=== PATIENT | female | born 1980 | race Two or more races ===

== ENCOUNTER → 2020-11-11 08:17 | Outpatient (BNVA) | payer MEDICAID, SELFPAY | PROVIDERS: PCP Nurse Practitioner Family; Visit Provider Surgery ==

== ENCOUNTER 2020-11-16 11:51 | Outpatient (REF) | payer MEDICAID, SELFPAY ==
--- NOTE | ~2020-11-16 | XR_ITS ---
EXAMINATION: XR CHEST CLINICAL INFORMATION: Morbid obesity COMPARISON: None TECHNIQUE: 2 views of the chest were obtained. FINDINGS: No significant abnormality is noted involving the heart, lungs, mediastinum, bony thorax or soft tissues. XR/XR chest 2V IMPRESSION: No acute disease.
--- NOTE | 2020-11-16 12:01 | ECG_ITS ---
Test Reason : E66.01 Blood Pressure : / mmHG Vent. Rate : 074 BPM Atrial Rate : 074 BPM P-R Int : 116 ms QRS Dur : 084 ms QT Int : 380 ms P-R-T Axes : 006 004 020 degrees QTc Int : 421 ms Normal sinus rhythm Low voltage QRS Borderline ECG No previous ECGs available Referred By: Gaurav Cheung Electronically Signed By:Robert Mejias
[2020-11-16 13:15] LABS: MANUAL DIFF FLAG NO
[2020-11-16 13:22] LABS: Basophils Percent Auto 0.4 % (0-2); Eosinophils Absolute Auto 0.1 X10*3/uL (0.0-0.4); Eosinophils Percent Auto 0.7 % (0-4); Hematocrit 34.7 % (37-47); Hemoglobin 10.3 g/dl (12.0-16.0); Imm Gran Abs Auto 0.04 X10*3/uL (0.00-0.03); Imm Gran Pct Auto 0.4 % (0.0-0.4); Lymphocytes Absolute Auto 2.9 X10*3/uL (1.2-4.9); Lymphocytes Percent Auto 27.4 % (20-40); Mean Corpuscular HGB Conc 29.7 g/dl (31.0-35.0); Mean Corpuscular Hemoglobin 20.9 pg (27.0-33.0); Mean Corpuscular Volume 70.5 fL (80-98); Mean Platelet Volume 9.4 fL (9.4-12.3); Monocytes Absolute Auto 0.4 X10*3/uL (0.1-1.2); Monocytes Percent Auto 3.6 % (2-11); Neutrophils Absolute Auto 7.2 X10*3/uL (2.0-8.3); Neutrophils Percent Auto 67.5 % (45-73); Platelet Count 337 X10*3/uL (160-400); Red Blood Count 4.92 X10*6/uL (4.20-5.50); Red Cell Distribution Width 17.3 % (11.0-16.0); White Blood Count 10.7 X10*3/uL (4.8-10.8)
[2020-11-16 13:50] LABS: Estimated Average Glucose 111 mg/dL; Hemoglobin A1c % 5.5 %
[2020-11-16 13:55] LABS: Alanine Aminotransferase 49 U/L (0-31); Alkaline Phosphatase 82 U/L (39-117); Anion Gap 14 (12-20); Aspartate Amino Transferase 46 U/L (5-31); Bilirubin Total 0.7 mg/dL (0.0-1.0); Blood Urea Nitrogen 8 mg/dL (9-16); C Reactive Protein 5.72 mg/dL (< or = 0.50); Calcium 8.9 mg/dL (8.4-10.2); Carbon Dioxide 23 mmol/L (22-29); Chloride 105 mmol/L (96-108); Cholesterol 131 mg/dL; Estimated Glomerular Filt Rate > 60; Glucose Random 96 mg/dL (60-115); HDL Cholesterol 31 mg/dL; Iron 23 mcg/dL (30-160); LDL Cholesterol Calculated 84 mg/dl; Percent Iron Saturation 6 % (15-50); Potassium 4.2 mmol/L (3.3-5.1); Sodium 138 mmol/L (135-145); Total Iron Binding Capacity 386 mcg/dL (228-428); Total Protein 7.2 g/dL (6.5-8.0); Triglycerides 83 mg/dL; Unsaturated Iron Binding 363 ug/dL
[2020-11-16 14:22] LABS: Ferritin 37 ng/mL (10-122); Vitamin D 25-OH Total 16.5 ng/mL (>30)
[2020-11-16 14:26] LABS: Folate 6.8 ng/mL (> or = 4.0); Vitamin B12 218 pg/mL (200-900)
[2020-11-17 09:37] LABS: Insulin Level Total 43.6 uIU/mL
[2020-11-18 09:21] LABS: Calcium (PTHI) 8.8 mg/dL (8.6-10.2); PTHI 27 pg/mL (14-64)
[2020-11-19 01:33] LABS: Zinc 58 mcg/dL (60-130)
[2020-11-20 01:51] LABS: Vitamin A 34 mcg/dL (38-98)
[2020-11-20 11:52] LABS: Vitamin B1 10 nmol/L (8-30)
== END 2020-11-16 11:52 | disposition home or self-care (01) ==
LOC: HO.LAB 11:51
PROVIDERS: PCP Nurse Practitioner Family; Visit Provider Surgery
DX: E66.01 Morbid (severe) obesity due to excess calories (principal); R73.03 Prediabetes
CPT/HCPCS: 36415; 71046; 80053; 80061; 82306; 82607; 82728; 82746; 83036; 83525; 83540; 83970; 84425; 84443; 84590; 84630; 85025; 86140; 93005

== ENCOUNTER → 2020-11-29 07:51 | Outpatient (BNVA) | payer MEDICAID, SELFPAY | PROVIDERS: PCP Nurse Practitioner Family; Visit Provider Surgery ==

== ENCOUNTER → 2020-12-03 08:11 | Outpatient (BNVA) | payer MEDICAID, SELFPAY | PROVIDERS: PCP Nurse Practitioner Family; Visit Provider Dietitian, Registered | DX: E66.01 Morbid (severe) obesity due to excess calories (principal); Z68.42 Body mass index [BMI] 45.0-49.9, adult | CPT/HCPCS: 97802 ==

== ENCOUNTER 2020-12-30 09:44 | Outpatient (REF) | payer MEDICAID, SELFPAY ==
--- NOTE | ~2020-12-30 | US_ITS ---
EXAMINATION: US COMPLETE ABDOMEN WITH LIVER ELASTOGRAPHY CLINICAL INFORMATION: Severe obesity due to excess calories. COMPARISON: None. TECHNIQUE: Real-time imaging of the abdominal viscera. Noninvasive ultrasound liver fibrosis assessment is performed using Milo ElastPQ point quantification shear wave elastography (pSWE) with a C5-2 MHz transducer. Multiple elastography samples are obtained. FINDINGS: PANCREAS: Normal. The visualized pancreatic head and body are normal in appearance. The remainder of the pancreas is obscured from visualization by the overlying bowel gas. ABDOMINAL AORTA: The proximal, middle, and distal aortic segments are normal in caliber. INFERIOR VENA CAVA: Visualized portions are normal. LIVER: Normal. The liver demonstrates normal size, contour and echogenicity. No focal lesion or intrahepatic biliary duct dilatation. The right lobe measures 12.7 cm in length. The left lobe measures 9.5 cm in length. Portal flow is hepatopedal. Shear wave liver elastography median stiffness is 1.52 m/s (reference: Normal median stiffness is 1.3 m/s or less). IQR/median stiffness to assess sampling precision is 0.14 (reference: good quality data set is IQR/median stiffness of 0.15 or less). GALLBLADDER: There is a mobile echogenic stone measuring 2.3 x 2.2 cm. COMMON BILE DUCT: Normal in caliber measuring 0.39 cm in diameter. RIGHT KIDNEY: Normal. No hydronephrosis. No renal calculi or focal parenchymal lesions. The kidney measures 11.9 cm in maximum dimension. LEFT KIDNEY: Normal. No hydronephrosis. No renal calculi or focal parenchymal lesions. The kidney measures 12.7 cm in maximum dimension. SPLEEN: Normal. The spleen measures 11.4 cm in maximum dimension. FREE FLUID: None. US/US abdomen comp w elastography IMPRESSION: 1. Cholelithiasis without wall thickening or pericholecystic fluid collection. Mild hepatic steatosis without focal lesion. 2. Liver elastography: Median liver stiffness of 1.52 m/s, suggestive of cACLD ruled out. REFERENCE: Society of Radiologists in Ultrasound Liver Stiffness Thresholds (2019): LIVER STIFFNESS THRESHOLDS: *Liver Stiffness equal or less than 1.3 m/s: High probability of being normal. *Liver Stiffness less than 1.7 m/s: In the absence of other known clinical signs, rules out compensated advanced chronic liver disease. *Liver Stiffness 1.7-2.1 m/s: Suggestive of compensated advanced chronic liver disease but need further test for confirmation. *Liver Stiffness over 2.1 m/s: Rules in compensated advanced chronic liver disease. *Liver Stiffness over 2.4 m/s: Suggestive of clinically significant portal hypertension. QUALITY OF DATA SET: *IQR/Median value equal or less than 0.15 implies a quality data set. *IQR/Median value over 0.15 implies a poor quality data set. SIGNIFICANT CHANGE FROM PRIOR EXAM: Significant change if liver stiffness measurement is 10% or greater from prior exam. OTHER CONSIDERATIONS: The stage of liver fibrosis may be overestimated in the setting of acute hepatitis, liver inflammation, elevated liver function tests, hepatic vascular congestion, obstructive cholestasis, non-fasting state, and infiltrative diseases such as amyloidosis and lymphoma. In some patients with NAFLD, the liver stiffness thresholds for compensated advanced chronic liver disease may be lower. In causes other than viral hepatitis and NAFLD, liver stiffness thresholds are not well established.
== END 2020-12-30 09:45 | disposition home or self-care (01) ==
LOC: HO.US 09:44
PROVIDERS: Visit Provider Surgery
DX: Z01.818 Encounter for other preprocedural examination (principal); E66.01 Morbid (severe) obesity due to excess calories; K21.9 Gastro-esophageal reflux disease without esophagitis; R73.03 Prediabetes
CPT/HCPCS: 76705; 76981

== ENCOUNTER 2021-01-07 10:26 | Outpatient (REF) | payer MEDICAID, SELFPAY ==
--- NOTE | ~2021-01-07 | FL_ITS ---
EXAMINATION: XR GI SERIES CLINICAL INFORMATION: [id number] obesity due to excess calories. COMPARISON: None TECHNIQUE: Routine upper GI air-contrast study was performed. FINDINGS: Following oral administration of thick barium and effervescent granules, there is normal propagation of bolus from the oral cavity through the pharynx, esophagus into stomach without any evidence of obstruction, narrowing or stricture. Following placing patient supine and prone lying, the course, caliber and peristalsis of the stomach, duodenal bulb and the sweep is normal. There is mild gastroesophageal refluxing into the upper esophagus. The mucosal pattern of the stomach and the duodenum is normal. FLUOROSCOPY TIME: 1.9 minutes DOSE AREA PRODUCT: 54.202 uGy-m2 (microgray-meter squared) FL/FL upper GI series IMPRESSION: Moderate gastroesophageal reflux without hiatal hernia.
== END 2021-01-07 10:27 | disposition home or self-care (01) ==
LOC: HO.XRAY 10:26
PROVIDERS: PCP Nurse Practitioner Family; Visit Provider Surgery
DX: Z01.818 Encounter for other preprocedural examination (principal); E66.01 Morbid (severe) obesity due to excess calories; R73.03 Prediabetes; K21.9 Gastro-esophageal reflux disease without esophagitis
CPT/HCPCS: 74240

== ENCOUNTER → 2021-02-18 07:28 | Outpatient (BNVA) | payer MEDICAID, SELFPAY | PROVIDERS: PCP Nurse Practitioner Family; Visit Provider Surgery ==

== ENCOUNTER 2021-02-24 09:35 | Outpatient (REF) | payer MEDICAID, SELFPAY ==
[2021-02-25 13:27] LABS: H Pylori Breath Test NOT DETECTED (NOT DETECTED)
== END 2021-02-24 09:36 | disposition home or self-care (01) ==
LOC: HO.LNP 09:35
PROVIDERS: Surgery; PCP Nurse Practitioner Family; Visit Provider Physician Assistant
DX: E66.01 Morbid (severe) obesity due to excess calories (principal); R73.03 Prediabetes; Z11.0 Encounter for screening for intestinal infectious diseases
CPT/HCPCS: 83013; 99211

== ENCOUNTER → 2024-02-21 14:35 | Outpatient (RCR) | payer MEDICAID, SELFPAY ==
[2020-12-17 11:28] VITALS: BP 128/85; PULSE 74; RESP 14; TEMP 36.3; O2SAT 95; BMI 48.8
--- NOTE | 2020-12-17 12:27 | P.CNHO_ITS ---
Subjective - Subjective Chief complaint: consult for: Anemia. Patient: new to practice Consult date: 12/17/20 Requesting Physician: Dr. Anayeli Ellis. Primary Care Provider: Anayeli Ellis NP Medical Summary: DIAGNOSIS: Multifactorial Anemia. HPI - Consult Narrative Reason for consult: consult for: Multifactorial anemia. Narrative: Chapis Troy is a pleasant 40 year old lady, recently diagnosed with anemia. CBC from 11/16: WBC 10.7, HGB 10.3, HCT 34.7, PLT 337. Iron studies: /. B12 218. Folate 6.8. She tells me she had hypocalcemia and low vitamin-D level. She was started on replacement therapy for all of the above a couple of weeks ago. She has actually started feeling better since then. ROS: She feels tired all the time. Over the past year or so. No fever nor chills. Her appetite is not that good. She has joined the weight management program here. She has been losing weight. No headache no dizziness. She denies chest pain or trouble breathing. No abdominal pain nausea vomiting heartburn indigestion. Bowels are working without any gross blood in it. Denies any dysuria or hematuria. Her periods are regular. Denies any joint pains nor muscle aches. She is rather depressed. Her mom this year. Denies skin rashes nor pruritus. Family history: Mom had dementia. Dad had valvular heart disease and had undergone a valve replacement. 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 She is . Has 3 children. She denies smoking. She drinks very rarely. Review of Systems - Constitutional Reports system reviewed and no additional complaints, except as documented, Reports fatigue, Reports malaise, Reports poor appetite, Reports weakness, Reports weight loss, Denies night sweats - Eyes Reports system reviewed and no additional complaints, except as documented - ENT Reports system reviewed and no additional complaints, except as documented, Denies bleeding gums - Cardiovascular Reports system reviewed and no additional complaints, except as documented, Denies chest pain, Denies leg swelling - Respiratory Reports no additional respiratory complaints, Denies chest congestion - Gastrointestinal Reports system reviewed and no additional complaints, except as documented, Denies bloating, Denies diarrhea - Genitourinary Reports no additional female genitourinary complaints, Denies abnormal vaginal bleeding - Musculoskeletal Reports system reviewed and no additional complaints, except as documented, Denies body aches - Integumentary/Breasts Skin/Breast: Reports no additional skin complaints - Neurologic Reports system reviewed and no additional complaints, except as documented, Denies abnormal movements, Denies abnormal speech - Psychiatric Reports system reviewed and no additional complaints, except as documented, Reports depression - Endocrine Reports no additional endocrine complaints - Hematologic/Lymphatic Reports system reviewed and no additional complaints, except as documented - Allergic/Immunologic Reports system reviewed and no additional complaints, except as documented Oncology Screenings - ECOG Performance Status ECOG Performance Status: 0 [facility] Medical History: Medical History (Last Reviewed 12/17/20 @ 11:31 by Aliza Jaffe) Morbid obesity Prediabetes Vitamin D deficiency Functional capacity: independent ambulation Patient : No Family History: Family History (Last Updated 12/17/20 @ 11:33 by Aliza Jaffe) Mother Frontal lobe dementia Father Heart valve replaced Brother No problems noted. Sister No problems noted. Son No problems noted. Son No problems noted. Daughter No problems noted. Surgical History: Surgical History (Last Reviewed 12/17/20 @ 11:31 by Aliza Jaffe) No significant past surgical history Social History: Social History (Last Reviewed 12/17/20 @ 11:33 by Aliza Jaffe) Alcohol History: Alcohol intake: current Alcohol History Details: Alcohol intake frequency: holiday/special occasion Alcohol type: wine Tobacco History: Patient Tobacco Use Status: Never used Tobacco Substance Use History: Use of substances other than those prescribed or required for medical reasons : No Nutrition Assessment: Patient : No Home Medications and Allergies Home Medications Medication Instructions Recorded Confirmed Type calcium citrate 200 mg (950 mg) 200 mg PO TID 11/11/20 12/17/20 History tablet cholecalciferol (vitamin D3) 250 250 mcg PO QWEEK 11/11/20 12/17/20 History mcg (10,000 unit) capsule Allergies Allergy/AdvReac Type Severity Reaction Status Date / Time No Known Allergies Allergy Verified 11/11/20 09:09 Physical Exam Vital signs: Vital Signs Temp 97.3 F 12/17/20 11:28 Pulse 74 12/17/20 11:28 Resp 14 12/17/20 11:28 BP 128/85 12/17/20 11:28 Pulse Ox 95 12/17/20 11:28 Intake & Output 12/16/20 12/17/20 12/17/20 18:59 06:59 18:59 Other: Weight 129.1 kg [place] Weight in Grams [id number] Weight 129.1 kg - Constitutional Present: mild distress - Routine HEENT Exam Head: Present: normal inspection, normocephalic Eye: Present: normal appearance ENT: Present: mucous membranes moist - Routine Respiratory Exam Present: CTAB - Routine Cardiovascular Exam Cardiovascular: Present: RRR, S1, S2 - Routine Abdominal Exam Present: normal bowel sounds, nontender - Routine Rectal Exam Patient deferred: digital exam Assessment and Plan (1) Anemia Status: Acute This is a pleasant 40-year-old lady with history of anemia. Her anemia appears Multifactorial: 1. Iron deficiency anemia: Her iron studies were suggestive of that. Her ferritin is not low, however she has been partially treated. With multiple mineral deficiencies she could have underlying celiac disease. 2. B12 and folate deficiency: She has been noted to have a low B12. She is on replacement for that. 3. ACD: is a possibility. PLAN: I will proceed with further evaluation. Will check celiac disease profile. Will recheck CBC and iron studies, to see if she has responded to the oral iron. Iron studies: /. If not, will arrange for IV iron. She will continue on her supplements. Will check labs in 1 month. She will return in 3 months for a follow-up visit. Thank you, CC: Dr. Anayeli Ellis.
--- NOTE | 2020-12-17 15:48 | MHC.HEMONCMA ---
Patient came in for a consult for anemia, states that she is doing well. Clinical summary was reviewed and updated. Patient had blood work and will return in 5 months for a follow up.
== END | disposition home or self-care (01) ==
LOC: HO.ONC 12-17 11:13
PROVIDERS: PCP Nurse Practitioner Family; Referring Provider Surgery; Visit Provider Internal Medicine
DX: D50.9 Iron deficiency anemia, unspecified (principal); D51.9 Vitamin B12 deficiency anemia, unspecified; Z79.899 Other long term (current) drug therapy
CPT/HCPCS: 99204

== ENCOUNTER → 2024-08-19 08:55 | Outpatient (BNVA) | payer OTHER, SELFPAY | PROVIDERS: PCP Nurse Practitioner Family; Visit Provider Surgery ==

== ENCOUNTER 2024-08-22 08:07 | Outpatient (AMB) | payer OTHER, SELFPAY ==
--- OUTSIDE RECORDS SUMMARY | 2024-08-22 08:13 | XMS_ITS | Data Portability ---
Author Organization [facility] Address [address] [place] [address] Care Team Providers Care Boxcar Weigher Name Role Phone FLORENTINO HEAD Referring Provider Unavailable FLORENTINO HEAD Primary Care Provider [phone] Assessment Encounter Date Assessment Date Assessment LastModified by Organization Details LastModified Time 11/30/2020 11/30/2020 IMPRESSION: Unchanging mild subjective memory impairment with family history of frontotemporal dementia per patient and mother, diagnosis age 50, passing away age 64. We discussed that I understand her focus on this issue now. She has had responsibility for her mother these past 14 years. Now that her mother has passed, she is thinking about herself and her children as well. We discussed that frontotemporal dementia is known to be familial only in a small subset of cases. Genetic testing is generally not by insurance, mostly because the condition has no specific treatments. For the same reason, PET scan that might show frontal hypoperfusion is also usually not paid for by insurance in this situation. Additionally, she is just 40 years old and her forgetfulness is not definitively different than normal from my perspective. PET scan might not be sufficiently sensitive for her even if her family did have familial predisposition for frontotemporal dementia. From a practical standpoint, laboratories should be done for correctable issues. B12 and vitamin D deficiency have ordered been identified by primary care the patient reports. She is on supplements already. Thyroid testing is pending. Sleep apnea risk factors exist with her being overweight and snoring. Sleep apnea may cause cognitive slowing and is a treatable disorder. She agrees to sleep medicine referral. She would also like baseline testing and we will move toward Cognivue. PLAN Chapis Troy November 30, 2020 Cognivue testing of cognition Cognivue is a new FDA approved computerized test, 10 minutes in length, consisting of a set of cognitive probes across cognitive domains that was developed by neurologist/neurosci entist team based on cognitive and neurophysiological data over recent decades. Sleep medicine consultation for snoring context overweight and mental slowing. Concern for sleep apnea. Please establish a habit of 20 minutes of moderate exercise daily such as a brisk walk. This simple habit carries data associated with slowing of any development of cognitive impairment. It also carries data more generally for benefit for brain health and heart health. Please continue vitamin B-12 and vitamin D supplementation started by primary care. Deficiencies in both of these to 90 minutes can cause cognitive slowing. Please continue your move toward checking her thyroid function. Low thyroid function also has association with cognitive slowing. Follow-up after Cognivue testing for reevaluation Andi Hector M.D. PhD [facility] mrossen Not available 11/30/2020 11:08:44 Plan of Treatment Reminders Order Date Submit Date Provider Last Modified By Organization Details Last Modified Time Details Appointments None recorded. Lab None recorded. Referral sleep medicine referral 2020 021 JOSETTE Not available 17:16:45 Procedures None recorded. Surgeries None recorded. Imaging None recorded. Medication Orders None recorded. Patient TargetsNo targets recorded. Patient InstructionsNo instructions recorded. Reason for Referral Sleep Medicine Referral for Mild neurocognitive disorder Referring Physician: Andi Hector, Neurology, Encounter Date: 11/30/2020 Procedures Surgical History Date Name Laterality Status Provider Name and Address Organization Details Recorded Time 12/16/2020 Cognivue completed Andi Hector MD [address] [place] [address], [phone], [facility] 12/16/2020 17:27:18 Imaging Results None recorded. Procedure Notes None recorded. Medical Equipment None Reported. Allergies No known drug allergies Medications Name Sig Start Date Stop Date Status Note LastModified by Organization Details LastModified Time calcium active Not Available Not Avail able Not Available iron active Not Available Not Availa ble Not Available Vitamin D active Not Available Not Sarah ilable Not Available Vitals Date Recorded Body height Body mass index (BMI) Body weight Respiratory rate Provider Name and Address Organization Details Last Updated DateTime 11/30/2020 162.56 cm 49.3 kg/m2 977869.0 1 g 12 /min Yenni Sanchez [facility] 11/30/2020 10:17:52 Social History Question Answer Notes LastModified by Organizat ion Details LastModified Time Tobacco Smoking Status Never Smoker Yenni carranza [facility] 11/30/2020 10:21:01 What Is Your Level Of Alcohol Consumption? None [facility] Information not available 11/30/2020 What Is Your Level Of Caffeine Consumption? Occasional 1 Per Day Information not available 11/30/2020 What Is The Highest Grade Or Level Of School You Have Completed Or The Highest Degree You Have Received? [id number] [facility] Information not available 11/30/2020 What Is Your Relationship Status? Information not available 11/30/2020 Sex: Unknown Functional Status None recorded. Mental Status None recorded. Family History Relationship Description Onset Age of this Age Resolved Age Notes LastModified by Organization Details LastModified Time Mother Dementia [email or web address] Not avail able 11/30/2020 10:19:31 Unspecified Relation Seizure [email or web address] Not available 11/16 10:19:54 Medical History No medical history recorded. Gynecological HistoryNo gynecological history recorded. Obstetrics History GPAL:G 0 P 0 0 0 0 Past Encounters Encounter ID Performer Location Encounter Start Date Encounter Closed Date Diagnosis/Indication Diagnosis SNOMED-CT Code Diagnosis ICD10 Code Diagnosis Note [id number] Andi Hector MD [facility] [address] [place] [address] [place] [address] 11/30/2020 10:12:29 11/30/2020 11:19:49 Mild neurocognitive disorder 345256465 G31.84 [id number] Andi Hector MD [facility] [address] [place] [address] [place] [address] 12/16/2020 15:05:36 12/22/2020 13:51:33 Mild neurocognitive disorder 948395748 G31.84 Health Concerns Section Related Observation LastModified by Organization Detai ls LastModified Time None Recorded Concern Status LastModified by Organization Details LastModified Time None Recorded Advance Directives Directive None Recorded Payers Encounter Date Sequence Insurance Name Policy Number Policy Forman Covered Member ID Forman Member ID Guarantor Name 11/30/2020 1 [place] Chapis Troy [id number] Chapis Troy 12/16/2020 1 [place] Chapis Troy [id number] Chapis Troy Notes Date Note Type Note Provider Name and Address Organization Details Recorded Time 11/30/2020 text/html She presents for initial neurology consultation for assessment and management of concern for dementia. She is accompanied by her youngest daughter. She starts by describing her mother? s dementia. Her mother was diagnosed 14 years ago with frontotemporal dementia ~2006, at 50 years of age (born 1955). The family took care of her for many years until ~2016 this became too difficult and her mother entered a halfway. Her mother also had seizures. The patient is unsure whether these were connected to the dementia. Her mother passed in September 2020. The patient is grieving but is ? d oing okay.? However, she is concerned that she might have the beginnings of dementia. She feels that although everyone forgets little things here and there she forgets more than usual. This has been true for her for many years, as far back in her adulthood as she can remember. She doesn? t remember parts of her childhood so she cannot say if this was true that. The fact that she has forgetfulness about her childhood is part of her concern about her memory. She doesn? t remember specifics of her 3 birthing experiences that she thinks she should remember. Her occasionally brings up something that happened ~2 years ago and she cannot remember. Her lets it go and does not seem concerned about her memory. It is never the reverse, with her remembering something 2 years ago and her not remembering. At work, she might forget something that is due. She eventually gets it done. 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 Her supervisors are happy with her work. They have never mentioned anything about her memory lapses. She lives with her 3 children as well as her and they are all healthy. She and her split the cooking 50-50 and her memory problems do not impair her ability to do her share. She is in charge of bills and her memory problems do not trouble her with this task. She might forget one or 2 pills per year but after getting one reminder in the mail she pays the bill. She has no problem navigating while driving. She has trouble getting to sleep but does not have subsequent trouble staying asleep. She occasionally does not wake rested if she does not get to sleep and time. She normally wakes up at 8 AM. She tries to start going to sleep at 11 and if she gets to sleep by 2 she is generally well rested the next day but sometimes she doesn? t get to sleep until later and then is not rested of the next day. Both she and her snore. She has gotten used to his snoring and she does not recognize this as part of her problem going to sleep. Andi Hector MD [address] [place] [address], [phone], [facility] 12/02/2020 16:03:37 12/16/2020 text/html Follow-up for Cognivue testing context concern for dementia. She is accompanied by her youngest daughter. Presenting symptomatology is reviewed from initial neurology consultation November 30, 2020: She starts by describing her mother? s dementia. Her mother was diagnosed 14 years ago with frontotemporal dementia ~2006, at 50 years of age (born 1955). The family took care of her for many years until ~2017 this became too difficult and her mother entered a halfway. Her mother also had seizures. The patient is unsure whether these were connected to the dementia. Her mother passed in September 2020. The patient is grieving but is ? d oing okay.? However, she is concerned that she might have the beginnings of dementia. She feels that although everyone forgets little things here and there she forgets more than usual. This has been true for her for many years, as far back in her adulthood as she can remember. She doesn? t remember parts of her childhood so she cannot say if this was true that. The fact that she has forgetfulness about her childhood is part of her concern about her memory. She doesn? t remember specifics of her 3 birthing experiences that she thinks she should remember. Her occasionally brings up something that happened ~2 years ago and she cannot remember. Her lets it go and does not seem concerned about her memory. It is never the reverse, with her remembering something 2 years ago and her not remembering. At work, she might forget something that is due. She eventually gets it done. She has worked at [employer], a part of the [employer] resources department since 2019. Her supervisors are happy with her work. They have never mentioned anything about her memory lapses. She lives with her 3 children as well as her and they are all healthy. She and her split the cooking 50-50 and her memory problems do not impair her ability to do her share. She is in charge of bills and her memory problems do not trouble her with this task. She might forget one or 2 pills per year but after getting one reminder in the mail she pays the bill. She has no problem navigating while driving. She has trouble getting to sleep but does not have subsequent trouble staying asleep. She occasionally does not wake rested if she does not get to sleep and time. She normally wakes up at 8 AM. She tries to start going to sleep at 11 and if she gets to sleep by 2 she is generally well rested the next day but sometimes she doesn? t get to sleep until later and then is not rested of the next day. Both she and her snore. She has gotten used to his snoring and she does not recognize this as part of her problem going to sleep. Andi Hector MD [address] [place] [address] [place], [phone], [facility] 12/16/2020 17:28:20 OBGyn Episode No OBEpisode recorded.
--- OUTSIDE RECORDS SUMMARY | 2024-08-22 08:13 | XMS_ITS | Data Portability ---
Author Organization [facility], , [facility] Address [address] [place] [address] Care Team Providers Care Development Planner Name Role Phone KARENA RAMIREZ Primary Care Provider [phone] Assessment Encounter Date Assessment Date Assessment LastModified by Organization Details LastModified Time 05/08/2024 05/08/2024 After a discussion of treatment options, which included consideration of best practices and patient preferences, the following treatment plan and objectives were adopted: pkeough Not available 05/08/2024 09:53:49 Plan of Treatment Reminders Order Date Submit Date Provider Last Modified By Organization Details Last Modified Time Details Appointments Follow Up, 15 2024 09:15A M Juana Mcdonough MD Not available Not available Not available Lab vitamin D, 25-hydro xy, total, serum 2023 025 [facility], [address] [place] [address], [id number], 07/01/2024 14:45:01 CBC 2023 025 [facility], [address] [place] [address], [id number], 07/01/2024 11:12:19 ferritin , serum or plasma 2023 025 [facility], [address] [place] [address], [address], 07/01/2024 14:45:00 Referral physical therapis t referral - R knee pain x week +, anterio pain, reduced extensio n, weight bearing 2023 024 [facility] (Imaging), [address] [place], [address], 05/08/2024 15:13:08 Procedures None recorded . Surgeries None recorded . Imaging MAMMO, screenin g, tomosynt hesis, bilatera l - 2nd Look Consult/ Diag Mammo/US Breast/G uided Asp/[place] st Bx/Clip Placemen t, as clinical ly indicate d. 2024 025 [facility] (Imaging), [address] [place], [address], 08/05/2024 11:05:14 XR, knee - R knee pain x week+ , difficul ty bearing weight 2023 024 [facility] (Imaging), [address] [place], [address], 05/08/2024 10:24:44 MAMMO, screenin g, tomosynt hesis, bilatera l - 2nd Look Consult/ Diag Mammo/US Breast/G uided Asp/[place] st Bx/Clip Placemen t, as clinical ly indicate d. 2023 024 [facility] (Imaging), [address] [place], [address], 07/30/2024 13:41:48 Medication Orders ergocalc iferol (vitamin D2) 1,250 mcg (50,000 unit) capsule 2024 025 [facility]armacy #[id number], [address] [place], [address], 07/08/2024 09:55:30 Mounjaro 10 mg/0.5 mL subcutan eous pen injector 2024 025 [facility]/Pharmacy #1095, [address] [place], [address], 07/08/2024 09:59:05 etodolac 400 mg tablet 2023 025 [facility]/Pharmacy #1095, [address] [place], [address], 07/08/2024 09:56:26 Wegovy 2.4 mg/0.75 mL subcutan eous pen injector 2023 024 [facility]/Pharmacy #1095, [address] [place], [address], 03/21/2024 14:55:43 ergocalc iferol (vitamin D2) 1,250 mcg (50,000 unit) capsule 2023 024 [facility]/Pharmacy #1095, [address] [place], [address], 12/28/2023 14:42:26 Wegovy 1 mg/0.5 mL subcutan eous pen injector 2023 024 [facility]armacy #1095, [address] [place] [address], [address], 03/19/2024 10:20:03 Wegovy 1.7 mg/0.75 mL subcutan eous pen injector 2023 024 [email or web address] [address] [place], [address], 03/19/2024 10:19:58 Patient TargetsNo targets recorded. Patient InstructionsNo instructions recorded. Reason for Referral Physical Therapist Referral for Pain of right knee joint R knee pain x week +, anterio pain, reduced extension, weight bearing Referring Physician: Talisha Sparrow, Family Medicine, Encounter Date: 05/08/2024 Results Created Date Observation Date Name Description Value Unit Range Abnormal Flag Note LastModifiedBy Organization Detail LastModifiedTime 07/01/1907/01/2024 RBC MORPH OLOGY polychrom FEW Not Available [address], [address], 07/01/2024 11:11:37 07/01/1907/01/2024 RBC MORPH OLOGY hypochrom FEW Not Available [address], [address], 07/01/2024 11:11:37 07/01/1907/01/2024 RBC MORPH OLOGY aniso SLIGHT Not Available [address], [address], 07/01/2024 11:11:37 07/01/19 25 07/01/2024 RBC MORPH OLOGY micro MODERA TE Not Available [address], [address], 07/01/2024 11:11:37 07/01/19 25 07/01/2024 RBC MORPH OLOGY ovalocyte MODERA TE Not Available [address], [address], 07/01/2024 11:11:37 07/01/19 25 07/01/2024 CBC WBC 11.52 K/? ? ?L 3.98-1 0.04 high Not Available [address], [address], 07/01/2024 11:12:19 07/01/1907/01/2024 CBC RBC 5.17 M/? ? ?L 3.93-5 .22 Not Available [address], [address], 07/01/2024 11:12:19 07/01/1907/01/2024 CBC HGB 10.1 g/dL 11.2-1 5.7 low Not Available [address], [address], 07/01/2024 11:12:19 07/01/1907/01/2024 CBC HCT 34.5 % 34.1-4 4.9 Not Available [address], [address], 07/01/2024 11:12:19 07/01/1907/01/2024 CBC MCV 66.7 fL 79.4-9 4.8 low Not Available [address], [address], 07/01/2024 11:12:19 07/01/1907/01/2024 CBC MCH 19.5 pg 25.6-3 2.2 low Not Available [address], [address], 07/01/2024 11:12:19 07/01/1907/01/2024 CBC MCHC 29.3 g/dL 32.2-3 5.5 low Not Available [address], [address], 07/01/2024 11:12:19 07/01/1907/01/2024 CBC plt 360 K/? ? ?L 182-36 9 Not Available [address], [address], 07/01/2024 11:12:19 07/01/1907/01/2024 CBC MPV 9.6 fL 9.4-12 .3 Not Available [address], [address], 07/01/2024 11:12:19 07/01/1907/01/2024 CBC neut% 71.5 % 34.0-7 1.1 high Not Available [address], [address], 07/01/2024 11:12:19 07/01/1907/01/2024 CBC neut# 8.23 1.56-6 .13 high Not Available [address], [address], 07/01/2024 11:12:19 07/01/1907/01/2024 CBC lymph % 22.0 % 19.3-5 1.7 Not Available [address], [address], 07/01/2024 11:12:19 07/01/1907/01/2024 CBC lymph # 2.54 K/? ? ?L 1.18-3 .74 Not Available [address], [address], 07/01/2024 11:12:19 07/01/1907/01/2024 CBC mono% 4.6 % 4.7-12 .5 low Not Available [address], [address], 07/01/2024 11:12:19 07/01/1907/01/2024 CBC mono# 0.53 0.24-0 .56 Not Available [address], [address], 07/01/2024 11:12:19 07/01/1907/01/2024 CBC eo% 1.3 % 0.7-5. 8 Not Available [address], [address], 07/01/2024 11:12:19 07/01/1907/01/2024 CBC eo# 0.15 0.04-0 .36 Not Available [address], [address], 07/01/2024 11:12:19 07/01/1907/01/2024 CBC baso% 0.3 % 0.1-1. 2 Not Available [address], [address], 07/01/2024 11:12:19 07/01/1907/01/2024 CBC baso# 0.03 0.00-0 .08 Not Available [address], [address], 07/01/2024 11:12:19 07/01/19 25 07/01/2024 CBC RDW-CV 19.9 % 11.7-1 4.4 high SREV= Slide revie [facility]. Not Available [address], [address], 07/01/2024 11:12:19 07/01/1907/01/2024 CBC Ig% 0.300 % 0.000- 1.500 Ig % >0.5 Indic ates possi ble Left Shift Not Available [address], [address], 07/01/2024 11:12:19 07/01/1907/01/2024 CBC Ig# 0.040 0.000- 0.093 Not Available [address], [address], 07/01/2024 11:12:19 07/01/1907/01/2024 CBC NRBC% 0.0 % 0.0-0. 2 Not Available [address], [address], 07/01/2024 11:12:19 07/01/1907/01/2024 CBC NRBC# 0.000 0.000- 0.012 Not Available [address], [address], 07/01/2024 11:12:19 07/01/1907/01/2024 HGB A1C hemoglobin A1C 5.4 % 4.8-6. 0 Goal: <7% in Patie nts with Diabe julia An A1c betwe en 5.7-6 .4% is ident ified as pre-d iabet es and sugge sts risk for progr essio n to diabe julia Two a1c value s of 6.5% or highe r is consi stent with a diagn osis of diabe julia but may need furth er confi rmati on Not Available [address], [address], 07/01/2024 12:55:07 07/01/1907/01/2024 HGB A1C estimated average glucose 108.3 mg/dL Not Available [address], [address], 07/01/2024 12:55:07 07/01/1907/01/2024 TOMI TIN ferritin 5 NG/mL 6-115 low Not Available [address], [address], 07/01/2024 14:45:00 07/01/1907/01/2024 VITAM IN D 25-HY DROXY TOTAL vitamin D 25-hydroxy EIA 11.1 NG/mL 20.0-9 9.9 low Thera py is based on measu remen t of total 25-OH D, with level s less than 20 ng/mL indic ative of Vitam in D defic iency . Level s betwe en 20ng/ mL and 30 ng/mL sugge st insuf ficie ncy. Optim al Level s are great er than 30 ng/mL . Not Available [address], [address], 07/01/2024 14:45:01 07/01/1907/03/2024 LIPID PANEL cholesterol 110 mg/dL <200 mg/dl Rhys able 200-2 39 mg/dl Borde rline High >240 mg/dl High Not Available [address], [address], 07/03/2024 13:40:58 07/01/1907/03/2024 LIPID PANEL triglyceride s 65 mg/dL <150 mg/dL Vero l 150-1 99 mg/dL Borde rline High 200-4 99 mg/dL High >500 mg/dL Very High Not Available [address], [address], 07/03/2024 13:40:58 07/01/1907/03/2024 LIPID PANEL direct HDL 35 mg/dL <40 mg/dl - Major Risk for CHD >60 mg/dl - Negat madeleine Risk for CHD Not Available [address], [address], 07/03/2024 13:40:58 07/01/19 25 07/03/2024 LDL - CALCU LATED LDL - calculated 62 RISK CATEG ORY LDL GOAL _ CHD or CHD Risk Equiv alent s <100 mg/dl (10-y ear risk >20%) 2+ Risk Facto rs <130 mg/dl (10-y ear risk <= 20%) 0-1 Risk Facto r? <160 mg/dl ? Almos t all peopl e with 0-1 risk facto r have a 10 year risk <10%, thus 10 year risk asses ment in peopl e with 0-1 risk facto r is not stacia forte. Not Available [address], [address], 07/03/2024 13:40:59 07/01/1907/03/2024 COMP. METAB OLIC PANEL glucose 92 mg/dL 70-100 Not Available [address], [address], 07/03/2024 13:49:40 07/01/19 25 07/03/2024 COMP. METAB OLIC PANEL BUN 10 mg/dL 7-18 Not Available [address], [address], 07/03/2024 13:49:40 07/01/1907/03/2024 COMP. METAB OLIC PANEL creatinine 0.7 mg/dL 0.8-1. 3 low Not Available [address], [address], 07/03/2024 13:49:40 07/01/19 25 07/03/2024 COMP. METAB OLIC PANEL B/C 14.3 ratio Not Available [address], [address], 07/03/2024 13:49:40 07/01/19 25 07/03/2024 COMP. METAB OLIC PANEL GFR >=60ML /MIN mL/mi n normal >=60m L/min - Vero l or midly reduc ed <60mL /min- Decre ased kidne y funct ion <15mL /min - Kidne y failu re [facility] calcu lates estim ated Glome rular Filtr ation Rate (eGFR ) using the Chron ic Kidne y Disea se Epide miolo gy Colla borat ion (CKD- EPI) Equat ion (Christine r et. al 2020) as recom man d by the Natio nal Kidne y Found ation . eGFR is based on age, serum creat inine , and sex. CKD-E PI does not calcu late eGFR by race, does not apply to child roland (age <18 years ), and shoul d not be used in pregn ashley. Not Available [address], [address], 07/03/2024 13:49:40 07/01/1907/03/2024 COMP. METAB OLIC PANEL sodium 142 mmol/ L 136-14 5 Not Available [address], [address], 07/03/2024 13:49:40 07/01/19 25 07/03/2024 COMP. METAB OLIC PANEL potassium 4.2 mmol/ L 3.5-5. 1 Not Available [address], [address], 07/03/2024 13:49:40 07/01/19 25 07/03/2024 COMP. METAB OLIC PANEL chloride 105 mmol/ L 96-107 Not Available [address], [address], 07/03/2024 13:49:40 07/01/19 25 07/03/2024 COMP. METAB OLIC PANEL anion gap 12.4 5.0-15 .0 Not Available [address], [address], 07/03/2024 13:49:40 07/01/19 25 07/03/2024 COMP. METAB OLIC PANEL CO2 25 mmol/ L 21-32 Not Available [address], [address], 07/03/2024 13:49:40 07/01/19 25 07/03/2024 COMP. METAB OLIC PANEL calcium 8.2 mg/dL 8.5-10 .3 low ANA=V erifi ed by Adebayo mclaughlin Not Available [address], [address], 07/03/2024 13:49:40 07/01/19 25 07/03/2024 COMP. METAB OLIC PANEL total protein 7.4 g/dL 6.4-8. 2 Not Available [address], [address], 07/03/2024 13:49:40 07/01/19 25 07/03/2024 COMP. METAB OLIC PANEL albumin 3.8 g/dL 3.4-5. 0 Not Available [address], [address], 07/03/2024 13:49:40 07/01/19 25 07/03/2024 COMP. METAB OLIC PANEL globulin 3.6 g/dL Not Available [address], [address], 07/03/2024 13:49:40 07/01/19 25 07/03/2024 COMP. METAB OLIC PANEL A/G 1.1 ratio 0.8-2. 0 Not Available [address], [address], 07/03/2024 13:49:40 07/01/19 25 07/03/2024 COMP. METAB OLIC PANEL total bilirubin 0.70 mg/dL 0.00-1 .00 Not Available [address], [address], 07/03/2024 13:49:40 07/01/19 25 07/03/2024 COMP. METAB OLIC PANEL AST 10 U/L 0-37 Not Available [address], [address], 07/03/2024 13:49:40 07/01/19 25 07/03/2024 COMP. METAB OLIC PANEL ALT 18 U/L 6-63 Not Available [address], [address], 07/03/2024 13:49:40 07/01/19 25 07/03/2024 COMP. METAB OLIC PANEL alk. phos. 76 U/L 50-136 Not Available [address], [address], 07/03/2024 13:49:40 05/08/20 24 05/08/2024 XR, knee CLINIC AL HISTOR Y: Right knee pain. TECHNI QUE: AP, obliqu e and latera l views of the right knee obtain ed. COMPAR NETTA: None. FINDIN GS: There is no fractu re, sublux ation or disloc ation. The joint spaces are mainta ined. Joint effusi on cannot be ruled out. IMPRES WHITNEY: No acute bone abnorm ality. Cannot rule out joint effusi on. Yue hu Physic victorino: Zaid Brandt [email or web address] (Imaging) [address], [place], [address], 07/08/2024 09:51:14 Result Notes None recorded. Problems Name Problem SNOMED Code Status Onset Date Resolution Date Notes Provider Name and Address Organization Details Recorded Time Obesity 298165803 Completed 202004/11/2022 Removal Reason: BMI = 47.6, 02/04/21 (morbid obesity) LEONARD Griggs, [facility] 2 10:53:55 Morbid obesity 561961706 Active 2021 BMI = 47.6, 02/04/21 Vivien Butterfield LPN null, [facility] 2 10:54:07 Iron deficienc y anemia 61816310 Active 2023 Juana Mcdonough MD [address] [place] [address], [phone], [facility] 4 10:04:04 Problem Notes None recorded. Procedures Surgical History Date Name Laterality Status Provider Name and Address Organization Details Recorded Time 5 Obesity counseling completed Juana Mcdonough MD [address] [place] [address], [phone], [facility] 07/08/2024 10:00:11 4 Smoking Cessation Counselling cancelled SHAMIKA VALENZUELA, PT, DPT [address] [place] [address], [phone], [facility] 05/27/2024 11:26:53 4 Physical Activity Counselling cancelled SHAMIKA VALENZUELA PT, DPT [address] [place] [address], [phone], [facility] 05/27/2024 11:26:53 4 [address]: PT Eval Low Complexity cancelled SHAMIKA VALENZUELA PT, DPT [address] [place] [address], [phone], [facility] 05/27/2024 11:26:53 4 Treatment and Advice cancelled SHAMIKA VALENZUELA PT, DPT [address] [place] [address], [phone], [facility] 05/27/2024 11:26:53 4 G2211 completed Juana Mcdonough MD [address] [place] [address], [phone], [facility] 09/14/2023 10:39:47 4 Obesity counseling completed Juana Mcdonough MD [address] [place] [address], [phone], [facility] 08/23/2023 10:26:18 1 prevention-talha cerna alcohol misuse screening completed Carmen Pete [facility] 10/21/2020 08:30:58 9 Refraction completed Thuy Parker OD [address] [place] [address], [phone], [facility] 12/26/2018 09:27:37 7 Refraction completed Corona Melendez [facility] 05/03/2017 09:16:12 Imaging Results Imaging Date Name Status LastModified by Organiz ation Details LastModified Time 05/08/2024 XR, knee completed [email or web address] ([facility]) [address], [place], [address], 07/08/2024 09:51:14 Procedure Notes None recorded. Medical Equipment None Reported. Allergies No known drug allergies Medications Name Sig Start Date Stop Date Status Note LastModified by Organization Details LastModified Time vitamin d3 5000 iu softgels 50 TAKE 1 CAPSULE BY MOUTH EVERY DAY 08/22 completed Not Available Not Available Not Available cyclobenza lexi 10 mg tablet TAKE 1 TABLET BY MOUTH AT BEDTIME NEEDED active Not Available Not Available No t Available amoxicilli n 500 mg capsule Take 1 capsule every 12 hours by oral route for 7 days. 10/21 completed not taken 10/21/20 t Not Available Not Available Not Available metformin 500 mg tablet TAKE 1 TABLET BY MOUTH EVERY DAY 03/19 completed NOT TAKING 03/19/24 MV Not Available Not Available Not Available acetaminop hen 325 mg tablet 10/21 completed not taken 10/21/20t t Not Available Not Available Not Available cetirizine 10 mg tablet TAKE 1 TABLET BY MOUTH EVERY DAY 08/22 completed Not Available Not Available Not Available azithromyc in 250 mg tablet TAKE 1 TABLET BY MOUTH EVERY DAY 02/04 completed Not Available Not Available Not Available ibuprofen 800 mg tablet Take 1 tablet by mouth up to three times daily as needed for pain 08/22 completed Not Available Not Available Not Available prednisone 20 mg tablet TAKE 3 TABLETS (60 MG TOTAL) BY MOUTH DAILY WITH BREAKFAS T FOR 5 DAYS. 02/04 completed Not Available Not Available Not Available penicillin V potassium 500 mg tablet active Not Available Not Available Not Available acetaminop hen 300 mg-codeine 30 mg tablet 10/21 completed not taken 10/21/20t t Not Available Not Available Not Available calcium 600 mg (as calcium carbonate 1,500 mg) tablet TAKE 1 TABLET BY MOUTH THREE TIMES A DAY 08/22 completed Not Available Not Available Not Available ferrous sulfate 325 mg (65 mg iron) tablet TAKE 1 TABLET BY MOUTH EVERY DAY active Not Available Not Available No t Available Cipro 500 mg tablet Take 1 tablet twice a day by oral route as directed for 7 days. 02/11 completed Not Available Not Available Not Available etodolac 400 mg tablet Take 1 tablet twice a day by oral route as directed . 07/08 completed Not Available Not Available Not Available Iophen C-NR 10 mg-100 mg/5 mL oral liquid active Not Available Not Available Not Available ergocalcif ronnie (vitamin D2) 1,250 mcg (50,000 unit) capsule Take 1 capsule every week by oral route. active Not Available Not Available No t Available ibuprofen 600 mg tablet 10/21 completed not taken 10/21/20t t Not Available Not Available Not Available intrauteri ne device (IUD) Take by intraute rine route. active Not Available Not Available No t Available fluticason e propionate 50 mcg/actuat ion nasal spray,susp ension Franklin 1 spray every day by intranas al route. 08/22 completed Not Available Not Available Not Available cholecalci ferol (vitamin D3) 125 mcg (5,000 unit) capsule TAKE 1 CAPSULE BY MOUTH DAILY 08/22 completed Not Available Not Available Not Available loratadine 10 mg tablet Take 1 tablet every day by oral route for 30 days. 10/21 completed not taken 10/21/20t t Not Available Not Available Not Available naproxen 500 mg tablet TK 1 T PO BID A S DIRECTED active Not Available Not Available No t Available Saline Nasal 0.65 % spray aerosol TK BY NASAL ROUTE QID PRN active Not Available Not Available No t Available Sprintec (28) 0.25 mg-35 mcg tablet TAKE 1 TABLET BY MOUTH ONCE A DAY 10/21 completed not taken 10/21/20t t Not Available Not Available Not Available nitrofuran toin monohydrat e/macrocry stals 100 mg capsule 10/21 completed not taken 10/21/20t t Not Available Not Available Not Available ProAir HFA 90 mcg/actuat ion aerosol inhaler INHALE 2 PUFFS INTO THE LUNGS EVERY 6 HOURS NEEDED FOR WHEEZE 08/22 completed Not Available Not Available Not Available ferrous gluconate 324 mg (38 mg iron) tablet TAKE 1 TABLET BY MOUTH EVERY DAY 10/21 completed not taken 10/21/20t t Not Available Not Available Not Available cholecalci ferol (vitamin D3) 1,250 mcg (50,000 unit) capsule TAKE 1 CAPSULE BY MOUTH ONCE A WEEK FOR 12 WEEKS 08/22 completed Not Available Not Available Not Available PrenaPlus 27 mg iron-1 mg tablet active Not Available Not Available Not Available Vol-Plus 27 mg-1 mg tablet TAKE 1 TABLET BY MOUTH EVERY DAY DIRECTED active Not Available Not Available No t Available Vitron-C 65 mg iron-125 mg tablet,del ayed release TAKE 1 TAB BY MOUTH DAILY SWALLOW WHOLE DO NOT CHEW/ANNIE AK/DISSO LVE/OPEN 08/22 completed Not Available Not Available Not Available mecobalami n (vitamin B12) 1,000 mcg disintegra ting tablet,sub lingual PLACE 1 TABLET UNDER TONGUE AND ALLOW TO DISSOLVE FOR AT LEAST30 SECS BEFORE SWALLOWI NG 08/22 completed Not Available Not Available Not Available Vol-Plus 27 mg iron-1 mg tablet 10/21 completed not taken 10/21/20t t Not Available Not Available Not Available Wegovy 2.4 mg/0.75 mL subcutaneo us pen injector Inject 0.75 mL every week by subcutan eous route. 03/21 completed Not Available Not Available Not Available Wegovy 1.7 mg/0.75 mL subcutaneo us pen injector INJECT 1.7 MG SUBCUTAN EOUSLY ONE TIME PER WEEK 03/19 completed Not Available Not Available Not Available Wegovy 1 mg/0.5 mL subcutaneo us pen injector Inject 1 mg every week by subcutan eous route. 03/19 completed Not Available Not Available Not Available Wegovy 0.25 mg/0.5 mL subcutaneo us pen injector INJECT 0.25 MG EVERY WEEK BY SUBCUTAN EOUS ROUTE FOR 28 DAYS. 12/27 completed Not Available Not Available Not Available Wegovy 0.5 mg/0.5 mL subcutaneo us pen injector INJECT 0.5 MG EVERY WEEK BY SUBCUTAN EOUS ROUTE FOR 28 DAYS. 03/19 completed Not Available Not Available Not Available Mounjaro 7.5 mg/0.5 mL subcutaneo us pen injector Inject 7.5 mg every week by subcutan eous route. active Not Available Not Available No t Available Mounjaro 5 mg/0.5 mL subcutaneo us pen injector AFTER COMPLETI NG FOUR DOSES OF 2.5MG, THEN INJECT 5MG ONCE WEEKLY active Not Available Not Available No t Available Mounjaro 10 mg/0.5 mL subcutaneo us pen injector Inject 0.5 mL every week by subcutan eous route. 2024 active Not Available Not Available Not Avai [email or web address] Mounjaro 2.5 mg/0.5 mL subcutaneo us pen injector INJECT 2.5 MG SUBCUTAN EOUSLY WEEKLY FOR 28 DAYS active Not Available Not Available No t Available Ozempic 0.25 mg or 0.5 mg (2 mg/3 mL) subcutaneo us pen injector INJECT 0.25MG SUBCUTAN EOUSLY WEEKLY FOR 4 WEEKS THEN INCREASE TO 0.5MG WEEKLY 12/27 completed Not Available Not Available Not Available Vitals Date Recorded Body height Body mass index (BMI) Body weight Heart rate Oxygen saturation Oxygen saturation in Arterial blood by Pulse oximetry Systolic blood pressure Diastolic blood pressure Provider Name and Address Organization Details Last Updated DateTime 4 162.56 cm 44.6 kg/m2 990463. 7 g 76 /min 97 % 97 % 118 mm[Hg] 68 mm[Hg] Fiona Quinonez [facility] 4 14:30:23 Date Recorded Body height Body mass index (BMI) Body weight Heart rate Oxygen saturation Oxygen saturation in Arterial blood by Pulse oximetry Systolic blood pressure Diastolic blood pressure Provider Name and Address Organization Details Last Updated DateTime 4 162.56 cm 44.8 kg/m2 345051. 61 g 94 /min 97 % 97 % 122 mm[Hg] 80 mm[Hg] MARK Bravo [facility] 4 09:47:27 Date Recorded Body height Body mass index (BMI) Body weight Oxygen saturation Oxygen saturation in Arterial blood by Pulse oximetry Heart rate Systolic blood pressure Diastolic blood pressure Provider Name and Address Organization Details Last Updated DateTime 4 162.56 cm 44.2 kg/m2 060859. 04 g 98 % 98 % 77 /min 127 mm[Hg] 64 mm[Hg] Keshia Vargassaul [facility] 4 16:12:13 Date Recorded Body height Oxygen saturation Oxygen saturation in Arterial blood by Pulse oximetry Heart rate Body mass index (BMI) Body weight Systolic blood pressure Diastolic blood pressure Provider Name and Address Organization Details Last Updated DateTime 4 162.56 cm 96 % 96 % 76 /min 44.1 kg/m2 387903. 24 g 117 mm[Hg] 72 mm[Hg] Polly Sweeneykele [facility] 4 09:31:47 Date Recorded Body height Body mass index (BMI) Body weight Heart rate Oxygen saturation Oxygen saturation in Arterial blood by Pulse oximetry Systolic blood pressure Diastolic blood pressure Provider Name and Address Organization Details Last Updated DateTime 5 162.56 cm 45 kg/m2 294399. 2 g 73 /min 96 % 96 % 122 mm[Hg] 76 mm[Hg] Vivien Hurt [facility] 5 09:45:36 Social History Question Answer Notes LastModified by Organizat ion Details LastModified Time Tobacco Smoking Status Never Smoker 05/02/24 07/08/24 Viiven Xiongra [facility] 07/08/2024 09:42:45 What Is Your Level Of Alcohol Consumption? Occasional 2/year. No Hx Abuse Information not available 07/15/2013 Do You Wear A Helmet When Biking? No Information not available 10/21/2020 What Is Your Level Of Caffeine Consumption? Moderate Information not available 10/21/2020 What Type Of Diet Are You Following? REGULAR Information not available 10/21/2020 Education 2 Year College At [employer]. Early Education Information not available 07/15/2013 How Many Days In The Past Year Have You Had A Heavy Drinking Consumption (4+ Female, 5+ Male)? 0 [email or web address] Information not available 07/15/2013 Are There Any Guns Present In Your Home? No Information not available 10/21/2020 Live Alone Or With Others? With Others /kids Information not available 10/21/2020 Marital Status [facility] Informatio n not available 07/15/2013 Mosquito Repellent Used Routinely Yes Information not available 10/21/2020 What Was The Date Of Your Most Recent Tobacco Screening? 07/08/2024 05/02/24 SM07/08/24MV [email or web address] Information not available 07/08/2024 How Many Children Do You Have? 3 2 Sons, 1 Girl Information not available 07/15/2013 Seat Belts Used Routinely No Information not available 10/21/2020 Are You Sexually Active? Yes [facility] Information not available 07/15/2013 Smoke Alarm In Home Yes Information not available 10/21/2020 What Types Of Sporting Activities Do You Participate In? No Information not available 10/21/2020 General Stress Level Low Information not available 10/21/2020 Do You Use Sunscreen Routinely? Yes Information not available 10/21/2020 Sex: Unknown Functional Status None recorded. Mental Status None recorded. Family History Nothing Reported Notes:MOM: Passed age 63 in 2020. Frontal lobe dementia, seizures. Was sick for 13-14 years. DAD: Alive and well SIS: 1: a&w BRO: 1: a&w JENNIFFER: 0 SON: 2: a&w Medical History No medical history recorded. Gynecological History Statement/Question Response History of Abnormal Pap N Obstetrics History GPAL:G 0 P 0 0 0 0 Immunizations Vaccine Type Date Status Note Provider Nam e and Address Organization Details Recorded Time [facility] 2 [facility] 11:05[facility]19 COVID-19, mRNA, LNP-S, PF, 100 mcg/0.5mL dose or 50 mcg/0.25mL dose 1 [facility] 10/21/2020 14:32:44 COVID-19, mRNA, LNP-S, PF, 100 mcg/0.5mL dose or 50 mcg/0.25mL dose 1 completed Carmen Ty, [place]OCK null, [facility] 10/21/2020 14:32:55 Td (adult), 2 Lf tetanus toxoid, preservative free, adsorbed 4 completed MARK Bravo, [facility] 08/23/2023 10:30:07 Past Encounters Encounter ID Performer Location Encounter Start Date Encounter Closed Date Diagnosis/Indication Diagnosis SNOMED-CT Code Diagnosis ICD10 Code Diagnosis Note [id number] BROCK Darby, [facility], OFFICE [address] [place] [address] 07/15/2013 10:53:12 07/15/2013 11:24:58 Cough [id number] with tachycardi a and some lung findings will treat below. d/w Midler [id number] Myrtle JON, [facility], OFFICE [address] [place] [address] 02/04/2014 14:42:24 02/04/2014 15:27:54 Lower abdominal pain 76430353 UA + nits, blood ? pyelo Will check labs below tx with cipro Keep close f/u in 48 hrs [id number] Myrtle JON, [facility], OFFICE [address] [place] [address] 02/06/2014 11:32:09 02/06/2014 11:47:39 Lower abdominal pain 40058951 resolving Urine Cx + and senstive to Cipro Backache 440150320 C/W naproxen bid with meals Given flexeril 10 mg qhs Advised heat, stretching F/U prn Urinary tr act infectious disease [id number] Opal Robles NP , [facility], [address] [place] [address] 11/07/2014 12:14:41 11/07/2014 12:53:54 Cough 62180583 bronchitis related to allergies is most likely meds as directed f/u with PCP prn sx persist or increase Irregular periods 79772779 History of [id number] Unclear EDC - 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 Options counseling . Call with any bleeding, other concerns. [id number] Thuy Parker, OD Eye [facility], [facility] [address] [place] [address] 05/03/2017 08:57:13 05/03/2017 09:50:02 Myopic astigmatism 386887451 H52.144 [id number] Thuy Parker, OD [facility], [facility] [address] [place] [address] 12/26/2018 08:39:50 12/26/2018 10:05:53 Myopic astigmatism 921732356 H52.651 [id number] VALERIE Galindo , [facility], [address]ICE [address] [place] [address] 10/21/2020 14:26:03 10/25/2020 13:08:33 Adult health examination 364810103 Z00.00 Will update fasting labs Due for a pap, will arrange in-office Counseling 747148960 Z71 .9 Depression screening 171 266823 Z13.31 depression screening tool administer ed, entered into emr, scored and discussed, time greater than 7.5 minutes Screening for alcohol abuse 595529649 Z13.39 AUDIT 1 out of 12. No concerns. Morbid obesity 697688256 E66.01 BMI 49.8. Discussed healthy diet today. Avoid soda, try drinking water or seltzer hong. Avoid putting cream/suga r in daily coffee. Eat a diet full of whole grains, fruits, vegetables , lean meats/prot eins. Limit carbs with each meal. Encouraged increase physical activity. Try to go for walks outside a few times per week. Try parking the car farther away from the entrance at work, stores, etc. Try taking the stairs more often. She is interested in weight loss program and/or surgery - referral placed to [facility]. Normal grief reaction 27 8202158 F43.20 Mother recently passed, patient grieving. Provided emotional support today. Will have [facility] outreach patient for support. Family his tory of dementia 651080840 Z81.8 Mother had frontal lobe dementia . No one else in the family with dementia. Patient interested in a work-up with neurology, will refer. Insomnia 421586557 G47.0 0 Ongoing insomnia. 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 Avoid screen time before bed Try a daily melatonin over the counter Follow-up in the next several weeks in-house with this EMPLOYMENT AGENCY MANAGER. [id number] VALERIE Galindo , [facility], OFFICE [address] [place] [address] 11/04/2020 10:07:09 11/04/2020 11:03:44 Insomnia 636369933 G47.00 Ongoing insomnia. 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 Avoid screen time before bed Try a daily melatonin over the counter Encouraged increasing physical activity throughout the day Allergic rhinitis 954863 04 J30.9 Nasal congestion , itchy/wate ry eyes. Start flonase and daily antihistam ine as below. Prediabetes 230388748 R7 3.03 A1c 6.0. As above, referral in place for weight loss center. Discussed that weight loss could significan tly lower her risks of developing into diabetes. Screening for malignant neoplasm of cervix 862841319 Z12.4 Pap obtained today. No history of abnormal paps per patient. Obesity 590834214 E66.9 BMI 33.3. Has a referral already in place for [facility] weight loss clinic. Encouraged to call to set up an appt Discussed healthy diet, encouraged regular physical activity. Normal grief reaction 27 0813967 F43.20 Mother recently passed, patient grieving. Provided emotional support today. Will have [facility] outreach patient for support. Hypocalcemia 5978895 E83 .51 Spoke with the patient, notified of critical lab results - calcium 7.9. She denies any current medication s like laxatives or diuretics. No diarrhea/C rohn's disease. Only takes OTC pain medication s as needed for headaches. She does report always feeling cold, trouble losing weight, insomnia. Reviewed with Dr Hill () and Danii Thao ([place]). Will repeat ionized calcium, vitamin D, magnesium, TSH, PTH. F/u with results. [id number] VALERIE Galindo, [facility], OFFICE [address] [place] [address] 11/11/2020 16:33:49 11/11/2020 17:02:05 Toothache 54457952 K08.89 Patient has several missing teeth and a cracked upper left molar but does not appear infected. Continue with as-needed ibuprofen for pain. Appt in place next week with dentistry. Hypocalcemia 3813403 E83 .51 Critically low calcium on routine BMP 11/01/20 Low ionized calcium 4.7 (11/03/20), PTH high at 79.1 (11/03/20), vitamin D low at 7.9 (11/03/20), normal mag, normal TSH Per Dr Aguilar, will arrange for an appt with endo - appt in place now for November 23. In the meantime, start vitamin d and calcium - vitamin d3 50,000 units weekly and calcium 600 mg TID. Patient was instructed to not take together. This EMPLOYMENT AGENCY MANAGER reviewed with Dr Aguilar - her tingling in her hands and her multiple cracked/mi ssing teeth could likely be from halfway low calcium. Her last calcium level was done in 2013 (7 years ago) and was normal. Morbid obesity 533982417 E66.01 BMI 51.2 today. She is now following with weight loss clinic at [facility] They have discussed nutrition/ meal plans with her. The goal might be eventually surgery, although she has to prove first she is able to lose on her own. Advised her to inform them of the above low calcium levels (they had plans to separately do labs through their clinic). As above, also has upcoming appts with endo/Dr Aguilar. [id number] Diogo Hale MD , [facility], [address]ICE [address] [place] [address] 01/28/2021 14:03:45 01/29/2021 15:01:31 Dyspnea on exertion 38245547 R06.09 marked in parking lot subjective ly and objectivel y evidentL clear good sats,HRup at90 P/cxr if neg will send to ER for CTA [id number] Diogo Hale MD , [facility], OFFICE [address] [place] [address] 02/04/2021 08:34:05 02/04/2021 09:01:43 Dyspnea on exertion 04009563 R06.09 02/04/2021 although she looks much better than when seen in Resp unit (panting) she reports berger in parking lot distances, reports as not improved [facility] leukocytos is, feverand LLL infiltrate and high but just over the limit DDimer, was diagnosed with Pn and not PE ([place] from [place]concern for chf, pe, symptomati c anemia , ARLETH remains has upcoming home sleep study ( ordered by neurology for a familial dementia workup) but for my purposes I would like to see results based on her longstandi ng latency ariousals early rise- no ostructive symptomsec ho in light of 225 pro BNPfollow Hgb 10 with 68 MCV 01/28/2021 marked in parking lot subjective ly and objectivel y evidentL clear good sats,HRup at90 P/cxr if neg will send to ER for CTA [id number] Talisha Sparrow NP , [facility], [address] [place] [address] 04/17/2022 16:01:34 04/24/2022 08:16:01 Acute laryngitis 9620768 J04.0 discussed likely viral etiologyad vised voice rest, ibuprofen, warm/cool drinksf/u prn [id number] Juana Mcdonough MD , [facility], [address] [place] [address] 08/23/2023 09:16:09 08/23/2023 11:02:32 Adult health examination 841038075 Z00.00 Depression screening 171 452703 Z13.31 depression screening tool administer edNegative screen Screening for alcohol abuse 850387496 Z13.39 Alcohol use screening tool administer edNegative screen Active or passive immunization 183678788 Z23 Morbid obesity 558931707 E66.01 Previously followed with [facility] weight management nutritionB CA 45Drinks 3 cups of juice everyday, and soda 3x per week - has found it difficult to cut this outI recommend increasing physical activity - go for a walk during lunch breaksOffe red nutrition Vitamin D deficiency 347 99264 E55.9 Recheck Iron defic iency anemia 11976312 D50.9 Recheck levels [id number] Juana Mcdonough MD , [facility], [address] [place] [address] 09/14/2023 10:21:52 09/14/2023 10:52:46 Iron deficiency anemia 88419298 D50.9 Hg 9.8 with low ferritinCo ntinue iron supplement (started last month and tolerating fine) and recheck in 3moVit C helps with iron absorption Vitamin D deficiency 347 73140 E55.9 High dose vit DRecheck in 3mo Morbid obesity 323157270 E66.01 Uncontroll ed with BMI of 45She would like to try a GLP1 agonist and low-dose metforminW e discussed risk of hypoglycem ia with metformin and came to a mutual decision to try a low dose.----- ------Drin ks 3 cups of juice everyday, and soda 3x per week - has found it difficult to cut this outI recommend increasing physical activity - go for a walk during lunch breaksOffe fabiola burkett Did weight-los s diet through [facility] weight management for 3-4 months starting in October 2020 in anticipati on for surgery. She got busy at work so stopped the diet and didn't f/u with [facility]. Also tried Weight Watchers at the end of 2018 for about 3 months. In the past, has tried to go for walks with her kids but has not been able to do this. Obesity 186225705 E66.9 You have been prescribed a new medication called Wegovy. It is a once weekly injection which has been shown to assist in weight loss in most patients. - Start by turning the pen to 0.25mg weekly for four weeks. This is often just a starting dose to get used to the medication , and most patients will need to increase the dose to lower blood sugars to goal. The pen is single use. - Try to take the medication on the same day each week, but you can change the day of the dose as long as it has been at least two days since your last dose. - If you miss a dose, take the missed dose as soon as possible within 5 days of the due date. If it has been more than five days, skip the missed dose and take your next dose on schedule in two days. - If not at goal in four weeks, your provider will increase the dose to 0.5mg weekly. This will be a separate pen dose. Injection: - Store the pens you are not using in the refrigerat or. On the day of your injection, take one pen out to allow the medication to come to room temperatur e. - You can inject the medication in either the abdominal fat, upper arm or the outer thigh. Wipe the area you choose with an alcohol wipe before injection. Rotate the injection site each week. - Remove the cap from the pen. Remove the paper tab from the needle, push and turn the needle on the pen until it is tight. Then pull off the needle cap. - Check that the dose setting is correct. - Angle the pen to 90 degrees from the injection site and insert the needle. - Press the button at the top of the pen, wait for the dose counter to go to 0, and hold for another 6 seconds. - Remove the needle from the pen and place this into a certified sharps container. Place the cap back on the pen for storage until your next dose. You can receive sharps containers from your insurance company or most [facility] have them available for free. Side effects/Co ntraindica tions: - Common initial side effects are abdominal upset with nausea, diarrhea, or constipati on. These often improve with each injection as your body adjusts to the medication . Eat small meals, stick to bland foods, and avoid greasy or sweet foods while the symptoms last. If the symptoms are severe or not improving, contact your provider. - Please tell your provider if you or a family member have a history of medullary thyroid cancer, MEN2, or if you have a history of diabetic retinopath y, gastropare sis or pancreatit is. - Wegovy is not for use in children under 18, or in . [id number] Juana Mcdonough MD , [facility], [address]ICE [address] [place] [address] 12/28/2023 14:19:30 12/31/2023 11:59:06 Screening mammography 65390589 Z12.31 Iron defic iency anemia 58501748 D50.9 Hg slightly improved from 9.8 to 10.3ferrit in still lowContinu e iron supplement (started last month and tolerating fine) and recheck in 3moVit C helps with iron absorption Vitamin D deficiency 347 49506 E55.9 s/p High dose vit D x 8 dosesReche ck in 3mo Morbid obesity 854254338 E66.01 Uncontroll ed with BMI of 45s/p 7 weeks of Wegovy 0.25mgIncr ease to 0.5mg weeklyAfte r 4 weeks, increase to 1mg weekly---- -------Steph nks 3 cups of juice everyday, and soda 3x per week - has found it difficult to cut this outI recommend increasing physical activity - go for a walk during lunch breaksOffe [employer] Did weight-los s diet through [facility] weight management for 3-4 months starting in October 2020 in anticipati on for surgery. She got busy at work so stopped the diet and didn't f/u with [facility]. Also tried Weight Watchers at the end of 2018 for about 3 months. In the past, has tried to go for walks with her kids but has not been able to do this. [id number] Juana Mcdonough MD , [facility], OFFICE [address] [place], [place] [address] 03/19/2024 09:36:23 03/19/2024 10:33:26 Influenza vaccination declined 649433416 Z28.21 Pain of ri ght knee joint 5429540273 15868 M25.561 2mo of R knee pain with going up/down stairs which I suspect is patellofem oral syndromeI recommend 2 weeks of anti-infla mmatory med (2 Aleve twice daily with food) and if no improvemen t, pt to call and would refer to PT Morbid obesity 511582573 E66.01 Has not lost weight on Wegovy 1.7mg. Wants to switch to Mounjaro. I asked her to try the highest dose of Wegovy first, then if no improvemen t, can try to switch (discussed that I am not sure of the efficacy since the two are the same type of med).I don't recommend taking metformin with Wegovy given risk of hypoglycem ia. Iron defic iency anemia 23867784 D50.9 Recheck in 2mo------- -----Hg slightly improved from 9.8 to 10.3ferrit in still lowContinu e iron supplement (started last month and tolerating fine) and recheck in 3moVit C helps with iron absorption [id number] Mario Srinivasan MD , [facility], [address] [place] [address] 05/02/2024 16:03:43 05/02/2024 16:48:01 Sprain of lateral collateral ligament of knee 90575695 S83.421A 44-year-ol d female complainin g of pain in the right knee. Similar pain occurred over a month ago and got better. It occurred after an extended drive over 4 hours. It took a long time to resolve, she was using NSAIDs without much benefit. Now comes in after a [address] Sunday, returning Sunday, with pain developing on Sunday. Negative instabilit y. Negative trauma, tends to lead a sedentary lifestyle. Physical exam: Stocky female in no distress. Bilateral knees are symmetric. Left knee and leg exam is normal. Right knee is negative pain with leg rolling, flexion extension at the knee, negative pain resisted flexion and extension as well. With stress maneuvers, pain is reproduced in the lateral aspect of the knee with lateral collateral ligament stress maneuver only. Negative joint effusion or pain over the patella. Impression and plan: Right knee lateral collateral ligament sprain. Most likely due to poor positionin g during extended driving episodes. Suggest monitor her position when driving, perhaps rearrange seat position, lateral pillow against consult. Meanwhile may use an over-the-c ounter knee brace with stays, this is reviewed and described but I suspect this will gradually get better on its own. [id number] Talisha Sparrow NP , [facility], [address] [place] [address] 05/08/2024 09:23:31 05/08/2024 09:53:02 Pain of right knee joint 3607220535 49579 M25.561 pain x week +likely sprain, tendinitis will get xrayreferr al to PTd/c ibuprofen, allevesent etodolac 400 mg bidwork note to group work program director x 2 weeks [id number] Juana Mcdonough MD , [facility], [address] [place] [address] 07/08/2024 09:35:28 07/08/2024 10:02:42 Screening mammography 58330082 Z12.31 Morbid obesity 292955478 E66.01 Uncontroll edComplica tamir by acute knee sprain over the holidaysTh is Fri will be fourth injection of Mounjaro 5mgI recommend walking everyday and eating healthy Iron defic iency anemia 66315828 D50.9 Uncontroll ed with ferritin of 5, and Hg 10.2 (stable)Sh e forgets to take the iron everydayWi ll bring it to work to try to remember to take it daily (currently thinks she takes it 1-2 x per week)----- -------Hg slightly improved from 9.8 to 10.3ferrit in still lowContinu e iron supplement (started last month and tolerating fine) and recheck in 3moVit C helps with iron absorption Vitamin D deficiency 347 57969 E55.9 s/p High dose vit D x 8 doses last summerRefi ll and will probably need to take weekly Pain of ri ght knee joint 3142940713 96640 M25.561 Acute knee strain last fall, now recovered Health Concerns Section Related Observation LastModified by Organization Detai ls LastModified Time None Recorded Concern Status LastModified by Organization Details LastModified Time None Recorded Advance Directives Directive None Recorded Payers Encounter Date Sequence Insurance Name Policy Number Policy Forman Covered Member ID Forman Member ID Guarantor Name 12/28/2023 1 [facility] [employer] PLAN - NAVIGATOR (PPO) [id number] Chapis [place] [id number] Chapis [place] 03/19/2024 1 [facility] PLAN - NAVIGATOR (PPO) [id number] Chapis [place] [id number] Chapis [place] 05/02/2024 1 [facility] PLAN - NAVIGATOR (PPO) [id number] Chapis [place] [id number] 01 Chapis Aguilaron 05/08/2024 1 [facility] PLAN - NAVIGATOR (PPO) [id number] Chapis [place] [id number] 01 Chapis [place] 07/08/2024 1 [facility] - DIRECT [facility] TYPE I (HMO) [id number] Chapis [place] [id number] Chapis [place] Notes Date Note Type Note Provider Name and Address Organization Details Recorded Time 03/19/2024 text/html Anterior R knee pain since end of with going up/down stairs, getting upNo pain if not movingNo history of R knee pain or trauma Juana Mcdonough MD [address] [place] [address], [phone], [facility] 03/19/2024 10:20:24 05/02/2024 text/html Anterior R knee pain since end of with going up/down stairs, getting upNo pain if not movingNo history of R knee pain or trauma Mario Srinivasan MD [address] [place] [address], [phone], [facility] 05/02/2024 16:36:56 05/08/2024 text/html here for R knee pain x week +seen last week- dx sprainsxs have gotten worse over the weektaking alleve and motrin not helpingpain anterior, walking most painful, waking from sleep.no known injury- sxs developed after long drive Talisha Sparrow NP [address] [place] [address], [phone], [facility] 05/08/2024 09:58:31 OBGyn Episode No OBEpisode recorded.
--- NOTE | 2024-08-22 11:15 | MHC.OFFVISWM ---
VS Expanded 08/22/24 11:21 Height 5 ft 4 in Weight 256 lb BMI 43.9 Body Fat % 43.2 Body Fat Mass 145.2 Fat Free Mass 145.2 Visceral Fat Rating 13 Body Water % 40.6 Body Water Mass 103.8 Basal Metabolic Rate/Score 2,036 Intake Visit Reasons: [employer] SWL BMI 43.9 Allergies No Known Allergies Allergy (Verified 08/22/24 11:15) Medication List - Last Reconciled 08/22/24 by Gaurav Cheung MD cholecalciferol (vitamin D3) 250 mcg PO QWEEK ferrous sulfate 325 mg PO DAILY tirzepatide (Mounjaro) mg subcut HPI HPI [employer] SWL BMI 43.9: Details: Start time: 11.00am, End time: 11.45am ?I spent 40 minutes speaking with the patient on the phone plus an additional 5 minutes reviewing and updating records for a total of 45 minutes HPI Comments Details: Previous weight loss efforts: our WMP in 2020, Wegovy for 6 months without weight loss and Mounjaro for last 7 months and has lost approximately 40lbs so far. She remains however morbidly obese Wakes up: 7am, Sleeps: 11pm Breakfast: skips Lunch: 1pm ([place], [employer]) Dinner: 7pm (pasta, chicken, rice and beans) Snacks: 11am (cookies or chips) Fluids: coffee 16oz/day of [employer] flavored syrup and cream, 4-5pm (ice cream), 8-9pm (ice cream), soda (regular Pepsi: 10oz), Juice (Simply lemonade), ETOH: none Exercise: none PFSH Medical History (Updated 12/17/20 @ 12:53 by Barbra Garland MD) Vitamin D deficiency Prediabetes Morbid obesity Surgical History (Updated 12/17/20 @ 12:53 by Barbra Garland MD) No significant past surgical history Family History (Updated 12/17/20 @ 11:33 by Aliza Jaffe) Mother Frontal lobe dementia Father Heart valve replaced Brother No problems noted. Sister No problems noted. Son No problems noted. Son No problems noted. Daughter No problems noted. Social History Alcohol intake: current Alcohol intake frequency: holidays/special occasions only Alcohol type: wine Patient Tobacco Use Status: Never used Tobacco Telehealth Telehealth Telehealth Platform: Telephone Location of provider rendering services: practice address Location of patient: address on file Patient Identification confirmed using: Name, : Yes Telehealth method: voice only Patient verbally consented to treatment: Yes Patient verbally consented to billing insurance company: Yes Patient informed of any privacy concerns related to visit: Yes Minutes spent on Phone/Video with Pt.: 45 Assessment & Plan Assessment & Plan (1) Morbid obesity: Code(s): E66.01 - Morbid (severe) obesity due to excess calories Category: Medical Plan: 1.? Plan for lap sleeve gastrectomy. If diaphragmatic or ventral hernias are present at time of surgery, these will be repaired laparoscopically as well. I emphasized the importance of close follow-up, adherence to instructions and good communication. The surgery does not replace the need to change your lifestlyle which is the cause of the obesity problem. The surgery provides the motivation to try again to change your lifestyle, it reduces the appetite and make the transition to a better lifestyle easier and doubles the amount of weight you would lose compared to doing the lifestyle change without the surgery. You will need to be on a liquid diet with protein shakes for 2 weeks before surgery to maximize weight loss and boost your nutritional status to recover better from surgery and also for the first two weeks after surgery to let the stomach heal before we introduce other foods. After the first 2 weeks we will introduce protein bars and soft foods like scrambled eggs, cottage cheese and yogurt and after the 6th week will introduce meat, fish and cooked vegetables in small amounts. Over time you should be able to eat everything in small amounts. Side effects like nausea, vomiting, heartburn or abdominal pain are not common in the practice unless you are not following in the practice. This operation requires lifetime commitment to following in our practice and communication with me. You will much less weight and experience side effects if you don?t communicate or not following in the practice. Complications are rare and in our practice is about 1/10 of the national average. However, you can develop bleeding that may require transfusion (hasn?t happened for year in the practice), you may from complications (we did not have any deaths in the practice) and infections. Infections are usually a result of breakdown in communication or not understanding or following directions correctly. They are difficult to treat, they can happen during the first 6 weeks, they may require to be in the hospital for weeks or even months, not being able to eat by mouth and you may have drains and surgeries to try and correct the issue. Other risks and complications include possible conversion to an open procedure, leaks, small bowel obstruction, blood clots, cardiac, or pulmonary complications, as alf complications such as ulcers, insufficient weight loss and vitamin deficiencies. 2. You will receive a link of our software braulio to generate an individualized nutritional and exercise plan specific for you. Please send me a screenshot of the plans you will generate Meal to include lean meat (beef, fish, pork, turkey, chicken), or yi yogurt, or egg whites, or beans with a salad with olive oil and fruits (berries, pears, apples, kiwi). Avoid salt, breads, potatoes, rice, pasta, desserts. ?3. If you choose shakes, each shake would be drunk slowly, like coffee in a period of 2 hours. ?4. If you choose bars, cut each bar in 4 pieces and eat each piece in 30min ?to make each bar last 2 hours. ?5. I emphasized the importance of measuring accurately the food portion and measure it when serving the food in plate ?6. The meal portions include a specific number of forks of meat and salad. You always eat the meat portion but you can replace up to half of salad/vegetables portion with rice, potatoes or pasta, or a fruit ?if you like. The less you do it the better weight loss will be. ?7. One full-size fork is what it can be scooped on the fork without falling aside and not what can be bit with the fork. Use regular forks like those you find in a typical restaurant. ?8.? Please buy the body composition scale we discussed and send me weight measurements as soon as possible and then once a week. Always include your diet and exercise plan. 9. The best choice would be to purchase a stationary bike, elliptical or treadmill at home that can track calories. Let me know if you do so I can give you an exercise plan. ?10.?It is important of avoiding and for at least 18 months postoperatively and has been discussed at the infosession. ?11. Goal is to lose at least 1.5-2lbs per week ?12. Goal to lose 10% of your weight before surgery, which is about 26lbs. Ultimate weight goal: 230lbs before surgery 13. Please follow the diet plan exactly without any change. If you don't like something about the plan or you feel hungry you need to communicate with me so I can help you revise the plan. You should not change the plan yourself. 14. To be scheduled for EGD to assess the stomach's anatomy. The possibility of biopsies was discussed. Patient needs to avoid use of NSAIDs and aspirin for 1 week prior to EGD. You must be on liquids only the day before your endoscopy. Risks of perforation and bleeding was discussed with the patient. This will be an outpatient procedure with IV sedation. 15. Continue the Mounjaro and let me know when you have injection left. Orders: Orders Complete Blood Count Auto Diff Today E66.01 - Morbid (severe) obesity due to excess calories, R73.03 - Prediabetes IRON PROFILE Today E66.01 - Morbid (severe) obesity due to excess calories, R73.03 - Prediabetes Comprehensive Met. Panel Today E66.01 - Morbid (severe) obesity due to excess calories, R73.03 - Prediabetes Zinc Today E66.01 - Morbid (severe) obesity due to excess calories, R73.03 - Prediabetes C Reactive Protein Today E66.01 - Morbid (severe) obesity due to excess calories, R73.03 - Prediabetes Vitamin A Today E66.01 - Morbid (severe) obesity due to excess calories, R73.03 - Prediabetes TSH reflex Free T4 Today E66.01 - Morbid (severe) obesity due to excess calories, R73.03 - Prediabetes Ferritin Today E66.01 - Morbid (severe) obesity due to excess calories, R73.03 - Prediabetes XR chest 2V Today E66.01 - Morbid (severe) obesity due to excess calories, R73.03 - Prediabetes Insulin Today E66.01 - Morbid (severe) obesity due to excess calories, R73.03 - Prediabetes Hemoglobin A1c Today E66.01 - Morbid (severe) obesity due to excess calories, R73.03 - Prediabetes Lipid Panel Today E66.01 - Morbid (severe) obesity due to excess calories, R73.03 - Prediabetes Vitamin B12 and Folate Today E66.01 - Morbid (severe) obesity due to excess calories, R73.03 - Prediabetes Vitamin B1 Today E66.01 - Morbid (severe) obesity due to excess calories, R73.03 - Prediabetes Vitamin D 25-OH Total Today E66.01 - Morbid (severe) obesity due to excess calories, R73.03 - Prediabetes ECG 12 lead EKG Today E66.01 - Morbid (severe) obesity due to excess calories, R73.03 - Prediabetes Referrals Nutrition/Dietitian Referral E66.01 - Morbid (severe) obesity due to excess calories, R73.03 - Prediabetes Behavioral Health Referral E66.01 - Morbid (severe) obesity due to excess calories, R73.03 - Prediabetes
[2024-08-22 11:21] VITALS: BMI 43.9
== END 2024-08-22 11:45 | disposition home or self-care (01) ==
LOC: HO.HBS 08:07
PROVIDERS: PCP Nurse Practitioner Family; Visit Provider Surgery
DX: E66.813 Obesity, class 3 (principal); Z68.41 Body mass index [BMI] 40.0-44.9, adult
CPT/HCPCS: 98010

== ENCOUNTER 2024-08-29 09:37 | Outpatient (REF) | payer OTHER, SELFPAY ==
--- NOTE | ~2024-08-29 | XR_ITS ---
EXAMINATION: XR CHEST CLINICAL INFORMATION: E66.01 - Morbid (severe) obesity due to excess calories COMPARISON: 11/16/2020. TECHNIQUE: 2 views of the chest were obtained. FINDINGS: The cardiac, hilar, and mediastinal contours are normal. The lungs are clear bilaterally. There is no pneumothorax or pleural effusion. There is no focal osseous or soft tissue abnormality. XR/XR chest 2V IMPRESSION: Normal chest. Electronically signed by: Anam [place] MD 08/29/2024 12:48 PM EDT
[2024-08-29 09:51] LABS: MANUAL DIFF FLAG NO
--- NOTE | 2024-08-29 09:52 | ECG_ITS ---
Test Reason : E66.01 Blood Pressure : */* mmHG Vent. Rate : 66 BPM Atrial Rate : 66 BPM P-R Int : 120 ms QRS Dur : 86 ms QT Int : 396 ms P-R-T Axes : 5 18 12 degrees QTcB Int : 415 ms Normal sinus rhythm Low voltage QRS Borderline ECG When compared with ECG of 16-Nov-2020 12:08, No significant change was found Referred By: Gaurav Cheung Electronically Signed By: AIDA HANNAH
[2024-08-29 10:30] LABS: Basophils Percent Auto 0.3 % (0-2); Eosinophils Absolute Auto 0.1 X10*3/uL (0.0-0.4); Hematocrit 35.7 % (37.0-47.0); Hemoglobin 10.4 g/dl (12.0-16.0); Imm Gran Pct Auto 1.1 % (0.0-0.4); Lymphocytes Absolute Auto 2.6 X10*3/uL (1.2-4.9); Lymphocytes Percent Auto 27.6 % (20-40); Mean Corpuscular HGB Conc 29.1 g/dl (31.0-35.0); Mean Corpuscular Hemoglobin 19.6 pg (27.0-33.0); Mean Corpuscular Volume 67.4 fL (80.0-98.0); Mean Platelet Volume 9.5 fL (9.4-12.3); Monocytes Absolute Auto 0.4 X10*3/uL (0.1-1.2); Monocytes Percent Auto 3.9 % (2-11); Neutrophils Absolute Auto 6.3 x10*3/uL (2.0-8.3); Neutrophils Percent Auto 66.1 % (45-73); Platelet Count 366 X10*3/uL (160-400); Red Cell Distribution Width 19.9 % (11.0-16.0); White Blood Count 9.5 X10*3/uL (4.8-10.8)
--- OUTSIDE RECORDS SUMMARY | 2024-08-29 10:36 | XMS_ITS | Data Portability ---
Author Organization [facility] [place], [place] Address [address] [place] [address] Care Team Providers Care Computerized Mill Recorder Name Role Phone FLORENTINO HEAD Referring Provider Unavailable FLORENTINO HEAD Primary Care Provider [phone] Assessment Encounter Date Assessment Date Assessment LastModified [...] testing for reevaluation Andi Hector M.D. PhD [facility] mrossen Not available 11/30/2020 11:08:44 Plan [...] Time 12/16/2020 Cognivue completed Andi Hector MD [address] [place] [address], [phone], [facility] 12/16/2020 17:27:18 Imaging Results None recorded. [...] Updated DateTime 11/30/2020 162.56 cm 49.3 kg/m2 705954.0 1 g 12 /min Yenni Sanchez [facility] 11/30/2020 10:17:52 Social History Question Answer Notes LastModified by Organizat ion Details LastModified Time Tobacco Smoking Status Never Smoker Yenni carranza [facility] 11/30/2020 10:21:01 What Is Your Level Of Alcohol Consumption? [facility] Information not available 11/30/2020 What Is Your Level Of Caffeine Consumption? Occasional 1 Per Day Information not available 11/30/2020 What Is The Highest Grade Or Level Of School You Have Completed Or The Highest Degree You Have Received? [id number] [facility] Information not available 11/30/2020 What Is [...] Code Diagnosis Note [id number] Andi Hector MD [facility] [address] [place] [address] [place] [address] 11/30/2020 10:12:29 11/30/2020 11:19:49 Mild neurocognitive disorder [id number] G31.84 [id number] Andi Hector MD [facility] [address] [place] [address] [place] [address] 12/16/2020 15:05:36 12/22/2020 13:51:33 Mild neurocognitive disorder [id number] G31.84 Health Concerns Section Related Observation LastModified by Organization Detai ls LastModified Time None Recorded Concern Status LastModified by Organization Details LastModified Time None Recorded Advance Directives Directive None Recorded Payers Encounter Date Sequence Insurance Name Policy Number Policy Forman Covered Member ID Forman Member ID Guarantor Name 11/30/2020 1 [place] Chapis Troy [id number] Chapis Troy 12/16/2020 1 [place] Chapis Troy [id number] Chapis Troy Notes Date Note Type Note [...] too difficult and her mother entered a jail. Her mother also had seizures. The patient [...] gets it done. 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 Andi Hector MD [address] [place] [address], [phone], [facility] 12/02/2020 16:03:37 12/16/2020 text/html Follow-up for [...] too difficult and her mother entered a jail. Her mother also had seizures. The patient [...] gets it done. 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 Her supervisors are [...] problem going to sleep. Andi Hector MD [address] [place] [address] [place], [phone], [facility] 12/16/2020 17:28:20 OBGyn Episode No OBEpisode recorded.
--- OUTSIDE RECORDS SUMMARY | 2024-08-29 10:36 | XMS_ITS | Data Portability ---
Author Organization [facility], , [facility] Address [address] [place] [address] Care Team Providers Care Residential Mental Health Worker Name Role Phone KARENA RAMIREZ Primary Care Provider Assessment Encounter Date Assessment Date Assessment LastModified [...] D, 25-hydro xy, total, serum 2023 025 [facility], [address] [place] [address], [address], 07/01/2024 14:45:01 CBC 2023 025 [facility], [address] [place] [address], [address], 07/01/2024 11:12:19 ferritin , serum or plasma 2023 025 [facility], [address] [place] [address], [address], 07/01/2024 14:45:00 Referral physical therapis t referral - R knee pain x week +, anterio pain, reduced extensio n, weight bearing 2023 024 [facility] (Imaging), [address] [place], [address], 05/08/2024 15:13:08 Procedures None recorded . Surgeries None recorded . Imaging MAMMO, screenin g, tomosynt hesis, bilatera l - 2nd Look Consult/ Diag Mammo/US Breast/G uided Asp/Jana st Bx/Clip Placemen t, as clinical ly indicate d. 2024 025 [facility] (Imaging), [address] [place], [address], 08/05/2024 11:05:14 XR, knee - R knee pain x week+ , difficul ty bearing weight 2023 024 [facility] (Imaging), [address] [place], [address], 05/08/2024 10:24:44 MAMMO, screenin g, tomosynt hesis, bilatera l - 2nd Look Consult/ Diag Mammo/US Breast/G uided Asp/[place] st Bx/Clip Placemen t, as clinical ly indicate d. 2023 024 [facility] (Imaging), [address] [place], [address], 07/30/2024 13:41:48 Medication Orders ergocalc iferol (vitamin D2) 1,250 mcg (50,000 unit) capsule 2024 025 [facility]acy #[id number], [address] [place], [address], 07/08/2024 09:55:30 Mounjaro 10 mg/0.5 mL subcutan eous pen injector 2024 025 [facility][id number], [address] [place], [address], 07/08/2024 09:59:05 etodolac 400 mg tablet 2023 025 [facility] #[id number], [address] [place], [address], 07/08/2024 09:56:26 Wegovy 2.4 mg/0.75 mL subcutan eous pen injector 2023 024 [facility] #1095, [address] [place], [address], 03/21/2024 14:55:43 ergocalc iferol (vitamin D2) 1,250 mcg (50,000 unit) capsule 2023 024 [facility] #1095, [address] [place], [address], 12/28/2023 14:42:26 Wegovy 1 mg/0.5 mL subcutan eous pen injector 2023 024 [facility]1095, [address] [place] [address], [address], 03/19/2024 10:20:03 Wegovy 1.7 mg/0.75 mL subcutan eous pen injector 2023 024 [facility] [address] [place], [address], 03/19/2024 10:19:58 Patient TargetsNo targets recorded. Patient [...] RBC MORPH OLOGY polychrom FEW Not Available [address], [address], 07/01/2024 11:11:37 07/01/1907/01/2024 RBC MORPH OLOGY hypochrom FEW Not Available [address], [address], 07/01/2024 11:11:37 07/01/1907/01/2024 RBC MORPH OLOGY aniso SLIGHT Not Available [address], [address], 07/01/2024 11:11:37 07/01/19 25 07/01/2024 RBC MORPH OLOGY micro MODERA TE Not Available [address], [address], 07/01/2024 11:11:37 07/01/19 25 07/01/2024 RBC MORPH OLOGY ovalocyte MODERA TE Not Available [address], [address], 07/01/2024 11:11:37 07/01/19 25 07/01/2024 CBC WBC 11.52 K/? ? ?L 3.98-1 0.04 high Not Available [address], [address], 07/01/2024 11:12:19 07/01/1907/01/2024 CBC RBC 5.17 M/? ? ?L 3.93-5 .22 Not Available [address], [address], 07/01/2024 11:12:19 07/01/1907/01/2024 CBC HGB 10.1 g/dL 11.2-1 5.7 low Not Available [address], [address], 07/01/2024 11:12:19 07/01/1907/01/2024 CBC HCT 34.5 % 34.1-4 4.9 Not Available [address], [address], 07/01/2024 11:12:19 07/01/1907/01/2024 CBC MCV 66.7 fL 79.4-9 4.8 low Not Available [address], [address], 07/01/2024 11:12:19 07/01/1907/01/2024 CBC MCH 19.5 pg 25.6-3 2.2 low Not Available [address], [address], 07/01/2024 11:12:19 07/01/1907/01/2024 CBC MCHC 29.3 g/dL 32.2-3 5.5 low Not Available [address], [address], 07/01/2024 11:12:19 07/01/1907/01/2024 CBC plt 360 K/? ? ?L 182-36 9 Not Available [address], [address], 07/01/2024 11:12:19 07/01/1907/01/2024 CBC MPV 9.6 fL 9.4-12 .3 Not Available [address], [address], 07/01/2024 11:12:19 07/01/1907/01/2024 CBC neut% 71.5 % 34.0-7 1.1 high Not Available [address], [address], 07/01/2024 11:12:19 07/01/1907/01/2024 CBC neut# 8.23 1.56-6 .13 high Not Available [address], [address], 07/01/2024 11:12:19 07/01/1907/01/2024 CBC lymph % 22.0 % 19.3-5 1.7 Not Available [address], [address], 07/01/2024 11:12:19 07/01/1907/01/2024 CBC lymph # 2.54 K/? ? ?L 1.18-3 .74 Not Available [address], [address], 07/01/2024 11:12:19 07/01/1907/01/2024 CBC mono% 4.6 % 4.7-12 .5 low Not Available [address], [address], 07/01/2024 11:12:19 07/01/1907/01/2024 CBC mono# 0.53 0.24-0 .56 Not Available [address], [address], 07/01/2024 11:12:19 07/01/1907/01/2024 CBC eo% 1.3 % 0.7-5. 8 Not Available [address], [address], 07/01/2024 11:12:19 07/01/1907/01/2024 CBC eo# 0.15 0.04-0 .36 Not Available [address], [address], 07/01/2024 11:12:19 07/01/1907/01/2024 CBC baso% 0.3 % 0.1-1. 2 Not Available [address], [address], 07/01/2024 11:12:19 07/01/1907/01/2024 CBC baso# 0.03 0.00-0 .08 Not Available [address], [address], 07/01/2024 11:12:19 07/01/19 25 07/01/2024 CBC RDW-CV 19.9 % 11.7-1 4.4 high SREV= Slide revie wed by [facility]. Not Available [address], [address], 07/01/2024 11:12:19 07/01/1907/01/2024 CBC Ig% 0.300 % 0.000- 1.500 Ig % >0.5 Indic ates possi ble Left Shift Not Available [address], [address], 07/01/2024 11:12:19 07/01/1907/01/2024 CBC Ig# 0.040 0.000- 0.093 Not Available [address], [address], 07/01/2024 11:12:19 07/01/1907/01/2024 CBC NRBC% 0.0 % 0.0-0. 2 Not Available [address], [address], 07/01/2024 11:12:19 07/01/1907/01/2024 CBC NRBC# 0.000 0.000- 0.012 Not Available [address], [address], 07/01/2024 11:12:19 07/01/1907/01/2024 HGB A1C hemoglobin A1C [...] furth er confi rmati on Not Available [address], [address], 07/01/2024 12:55:07 07/01/1907/01/2024 HGB A1C estimated average glucose 108.3 mg/dL Not Available [address], [address], 07/01/2024 12:55:07 07/01/1907/01/2024 TOMI TIN ferritin 5 NG/mL 6-115 low Not Available [address], [address], 07/01/2024 14:45:00 07/01/1907/01/2024 VITAM IN D 25-HY [...] er than 30 ng/mL . Not Available [address], [address], 07/01/2024 14:45:01 07/01/1907/03/2024 LIPID PANEL cholesterol 110 mg/dL <200 mg/dl Rhys able 200-2 39 mg/dl Borde rline High >240 mg/dl High Not Available [address], [address], 07/03/2024 13:40:58 07/01/1907/03/2024 LIPID PANEL triglyceride s 65 mg/dL <150 mg/dL Vero l 150-1 99 mg/dL Borde rline High 200-4 99 mg/dL High >500 mg/dL Very High Not Available [address], [address], 07/03/2024 13:40:58 07/01/1907/03/2024 LIPID PANEL direct HDL 35 mg/dL <40 mg/dl - Major Risk for CHD >60 mg/dl - Negat madeleine Risk for CHD Not Available [address], [address], 07/03/2024 13:40:58 07/01/19 25 07/03/2024 LDL - [...] r is not stacia forte. Not Available [address], [address], 07/03/2024 13:40:59 07/01/1907/03/2024 COMP. METAB OLIC PANEL glucose 92 mg/dL 70-100 Not Available [address], [address], 07/03/2024 13:49:40 07/01/19 25 07/03/2024 COMP. METAB OLIC PANEL BUN 10 mg/dL 7-18 Not Available [address], [address], 07/03/2024 13:49:40 07/01/1907/03/2024 COMP. METAB OLIC PANEL creatinine 0.7 mg/dL 0.8-1. 3 low Not Available [address], [address], 07/03/2024 13:49:40 07/01/19 25 07/03/2024 COMP. METAB OLIC PANEL B/C 14.3 ratio Not Available [address], [address], 07/03/2024 13:49:40 07/01/19 25 07/03/2024 COMP. METAB [...] be used in pregn ashley. Not Available [address], [address], 07/03/2024 13:49:40 07/01/1907/03/2024 COMP. METAB OLIC PANEL sodium 142 mmol/ L 136-14 5 Not Available [address], [address], 07/03/2024 13:49:40 07/01/19 25 07/03/2024 COMP. METAB OLIC PANEL potassium 4.2 mmol/ L 3.5-5. 1 Not Available [address], [address], 07/03/2024 13:49:40 07/01/19 25 07/03/2024 COMP. METAB OLIC PANEL chloride 105 mmol/ L 96-107 Not Available [address], [address], 07/03/2024 13:49:40 07/01/19 25 07/03/2024 COMP. METAB OLIC PANEL anion gap 12.4 5.0-15 .0 Not Available [address], [address], 07/03/2024 13:49:40 07/01/19 25 07/03/2024 COMP. METAB OLIC PANEL CO2 25 mmol/ L 21-32 Not Available [address], [address], 07/03/2024 13:49:40 07/01/19 25 07/03/2024 COMP. METAB OLIC PANEL calcium 8.2 mg/dL 8.5-10 .3 low ANA=V erifi ed by Adebayo mclaughlin Not Available [address], [address], 07/03/2024 13:49:40 07/01/19 25 07/03/2024 COMP. METAB OLIC PANEL total protein 7.4 g/dL 6.4-8. 2 Not Available [address], [address], 07/03/2024 13:49:40 07/01/19 25 07/03/2024 COMP. METAB OLIC PANEL albumin 3.8 g/dL 3.4-5. 0 Not Available [address], [address], 07/03/2024 13:49:40 07/01/19 25 07/03/2024 COMP. METAB OLIC PANEL globulin 3.6 g/dL Not Available [address], [address], 07/03/2024 13:49:40 07/01/19 25 07/03/2024 COMP. METAB OLIC PANEL A/G 1.1 ratio 0.8-2. 0 Not Available [address], [address], 07/03/2024 13:49:40 07/01/19 25 07/03/2024 COMP. METAB OLIC PANEL total bilirubin 0.70 mg/dL 0.00-1 .00 Not Available [address], [address], 07/03/2024 13:49:40 07/01/19 25 07/03/2024 COMP. METAB OLIC PANEL AST 10 U/L 0-37 Not Available [address], [address], 07/03/2024 13:49:40 07/01/19 25 07/03/2024 COMP. METAB OLIC PANEL ALT 18 U/L 6-63 Not Available [address], [address], 07/03/2024 13:49:40 07/01/19 25 07/03/2024 COMP. METAB OLIC PANEL alk. phos. 76 U/L 50-136 Not Available [address], [address], 07/03/2024 13:49:40 05/08/20 24 05/08/2024 XR, knee [...] Yue hu Physic victorino: Zaid Brandt [email or web address] [facility] (Imaging) [address], [place], [address], 07/08/2024 09:51:14 Result Notes None recorded. Problems Name Problem SNOMED Code Status Onset Date Resolution Date Notes Provider Name and Address Organization Details Recorded Time Obesity 834562527 Completed 202004/11/2022 Removal Reason: BMI = 47.6, 02/04/21 (morbid obesity) LEONARD Griggs, [facility] 2 10:53:55 Morbid obesity 928756184 Active 2021 BMI = 47.6, 02/04/21 Vivien Butterfield LPN null, [facility] 2 10:54:07 Iron deficienc y anemia 98923112 Active 2023 Juana Mcdonough MD [address] [place] [address], [address], [facility] 4 10:04:04 Problem Notes None recorded. Procedures Surgical History Date Name Laterality Status Provider Name and Address Organization Details Recorded Time 5 Obesity counseling completed Juana Mcdonough MD [address] [place] [address], [phone], [facility] 07/08/2024 10:00:11 4 Smoking Cessation Counselling cancelled SHAMIKA VALENZUELA, PT, DPT [address] [place] [address], [phone], [facility] 05/27/2024 11:26:53 4 Physical Activity Counselling cancelled SHAMIKA VALENZUELA PT, DPT [address] [place] [address], [phone], [facility] 05/27/2024 11:26:53 4 [address]: PT Eval Low Complexity cancelled SHAMIKA VALENZUELA PT, DPT [address] [place] [address], [address], [facility] 05/27/2024 11:26:53 4 Treatment and Advice cancelled SHAMIKA VALENZUELA PT, DPT [address] [place] [address], [phone], [facility] 05/27/2024 11:26:53 4 G2211 completed Juana Mcdonough MD [address] [place] [address], [address], [facility] 09/14/2023 10:39:47 4 Obesity counseling completed Juana Mcdonough MD [address] [place] [address], [address], [facility] 08/23/2023 10:26:18 1 prevention-talha cerna alcohol misuse screening completed Carmen Pete [facility] 10/21/2020 08:30:58 9 Refraction completed Thuy Parker OD [address] [place] [address], [address], [facility] 12/26/2018 09:27:37 7 Refraction completed Corona Melendez [facility] 05/03/2017 09:16:12 Imaging Results Imaging Date Name Status LastModified by Organiz ation Details LastModified Time 05/08/2024 XR, knee completed [email or web address] [facility] (Imaging) [address], [place], [address], 07/08/2024 09:51:14 Procedure Notes None recorded. Medical [...] propionate 50 mcg/actuat ion nasal spray,susp ension [place] 1 spray every day by intranas al [...] Updated DateTime 4 162.56 cm 44.6 kg/m2 704310. 7 g 76 /min 97 % 97 % 118 mm[Hg] 68 mm[Hg] Fiona Quinonez [facility] 4 14:30:23 Date Recorded Body height Body mass index (BMI) Body weight Heart rate Oxygen saturation Oxygen saturation in Arterial blood by Pulse oximetry Systolic blood pressure Diastolic blood pressure Provider Name and Address Organization Details Last Updated DateTime 4 162.56 cm 44.8 kg/m2 620664. 61 g 94 /min 97 % 97 % 122 mm[Hg] 80 mm[Hg] MARK Bravo [facility] 4 09:47:27 Date Recorded Body height Body mass index (BMI) Body weight Oxygen saturation Oxygen saturation in Arterial blood by Pulse oximetry Heart rate Systolic blood pressure Diastolic blood pressure Provider Name and Address Organization Details Last Updated DateTime 4 162.56 cm 44.2 kg/m2 637595. 04 g 98 % 98 % 77 /min 127 mm[Hg] 64 mm[Hg] Keshia Vargassaul [facility] 4 16:12:13 Date Recorded Body height Oxygen saturation Oxygen saturation in Arterial blood by Pulse oximetry Heart rate Body mass index (BMI) Body weight Systolic blood pressure Diastolic blood pressure Provider Name and Address Organization Details Last Updated DateTime 4 162.56 cm 96 % 96 % 76 /min 44.1 kg/m2 035730. 24 g 117 mm[Hg] 72 mm[Hg] Polly Sweeneykele [facility] 4 09:31:47 Date Recorded Body height Body mass index (BMI) Body weight Heart rate Oxygen saturation Oxygen saturation in Arterial blood by Pulse oximetry Systolic blood pressure Diastolic blood pressure Provider Name and Address Organization Details Last Updated DateTime 5 162.56 cm 45 kg/m2 544961. 2 g 73 /min 96 % 96 % 122 mm[Hg] 76 mm[Hg] Vivien Hurt [facility] 5 09:45:36 Social History Question Answer Notes LastModified by Organizat ion Details LastModified Time Tobacco Smoking Status Never Smoker 05/02/24 07/08/24 Vivien Xiongra [facility] 07/08/2024 09:42:45 What Is Your Level Of Alcohol Consumption? Occasional 2/year. No Hx Abuse Information not available 07/15/2013 Do You Wear A Helmet When Biking? No Information not available 10/21/2020 What Is Your Level Of Caffeine Consumption? Moderate Information not available 10/21/2020 What Type Of Diet Are You Following? REGULAR Information not available 10/21/2020 Education 2 Year College At [employer]. Early Education Information not available 07/15/2013 How Many Days In The Past Year Have You Had A Heavy Drinking Consumption (4+ Female, 5+ Male)? 0 [email or web address] Information not available 07/15/2013 Are There Any Guns Present In Your Home? No Information not available 10/21/2020 Live Alone Or With Others? With Others /kids Information not available 10/21/2020 Marital Status [facility] Informatio n not available 07/15/2013 Mosquito Repellent Used Routinely Yes Information not available 10/21/2020 What Was The Date Of Your Most Recent Tobacco Screening? 07/08/2024 05/02/24 SM07/08/24MV [email or web address] Information not available 07/08/2024 How Many Children Do You Have? 3 2 Sons, 1 Girl Information not available 07/15/2013 Seat Belts Used Routinely No Information not available 10/21/2020 Are You Sexually Active? Yes [facility] Information not available 07/15/2013 Smoke Alarm In [...] Details Recorded Time Tdap 2 [facility] 11:05:19 COVID-19, mRNA, LNP-S, PF, 100 mcg/0.5mL dose or 50 mcg/0.25mL dose 1 completed [facility] 10/21/2020 14:32:44 COVID-19, mRNA, LNP-S, PF, 100 mcg/0.5mL dose or 50 mcg/0.25mL dose 1 completed Carmen Ty, BROCK null, [facility] 10/21/2020 14:32:55 Td (adult), 2 Lf tetanus toxoid, preservative free, adsorbed 4 completed MARK Bravo, [facility] 08/23/2023 10:30:07 Past Encounters Encounter ID Performer Location Encounter Start Date Encounter Closed Date Diagnosis/Indication Diagnosis SNOMED-CT Code Diagnosis ICD10 Code Diagnosis Note [id number] BROCK Darby, [facility], OFFICE [address] [place] [address] 07/15/2013 10:53:12 07/15/2013 11:24:58 Cough [id number] with tachycardi a and some lung findings will treat below. d/w Midler [id number] Myrtle JON, [facility], OFFICE [address] [place] [address] 02/04/2014 14:42:24 02/04/2014 15:27:54 Lower abdominal pain 01458136 UA + nits, blood ? pyelo Will check labs below tx with cipro Keep close f/u in 48 hrs [id number] Myrtle JON, [facility], OFFICE [address] [place] [address] 02/06/2014 11:32:09 02/06/2014 11:47:39 Lower abdominal pain 97453134 resolving Urine Cx + and senstive to Cipro Backache 476034449 C/W naproxen bid with meals Given flexeril 10 mg qhs Advised heat, stretching F/U prn Urinary tr act infectious disease [id number] Opal Robles NP , [facility], [address] [place] [address] 11/07/2014 12:14:41 11/07/2014 12:53:54 Cough 41184524 bronchitis related to allergies is most likely meds as directed f/u with PCP prn sx persist or increase Irregular periods 71304600 History of 577969311 Unclear EDC - pt has apt with custody officer next week. Options counseling . Call with any bleeding, other concerns. 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 [id number] Thuy Parker, OD [facility], [facility] [address] [place] [address] 12/26/2018 08:39:50 12/26/2018 10:05:53 Myopic astigmatism 235451914 H52.424 [id number] VALERIE Galindo , [facility], OFFICE [address] [place] [address] 10/21/2020 14:26:03 10/25/2020 13:08:33 Adult health examination 657158802 Z00.00 Will update fasting labs Due for a pap, will arrange in-office Counseling 728623987 Z71 .9 Depression screening 171 911792 Z13.31 depression screening tool administer ed, entered into emr, scored and discussed, time greater than 7.5 minutes Screening for alcohol abuse 278724151 Z13.39 AUDIT 1 out of 12. No concerns. Morbid obesity 656324409 E66.01 BMI 49.8. Discussed healthy diet today. [...] program and/or surgery - referral placed to [facility]. Normal grief reaction 27 0361853 F43.20 Mother recently passed, patient grieving. Provided emotional support today. Will have [facility] outreach patient for support. Family his tory of dementia 481374638 Z81.8 Mother had frontal lobe dementia . No one else in the family with dementia. Patient interested in a work-up with neurology, will refer. Insomnia 255245173 G47.0 0 Ongoing insomnia. 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 Avoid screen time before bed Try a daily melatonin over the counter Follow-up in the next several weeks in-house with this [employer]. [id number] VALERIE Galindo , [facility], OFFICE [address] [place] [address] 11/04/2020 10:07:09 11/04/2020 11:03:44 Insomnia 974701121 G47.00 Ongoing insomnia. 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 Avoid screen time before bed Try a daily melatonin over the counter Encouraged increasing physical activity throughout the day Allergic rhinitis 505317 04 J30.9 Nasal congestion , itchy/wate ry eyes. Start flonase and daily antihistam ine as below. Prediabetes 016721660 R7 3.03 A1c 6.0. As above, referral in place for weight loss center. Discussed that weight loss could significan tly lower her risks of developing into diabetes. Screening for malignant neoplasm of cervix 551987401 Z12.4 Pap obtained today. No history of abnormal paps per patient. Obesity 151833205 E66.9 BMI 33.3. Has a referral already in place for [facility] weight loss clinic. Encouraged to call to set up an appt Discussed healthy diet, encouraged regular physical activity. Normal grief reaction 27 2493954 F43.20 Mother recently passed, patient grieving. Provided emotional support today. Will have [facility] outreach patient for support. Hypocalcemia 2283236 E83 .51 Spoke with the patient, notified [...] D, magnesium, TSH, PTH. F/u with results. [id number] VALERIE Galindo, [facility], OFFICE [address] [place] [address] 11/11/2020 16:33:49 11/11/2020 17:02:05 Toothache 27483401 K08.89 Patient has several missing teeth and a cracked upper left molar but does not appear infected. Continue with as-needed ibuprofen for pain. Appt in place next week with dentistry. Hypocalcemia 3169232 E83 .51 Critically low calcium on routine [...] was instructed to not take together. This [employer] reviewed with Dr Aguilar - her tingling in her hands and her multiple cracked/mi ssing teeth could likely be from long-term low calcium. Her last calcium level was done in 2013 (7 years ago) and was normal. Morbid obesity 597679911 E66.01 BMI 51.2 today. She is now following with weight loss clinic at [facility] They have discussed nutrition/ meal plans with her. The goal might be eventually surgery, although she has to prove first she is able to lose on her own. Advised her to inform them of the above low calcium levels (they had plans to separately do labs through their clinic). As above, also has upcoming appts with endo/Dr Aguilar. [id number] Diogo Hale MD , [facility], OFFICE [address] [place] [address] 01/28/2021 14:03:45 01/29/2021 15:01:31 Dyspnea on exertion 78970455 R06.09 marked in parking lot subjective ly and objectivel y evidentL clear good sats,HRup at90 P/cxr if neg will send to ER for CTA [id number] Diogo Hale MD , [facility], OFFICE [address] [place] [address] 02/04/2021 08:34:05 02/04/2021 09:01:43 Dyspnea on exertion 81061374 R06.09 02/04/2021 although she looks much better than when seen in Resp unit (panting) she reports berger in parking lot distances, reports as not improved [facility]os is, feverand LLL [...] neg will send to ER for CTA [id number] Talisha Sparrow NP , [facility], OFFICE [address] [place] [address] 04/17/2022 16:01:34 04/24/2022 08:16:01 Acute laryngitis 3350369 J04.0 discussed likely viral etiologyad vised voice rest, ibuprofen, warm/cool drinksf/u prn [id number] Juana Mcdonough MD , [facility], OFFICE [address] [place] [address] 08/23/2023 09:16:09 08/23/2023 11:02:32 Adult health examination 181837932 Z00.00 Depression screening 171 308714 Z13.31 depression screening tool administer edNegative screen Screening for alcohol abuse 785480877 Z13.39 Alcohol use screening tool administer edNegative screen Active or passive immunization 620128017 Z23 Morbid obesity 791947595 E66.01 Previously [facility] [place] nutritionB [place] [address]Drinks 3 cups of juice everyday, and soda 3x per week - has found it difficult to cut this outI recommend increasing physical activity - go for a walk during lunch breaksOffe red nutrition Vitamin D deficiency [id number] 72874 E55.9 Recheck Iron defic iency anemia [id number] D50.9 Recheck levels [id number] Juana Mcdonough MD , [facility], OFFICE [address] [place] [address] 09/14/2023 10:21:52 09/14/2023 10:52:46 Iron deficiency anemia 96659366 D50.9 Hg 9.8 with low ferritinCo ntinue iron supplement (started last month and tolerating fine) and recheck in 3moVit C helps with iron absorption Vitamin D deficiency 347 19366 E55.9 High dose vit DRecheck in 3mo Morbid obesity 565208287 E66.01 Uncontroll ed with BMI of 45She [...] fabiola burkett Did weight-los s diet through [facility] weight management for 3-4 months starting in October 2020 in anticipati on for surgery. She got busy at work so stopped the diet and didn't f/u with [facility]. Also tried Weight Watchers at the end of 2018 for about 3 months. In the past, has tried to go for walks with her kids but has not been able to do this. Obesity 230515190 E66.9 You have been prescribed a new [...] containers from your insurance company or most [facility] have them available for free. Side effects/Co [...] in children under 18, or in . [id number] Juana Mcdonough MD , [facility], OFFICE [address] [place] [address] 12/28/2023 14:19:30 12/31/2023 11:59:06 Screening mammography [id number] Z12.31 Iron defic iency anemia 03498220 D50.9 Hg slightly improved from 9.8 to 10.3ferrit in still lowContinu e iron supplement (started last month and tolerating fine) and recheck in 3moVit C helps with iron absorption Vitamin D deficiency 347 97243 E55.9 s/p High dose vit D x 8 dosesReche ck in 3mo Morbid obesity [id number] E66.01 Uncontroll ed with BMI of 45s/p 7 weeks of Wegovy 0.25mgIncr ease to 0.5mg weeklyAfte r 4 weeks, increase to 1mg weekly---- -------Steph nks 3 cups of juice everyday, and soda 3x per week - has found it difficult to cut this outI recommend increasing physical activity - go for a walk during lunch breaksOffe C2cube Did weight-los s diet through [facility] weight management for 3-4 months starting in October 2020 in anticipati on for surgery. She got busy at work so stopped the diet and didn't f/u with [facility]. Also tried Weight Watchers at the end of 2018 for about 3 months. In the past, has tried to go for walks with her kids but has not been able to do this. [id number] Juana Mcdonough MD , [facility], OFFICE [address] [place], [place] [address] 03/19/2024 09:36:23 03/19/2024 10:33:26 Influenza vaccination declined [id number] Z28.21 Pain of ri ght knee joint [id number] 57463 M25.561 2mo of R knee pain with going up/down stairs which I suspect is patellofem oral syndromeI recommend 2 weeks of anti-infla mmatory med (2 Aleve twice daily with food) and if no improvemen t, pt to call and would refer to PT Morbid obesity 484190508 E66.01 Has not lost weight on Wegovy [...] of hypoglycem ia. Iron defic iency anemia 92825526 D50.9 Recheck in 2mo------- -----Hg slightly improved from 9.8 to 10.3ferrit in still lowContinu e iron supplement (started last month and tolerating fine) and recheck in 3moVit C helps with iron absorption [id number] Mario Srinivasan MD , [facility], [address]ICE [address] [place] [address] 05/02/2024 16:03:43 05/02/2024 16:48:01 Sprain of lateral collateral ligament of knee [id number] S83.421A 44-year-ol d female complainin g of [...] will gradually get better on its own. 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 x 2 weeks [id number] Juana Mcdonough MD , [facility], [address]ICE [address] [place] [address] 07/08/2024 09:35:28 07/08/2024 10:02:42 Screening mammography [id number] Z12.31 Morbid obesity 406989737 E66.01 Uncontroll edComplica tamir by acute knee sprain over the holidaysTh is Fri will be fourth injection of Mounjaro 5mgI recommend walking everyday and eating healthy Iron defic iency anemia 00226531 D50.9 Uncontroll ed with ferritin of 5, [...] with iron absorption Vitamin D deficiency 347 64682 E55.9 s/p High dose vit D x 8 doses last summerRefi ll and will probably need to take weekly Pain of ri ght knee joint [id number] 77627 M25.561 Acute knee strain last fall, now recovered Health Concerns Section Related Observation LastModified by Organization Detai ls LastModified Time None Recorded Concern Status LastModified by Organization Details LastModified Time None Recorded Advance Directives Directive None Recorded Payers Encounter Date Sequence Insurance Name Policy Number Policy Forman Covered Member ID Forman Member ID Guarantor Name 12/28/2023 1 [facility] [employer] PLAN - NAVIGATOR (PPO) [id number] Chapis [place] [id number] Chapis [place] 03/19/2024 1 [facility] PLAN - NAVIGATOR (PPO) [id number] Chapis [place] [id number] Chapis [place] 05/02/2024 1 [facility] PLAN - NAVIGATOR (PPO) [id number] Chapis [place] [id number] Chapis Aguilaron 05/08/2024 1 [facility] PLAN - NAVIGATOR (PPO) [id number] Chapis [place] [id number] 01 Chapis [place] 07/08/2024 1 [facility] (HMO) [id number] Chapis [place] [id number] 01 Chapis [place] Notes Date Note Type Note Provider Name and Address Organization Details Recorded Time 03/19/2024 text/html Anterior R knee pain since end of with going up/down stairs, getting upNo pain if not movingNo history of R knee pain or trauma Juana Mcdonough MD [address] [place] [address], [phone], [facility] 03/19/2024 10:20:24 05/02/2024 text/html Anterior R knee pain since end of with going up/down stairs, getting upNo pain if not movingNo history of R knee pain or trauma Mario Srinivasan MD [address] [place] [address], [phone], [facility] 05/02/2024 16:36:56 05/08/2024 text/html here for R knee pain x week +seen last week- dx sprainsxs have gotten worse over the weektaking alleve and motrin not helpingpain anterior, walking most painful, waking from sleep.no known injury- sxs developed after long drive Talisha Sparrow NP [address] [place] [address], [phone], [facility] 05/08/2024 09:58:31 OBGyn Episode No OBEpisode recorded.
[2024-08-29 10:47] LABS: Estimated Average Glucose 100 mg/dL; Hemoglobin A1c % 5.1 % (<6.0)
[2024-08-29 11:02] LABS: Anion Gap 11 (12-20)
[2024-08-29 11:11] LABS: Alanine Aminotransferase 21 U/L (0-31); Albumin Level 4.1 g/dL (3.5-5.0); Alkaline Phosphatase 79 U/L (39-117); Aspartate Amino Transferase 18 U/L (5-31); Bilirubin Total 0.5 mg/dL (0.0-1.0); Blood Urea Nitrogen 10 mg/dL (9-16); C Reactive Protein 2.31 mg/dL (< or = 0.50); Calcium 8.6 mg/dL (8.4-10.2); Carbon Dioxide 24 mmol/L (22-29); Chloride 108 mmol/L (96-108); Cholesterol 111 mg/dL (<200); Estimated Glomerular Filt Rate > 60; Glucose Random 90 mg/dL (60-115); HDL Cholesterol 34 mg/dL (>40); Iron 13 mcg/dL (30-160); LDL Cholesterol Calculated 65 mg/dL (<100); Percent Iron Saturation 4 % (15-50); Sodium 139 mmol/L (135-145); Total Iron Binding Capacity 340 mcg/dL (228-428); Triglycerides 61 mg/dL (<150); Unsaturated Iron Binding 327 ug/dL
[2024-08-29 11:18] LABS: Ferritin 12 ng/mL (10-250); TSH reflex Free T4 0.54 uIU/mL (0.32-4.0); Vitamin D 25-OH Total 16.4 ng/mL (>30)
[2024-08-29 11:36] LABS: Folate 5.6 ng/mL (> or = 4.0); Vitamin B12 404 pg/mL (200-900)
[2024-08-29 11:45] LABS: Insulin 20 uU/mL (2-29)
[2024-09-02 04:02] LABS: Zinc 56 mcg/dL (60-130)
[2024-09-02 19:18] LABS: Vitamin A 58 mcg/dL (38-98)
[2024-09-08 01:12] LABS: Vitamin B1 7 nmol/L (8-30)
== END 2024-08-29 09:38 | disposition home or self-care (01) ==
LOC: HO.XRAY 09:37
PROVIDERS: PCP Nurse Practitioner Family; Visit Provider Surgery
DX: E66.01 Morbid (severe) obesity due to excess calories (principal); R73.03 Prediabetes
CPT/HCPCS: 36415; 71046; 80053; 80061; 82306; 82607; 82728; 82746; 83036; 83525; 83540; 84425; 84443; 84590; 84630; 85025; 86140; 93005

== ENCOUNTER → 2024-08-29 09:52 | Outpatient (BNV) | payer OTHER, SELFPAY | PROVIDERS: PCP Nurse Practitioner Family; Visit Provider Internal Medicine | DX: R94.31 Abnormal electrocardiogram [ECG] [EKG] (principal); E66.01 Morbid (severe) obesity due to excess calories | CPT/HCPCS: 93010 ==

== ENCOUNTER → 2024-08-29 10:01 | Outpatient (BNV) | payer OTHER, SELFPAY | PROVIDERS: PCP Nurse Practitioner Family; Visit Provider Radiology Diagnostic Radiology | DX: E66.01 Morbid (severe) obesity due to excess calories (principal) | CPT/HCPCS: 71046 ==

== ENCOUNTER 2024-09-09 10:17 | Outpatient (AMB) | payer OTHER, SELFPAY ==
--- NOTE | 2024-09-09 10:10 | A.OFFWM_ITS ---
Intake Intake Visit Reasons: VIDEO BH Intake Allergies No Known Allergies Allergy (Verified 08/22/24 11:15) [facility] Medical History (Updated 12/17/20 @ 12:53 by Barbra Garland MD) Vitamin D deficiency Prediabetes Morbid obesity Surgical History (Updated 12/17/20 @ 12:53 by Barbra Garland MD) No significant past surgical history Family History (Updated 12/17/20 @ 11:33 by Aliza Jaffe) Mother Frontal lobe dementia Father Heart valve replaced Brother No problems noted. Sister No problems noted. Son No problems noted. Son No problems noted. Daughter No problems noted. Social History Alcohol intake: current Alcohol intake frequency: holidays/special occasions only Alcohol type: wine Patient Tobacco Use Status: Never used Tobacco Behavioral Health Assessment Weight Management Therapy Therapy Notes Details The patient is a 44-year-old female presenting for a behavioral health assessment as part of a surgical weight loss program. She previously enrolled in the program in 2020 but did not proceed due to work-related circumstances. The patient re-engaged with the program on 08/22/2024, weighing 256 lbs. The patient is interested in bariatric surgery to improve her overall quality of life, physical health, and to support her goal of living a long and healthy life. Presenting Concerns Referral Source [facility]-Provider, Dr. Mireles PT had initial visit on 08/22/2024. Reason for referral Completion of behavioral health assessment as part of process for weight-loss surgery. Precipitating Event Obesity. Living Situation Current Living Situation Rent At risk of losing current housing? No Satisfied with current living situation? Yes Comments PT lives with her and 3 children. Food/Weight/Diet Expectations of change The initial goal is to lose 10% of her weight before surgery, which is about 26 lbs. Ultimate weight goal: 230lbs before surgery Initial weight: 256 lbs (at office), Initial weight with home scale: 259 Lbs Weight as of: 256 Lbs with home scale. PT is implementing the following: Current meal plan: Combination of shakes, bars, and 1 meal (9F/9F) Exercise plan: Walking History/Relationship with food Example of meals before starting the program: Breakfast: Lunch: Dinner: Snacks: Drinks/Liquids: History/Relationship with weight In the last 10 years, the patient's Lowest weight was and highest Social History Family history and relationship PT is since 2007, and they have 3 children. PT has 2 siblings, she is the oldest. Her mother 4 years ago, her dad is alive. PT reports she has good family dynamics, they're very close. 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 Currently WNL. Social support Family. Mainly , children. Community support Some co-workers, 1 had bariatric surgery about 3 weeks ago. Religious/Spirituality Jain. Currently doesn't practice or is active in sabianism. Cultural/Ethnic information The family is from [facility]. She was born in [place]. Moved to [place] in 2004. Legal Involvement and History Current or historical involvement with the legal system? None reported. Education Highest grade completed Some college. Preferred learning style Learn by doing Currently enrolled in educational program? Yes Interested in further educational program? No Educational Interests/Skills PT is enrolled in college, working towards her bachelor's in liberal arts. 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 ) Wants help to find employment? No Meaningful activities Shopping, get her nails/hair done, watch Tv, relax at home. Financial Situation Describe current financial situation Comfortable Financial assistance? None Service Service? No Mental Health and Addiction Treatment Current/Past substance abuse? No Comments Alcohol: socially. about 4 times at year, no more than 2 drinks. Cigarettes/Tobacco: None Cannabis/Edibles: None Current/Past addictive behavior concerns? No Psychiatric history The patient reports that she has never received counseling, denies any history of crises or inpatient mental health care, and has not been prescribed psychiatric medication. There are no current or past concerns regarding suicidal ideation, self-harm, or harm to others. Medical and Physical Health Summary Additional Medical History not covered in history None reported. Sexual History concerns None reported. Physical exam in the last year? Yes Pain Screening Current pain? No Pain in the last few months? No Medications Is the patient compliant with medications? Yes Does the patient have Vasquez Guardian in place? Not applicable Does the patient use complimentary health approaches? No Trauma/Abuse History History of trauma? No Self-Harm Factors Suicidal thoughts/plans/rehearsal behaviors None Suicide attempts None Self-harm behaviors None Family history of suicidal/self harm None Life threatening eating disorder None Victimized by others/places self in danger None Command hallucinations for self harm None Elopement without ability to self preserve None Other self-harm None Questionnaires PHQ-9 Over the last 2 weeks, how often have you been bothered by any of the following problems? 1. Little interest or pleasure in doing things: several days 2. Feeling down, depressed, or hopeless: not at all 3. Trouble falling or staying asleep, or sleeping too much: nearly every day 4. Feeling tired or having little energy: several days 5. Poor appetite or overeating: not at all 6. Feeling bad about yourself - or that you are a failure or have let yourself or your family down: not at all 7. Trouble concentrating on things, such as reading the newspaper or watching television: not at all 8. Moving or speaking so slowly that other people could have noticed. Or the opposite - being so fidgety or restless that you have been moving around a lot more than usual: not at all 9. Thoughts that you would be better off or of hurting yourself in some way: not at all Total score: 5 Depression Screening Interpretation: Positive (From new Pt pack. New one will be administered at next visit. ) Depression Screening Done: Yes Source: Developed by Drs. Diogo Mckeon, Chula Quiroga, Petros Carrillo and colleagues, with an educational michael from [employer]. Binge Eating Scale Group 1 A. I don't feel self-conscious about my wt. or body size when I'm with others. B. I feel concerned about how I look to others, but it normally does not make me fell disappointed with myself C. I do get self-conscious about my appearance and wt. which makes me feel disappointed in myself. D. I feel very self-conscious about my wt. and frequently I feel intense shame and disgust for myself. I try to avoid social contacts because of my self- consciousness. Response Group 1: B Group 2 A. I don't have any difficulty eating slowly in the proper manner. B. Although I seem to gobble down foods, I don't end up feeling stuffed because of eating to much. C. At times, I tend to eat quickly and then, I feel uncomfortably full afterwards. D. I have the habit of bolting down my food, without really chewing it. When this happens I usually feel uncomfortably stuffed because I've eaten to much. Response Group 2: A Group 3 A. I feel capable to control my eating urges when I want to. B. I feel like I have failed to control my eating more than the average person. C. I feel utterly helpless when it comes to feeling in control of my eating urges. D. Because I feel so helpless about controlling my eating I have become very desperate about trying to get control. Response Group 3: A Group 4 A. I don't have the habit of eating when I'm bored. B. I sometimes eat when I'm bored, but often I'm able to get busy and get my mind off food. C. I have a regular habit of eating when I'm bored, but occasionally, I can use some other activity to get my mind off eating. D. I have a strong habit of eating when I'm bored. Nothing seems to help me breath the habit. Response Group 4: B Group 5 A. I'm usually physically hungry when I eat something. B. Occasionally, I eat something on impulse even though I really am not hungry. C. I have the regular habit of eating foods, that I might not really enjoy, to s atisfy a hungry feeling even though physically, I don't need the food. D. Although I'm not physically hungry, I get a hungry feeling in my mouth that only seems to be satisfied when I eat a food, like sandwich, that fills my mouth. Sometimes, when I eat the food to satisfy my mouth hunger, I then spit the food out so I won't gain weight. Response Group 5: B Group 6 A. I don't feel any guilt or self-hate after I overeat. B. After I overeat, occasionally I feel guilt or self-hate. C. Almost all the time I experience strong guilt or self-hate after I overeat. Response Group 6: B Group 7 A. I don't lose total control of my eating when dieting even after periods when I overeat. B. Sometimes when I eat a forbidden food on a diet, I feel like I blew it and eat even more. C. Frequently, I have the habit of saying to myself, I've blown it now, why not go all the way, when I overeat on a diet. When that happens I eat more. D. I have a regular habit of starting a strict diets for myself but I break the diets by going on an eating binge. My life seems to be either a feast or famine. Response Group 7: A Group 8 A. I rarely eat so much food that I feel uncomfortably stuffed afterwards. B. Usually about once a month, I each such a quantity of food, I end up feeling very stuffed. C. I have regular periods during the month when I eat large amounts of food, either at mealtime or at snacks. D. I eat so much food that I regularly feel quite uncomfortable after eating and sometimes a bit nauseous. Response Group 8: C Group 9 A. My level of calorie intake does not go up very high or go down very low on a regular basis. B. Sometimes after I overeat, I will try to reduce my caloric intake to almost nothing to compensate for the excess calories I've eaten. C. I have a regular habit of overeating during the night. It seems that my routine is not to be hungry in the morning but overeat in the evening. D. In my adult years, I have had week-long periods where I practically starve myself. This follows periods when I overeat. It seems I live a life of either feast or famine. Response Group 9: C Group 10 A. I usually am able to stop eating when I want to. I know when enough is enough. B. Every so often, I experience a compulsion to eat which I can't seem to control. C. Frequently, I experience strong urges to eat which I seem unable to control, but at other times I can control my eating urges. D. I feel incapable of controlling urges to eat. I have a fear of not being able to stop eating voluntarily. Response Group 10: B Group 11 A. I don't have any problem stopping eating when I feel full. B. I usually can stop eating when I feel full but occasionally overeat leaving me feeling uncomfortably stuffed. C. I have a problem stopping eating once I start and usually I feel uncomfortably stuffed after I eat a meal. D. Because I have a problem not being able to stop eating when I want, I sometimes have to induce vomiting to relieve my stuffed feeling. Response Group 11: B Group 12 A. I seem to eat just as much when I'm with others, Family social gatherings as when I'm by myself. B. Sometimes, when I'm with other persons, I don't eat as much as I want to eat because I'm self-conscious about my eating. C. Frequently, I eat only a small amount of food when others are present, because I'm very embarrassed about my eating. D. I feel so ashamed about overeating that I pick times to overeat when I know no one will see me. I feel like a closet eater. Response Group 12: B Group 14 A. I don't think much about trying to control unwanted eating urges. B. At least some of the time, I feel my thoughts are pre-occupied with trying to control my eating urges. C. I feel that frequently I spend much time thinking about how much I ate or about trying not to eat anymore. D. It seems to me that most of my waking hours are pre-occupied by thoughts about eating or not eating. I feel like I'm constantly struggling not to eat. Response Group 14: B Group 15 A. I don't think about food a great deal. B. I have strong craving for food but they last only for brief periods of time. C. I have days when I can't seem to think about anything else but food. D. Most of my days seem to be pre-occupied with thoughts about food. I feel like I live to eat. Response Group 15: C Binge Eating Score: 14 Score less than 17 Minimal Risk Score between 18-26 Moderate Risk Score between 27-46 High Risk Assessment & Plan Assessment & Plan (1) Adjustment disorder, unspecified: Code(s): F43.20 - Adjustment disorder, unspecified Qualifiers: Adjustment disorder type: unspecified type Qualified Code(s): F43.20 - Adjustment disorder, unspecified (2) Morbid obesity: Code(s): E66.01 - Morbid (severe) obesity due to excess calories Plan The patient will return in 2 weeks to complete the assessment. The BES will be reviewed, as the patient missed 2 questions, and the PHQ-9 will be repeated to ensure accuracy regarding the current state. Next appointment: 09/22/2024 at 11:00 AM (Video). Telehealth Telehealth Telehealth Platform: [employer] Location of provider rendering services: other Location of patient: other ([place]. [place]) Patient Identification confirmed using: Name, : Yes Telehealth method: video Patient verbally consented to treatment: Yes Patient verbally consented to billing insurance company: Yes Patient informed of any privacy concerns related to visit: Yes Minutes spent on Phone/Video with Pt.: 50 Coding Level of Care Code New Pt Tele Psy Diag Eval (40701) Patient Type New Diagnoses Adjustment disorder, unspecified type F43.20 Adjustment disorder type: unspecified type Morbid obesity E66.01 Time Spent (min) 50
--- OUTSIDE RECORDS SUMMARY | 2024-09-09 12:21 | XMS_ITS | Data Portability ---
Author Organization [facility] [employer] Address [address] [place] [address] Care Team Providers Care Marriage And Family Teacher Name Role Phone FLORENTINO HEAD Referring Provider Unavailable FLORENTINO HEAD Primary Care Provider Assessment Encounter Date Assessment [...] testing for reevaluation Andi Hector M.D. PhD [facility] mrossen Not available 11/30/2020 11:08:44 Plan [...] Time 12/16/2020 Cognivue completed Andi Hector MD [address] [place] [address], [phone], [facility] 12/16/2020 17:27:18 Imaging Results None recorded. [...] Updated DateTime 11/30/2020 162.56 cm 49.3 kg/m2 788607.0 1 g 12 /min Yenni Sanchez [facility] 11/30/2020 10:17:52 Social History Question Answer Notes LastModified by Organizat ion Details LastModified Time Tobacco Smoking Status Never Smoker Yenni carranza [facility] 11/30/2020 10:21:01 What Is Your Level Of Alcohol Consumption? None [email or web address] Information not available 11/30/2020 What Is Your Level Of Caffeine Consumption? Occasional 1 Per Day Information not available 11/30/2020 What Is The Highest Grade Or Level Of School You Have Completed Or The Highest Degree You Have Received? [id number] [email or web address] Information not available 11/30/2020 What Is [...] Code Diagnosis Note 879 Andi Hector MD [facility] [address] [place] [address] [place] [phone] 11/30/2020 10:12:29 11/30/2020 11:19:49 Mild neurocognitive disorder [id number] G31.84 1112 Andi Hector MD [facility] [address] [place] [address] [place] [phone] 12/16/2020 15:05:36 12/22/2020 13:51:33 Mild neurocognitive disorder [id number] G31.84 Health Concerns Section Related Observation LastModified by Organization Detai ls LastModified Time None Recorded Concern Status LastModified by Organization Details LastModified Time None Recorded Advance Directives Directive None Recorded Payers Encounter Date Sequence Insurance Name Policy Number Policy Forman Covered Member ID Forman Member ID Guarantor Name 11/30/2020 1 [place] Chapis Troy [id number] Chapis Troy 12/16/2020 1 [place] Chapis Troy [id number] Chapis Troy Notes Date Note Type Note [...] too difficult and her mother entered a mcfp. Her mother also had seizures. The patient [...] gets it done. 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 Andi Hector MD [address] [place] [address], [phone], [facility] 12/02/2020 16:03:37 12/16/2020 text/html Follow-up for [...] too difficult and her mother entered a mcfp. Her mother also had seizures. The patient [...] gets it done. 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 Her supervisors are [...] problem going to sleep. Andi Hector MD [address] [place] [address] [place], [phone], [facility] 12/16/2020 17:28:20 OBGyn Episode No OBEpisode recorded.
--- OUTSIDE RECORDS SUMMARY | 2024-09-09 12:21 | XMS_ITS | Data Portability ---
Author Organization [facility], , [facility] Address [address] [place] [address] Assessment Encounter Date Assessment Date Assessment LastModified [...] Modified Time Details Appointments None recorded. Lab vitamin D, 25-hydrox y, total, serum 2023 025 [facility], [address] [place] [address], [address], 5 14:45:01 CBC 2023 025 [facility], [address] [place] [address], [address], 5 11:12:19 ferritin, serum or plasma 2023 025 [facility], [address] [place] [address], [address], 5 14:45:00 Referral physical therapist referral - R knee pain x week +, anterio pain, reduced extension , weight bearing [facility] [address], [place], [address], 4 15:13:08 Procedures None recorded. Surgeries None recorded. Imaging MAMMO, screening , tomosynth esis, bilateral - 2nd Look Consult/D iag Mammo/US Breast/Gu ided Asp/Breas t Bx/Clip Placement , as clinicall y indicated . 2024 025 [facility] (Imaging), [address], [place], [address], 5 11:05:14 XR, knee - R knee pain x week+ , difficult y bearing weight 2023 024 [facility] (Imaging), [address] [place], [address], 4 10:24:44 MAMMO, screening , tomosynth esis, bilateral - 2nd Look Consult/D iag Mammo/US Breast/Gu ided Asp/Breas t Bx/Clip Placement , as clinicall y indicated . 2023 024 [facility] (Imaging), [address], [place], [address], 5 13:41:48 Medication Orders ergocalci ferol (vitamin D2) 1,250 mcg (50,000 unit) capsule 2024 025 [facility]acy #[id number], [address] [place], [address], 5 09:55:30 Mounjaro 10 mg/0.5 mL subcutane ous pen injector 2024 025 [facility] #[id number], [address] [place], [address], 5 09:59:05 etodolac 400 mg tablet 2023 025 [facility] #1095, [address] [place], [address], 5 09:56:26 Wegovy 2.4 mg/0.75 mL subcutane ous pen injector 2023 024 [facility] #[id number], [address] [place] [address], [address], 4 14:55:43 ergocalci ferol (vitamin D2) 1,250 mcg (50,000 unit) capsule 2023 024 [facility] #1095, [address] [place] [address], [address], 4 14:42:26 Wegovy 1 mg/0.5 mL subcutane ous pen injector 2023 024 [facility] #1095, [address] [place] [address], [address], 4 10:20:03 Wegovy 1.7 mg/0.75 mL subcutane ous pen injector [email or web address]/Pharmacy #1095, [address] [place] [address], [address], 4 10:19:58 Patient TargetsNo targets recorded. Patient InstructionsNo instructions recorded. Reason for Referral Physical Therapist Referral for Pain of right knee joint R knee pain x week +, anterio pain, reduced extension, weight bearing Referring Physician: Talisha Sparrow, Family Medicine, Encounter Date: 05/08/2024 Results Created Date Observation Date Name Description Value Unit Range Abnormal Flag Note LastModifiedBy Organization Detail LastModifiedTime 07/01/19 25 07/01/2024 RBC MORPH OLOGY polychrom FEW Not Available [address], [address], 07/01/2024 11:11:37 07/01/19 25 07/01/2024 RBC MORPH OLOGY hypochrom FEW Not Available [address], [address], 07/01/2024 11:11:37 07/01/19 25 07/01/2024 RBC MORPH OLOGY aniso SLIGHT Not Available [address], [address], 07/01/2024 11:11:37 07/01/1907/01/2024 RBC MORPH OLOGY micro MODERA TE Not Available [address], [address], 07/01/2024 11:11:37 07/01/19 25 07/01/2024 RBC MORPH OLOGY ovalocyte MODERA TE Not Available [address], [address], 07/01/2024 11:11:37 07/01/19 25 07/01/2024 CBC WBC 11.52 K/? ? ?L 3.98-1 0.04 high Not Available [address], [address], 07/01/2024 11:12:19 07/01/19 25 07/01/2024 CBC RBC 5.17 M/? ? ?L 3.93-5 .22 Not Available [address], [address], 07/01/2024 11:12:19 07/01/1907/01/2024 CBC HGB 10.1 g/dL 11.2-1 5.7 low Not Available [address], [address], 07/01/2024 11:12:19 07/01/1907/01/2024 CBC HCT 34.5 % 34.1-4 4.9 Not Available [address], [address], 07/01/2024 11:12:19 07/01/1907/01/2024 CBC MCV 66.7 fL 79.4-9 4.8 low Not Available [address], [address], 07/01/2024 11:12:19 07/01/19 25 07/01/2024 CBC MCH 19.5 pg 25.6-3 2.2 low Not Available [address], [address], 07/01/2024 11:12:19 07/01/1907/01/2024 CBC MCHC 29.3 g/dL 32.2-3 5.5 low Not Available [address], [address], 07/01/2024 11:12:19 07/01/1907/01/2024 CBC plt 360 K/? ? ?L 182-36 9 Not Available [address], [address], 07/01/2024 11:12:19 07/01/1907/01/2024 CBC MPV 9.6 fL 9.4-12 .3 Not Available [address], [address], 07/01/2024 11:12:19 07/01/1907/01/2024 CBC neut% 71.5 % 34.0-7 1.1 high Not Available [address], [address], 07/01/2024 11:12:19 07/01/1907/01/2024 CBC neut# 8.23 1.56-6 .13 high Not Available [address], [address], 07/01/2024 11:12:19 07/01/1907/01/2024 CBC lymph % 22.0 % 19.3-5 1.7 Not Available [address], [address], 07/01/2024 11:12:19 07/01/1907/01/2024 CBC lymph # 2.54 K/? ? ?L 1.18-3 .74 Not Available [address], [address], 07/01/2024 11:12:19 07/01/1907/01/2024 CBC mono% 4.6 % 4.7-12 .5 low Not Available [address], [address], 07/01/2024 11:12:19 07/01/1907/01/2024 CBC mono# 0.53 0.24-0 .56 Not Available [address], [address], 07/01/2024 11:12:19 07/01/1907/01/2024 CBC eo% 1.3 % 0.7-5. 8 Not Available [address], [address], 07/01/2024 11:12:19 07/01/1907/01/2024 CBC eo# 0.15 0.04-0 .36 Not Available [address], [address], 07/01/2024 11:12:19 07/01/1907/01/2024 CBC baso% 0.3 % 0.1-1. 2 Not Available [address], [address], 07/01/2024 11:12:19 07/01/1907/01/2024 CBC baso# 0.03 0.00-0 .08 Not Available [address], [address], 07/01/2024 11:12:19 07/01/1907/01/2024 CBC RDW-CV 19.9 % 11.7-1 4.4 high SREV= Slide revie wed [facility] . Not Available [address], [address], 07/01/2024 11:12:19 07/01/1907/01/2024 CBC Ig% 0.300 % 0.000- 1.500 Ig % >0.5 Indic ates possi ble Left Shift Not Available [address], [address], 07/01/2024 11:12:19 07/01/1907/01/2024 CBC Ig# 0.040 0.000- 0.093 Not Available [address], [address], 07/01/2024 11:12:19 07/01/1907/01/2024 CBC NRBC% 0.0 % 0.0-0. 2 Not Available [address], [address], 07/01/2024 11:12:19 07/01/1907/01/2024 CBC NRBC# 0.000 0.000- 0.012 Not Available [address], [address], 07/01/2024 11:12:19 07/01/1907/01/2024 HGB A1C hemoglobin A1C [...] furth er confi rmati on Not Available [address], [address], 07/01/2024 12:55:07 07/01/1907/01/2024 HGB A1C estimated average glucose 108.3 mg/dL Not Available [address], [address], 07/01/2024 12:55:07 07/01/1907/01/2024 TOMI TIN ferritin 5 NG/mL 6-115 low Not Available [address], [address], 07/01/2024 14:45:00 07/01/1907/01/2024 VITAM IN D 25-HY [...] er than 30 ng/mL . Not Available [address], [address], 07/01/2024 14:45:01 07/01/1907/03/2024 LIPID PANEL cholesterol 110 mg/dL <200 mg/dl Rhys able 200-2 39 mg/dl Borde rline High >240 mg/dl High Not Available [address], [address], 07/03/2024 13:40:58 07/01/1907/03/2024 LIPID PANEL triglyceride s 65 mg/dL <150 mg/dL Vero l 150-1 99 mg/dL Borde rline High 200-4 99 mg/dL High >500 mg/dL Very High Not Available [address], [address], 07/03/2024 13:40:58 07/01/1907/03/2024 LIPID PANEL direct HDL 35 mg/dL <40 mg/dl - Major Risk for CHD >60 mg/dl - Negat madeleine Risk for CHD Not Available [address], [address], 07/03/2024 13:40:58 07/01/1907/03/2024 LDL - CALCU LATED LDL - calculated [...] with 0-1 risk facto r is not necwilver forte. Not Available [address], [address], 07/03/2024 13:40:59 07/01/1907/03/2024 COMP. METAB OLIC PANEL glucose 92 mg/dL 70-100 Not Available [address], [address], 07/03/2024 13:49:40 07/01/19 25 07/03/2024 COMP. METAB OLIC PANEL BUN 10 mg/dL 7-18 Not Available [address], [address], 07/03/2024 13:49:40 07/01/19 25 07/03/2024 COMP. METAB OLIC PANEL creatinine 0.7 mg/dL 0.8-1. 3 low Not Available [address], [address], 07/03/2024 13:49:40 07/01/19 25 07/03/2024 COMP. METAB OLIC PANEL B/C 14.3 ratio Not Available [address], [address], 07/03/2024 13:49:40 07/01/19 25 07/03/2024 COMP. METAB [...] be used in pregn ashley. Not Available [address], [address], 07/03/2024 13:49:40 07/01/1907/03/2024 COMP. METAB OLIC PANEL sodium 142 mmol/ L 136-14 5 Not Available [address], [address], 07/03/2024 13:49:40 07/01/19 25 07/03/2024 COMP. METAB OLIC PANEL potassium 4.2 mmol/ L 3.5-5. 1 Not Available [address], [address], 07/03/2024 13:49:40 07/01/19 25 07/03/2024 COMP. METAB OLIC PANEL chloride 105 mmol/ L 96-107 Not Available [address], [address], 07/03/2024 13:49:40 07/01/19 25 07/03/2024 COMP. METAB OLIC PANEL anion gap 12.4 5.0-15 .0 Not Available [address], [address], 07/03/2024 13:49:40 07/01/19 25 07/03/2024 COMP. METAB OLIC PANEL CO2 25 mmol/ L 21-32 Not Available [address], [address], 07/03/2024 13:49:40 07/01/19 25 07/03/2024 COMP. METAB OLIC PANEL calcium 8.2 mg/dL 8.5-10 .3 low ANA=V erifi ed by Adebayo mclaughlin Not Available [address], [address], 07/03/2024 13:49:40 07/01/19 25 07/03/2024 COMP. METAB OLIC PANEL total protein 7.4 g/dL 6.4-8. 2 Not Available [address], [address], 07/03/2024 13:49:40 07/01/19 25 07/03/2024 COMP. METAB OLIC PANEL albumin 3.8 g/dL 3.4-5. 0 Not Available [address], [address], 07/03/2024 13:49:40 07/01/19 25 07/03/2024 COMP. METAB OLIC PANEL globulin 3.6 g/dL Not Available [address], [address], 07/03/2024 13:49:40 07/01/19 25 07/03/2024 COMP. METAB OLIC PANEL A/G 1.1 ratio 0.8-2. 0 Not Available [address], [address], 07/03/2024 13:49:40 07/01/19 25 07/03/2024 COMP. METAB OLIC PANEL total bilirubin 0.70 mg/dL 0.00-1 .00 Not Available [address], [address], 07/03/2024 13:49:40 07/01/19 25 07/03/2024 COMP. METAB OLIC PANEL AST 10 U/L 0-37 Not Available [address], [address], 07/03/2024 13:49:40 07/01/19 25 07/03/2024 COMP. METAB OLIC PANEL ALT 18 U/L 6-63 Not Available [address], [address], 07/03/2024 13:49:40 07/01/19 25 07/03/2024 COMP. METAB OLIC PANEL alk. phos. 76 U/L 50-136 Not Available [address], [address], 07/03/2024 13:49:40 05/08/20 24 05/08/2024 XR, knee [...] joint effusi on. Yue hu Physic victorino: aZid Brandt [email or web address] (Imaging) [address] , [place], [address], 07/08/2024 09:51:14 08/30/1908/29/2024 XR, chest No observ ation record ed. [facility] [address] [place], [address], 08/29/2024 15:22:28 Result Notes None recorded. Problems Name Problem SNOMED Code Status Onset Date Resolution Date Notes Provider Name and Address Organization Details Recorded Time Obesity 888923780 Completed 202004/11/2022 Removal Reason: BMI = 47.6, 02/04/21 (morbid obesity) Vivien Butterfield LPN null, [facility] 2 10:53:55 Morbid obesity 469912639 Active 2021 BMI = 47.6, 02/04/21 Vivien Butterfield LPN null, [facility] 2 10:54:07 Iron deficienc y anemia 11765285 Active 2023 Juana Mcdonough MD [address] [place] [address], [phone], [facility] 4 10:04:04 Problem Notes None recorded. Procedures Surgical History Date Name Laterality Status Provider Name and Address Organization Details Recorded Time 5 Obesity counseling completed Juana Mcdonough MD [address] [place] [address], [phone], [facility] 07/08/2024 10:00:11 4 Smoking Cessation Counselling cancelled SHAMIKA VALENZUELA PT, DPT [address] [place] [address], [phone], [facility] 05/27/2024 11:26:53 4 Physical Activity Counselling cancelled SHAMIKA VALENZUELA PT, DPT [address] [place] [address], [phone], [facility] 05/27/2024 11:26:53 4 [address]: PT Eval Low Complexity cancelled SHAMIKA VALENZUELA PT, DPT [address] [place] [address], [address], [facility] 05/27/2024 11:26:53 4 Treatment and Advice cancelled SHAMIKA VALENZUELA PT, DPT [address] [place] [address], [address], [facility] 05/27/2024 11:26:53 4 G2211 completed Juana Mcdonough MD [address] [place] [address], [address], [facility] 09/14/2023 10:39:47 4 Obesity counseling completed Juana Mcdonough MD [address] [place] [address], [address], [facility] 08/23/2023 10:26:18 1 prevention-talha cerna alcohol misuse screening completed Carmen Pete [facility] 10/21/2020 08:30:58 9 Refraction completed Thuy Parker OD [address] [place] [address], [address], [facility] 12/26/2018 09:27:37 7 Refraction completed Corona Melendez [facility] 05/03/2017 09:16:12 Imaging Results Imaging Date Name Status LastModified by Organiz ation Details LastModified Time 05/08/2024 XR, knee completed [email or web address] (Imaging) [address], [place], [address], 07/08/2024 09:51:14 08/29/2024 XR, chest completed [address], [address], 08/29/2024 15:22:28 Procedure Notes None recorded. Medical Equipment None [...] for 7 days. 10/21 completed not taken 10/21/20t t [...] propionate 50 mcg/actuat ion nasal spray,susp ension [place] 1 spray every day by intranas al [...] Available No t Available Sprintec (28) 0.25 mg-0.035 mg tablet TAKE 1 TABLET BY MOUTH ONCE A DAY 10/21 completed not taken 10/21/20t t Not Available Not Available Not Available nitrofuran toin monohydrat e/macrocry stals 100 mg capsule 10/21 completed not taken 10/21/20 t Not Available Not Available Not Available ProAir HFA 90 mcg/actuat ion aerosol inhaler INHALE 2 PUFFS INTO THE LUNGS EVERY 6 HOURS NEEDED FOR WHEEZE 08/22 completed Not Available Not Available Not Available ferrous gluconate 324 mg (38 mg iron) tablet TAKE 1 TABLET BY MOUTH EVERY DAY 10/21 completed not taken 10/21/20 t Not [...] iron-1 mg tablet 10/21 completed not taken 10/21/20 t Not [...] active Not Available Not Available Not Avai lable Mounjaro 2.5 mg/0.5 mL subcutaneo us pen [...] Updated DateTime 4 162.56 cm 44.6 kg/m2 916849. 7 g 76 /min 97 % 97 % 118 mm[Hg] 68 mm[Hg] Fiona Quinonez MA [facility] 4 14:30:23 Date Recorded Body height Body mass index (BMI) Body weight Heart rate Oxygen saturation Oxygen saturation in Arterial blood by Pulse oximetry Systolic blood pressure Diastolic blood pressure Provider Name and Address Organization Details Last Updated DateTime 4 162.56 cm 44.8 kg/m2 895374. 61 g 94 /min 97 % 97 % 122 mm[Hg] 80 mm[Hg] Vivien Hurt [facility] 4 09:47:27 Date Recorded Body height Body mass index (BMI) Body weight Oxygen saturation Oxygen saturation in Arterial blood by Pulse oximetry Heart rate Systolic blood pressure Diastolic blood pressure Provider Name and Address Organization Details Last Updated DateTime 4 162.56 cm 44.2 kg/m2 016698. 04 g 98 % 98 % 77 /min 127 mm[Hg] 64 mm[Hg] Keshia Lares [facility] 4 16:12:13 Date Recorded Body height Oxygen saturation Oxygen saturation in Arterial blood by Pulse oximetry Heart rate Body mass index (BMI) Body weight Systolic blood pressure Diastolic blood pressure Provider Name and Address Organization Details Last Updated DateTime 4 162.56 cm 96 % 96 % 76 /min 44.1 kg/m2 625953. 24 g 117 mm[Hg] 72 mm[Hg] Polly Mckoy [facility] 4 09:31:47 Date Recorded Body height Body mass index (BMI) Body weight Heart rate Oxygen saturation Oxygen saturation in Arterial blood by Pulse oximetry Systolic blood pressure Diastolic blood pressure Provider Name and Address Organization Details Last Updated DateTime 5 162.56 cm 45 kg/m2 092565. 2 g 73 /min 96 % 96 % 122 mm[Hg] 76 mm[Hg] Vivien Hurt [facility] 5 09:45:36 Social History Question Answer Notes LastModified by Organizat ion Details LastModified Time Tobacco Smoking Status Never Smoker 05/02/24 07/08/24 Vivien Hurt [facility] 07/08/2024 09:42:45 What Is Your Level Of Alcohol Consumption? Occasional 2/year. No Hx Abuse [email or web address] Information not available 07/15/2013 Do You Wear A Helmet When Biking? No Information not available 10/21/2020 What Is Your Level Of Caffeine Consumption? Moderate Information not available 10/21/2020 What Type Of Diet Are You Following? REGULAR Information not available 10/21/2020 Education 2 Year [employer] [facility] [employer]. Early Education universal health Information not available 07/15/2013 How Many Days In The Past Year Have You Had A Heavy Drinking Consumption (4+ Female, 5+ Male)? 0 [email or web address] Information not available 07/15/2013 Are There Any Guns Present In Your Home? No Information not available 10/21/2020 Live Alone Or With Others? With Others /kids Information not available 10/21/2020 Marital Status universal health Informatio n not available 07/15/2013 Mosquito Repellent Used Routinely Yes Information not available 10/21/2020 What Was The Date Of Your Most Recent Tobacco Screening? 07/08/2024 05/02/24 SM07/08/24MV [email or web address] Information not available 07/08/2024 How Many Children Do You Have? 3 2 Sons, 1 Girl universal health Information not available 07/15/2013 Seat Belts Used Routinely No Information not available 10/21/2020 Are You Sexually Active? Yes universal health Information not available 07/15/2013 Smoke Alarm [...] Immunizations Vaccine Type Date Status Note Provider Deangelo moore and Address Organization Details Recorded Time Tdap 2 completed BROCK Ceron [facility] 07/15/2013 11:05:19 COVID-19, mRNA, LNP-S, PF, 100 mcg/0.5mL dose or 50 mcg/0.25mL dose 1 [facility] 14:32:44 COVID-19, mRNA, LNP-S, PF, 100 mcg/0.5mL dose or 50 mcg/0.25mL dose 1 completed BROCK Arellano, [facility] 10/21/2020 14:32:55 Td (adult), 2 Lf tetanus toxoid, preservative free, adsorbed 4 [facility] 10:30:07 Past Encounters Encounter ID Performer Location Encounter Start Date Encounter Closed Date Diagnosis/Indication Diagnosis SNOMED-CT Code Diagnosis ICD10 Code Diagnosis Note [id number] BROCK Darby, [facility], [address]ICE [address] [place] [address] 07/15/2013 10:53:12 07/15/2013 11:24:58 Cough [id number] with tachycardi a and some lung findings will treat below. d/w Midler [id number] Myrtle JON, [facility], OFFICE [address] [place] [address] 02/04/2014 14:42:24 02/04/2014 15:27:54 Lower abdominal pain 93590121 UA + nits, blood ? pyelo Will check labs below tx with cipro Keep close f/u in 48 hrs [id number] Myrtle JON, [facility], OFFICE [address] [place] [address] 02/06/2014 11:32:09 02/06/2014 11:47:39 Lower abdominal pain 22207953 resolving Urine Cx + and senstive to Cipro Backache 824672999 C/W naproxen bid with meals Given flexeril 10 mg qhs Advised heat, stretching F/U prn Urinary tr act infectious disease [id number] ARABELLA Forde, [facility], [address]ICE [address] [place] [address] 11/07/2014 12:14:41 11/07/2014 12:53:54 Cough 52114748 bronchitis related to allergies is most likely meds as directed f/u with PCP prn sx persist or increase Irregular periods 52960277 History of [id number] Unclear EDC - pt has apt with gynaecological oncologist next week. Options counseling . Call with any bleeding, other concerns. [id number] Thuy Parker, OD [facility], 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 [address] [place] [address] 12/26/2018 08:39:50 12/26/2018 10:05:53 Myopic astigmatism 939902260 H52.792 [id number] VALERIE Galindo , [facility], OFFICE [address] [facility] [place] [address] 10/21/2020 14:26:03 10/25/2020 13:08:33 Adult health examination 225282998 Z00.00 Will update fasting labs Due for a pap, will arrange in-office Counseling 335206625 Z71 .9 Depression screening 171 857795 Z13.31 depression screening tool administer ed, entered into emr, scored and discussed, time greater than 7.5 minutes Screening for alcohol abuse 015226886 Z13.39 AUDIT 1 out of 12. No concerns. Morbid obesity 754409610 E66.01 BMI 49.8. Discussed healthy diet today. [...] program and/or surgery - referral placed to [facility]. Normal grief reaction 27 1469087 F43.20 Mother recently passed, patient grieving. Provided emotional support today. Will have [facility] outreach patient for support. Family his tory of dementia 760493030 Z81.8 Mother had frontal lobe dementia . No one else in the family with dementia. Patient interested in a work-up with neurology, will refer. Insomnia 978471840 G47.0 0 Ongoing insomnia. 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 Avoid screen time before bed Try a daily melatonin over the counter Follow-up in the next several weeks in-house with this [employer]AMP[employer] CLEANING ATTENDANT. [id number] VALERIE Galindo , [facility], [address]ICE [address] [place] [address] 11/04/2020 10:07:09 11/04/2020 11:03:44 Insomnia 089869740 G47.00 Ongoing insomnia. 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 Avoid screen time before bed Try a daily melatonin over the counter Encouraged increasing physical activity throughout the day Allergic rhinitis 306854 04 J30.9 Nasal congestion , itchy/wate ry eyes. Start flonase and daily antihistam ine as below. Prediabetes 056288676 R7 3.03 A1c 6.0. As above, referral in place for weight loss center. Discussed that weight loss could significan tly lower her risks of developing into diabetes. Screening for malignant neoplasm of cervix 854594178 Z12.4 Pap obtained today. No history of abnormal paps per patient. Obesity 231902743 E66.9 BMI 33.3. Has a referral already in place for [facility] weight loss clinic. Encouraged to call to set up an appt Discussed healthy diet, encouraged regular physical activity. Normal grief reaction 27 7598544 F43.20 Mother recently passed, patient grieving. Provided emotional support today. Will have [facility] outreach patient for support. Hypocalcemia 3312130 E83 .51 Spoke with the patient, notified of critical lab results - calcium 7.9. She denies any current medication s like laxatives or diuretics. No diarrhea/C rohn's disease. Only takes OTC pain medication s as needed for headaches. She does report always feeling cold, trouble losing weight, insomnia. Reviewed with Dr Hill () and Danii Thao (SU[facility]). Will repeat ionized calcium, vitamin D, magnesium, TSH, PTH. F/u with results. [id number] VALERIE Galindo , [facility], OFFICE [address] [place] [address] 11/11/2020 16:33:49 11/11/2020 17:02:05 Toothache 03404383 K08.89 Patient has several missing teeth and a cracked upper left molar but does not appear infected. Continue with as-needed ibuprofen for pain. Appt in place next week with dentistry. Hypocalcemia 4898704 E83 .51 Critically low calcium on routine [...] was instructed to not take together. This [employer] CLE[employer] ATTENDANT reviewed with Dr Aguilar - her tingling in her hands and her multiple cracked/mi ssing teeth could likely be from retirement low calcium. Her last calcium level was done in 2013 (7 years ago) and was normal. Morbid obesity 459245274 E66.01 BMI 51.2 today. She is now following with weight loss clinic at [facility] They have discussed nutrition/ meal plans with her. The goal might be eventually surgery, although she has to prove first she is able to lose on her own. Advised her to inform them of the above low calcium levels (they had plans to separately do labs through their clinic). As above, also has upcoming appts with endo/Dr Aguilar. [id number] Diogo Hale MD , [facility], [place] [address] [place] [address] 01/28/2021 14:03:45 01/29/2021 15:01:31 Dyspnea on exertion [id number] R06.09 marked in parking lot subjective ly and objectivel y evidentL clear good sats,HRup at90 P/cxr if neg will send to ER for CTA [id number] Diogo Hale MD , [facility], [address]ICE [address] [place] [address] 02/04/2021 08:34:05 02/04/2021 09:01:43 Dyspnea on exertion [id number] R06.09 02/04/2021 although she looks much better than when seen in Resp unit (panting) she reports berger in parking lot distances, reports as not improved [facility] is, feverand LLL infiltrate and high but just over the limit DDimer, was diagnosed with Pn and not PE ([place] from [place])concern for chf, pe, symptomati c anemia , ALRETH remains has upcoming home sleep study ( [...] neg will send to ER for CTA [id number] Talisha Sparrow NP , [facility], [place]ICE [address] [place] [address] 04/17/2022 16:01:34 04/24/2022 08:16:01 Acute laryngitis 0397402 J04.0 discussed likely viral etiologyad vised voice rest, ibuprofen, warm/cool drinksf/u prn [id number] MD DONTRELL Ho, [facility], [place] [address] [place] [address] 08/23/2023 09:16:09 08/23/2023 11:02:32 Adult health examination [id number] Z00.00 Depression screening 171 271670 Z13.31 depression screening tool administer edNegative screen Screening for alcohol abuse 728523419 Z13.39 Alcohol use screening tool administer edNegative screen Active or passive immunization 400338294 Z23 Morbid obesity 067326570 E66.01 Previously followed with [facility] weight management nutritionB SD 45Drinks 3 cups of juice everyday, and soda 3x per week - has found it difficult to cut this outI recommend increasing physical activity - go for a walk during lunch breaksOffe red nutrition Vitamin D deficiency 347 66110 E55.9 Recheck Iron defic iency anemia 03310104 D50.9 Recheck levels [id number] Juana Mcdonough MD , [facility], OFFICE [address] [place], [place] [address] 09/14/2023 10:21:52 09/14/2023 10:52:46 Iron deficiency anemia 00777918 D50.9 Hg 9.8 with low ferritinCo ntinue iron supplement (started last month and tolerating fine) and recheck in 3moVit C helps with iron absorption Vitamin D deficiency 347 94925 E55.9 High dose vit DRecheck in 3mo Morbid obesity 118017867 E66.01 Uncontroll ed with BMI of 45She would like to try a GLP1 agonist and low-dose metforminW e discussed risk of hypoglycem ia with metformin and came to a mutual decision to try a low dose.----- ------[place] 3 cups of juice everyday, and soda 3x per week - has found it difficult to cut this outI recommend increasing physical activity - go for a walk during lunch breaksOffe [employer] Did weight-los s diet through [facility] [place] management for 3-4 months starting in October 2020 in anticipati on for surgery. She got busy at work so stopped the diet and didn't f/u with [facility]. Also tried Weight Watchers at the end of 2018 for about 3 months. In the past, has tried to go for walks with her kids but has not been able to do this. Obesity 085987382 E66.9 You have been prescribed a new [...] containers from your insurance company or most [facility] have them available for free. Side effects/Co [...] in children under 18, or in . [id number] Juana Mcdonough MD , [facility], [place] [place] [address] 12/28/2023 14:19:30 12/31/2023 11:59:06 Screening mammography 76873495 Z12.31 Iron defic iency anemia 27609134 D50.9 Hg slightly improved from 9.8 to 10.3ferrit in still lowContinu e iron supplement (started last month and tolerating fine) and recheck in 3moVit C helps with iron absorption Vitamin D deficiency 347 79747 E55.9 s/p High dose vit D x 8 dosesReche ck in 3mo Morbid obesity 863929367 E66.01 Uncontroll ed with BMI of 45s/p 7 weeks of Wegovy 0.25mgIncr ease to 0.5mg weeklyAfte r 4 weeks, increase to 1mg weekly---- -------Dri nks 3 cups of juice everyday, and soda 3x per week - has found it difficult to cut this outI recommend increasing physical activity - go for a walk during lunch breaksOffe [employer] Did weight-los s diet through [facility] weight management for 3-4 months starting in October 2020 in anticipati on for surgery. She got busy at work so stopped the diet and didn't f/u with [facility]. Also tried Weight Watchers at the end of 2018 for about 3 months. In the past, has tried to go for walks with her kids but has not been able to do this. [id number] Juana Mcdonough MD , [facility], OFFICE [address] [place], [place] [address] 03/19/2024 09:36:23 03/19/2024 10:33:26 Influenza vaccination declined 303207474 Z28.21 Pain of ri ght knee joint 2319164276 76338 M25.561 2mo of R knee pain with going up/down stairs which I suspect is patellofem oral syndromeI recommend 2 weeks of anti-infla mmatory med (2 Aleve twice daily with food) and if no improvemen t, pt to call and would refer to PT Morbid obesity 280373820 E66.01 Has not lost weight on Wegovy [...] of hypoglycem ia. Iron defic iency anemia 53971003 D50.9 Recheck in 2mo------- -----Hg slightly improved from 9.8 to 10.3ferrit in still lowContinu e iron supplement (started last month and tolerating fine) and recheck in 3moVit C helps with iron absorption [id number] Mario Srinivasan MD , [facility], [address]ICE [address] [place] [address] 05/02/2024 16:03:43 05/02/2024 16:48:01 Sprain of lateral collateral ligament of knee 36265146 S83.421A 44-year-ol d female complainin g of [...] will gradually get better on its own. [id number] Talisha Sparrow NP , 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, OFFICE [address] [place], [place] [address] 07/08/2024 09:35:28 07/08/2024 10:02:42 Screening mammography 79071077 Z12.31 Morbid obesity 577061521 E66.01 Uncontroll edComplica tamir by acute knee sprain over the holidaysTh is Fri will be fourth injection of Mounjaro 5mgI recommend walking everyday and eating healthy Iron defic iency anemia 28011960 D50.9 Uncontroll ed with ferritin of 5, [...] with iron absorption Vitamin D deficiency 347 82285 E55.9 s/p High dose vit D x 8 doses last summerRefi ll and will probably need to take weekly Pain of ri ght knee joint [id number] 01340 M25.561 Acute knee strain last fall, now recovered Health Concerns Section Related Observation LastModified by Organization Detai ls LastModified Time None Recorded Concern Status LastModified by Organization Details LastModified Time None Recorded Advance Directives Directive None Recorded Payers Encounter Date Sequence Insurance Name Policy Number Policy Forman Covered Member ID Forman Member ID Guarantor Name 12/28/[address] 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 PL[employer] - NAVIGATOR (PPO) [id number] Chapis [place] [id number] Chapis [place] 05/02/2024 1 [employer] - NAVIGATOR (PPO) [id number] Chapis Aguilaron [id number] 01 Chapis Aguilaron 05/08/[address] [facility] PL[employer] - NAVIGATOR (PPO) [id number] Chapis Veraderon [id number] 01 Chapis Veraderon 07/08/2024 1 [employer] - DIRECT CONNECTORCARE TYPE I (HMO) [id number] Chapis [place] [id number] 01 Chapis [place] Notes Date Note Type Note Provider Name and Address Organization Details Recorded Time 03/19/2024 text/html Anterior R knee pain since end of with going up/down stairs, getting upNo pain if not movingNo history of R knee pain or trauma Juana Mcdonough MD [address] [place] [address], [phone], [facility] 03/19/2024 10:20:24 05/02/2024 text/html Anterior R knee pain since end of with going up/down stairs, getting upNo pain if not movingNo history of R knee pain or trauma Mario Srinivasan MD [address] [place] [address], [phone], [facility] 05/02/2024 16:36:56 05/08/2024 text/html here for R knee pain x week +seen last week- dx sprainsxs have gotten worse over the weektaking alleve and motrin not helpingpain anterior, walking most painful, waking from sleep.no known injury- sxs developed after long drive Talisha Sparrow NP [address] [place] [address], [phone], [facility] 05/08/2024 09:58:31 OBGyn Episode No OBEpisode recorded.
== END 2024-09-09 11:15 | disposition home or self-care (01) ==
LOC: HO.HBST 10:17
PROVIDERS: PCP Nurse Practitioner Family; Visit Provider Counselor Mental Health
DX: F43.20 Adjustment disorder, unspecified (principal); E66.01 Morbid (severe) obesity due to excess calories
CPT/HCPCS: 90791

== ENCOUNTER → 2024-09-09 10:17 | Outpatient (BNVA) | payer OTHER, SELFPAY | PROVIDERS: PCP Nurse Practitioner Family; Visit Provider Counselor Mental Health ==

== ENCOUNTER 2024-09-22 11:11 | Outpatient (AMB) | payer OTHER, SELFPAY ==
--- NOTE | 2024-09-22 11:05 | MHC.WMTHER ---
Intake Intake Visit Reasons: VIDEO BH F/U Allergies No Known Allergies Allergy (Verified 08/22/24 11:15) [facility] Medical History (Updated 12/17/20 @ 12:53 by Barbra Garland MD) Vitamin D deficiency Prediabetes Morbid obesity Surgical History (Updated 12/17/20 @ 12:53 by Barbra Garland MD) No significant past surgical history Family History (Updated 12/17/20 @ 11:33 by Aliza Jaffe) Mother Frontal lobe dementia Father Heart valve replaced Brother No problems noted. Sister No problems noted. Son No problems noted. Son No problems noted. Daughter No problems noted. Social History Alcohol intake: current Alcohol intake frequency: holidays/special occasions only Alcohol type: wine Patient Tobacco Use Status: Never used Tobacco Behavioral Health Assessment Weight Management Therapy Therapy Notes Details The patient is a 44-year-old female presenting for a behavioral health assessment as part of a surgical weight loss program. She initially enrolled in the program in 2020 but was unable to proceed at the time due to work-related circumstances. She re-engaged with the program on 08/22/2024, with a recorded weight of 256 lbs. The patient expresses interest in bariatric surgery to enhance her overall quality of life, improve physical health, and support her long-term goal of living a healthy and fulfilling life. She denies any history of mental health treatment, psychiatric hospitalization, or behavioral health crises. She also denies any current or past concerns related to suicidal ideation, suicide attempts, self-harm, or harm to others. No history of substance use was reported. There is no evidence of stress-related or emotional eating, and her Binge Eating Scale (BES) results indicate a low risk for disordered eating behaviors. Scores on the PHQ-9 reveal no current symptoms or concerns suggestive of depression. Mental status examination is within normal limits, indicating no impairment in the patient?s current functioning. At this time, the patient is cleared from a behavioral health standpoint to proceed with the surgical weight loss program. Presenting Concerns Referral Source P-Provider, Dr. Aline MANCERA had initial visit on 08/22/2024. Reason for referral Completion of behavioral health assessment as part of process for weight-loss surgery. Precipitating Event Obesity. Living Situation Current Living Situation Rent At risk of losing current housing? No Satisfied with current living situation? Yes Comments PT lives with her and 3 children. Food/Weight/Diet Expectations of change The initial goal is to lose 10% of her weight before surgery, which is about 26 lbs. Ultimate weight goal: 230lbs before surgery Initial weight: 256 lbs (at office), Initial weight with home scale: 259 Lbs. weight as of 09/21/2024: 257.7Lbs PT is implementing the following: Current meal plan: Combination of shakes, bars, and 1 meal (9F/9F) Exercise plan: Walking. History/Relationship with food The patient denies a history of stress or emotional eating but reports occasionally eating food after having a good week. About four times a month, they tend to order takeout after a long week. As a individual, the patient notes a tendency to include at least two servings of carbs in one meal and consume fewer vegetables and greens than recommended. 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 During high school, her weight was around 180 lbs. She gained significant weight during her last two pregnancies. Over the past 10 years, her weight has fluctuated between a low of 250 lbs and a high of 305 lbs. History/Relationship with dieting The patient has previously attempted various weight management strategies, including Weight Watchers, self-guided diets, and a 14-day cleanse and detox program. In 2020, she participated in a Weight Management Program (WMP) and was prescribed Wegovy for 6 months without significant weight loss. For the past 7 months, she has been using Mounjaro, resulting in a weight loss of approximately 40 lbs. Despite these efforts, the patient remains classified as morbidly obese. Binge Eating Do you frequently eat large amounts of food in short periods of time, not feeling physically hungry? No Do you feel out of control when you eat a large amount of food in a short period of time? No Do you eat large amounts of food rapidly and typically alone? No Night Eating Do you wake up at least once during the night to eat? No If you wake up in the night, do you find that it is necessary to eat something in order to fall back asleep? No Do you have little or no appetite in the morning and feel very hungry in the evening, often overeating between dinner and when you go to bed? Yes Social History Family history and relationship PT is since 2007, and they have 3 children. PT has 2 siblings, she is the oldest. Her mother 4 years ago, her dad is alive. PT reports she has good family dynamics, they're very close. Parental/Familial bundle packer obligations PT has 3 children, 2 boys, they are 18 and 14, and her daughter is 10 y/o Developmental history and status None reported. Currently WNL. Social support Family. Mainly , children. Community support Some co-workers, 1 had bariatric surgery about 3 weeks ago. Latter-Day/Spirituality Yarsanism. Currently doesn't practice or is active in holiness. Cultural/Ethnic information The family is from [facility]. She was born in [place]. Moved to [place] in 2004. Legal Involvement and History Current or historical involvement with the legal system? None reported. Education Highest grade completed Some college. Preferred learning style Learn by doing Currently enrolled in educational program? Yes Interested in further educational program? No Educational Interests/Skills PT is enrolled in college, working towards her bachelor's in liberal arts. 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 ) Wants help to find employment? No Meaningful activities Shopping, get her nails/hair done, watch Tv, relax at home. Financial Situation Describe current financial situation Comfortable Financial assistance? None Service Service? No Mental Health and Addiction Treatment Current/Past substance abuse? No Comments Alcohol: socially. about 4 times at year, no more than 2 drinks. Cigarettes/Tobacco: None Cannabis/Edibles: None Current/Past addictive behavior concerns? No Psychiatric history The patient reports that she has never received counseling, denies any history of crises or inpatient mental health care, and has not been prescribed psychiatric medication. There are no current or past concerns regarding suicidal ideation, self-harm, or harm to others. Medical and Physical Health Summary Additional Medical History not covered in history None reported. Sexual History concerns None reported. Physical exam in the last year? Yes Pain Screening Current pain? No Pain in the last few months? No Medications Is the patient compliant with medications? Yes Does the patient have Vasquez Guardian in place? Not applicable Does the patient use complimentary health approaches? No Trauma/Abuse History History of trauma? No Self-Harm Factors Suicidal thoughts/plans/rehearsal behaviors None Suicide attempts None Self-harm behaviors None Family history of suicidal/self harm None Life threatening eating disorder None Victimized by others/places self in danger None Command hallucinations for self harm None Elopement without ability to self preserve None Other self-harm None Questionnaires PHQ-9 Over the last 2 weeks, how often have you been bothered by any of the following problems? 1. Little interest or pleasure in doing things: not at all 2. Feeling down, depressed, or hopeless: not at all 3. Trouble falling or staying asleep, or sleeping too much: more than half the days (falling) 4. Feeling tired or having little energy: not at all 5. Poor appetite or overeating: not at all 6. Feeling bad about yourself - or that you are a failure or have let yourself or your family down: not at all 7. Trouble concentrating on things, such as reading the newspaper or watching television: not at all 8. Moving or speaking so slowly that other people could have noticed. Or the opposite - being so fidgety or restless that you have been moving around a lot more than usual: not at all 9. Thoughts that you would be better off or of hurting yourself in some way: not at all Total score: 2 Depression Screening Interpretation: Negative Depression Screening Done: Yes 86330 - PHQ-9 Billing: Yes Source: Developed by Drs. Diogo Mckeon, Chula Quiroga, Petros Carrillo and colleagues, with an educational michael from [employer]. Binge Eating Scale Group 1 A. I don't feel self-conscious about my wt. or body size when I'm with others. B. I feel concerned about how I look to others, but it normally does not make me fell disappointed with myself C. I do get self-conscious about my appearance and wt. which makes me feel disappointed in myself. D. I feel very self-conscious about my wt. and frequently I feel intense shame and disgust for myself. I try to avoid social contacts because of my self-consciousness. Response Group 1: B Group 2 A. I don't have any difficulty eating slowly in the proper manner. B. Although I seem to gobble down foods, I don't end up feeling stuffed because of eating to much. C. At times, I tend to eat quickly and then, I feel uncomfortably full afterwards. D. I have the habit of bolting down my food, without really chewing it. When this happens I usually feel uncomfortably stuffed because I've eaten to much. Response Group 2: A Group 3 A. I feel capable to control my eating urges when I want to. B. I feel like I have failed to control my eating more than the average person. C. I feel utterly helpless when it comes to feeling in control of my eating urges. D. Because I feel so helpless about controlling my eating I have become very desperate about trying to get control. Response Group 3: A Group 4 A. I don't have the habit of eating when I'm bored. B. I sometimes eat when I'm bored, but often I'm able to get busy and get my mind off food. C. I have a regular habit of eating when I'm bored, but occasionally, I can use some other activity to get my mind off eating. D. I have a strong habit of eating when I'm bored. Nothing seems to help me breath the habit. Response Group 4: B Group 5 A. I'm usually physically hungry when I eat something. B. Occasionally, I eat something on impulse even though I really am not hungry. C. I have the regular habit of eating foods, that I might not really enjoy, to satisfy a hungry feeling even though physically, I don't need the food. D. Although I'm not physically hungry, I get a hungry feeling in my mouth that only seems to be satisfied when I eat a food, like sandwich, that fills my mouth. Sometimes, when I eat the food to satisfy my mouth hunger, I then spit the food out so I won't gain weight. Response Group 5: B Group 6 A. I don't feel any guilt or self-hate after I overeat. B. After I overeat, occasionally I feel guilt or self-hate. C. Almost all the time I experience strong guilt or self-hate after I overeat. Response Group 6: B Group 7 A. I don't lose total control of my eating when dieting even after periods when I overeat. B. Sometimes when I eat a forbidden food on a diet, I feel like I blew it and eat even more. C. Frequently, I have the habit of saying to myself, I've blown it now, why not go all the way, when I overeat on a diet. When that happens I eat more. D. I have a regular habit of starting a strict diets for myself but I break the diets by going on an eating binge. My life seems to be either a feast or famine. Response Group 7: A Group 8 A. I rarely eat so much food that I feel uncomfortably stuffed afterwards. B. Usually about once a month, I each such a quantity of food, I end up feeling very stuffed. C. I have regular periods during the month when I eat large amounts of food, either at mealtime or at snacks. D. I eat so much food that I regularly feel quite uncomfortable after eating and sometimes a bit nauseous. Response Group 8: C Group 9 A. My level of calorie intake does not go up very high or go down very low on a regular basis. B. Sometimes after I overeat, I will try to reduce my caloric intake to almost nothing to compensate for the excess calories I've eaten. C. I have a regular habit of overeating during the night. It seems that my routine is not to be hungry in the morning but overeat in the evening. D. In my adult years, I have had week-long periods where I practically starve myself. This follows periods when I overeat. It seems I live a life of either feast or famine. Response Group 9: C Group 10 A. I usually am able to stop eating when I want to. I know when enough is enough. B. Every so often, I experience a compulsion to eat which I can't seem to control. C. Frequently, I experience strong urges to eat which I seem unable to control, but at other times I can control my eating urges. D. I feel incapable of controlling urges to eat. I have a fear of not being able to stop eating voluntarily. Response Group 10: B Group 11 A. I don't have any problem stopping eating when I feel full. B. I usually can stop eating when I feel full but occasionally overeat leaving me feeling uncomfortably stuffed. C. I have a problem stopping eating once I start and usually I feel uncomfortably stuffed after I eat a meal. D. Because I have a problem not being able to stop eating when I want, I sometimes have to induce vomiting to relieve my stuffed feeling. Response Group 11: B Group 12 A. I seem to eat just as much when I'm with others, Family social gatherings as when I'm by myself. B. Sometimes, when I'm with other persons, I don't eat as much as I want to eat because I'm self-conscious about my eating. C. Frequently, I eat only a small amount of food when others are present, because I'm very embarrassed about my eating. D. I feel so ashamed about overeating that I pick times to overeat when I know no one will see me. I feel like a closet eater. Response Group 12: B Group 13 A. I eat three meals a day with only an occasional between meal snack. B. I eat 3 meals a day, but I also normally snack between meals. C. When I am snacking heavily, I get in the habit of skipping regular meals. D. There are regular periods when I seem to be continually eating, with no planned meals. Response Group 13: B (2 meals, skip breakfast) Group 14 A. I don't think much about trying to control unwanted eating urges. B. At least some of the time, I feel my thoughts are pre-occupied with trying to control my eating urges. C. I feel that frequently I spend much time thinking about how much I ate or about trying not to eat anymore. D. It seems to me that most of my waking hours are pre-occupied by thoughts about eating or not eating. I feel like I'm constantly struggling not to eat. Response Group 14: A Group 15 A. I don't think about food a great deal. B. I have strong craving for food but they last only for brief periods of time. C. I have days when I can't seem to think about anything else but food. D. Most of my days seem to be pre-occupied with thoughts about food. I feel like I live to eat. Response Group 15: B Group 16 A. I usually know whether or not I'm physically hungry. I take the right portion of food to satisfy me. B. Occasionally, I feel uncertain about knowing whether or not I'm physically hungry. A these times it's hard to know how much food I should take to satisfy me. C. Even though I might know how many calories I should eat, I don't have any idea what is a normal amount of food for me. Response Group 16: C Binge Eating Score: 15 Score less than 17 Minimal Risk Score between 18-26 Moderate Risk Score between 27-46 High Risk Assessment & Plan Assessment & Plan (1) Adjustment disorder, unspecified: Code(s): F43.20 - Adjustment disorder, unspecified Qualifiers: Adjustment disorder type: unspecified type Qualified Code(s): F43.20 - Adjustment disorder, unspecified (2) Morbid obesity: Code(s): E66.01 - Morbid (severe) obesity due to excess calories Plan The patient is behaviorally cleared to be submitted for insurance approval. A follow-up appointment will be scheduled post-operatively for ongoing behavioral health screening and support as part of her comprehensive care plan. Next braulio: 2-4 weeks PO. Telehealth Telehealth [facility] Location of provider rendering services: other Location of patient: other (Work. [employer] Patient Identification confirmed using: Name, : Yes Telehealth method: video Patient verbally consented to treatment: Yes Patient verbally consented to billing insurance company: Yes Patient informed of any privacy concerns related to visit: Yes Minutes spent on Phone/Video with Pt.: 55 Coding Level of Care Code Established Pt Tele Psytx >53 mins ([id number]) Patient Type Established Diagnoses Adjustment disorder, unspecified type F43.20 Adjustment disorder type: unspecified type Morbid obesity E66.01 Additional Codes PHQ-9 - 67983 - PHQ-9 Billing: Yes ([id number]) Time Spent (min) 55
--- OUTSIDE RECORDS SUMMARY | 2024-09-22 13:25 | XMS_ITS | Data Portability ---
Author Organization [facility], , [facility] Address [address] [place] [address] Assessment Encounter Date Assessment Date Assessment LastModified [...] D, 25-hydrox y, total, serum [address] [facility], [address] [place] [address], [address], 5 14:45:[address] [facility], [address] [place] [address], [address], 5 11:12:19 ferritin, serum or plasma [address] [facility], [address] [place] [address], [address], 5 14:45:00 Referral physical therapist referral - R knee pain x week +, anterio pain, reduced extension , weight bearing [facility] [address], [place], [address], 4 15:13:08 Procedures None recorded. Surgeries None recorded. Imaging MAMMO, screening , tomosynth esis, bilateral - 2nd Look Consult/D iag Mammo/US Breast/Gu ided Asp/Breas t Bx/Clip Placement , as clinicall y indicated . 2024 025 [facility] (Imaging), [address], [place], [address], 5 11:05:14 XR, knee - R knee pain x week+ , difficult y bearing weight [address] [facility] (Imaging), [address] [place], [address], 4 10:24:44 MAMMO, screening , tomosynth esis, bilateral - 2nd Look Consult/D iag Mammo/US Breast/Gu ided Asp/Breas t Bx/Clip Placement , as clinicall y indicated . 2023 024 [facility] (Imaging), [address], [place], [address], 5 13:41:48 Medication Orders ergocalci ferol (vitamin D2) 1,250 mcg (50,000 unit) capsule 2024 025 [facility]acy #[id number], [address] [place], [address], 5 09:55:30 Mounjaro 10 mg/0.5 mL subcutane ous pen injector 2024 025 [facility] #1095, [address] [place], [address], 5 09:59:05 etodolac 400 mg tablet 2023 025 [facility] #1095, [address] [place], [address], 5 09:56:26 Wegovy 2.4 mg/0.75 mL subcutane ous pen injector 2023 024 [facility] #1095, [address] [place] [address], [address], 4 14:55:43 ergocalci ferol (vitamin D2) 1,250 mcg (50,000 unit) capsule 2023 024 [facility] #1095, [address] [place] [address], [address], 4 14:42:26 Wegovy 1 mg/0.5 mL subcutane ous pen injector 2023 024 [facility] #1095, [address] [place] [address], [address], 4 10:20:03 Wegovy 1.7 mg/0.75 mL subcutane ous pen injector [email or web address]/Pharmacy #1095, [address] [place] [address], [address], 4 10:19:58 Patient TargetsNo targets recorded. Patient [...] RBC MORPH OLOGY polychrom FEW Not Available [address], [address], 07/01/2024 11:11:37 07/01/19 25 07/01/2024 RBC MORPH OLOGY hypochrom FEW Not Available [address], [address], 07/01/2024 11:11:37 07/01/19 25 07/01/2024 RBC MORPH OLOGY aniso SLIGHT Not Available [address], [address], 07/01/2024 11:11:37 07/01/1907/01/2024 RBC MORPH OLOGY micro MODERA TE Not Available [address], [address], 07/01/2024 11:11:37 07/01/19 25 07/01/2024 RBC MORPH OLOGY ovalocyte MODERA TE Not Available [address], [address], 07/01/2024 11:11:37 07/01/19 25 07/01/2024 CBC WBC 11.52 K/? ? ?L 3.98-1 0.04 high Not Available [address], [address], 07/01/2024 11:12:19 07/01/19 25 07/01/2024 CBC RBC 5.17 M/? ? ?L 3.93-5 .22 Not Available [address], [address], 07/01/2024 11:12:19 07/01/1907/01/2024 CBC HGB 10.1 g/dL 11.2-1 5.7 low Not Available [address], [address], 07/01/2024 11:12:19 07/01/1907/01/2024 CBC HCT 34.5 % 34.1-4 4.9 Not Available [address], [address], 07/01/2024 11:12:19 07/01/1907/01/2024 CBC MCV 66.7 fL 79.4-9 4.8 low Not Available [address], [address], 07/01/2024 11:12:19 07/01/19 25 07/01/2024 CBC MCH 19.5 pg 25.6-3 2.2 low Not Available [address], [address], 07/01/2024 11:12:19 07/01/1907/01/2024 CBC MCHC 29.3 g/dL 32.2-3 5.5 low Not Available [address], [address], 07/01/2024 11:12:19 07/01/1907/01/2024 CBC plt 360 K/? ? ?L 182-36 9 Not Available [address], [address], 07/01/2024 11:12:19 07/01/1907/01/2024 CBC MPV 9.6 fL 9.4-12 .3 Not Available [address], [address], 07/01/2024 11:12:19 07/01/1907/01/2024 CBC neut% 71.5 % 34.0-7 1.1 high Not Available [address], [address], 07/01/2024 11:12:19 07/01/1907/01/2024 CBC neut# 8.23 1.56-6 .13 high Not Available [address], [address], 07/01/2024 11:12:19 07/01/1907/01/2024 CBC lymph % 22.0 % 19.3-5 1.7 Not Available [address], [address], 07/01/2024 11:12:19 07/01/1907/01/2024 CBC lymph # 2.54 K/? ? ?L 1.18-3 .74 Not Available [address], [address], 07/01/2024 11:12:19 07/01/1907/01/2024 CBC mono% 4.6 % 4.7-12 .5 low Not Available [address], [address], 07/01/2024 11:12:19 07/01/1907/01/2024 CBC mono# 0.53 0.24-0 .56 Not Available [address], [address], 07/01/2024 11:12:19 07/01/1907/01/2024 CBC eo% 1.3 % 0.7-5. 8 Not Available [address], [address], 07/01/2024 11:12:19 07/01/1907/01/2024 CBC eo# 0.15 0.04-0 .36 Not Available [address], [address], 07/01/2024 11:12:19 07/01/1907/01/2024 CBC baso% 0.3 % 0.1-1. 2 Not Available [address], [address], 07/01/2024 11:12:19 07/01/1907/01/2024 CBC baso# 0.03 0.00-0 .08 Not Available [address], [address], 07/01/2024 11:12:19 07/01/1907/01/2024 CBC RDW-CV 19.9 % 11.7-1 4.4 high SREV= Slide [facility] . Not Available [address], [address], 07/01/2024 11:12:19 07/01/1907/01/2024 CBC Ig% 0.300 % 0.000- 1.500 Ig % >0.5 Indic ates possi ble Left Shift Not Available [address], [address], 07/01/2024 11:12:19 07/01/1907/01/2024 CBC Ig# 0.040 0.000- 0.093 Not Available [address], [address], 07/01/2024 11:12:19 07/01/1907/01/2024 CBC NRBC% 0.0 % 0.0-0. 2 Not Available [address], [address], 07/01/2024 11:12:19 07/01/1907/01/2024 CBC NRBC# 0.000 0.000- 0.012 Not Available [address], [address], 07/01/2024 11:12:19 07/01/1907/01/2024 HGB A1C hemoglobin A1C [...] furth er confi rmati on Not Available [address], [address], 07/01/2024 12:55:07 07/01/1907/01/2024 HGB A1C estimated average glucose 108.3 mg/dL Not Available [address], [address], 07/01/2024 12:55:07 07/01/1907/01/2024 TOMI TIN ferritin 5 NG/mL 6-115 low Not Available [address], [address], 07/01/2024 14:45:00 07/01/1907/01/2024 VITAM IN D 25-HY [...] er than 30 ng/mL . Not Available [address], [address], 07/01/2024 14:45:01 07/01/1907/03/2024 LIPID PANEL cholesterol 110 mg/dL <200 mg/dl Rhys able 200-2 39 mg/dl Borde rline High >240 mg/dl High Not Available [address], [address], 07/03/2024 13:40:58 07/01/1907/03/2024 LIPID PANEL triglyceride s 65 mg/dL <150 mg/dL Vero l 150-1 99 mg/dL Borde rline High 200-4 99 mg/dL High >500 mg/dL Very High Not Available [address], [address], 07/03/2024 13:40:58 07/01/1907/03/2024 LIPID PANEL direct HDL 35 mg/dL <40 mg/dl - Major Risk for CHD >60 mg/dl - Negat madeleine Risk for CHD Not Available [address], [address], 07/03/2024 13:40:58 07/01/1907/03/2024 LDL - CALCU LATED [...] r is not necwilver forte. Not Available [address], [address], 07/03/2024 13:40:59 07/01/1907/03/2024 COMP. METAB OLIC PANEL glucose 92 mg/dL 70-100 Not Available [address], [address], 07/03/2024 13:49:40 07/01/19 25 07/03/2024 COMP. METAB OLIC PANEL BUN 10 mg/dL 7-18 Not Available [address], [address], 07/03/2024 13:49:40 07/01/19 25 07/03/2024 COMP. METAB OLIC PANEL creatinine 0.7 mg/dL 0.8-1. 3 low Not Available [address], [address], 07/03/2024 13:49:40 07/01/19 25 07/03/2024 COMP. METAB OLIC PANEL B/C 14.3 ratio Not Available [address], [address], 07/03/2024 13:49:40 07/01/19 25 07/03/2024 COMP. METAB [...] be used in pregn ashley. Not Available [address], [address], 07/03/2024 13:49:40 07/01/1907/03/2024 COMP. METAB OLIC PANEL sodium 142 mmol/ L 136-14 5 Not Available [address], [address], 07/03/2024 13:49:40 07/01/19 25 07/03/2024 COMP. METAB OLIC PANEL potassium 4.2 mmol/ L 3.5-5. 1 Not Available [address], [address], 07/03/2024 13:49:40 07/01/19 25 07/03/2024 COMP. METAB OLIC PANEL chloride 105 mmol/ L 96-107 Not Available [address], [address], 07/03/2024 13:49:40 07/01/19 25 07/03/2024 COMP. METAB OLIC PANEL anion gap 12.4 5.0-15 .0 Not Available [address], [address], 07/03/2024 13:49:40 07/01/19 25 07/03/2024 COMP. METAB OLIC PANEL CO2 25 mmol/ L 21-32 Not Available [address], [address], 07/03/2024 13:49:40 07/01/19 25 07/03/2024 COMP. METAB OLIC PANEL calcium 8.2 mg/dL 8.5-10 .3 low ANA=V erifi ed by Adebayo mclaughlin Not Available [address], [address], 07/03/2024 13:49:40 07/01/19 25 07/03/2024 COMP. METAB OLIC PANEL total protein 7.4 g/dL 6.4-8. 2 Not Available [address], [address], 07/03/2024 13:49:40 07/01/19 25 07/03/2024 COMP. METAB OLIC PANEL albumin 3.8 g/dL 3.4-5. 0 Not Available [address], [address], 07/03/2024 13:49:40 07/01/19 25 07/03/2024 COMP. METAB OLIC PANEL globulin 3.6 g/dL Not Available [address], [address], 07/03/2024 13:49:40 07/01/19 25 07/03/2024 COMP. METAB OLIC PANEL A/G 1.1 ratio 0.8-2. 0 Not Available [address], [address], 07/03/2024 13:49:40 07/01/19 25 07/03/2024 COMP. METAB OLIC PANEL total bilirubin 0.70 mg/dL 0.00-1 .00 Not Available [address], [address], 07/03/2024 13:49:40 07/01/19 25 07/03/2024 COMP. METAB OLIC PANEL AST 10 U/L 0-37 Not Available [address], [address], 07/03/2024 13:49:40 07/01/19 25 07/03/2024 COMP. METAB OLIC PANEL ALT 18 U/L 6-63 Not Available [address], [address], 07/03/2024 13:49:40 07/01/19 25 07/03/2024 COMP. METAB OLIC PANEL alk. phos. 76 U/L 50-136 Not Available [address], [address], 07/03/2024 13:49:40 05/08/20 24 05/08/2024 XR, knee [...] Yue hu Physic victorino: Zaid Brandt [email or web address] [facility] (Imaging) [address] , [place], [address], 07/08/2024 09:51:14 08/30/1908/29/2024 XR, chest No observ ation record ed. [facility] [address] [place], [address], 08/29/2024 15:22:28 Result Notes None recorded. Problems Name Problem SNOMED Code Status Onset Date Resolution Date Notes Provider Name and Address Organization Details Recorded Time Obesity 549820962 Completed 202004/11/2022 Removal Reason: BMI = 47.6, 02/04/21 (morbid obesity) Vivien Butterfield LPN null, [facility] 2 10:53:55 Morbid obesity 972359050 Active 2021 BMI = 47.6, 02/04/21 Vivien Butterfield LPN null, [facility] 2 10:54:07 Iron deficienc y anemia 71549550 Active 2023 Juana Mcdonough MD [address] [place] [address], [address], [facility] 4 10:04:04 Problem Notes None recorded. Procedures Surgical History Date Name Laterality Status Provider Name and Address Organization Details Recorded Time 5 Obesity counseling completed Juana Mcdonough MD [address] [place] [address], [phone], [facility] 07/08/2024 10:00:11 4 Smoking Cessation Counselling cancelled SHAMIKA VALENZUELA PT, DPT [address] [place] [address], [phone], [facility] 05/27/2024 11:26:53 4 Physical Activity Counselling cancelled SHAMIKA VALENZUELA PT, DPT [address] [place] [address], [phone], [facility] 05/27/2024 11:26:53 4 20943: PT Eval Low Complexity cancelled SHAMIKA VALENZUELA PT, DPT [address] [place] [address], [phone], [facility] 05/27/2024 11:26:53 4 Treatment and Advice cancelled SHAMIKA VALENZUELA PT, DPT [address] [place] [address], [phone], [facility] 05/27/2024 11:26:53 4 G2211 completed Juana Mcdonough MD [address] [place] [address], [address], [facility] 09/14/2023 10:39:47 4 Obesity counseling completed Juana Mcdonough MD [address] [place] [address], [phone], [facility] 08/23/2023 10:26:18 1 prevention-talha cerna alcohol misuse screening completed Carmen Pete [facility] 10/21/2020 08:30:58 9 Refraction completed Thuy Parker OD [address] [place] [address], [address], [facility] 12/26/2018 09:27:37 7 Refraction completed Corona Melendez [facility] 05/03/2017 09:16:12 Imaging Results Imaging Date Name Status LastModified by Organiz ation Details LastModified Time 05/08/2024 XR, knee completed [email or web address] [facility] (Imaging) [address], [place], [address], 07/08/2024 09:51:14 08/29/2024 XR, chest completed [address], [address], 08/29/2024 15:22:28 Procedure Notes None recorded. Medical [...] propionate 50 mcg/actuat ion nasal spray,susp ension Fay 1 spray every day by intranas al [...] Updated DateTime 4 162.56 cm 44.6 kg/m2 308818. 7 g 76 /min 97 % 97 % 118 mm[Hg] 68 mm[Hg] Fiona Quinonez MA [facility] 4 14:30:23 Date Recorded Body height Body mass index (BMI) Body weight Heart rate Oxygen saturation Oxygen saturation in Arterial blood by Pulse oximetry Systolic blood pressure Diastolic blood pressure Provider Name and Address Organization Details Last Updated DateTime 4 162.56 cm 44.8 kg/m2 230434. 61 g 94 /min 97 % 97 % 122 mm[Hg] 80 mm[Hg] Vivien Hurt Grace [facility] 4 09:47:27 Date Recorded Body height Body mass index (BMI) Body weight Oxygen saturation Oxygen saturation in Arterial blood by Pulse oximetry Heart rate Systolic blood pressure Diastolic blood pressure Provider Name and Address Organization Details Last Updated DateTime 4 162.56 cm 44.2 kg/m2 381512. 04 g 98 % 98 % 77 /min 127 mm[Hg] 64 mm[Hg] Keshia Lares [facility] 4 16:12:13 Date Recorded Body height Oxygen saturation Oxygen saturation in Arterial blood by Pulse oximetry Heart rate Body mass index (BMI) Body weight Systolic blood pressure Diastolic blood pressure Provider Name and Address Organization Details Last Updated DateTime 4 162.56 cm 96 % 96 % 76 /min 44.1 kg/m2 663306. 24 g 117 mm[Hg] 72 mm[Hg] Polly Mckoy [facility] 4 09:31:47 Date Recorded Body height Body mass index (BMI) Body weight Heart rate Oxygen saturation Oxygen saturation in Arterial blood by Pulse oximetry Systolic blood pressure Diastolic blood pressure Provider Name and Address Organization Details Last Updated DateTime 5 162.56 cm 45 kg/m2 065008. 2 g 73 /min 96 % 96 % 122 mm[Hg] 76 mm[Hg] Vivien Hurt Grace [facility] 5 09:45:36 Social History Question Answer Notes LastModified by Organizat ion Details LastModified Time Tobacco Smoking Status Never Smoker 05/02/24 07/08/24 Vivien Hurt Grace [facility] 07/08/2024 09:42:45 What Is Your Level Of Alcohol Consumption? Occasional 2/year. No Hx Abuse [email or web address] Information not available 07/15/2013 Do You Wear A Helmet When Biking? No Information not available 10/21/2020 What Is Your Level Of Caffeine Consumption? Moderate Information not available 10/21/2020 What Type Of Diet Are You Following? REGULAR Information not available 10/21/2020 Education 2 Year College At [employer]. Early Education [employer] [facility] Information not available 07/15/2013 How Many Days In The Past Year Have You Had A Heavy Drinking Consumption (4+ Female, 5+ Male)? 0 [email or web address] Information not available 07/15/2013 Are There Any Guns Present In Your Home? No Information not available 10/21/2020 Live Alone Or With Others? With Others /kids Information not available 10/21/2020 Marital Status [facility] Informatio n not available 07/15/2013 Mosquito Repellent Used Routinely Yes Information not available 10/21/2020 What Was The Date Of Your Most Recent Tobacco Screening? 07/08/2024 05/02/24 SM07/08/24MV [email or web address] Information not available 07/08/2024 How Many Children Do You Have? 3 2 Sons, 1 Girl [facility] Information not available 07/15/2013 Seat Belts Used Routinely No Information not available 10/21/2020 Are You Sexually Active? Yes [facility] Information not available 07/15/2013 Smoke [...] Time Tdap 2 completed BROCK Ceron MA [facility] 07/15/2013 11:05:19 COVID-19, mRNA, LNP-S, PF, 100 mcg/0.5mL dose or 50 mcg/0.25mL dose 1 [facility]2020 14:32:44 COVID-19, mRNA, LNP-S, PF, 100 mcg/0.5mL dose or 50 mcg/0.25mL dose 1 completed [place] Arellano, [facility] 10/21/2020 14:32:55 Td (adult), 2 Lf tetanus toxoid, preservative free, adsorbed 4 completed [facility]2023 10:30:07 Past Encounters Encounter ID Performer Location Encounter Start Date Encounter Closed Date Diagnosis/Indication Diagnosis SNOMED-CT Code Diagnosis ICD10 Code Diagnosis Note [id number] BROCK Darby, [facility], OFFICE [address] [place] [address] 07/15/2013 10:53:12 07/15/2013 11:24:58 Cough 99657019 with tachycardi a and some lung findings will treat below. d/w Midler [id number] Myrtle JON, [facility], OFFICE [address] [place] [address] 02/04/2014 14:42:24 02/04/2014 15:27:54 Lower abdominal pain 77308712 UA + nits, blood ? pyelo Will check labs below tx with cipro Keep close f/u in 48 hrs [id number] Myrtle JON, [facility], OFFICE [address] [place] [address] 02/06/2014 11:32:09 02/06/2014 11:47:39 Lower abdominal pain 99246792 resolving Urine Cx + and senstive to Cipro Backache 329621638 C/W naproxen bid with meals Given flexeril 10 mg qhs Advised heat, stretching F/U prn Urinary tr act infectious disease 79115490 [id number] ARABELLA Forde, [facility], [address]ICE [address] [place] [address] 11/07/2014 12:14:41 11/07/2014 12:53:54 Cough 44386766 bronchitis related to allergies is most likely meds as directed f/u with PCP prn sx persist or increase Irregular periods 70700026 History of 091235913 Unclear EDC - 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 Options counseling . Call with any bleeding, other concerns. 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 [id number] Thuy Parker, OD Eye Care, [facility] [address] [place] [address] 12/26/2018 08:39:50 12/26/2018 10:05:53 Myopic astigmatism 845617079 H52.341 [id number] VALERIE Galindo , [facility], OFFICE [address] [facility] [place] [address] 10/21/2020 14:26:03 10/25/2020 13:08:33 Adult health examination 399474331 Z00.00 Will update fasting labs Due for a pap, will arrange in-office Counseling 799469352 Z71 .9 Depression screening 171 938334 Z13.31 depression screening tool administer ed, entered into emr, scored and discussed, time greater than 7.5 minutes Screening for alcohol abuse 987004654 Z13.39 AUDIT 1 out of 12. No concerns. Morbid obesity 977153157 E66.01 BMI 49.8. Discussed healthy diet today. [...] program and/or surgery - referral placed to [facility]. Normal grief reaction 27 7990793 F43.20 Mother recently passed, patient grieving. Provided emotional support today. Will have [facility] outreach patient for support. Family his tory of dementia 808693978 Z81.8 Mother had frontal lobe dementia . No one else in the family with dementia. Patient interested in a work-up with neurology, will refer. Insomnia 642812583 G47.0 0 Ongoing insomnia. 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 Avoid screen time before bed Try a daily melatonin over the counter Follow-up in the next several weeks in-house with this JEWELRY DRILLING MACHINE OPERATOR. [id number] VALERIE Galindo , [facility], OFFICE [address] [place] [address] 11/04/2020 10:07:09 11/04/2020 11:03:44 Insomnia 638227025 G47.00 Ongoing insomnia. 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 Avoid screen time before bed Try a daily melatonin over the counter Encouraged increasing physical activity throughout the day Allergic rhinitis 696734 04 J30.9 Nasal congestion , itchy/wate ry eyes. Start flonase and daily antihistam ine as below. Prediabetes 779595365 R7 3.03 A1c 6.0. As above, referral in place for weight loss center. Discussed that weight loss could significan tly lower her risks of developing into diabetes. Screening for malignant neoplasm of cervix 737269750 Z12.4 Pap obtained today. No history of abnormal paps per patient. Obesity 854259333 E66.9 BMI 33.3. Has a referral already in place for [facility] weight loss clinic. Encouraged to call to set up an appt Discussed healthy diet, encouraged regular physical activity. Normal grief reaction 27 5267536 F43.20 Mother recently passed, patient grieving. Provided emotional support today. Will have [facility] outreach patient for support. Hypocalcemia 3804418 E83 .51 Spoke with the patient, notified [...] D, magnesium, TSH, PTH. F/u with results. [id number] VALERIE Galindo , [facility], OFFICE [address] [place] [address] 11/11/2020 16:33:49 11/11/2020 17:02:05 Toothache 69101203 K08.89 Patient has several missing teeth and a cracked upper left molar but does not appear infected. Continue with as-needed ibuprofen for pain. Appt in place next week with dentistry. Hypocalcemia 2599261 E83 .51 Critically low calcium on routine [...] was instructed to not take together. This JEWELRY DRILLING MACHINE OPERATOR reviewed with Dr Aguilar - her tingling in her hands and her multiple cracked/mi ssing teeth could likely be from half-way low calcium. Her last calcium level was done in 2013 (7 years ago) and was normal. Morbid obesity 209620719 E66.01 BMI 51.2 today. She is now following with weight loss clinic at [facility] They have discussed nutrition/ meal plans with her. The goal might be eventually surgery, although she has to prove first she is able to lose on her own. Advised her to inform them of the above low calcium levels (they had plans to separately do labs through their clinic). As above, also has upcoming appts with endo/Dr Aguilar. [id number] Diogo Hale MD , [facility], OFFICE [address] [place] [address] 01/28/2021 14:03:45 01/29/2021 15:01:31 Dyspnea on exertion 53520881 R06.09 [address] in [address] lot subjective ly and objectivel y evidentL clear good sats,HRup at90 P/cxr if neg will send to ER for CTA [id number] Diogo Hale MD , [facility], OFFICE [address] [place] [address] 02/04/2021 08:34:05 02/04/2021 09:01:43 Dyspnea on exertion 31303379 R06.09 02/04/2021 although she looks much better [...] neg will send to ER for CTA [id number] Talisha Sparrow NP , [facility], [address]ICE [address] [place] [address] 04/17/2022 16:01:34 04/24/2022 08:16:01 Acute laryngitis 9742731 J04.0 discussed likely viral etiologyad vised voice rest, ibuprofen, warm/cool drinksf/u prn [id number] MD DONTRELL Ho, [facility], OFFICE [address] [place] [address] 08/23/2023 09:16:09 08/23/2023 11:02:32 Adult health examination 728881619 Z00.00 Depression screening 171 912514 Z13.31 depression screening tool administer edNegative screen Screening for alcohol abuse 880494548 Z13.39 Alcohol use screening tool administer edNegative screen Active or passive immunization 379072297 Z23 Morbid obesity 521583030 E66.01 Previously [facility] with [facility] nutritionB [place] 45Drinks 3 cups of juice everyday, and soda 3x per week - has found it difficult to cut this outI recommend increasing physical activity - go for a walk during lunch breaksOffe red nutrition Vitamin D deficiency 347 70819 E55.9 Recheck Iron defic iency anemia 62460547 D50.9 Recheck levels [id number] Juana Mcdonough MD , [facility], OFFICE [address] [place], [place] [address] 09/14/2023 10:21:52 09/14/2023 10:52:46 Iron deficiency anemia 71975671 D50.9 Hg 9.8 with low ferritinCo ntinue iron supplement (started last month and tolerating fine) and recheck in 3moVit C helps with iron absorption Vitamin D deficiency 347 02984 E55.9 High dose vit DRecheck in 3mo Morbid obesity 928852946 E66.01 Uncontroll ed with BMI of 45She [...] go for a walk during lunch breaksOffe walkby Did weight-los s diet through [facility] for 3-4 months starting in October 2020 in anticipati on for surgery. She got busy at work so stopped the diet and didn't f/u with [facility]. Also tried Weight Watchers at the end of 2018 for about 3 months. In the past, has tried to go for walks with her kids but has not been able to do this. Obesity 696010818 E66.9 You have been prescribed a new [...] containers from your insurance company or most [facility] have them available for free. Side [...] in children under 18, or in . [id number] Juana Mcdonough MD , [facility], [address]ICE [address] [place] [address] 12/28/2023 14:19:30 12/31/2023 11:59:06 Screening mammography [id number] Z12.31 Iron defic iency anemia 54961797 D50.9 Hg slightly improved from 9.8 to 10.3ferrit in still lowContinu e iron supplement (started last month and tolerating fine) and recheck in 3moVit C helps with iron absorption Vitamin D deficiency 347 20719 E55.9 s/p High dose vit D x 8 dosesReche ck in 3mo Morbid obesity 061716641 E66.01 Uncontroll ed with BMI of 45s/p 7 weeks of Wegovy 0.25mgIncr ease to 0.5mg weeklyAfte r 4 weeks, increase to 1mg weekly---- -------Dri nks 3 cups of juice everyday, and soda 3x per week - has found it difficult to cut this outI recommend increasing physical activity - go for a walk during lunch breaksOffe walkby Did weight-los s diet through [facility] weight [facility] for 3-4 months starting in October 2020 in anticipati on for surgery. She got busy at work so stopped the diet and didn't f/u with [facility]. Also tried Weight Watchers at the end of 2018 for about 3 months. In the past, has tried to go for walks with her kids but has not been able to do this. [id number] Juana Mcdonough MD , [facility], OFFICE [address] [place], [place] [address] 03/19/2024 09:36:23 03/19/2024 10:33:26 Influenza vaccination declined 624122797 Z28.21 Pain of ri ght knee joint 1912020457 22311 M25.561 2mo of R knee pain with going up/down stairs which I suspect is patellofem oral syndromeI recommend 2 weeks of anti-infla mmatory med (2 Aleve twice daily with food) and if no improvemen t, pt to call and would refer to PT Morbid obesity 968507003 E66.01 Has not lost weight on Wegovy [...] of hypoglycem ia. Iron defic iency anemia 08746064 D50.9 Recheck in 2mo------- -----Hg slightly improved from 9.8 to 10.3ferrit in still lowContinu e iron supplement (started last month and tolerating fine) and recheck in 3moVit C helps with iron absorption [id number] Mario Srinivasan MD , [facility], [address]ICE [address] [place] [address] 05/02/2024 16:03:43 05/02/2024 16:48:01 Sprain of lateral collateral ligament of knee 43032415 S83.421A 44-year-ol d female complainin g of [...] will gradually get better on its own. 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 [id number] Juana Mcdonough MD , [facility], OFFICE [address] [place], [place] [address] 07/08/2024 09:35:28 07/08/2024 10:02:42 Screening mammography 11323964 Z12.31 Morbid obesity 533261340 E66.01 Uncontroll edComplica tamir by acute knee sprain over the holidaysTh is Fri will be fourth injection of Mounjaro 5mgI recommend walking everyday and eating healthy Iron defic iency anemia 62611714 D50.9 Uncontroll ed with ferritin of 5, [...] with iron absorption Vitamin D deficiency 347 32412 E55.9 s/p High dose vit D x 8 doses last summerRefi ll and will probably need to take weekly Pain of ri ght knee joint 0206181720 47836 M25.561 Acute knee strain last fall, now recovered Health Concerns Section Related Observation LastModified by Organization Detai ls LastModified Time None Recorded Concern Status LastModified by Organization Details LastModified Time None Recorded Advance Directives Directive None Recorded Payers Encounter Date Sequence Insurance Name Policy Number Policy Forman Covered Member ID Forman Member ID Guarantor Name 12/28/2023 1 [facility] - NAVIGATOR (PPO) [id number] Chapis [place] [id number] Chapis [place] 03/19/2024 1 [facility] PL[facility] - NAVIGATOR (PPO) [id number] Chapis [place] [id number] Chapis [place] 05/02/2024 1 [employer] PL[employer] - NAVIGATOR (PPO) [id number] Chapis Aguilaron [id number] 01 Chapis Aguilaron 05/08/2024 1 [facility] PL[facility] - NAVIGATOR (PPO) [id number] Chapis Veraderon [id number] 01 Chapis Veraderon 07/08/2024 1 [facility] [employer] [facility] - DIRECT CONNECTORCARE TYPE I (HMO) [id number] Chapis Veraderon [id number] 01 Chapis [place] Notes Date Note Type Note Provider Name and Address Organization Details Recorded Time 03/19/2024 text/html Anterior R knee pain since end of with going up/down stairs, getting upNo pain if not movingNo history of R knee pain or trauma Juana Mcdonough MD [address] [place] [address], [phone], [facility] 03/19/2024 10:20:24 05/02/2024 text/html Anterior R knee pain since end of with going up/down stairs, getting upNo pain if not movingNo history of R knee pain or trauma Mario Srinivasan MD [address] [place] [address], [phone], [facility] 05/02/2024 16:36:56 05/08/2024 text/html here for R knee pain x week +seen last week- dx sprainsxs have gotten worse over the weektaking alleve and motrin not helpingpain anterior, walking most painful, waking from sleep.no known injury- sxs developed after long drive Talisha Sparrow NP [address] [place] [address], [phone], [facility] 05/08/2024 09:58:31 OBGyn Episode No OBEpisode recorded.
--- OUTSIDE RECORDS SUMMARY | 2024-09-22 13:25 | XMS_ITS | Data Portability ---
Author Organization [facility], Contacts+ Address [address] [facility] [place] [address] Care Team Providers Care Transition Program Manager Name Role Phone FLORENTINO HEAD Referring Provider [...] testing for reevaluation Andi Hector M.D. PhD [facility] mrossen Not available 11/30/2020 11:08:44 Plan [...] Time 12/16/2020 Cognivue completed Andi Hector MD [address] [place] [address], [phone], [facility] 12/16/2020 17:27:18 Imaging Results None recorded. [...] Updated DateTime 11/30/2020 162.56 cm 49.3 kg/m2 111685.0 1 g 12 /min Yenni Sanchez [facility] 11/30/2020 10:17:52 Social History Question Answer Notes LastModified by Organizat ion Details LastModified Time Tobacco Smoking Status Never Smoker Yenni carranza [facility] 11/30/2020 10:21:01 What Is Your Level Of Alcohol Consumption? [email or web address] Information not available 11/30/2020 What Is Your Level Of Caffeine Consumption? Occasional 1 Per Day Information not available 11/30/2020 What Is The Highest Grade Or Level Of School You Have Completed Or The Highest Degree You Have Received? [id number] [email or web address] Information not available 11/30/2020 What Is [...] Code Diagnosis Note [id number] Andi Hector MD [facility] [address] [place] [address] [place] [address] 11/30/2020 10:12:29 11/30/2020 11:19:49 Mild neurocognitive disorder [id number] G31.84 [id number] Andi Hector MD [facility] [address] [place] [address] [place] [address] 12/16/2020 15:05:36 12/22/2020 13:51:33 Mild neurocognitive disorder 096387901 G31.84 Health Concerns Section Related Observation LastModified by Organization Detai ls LastModified Time None Recorded Concern Status LastModified by Organization Details LastModified Time None Recorded Advance Directives Directive None Recorded Payers Encounter Date Sequence Insurance Name Policy Number Policy Forman Covered Member ID Forman Member ID Guarantor Name 11/30/2020 1 [place] Chapis [place] [id number] Chapis [place] 12/16/2020 1 [place] Chapis [place] [id number] Chapis [place] Notes Date Note Type Note [...] too difficult and her mother entered a detention. Her mother also had seizures. The patient [...] gets it done. 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 Andi Hector MD [address] [place] [address], [phone], [facility] 12/02/2020 16:03:37 12/16/2020 text/html Follow-up for [...] too difficult and her mother entered a detention. Her mother also had seizures. The patient [...] gets it done. 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 Her supervisors are [...] problem going to sleep. Andi Hector MD [address] [place] [address] [place], [phone], [facility] 12/16/2020 17:28:20 OBGyn Episode No OBEpisode recorded.
== END 2024-09-22 12:10 | disposition home or self-care (01) ==
LOC: HO.HBST 11:11
PROVIDERS: PCP Nurse Practitioner Family; Visit Provider Counselor Mental Health
DX: F43.20 Adjustment disorder, unspecified (principal); E66.01 Morbid (severe) obesity due to excess calories
CPT/HCPCS: 90837

== ENCOUNTER 2024-10-27 08:03 | Outpatient (AMB) | payer OTHER, SELFPAY ==
--- OUTSIDE RECORDS SUMMARY | 2024-10-27 08:06 | XMS_ITS | Data Portability ---
Author Organization 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 Name Role Phone [facility] OTHER Assessment Encounter Date Assessment Date Assessment LastModified [...] D, 25-hydrox y, total, serum 2023 025 [facility], [address] [place] [address], [address], 5 14:45:01 CBC 2023 025 [facility], [address] [place] [address], [address], 5 11:12:19 ferritin, serum or plasma 2023 025 [facility], [address] [place] [address], [address], 5 14:45:00 Referral physical therapist referral - R knee pain x week +, anterio pain, reduced extension , weight bearing 2023 024 [email or web address] [address], [place], [address], 4 15:13:08 Procedures None recorded. Surgeries None recorded. Imaging MAMMO, screening , tomosynth esis, bilateral - 2nd Look Consult/D iag Mammo/US Breast/Gu ided Asp/Breas t Bx/Clip Placement , as clinicall y indicated . 2024 025 [facility] (Imaging), [address], [place], [address], 5 11:05:14 XR, knee - R knee pain x week+ , difficult y bearing weight 2023 024 [facility] (Imaging), [address] [place], [address], 4 10:24:44 MAMMO, screening , tomosynth esis, bilateral - 2nd Look Consult/D iag Mammo/US Breast/Gu ided Asp/Breas t Bx/Clip Placement , as clinicall y indicated . 2023 024 [facility] (Imaging), [address], [place], [address], 5 13:41:48 Medication Orders ergocalci ferol (vitamin D2) 1,250 mcg (50,000 unit) capsule 2024 025 [facility]/Pharmacy #[id number], [address] [place], [address], 5 09:55:30 Mounjaro 10 mg/0.5 mL subcutane ous pen injector 2024 025 barmstron 2 [facility]/Pharmacy #[id number], [address] [facility], [place], [address], 5 09:10:16 etodolac 400 mg tablet 2023 025 [facility]/Pharmacy #[id number], [address] [place], [address], 5 09:56:26 Wegovy 2.4 mg/0.75 mL subcutane ous pen injector 2023 024 [facility]/Pharmacy #[id number], [address] [place], [address], 4 14:55:43 ergocalci ferol (vitamin D2) 1,250 mcg (50,000 unit) capsule 2023 024 [facility] #[id number], [address] [place], [address], 4 14:42:26 Wegovy 1 mg/0.5 mL subcutane ous pen injector 2023 024 [facility] #[id number], [address] [place] [address], [address], 4 10:20:03 Wegovy 1.7 mg/0.75 mL subcutane ous pen injector 2023 024 [id number] [address] [place] [address], [address], 4 10:19:58 Patient TargetsNo targets recorded. Patient [...] RBC MORPH OLOGY polychrom FEW Not Available [address], [address], 07/01/2024 11:11:37 07/01/19 25 07/01/2024 RBC MORPH OLOGY hypochrom FEW Not Available [address], [address], 07/01/2024 11:11:37 07/01/19 25 07/01/2024 RBC MORPH OLOGY aniso SLIGHT Not Available [address], [address], 07/01/2024 11:11:37 07/01/19 25 07/01/2024 RBC MORPH OLOGY micro MODERA TE Not Available [address], [address], 07/01/2024 11:11:37 07/01/19 25 07/01/2024 RBC MORPH OLOGY ovalocyte MODERA TE Not Available [address], [address], 07/01/2024 11:11:37 07/01/19 25 07/01/2024 CBC WBC 11.52 K/? ? ?L 3.98-1 0.04 high Not Available [address], [address], 07/01/2024 11:12:19 07/01/1907/01/2024 CBC RBC 5.17 M/? ? ?L 3.93-5 .22 Not Available [address], [address], 07/01/2024 11:12:19 07/01/1907/01/2024 CBC HGB 10.1 g/dL 11.2-1 5.7 low Not Available [address], [address], 07/01/2024 11:12:19 07/01/1907/01/2024 CBC HCT 34.5 % 34.1-4 4.9 Not Available [address], [address], 07/01/2024 11:12:19 07/01/1907/01/2024 CBC MCV 66.7 fL 79.4-9 4.8 low Not Available [address], [address], 07/01/2024 11:12:19 07/01/19 25 07/01/2024 CBC MCH 19.5 pg 25.6-3 2.2 low Not Available [address], [address], 07/01/2024 11:12:19 07/01/19 25 07/01/2024 CBC MCHC 29.3 g/dL 32.2-3 5.5 low Not Available [address], [address], 07/01/2024 11:12:19 07/01/19 25 07/01/2024 CBC plt 360 K/? ? ?L 182-36 9 Not Available [address], [address], 07/01/2024 11:12:19 07/01/1907/01/2024 CBC MPV 9.6 fL 9.4-12 .3 Not Available [address], [address], 07/01/2024 11:12:19 07/01/19 25 07/01/2024 CBC neut% 71.5 % 34.0-7 1.1 high Not Available [address], [address], 07/01/2024 11:12:19 07/01/1907/01/2024 CBC neut# 8.23 1.56-6 .13 high Not Available [address], [address], 07/01/2024 11:12:19 07/01/19 25 07/01/2024 CBC lymph % 22.0 % 19.3-5 1.7 Not Available [address], [address], 07/01/2024 11:12:19 07/01/19 25 07/01/2024 CBC lymph # 2.54 K/? ? ?L 1.18-3 .74 Not Available [address], [address], 07/01/2024 11:12:19 07/01/1907/01/2024 CBC mono% 4.6 % 4.7-12 .5 low Not Available [address], [address], 07/01/2024 11:12:19 07/01/1907/01/2024 CBC mono# 0.53 0.24-0 .56 Not Available [address], [address], 07/01/2024 11:12:19 07/01/1907/01/2024 CBC eo% 1.3 % 0.7-5. 8 Not Available [address], [address], 07/01/2024 11:12:19 07/01/1907/01/2024 CBC eo# 0.15 0.04-0 .36 Not Available [address], [address], 07/01/2024 11:12:07/01/1907/01/2024 CBC baso% 0.3 % 0.1-1. 2 Not Available [address], [address], 07/01/2024 11:12:19 07/01/1907/01/2024 CBC baso# 0.03 0.00-0 .08 Not Available [address], [address], 07/01/2024 11:12:19 07/01/1907/01/2024 CBC RDW-CV 19.9 % 11.7-1 4.4 high SREV= Slide revie wed by techn [facility]. Not Available [address], [address], 07/01/2024 11:12:19 07/01/1907/01/2024 CBC Ig% 0.300 % 0.000- 1.500 Ig % >0.5 Indic ates possi ble Left Shift Not Available [address], [address], 07/01/2024 11:12:19 07/01/19 25 07/01/2024 CBC Ig# 0.040 0.000- 0.093 Not Available [address], [address], 07/01/2024 11:12:19 07/01/1907/01/2024 CBC NRBC% 0.0 % 0.0-0. 2 Not Available [address], [address], 07/01/2024 11:12:19 07/01/1907/01/2024 CBC NRBC# 0.000 0.000- 0.012 Not Available [address], [address], 07/01/2024 11:12:19 07/01/1907/01/2024 HGB A1C hemoglobin A1C [...] furth er confi rmati on Not Available [address], [address], 07/01/2024 12:55:07 07/01/1907/01/2024 HGB A1C estimated average glucose 108.3 mg/dL Not Available [address], [address], 07/01/2024 12:55:07 07/01/1907/01/2024 TOMI TIN ferritin 5 NG/mL 6-115 low Not Available [address], [address], 07/01/2024 14:45:00 07/01/1907/01/2024 VITAM IN D 25-HY [...] er than 30 ng/mL . Not Available [address], [address], 07/01/2024 14:45:01 07/01/1907/03/2024 LIPID PANEL cholesterol 110 mg/dL <200 mg/dl Rhys able 200-2 39 mg/dl Borde rline High >240 mg/dl High Not Available [address], [address], 07/03/2024 13:40:58 07/01/1907/03/2024 LIPID PANEL triglyceride s 65 mg/dL <150 mg/dL Vero l 150-1 99 mg/dL Borde rline High 200-4 99 mg/dL High >500 mg/dL Very High Not Available [address], [address], 07/03/2024 13:40:58 07/01/1907/03/2024 LIPID PANEL direct HDL 35 mg/dL <40 mg/dl - Major Risk for CHD >60 mg/dl - Negat madeleine Risk for CHD Not Available [address], [address], 07/03/2024 13:40:58 07/01/1907/03/2024 LDL - CALCU LATED [...] r is not necwilver forte. Not Available [address], [address], 07/03/2024 13:40:59 07/01/19 25 07/03/2024 COMP. METAB OLIC PANEL glucose 92 mg/dL 70-100 Not Available [address], [address], 07/03/2024 13:49:40 07/01/19 25 07/03/2024 COMP. METAB OLIC PANEL BUN 10 mg/dL 7-18 Not Available [address], [address], 07/03/2024 13:49:40 07/01/19 25 07/03/2024 COMP. METAB OLIC PANEL creatinine 0.7 mg/dL 0.8-1. 3 low Not Available [address], [address], 07/03/2024 13:49:40 07/01/19 25 07/03/2024 COMP. METAB OLIC PANEL B/C 14.3 ratio Not Available [address], [address], 07/03/2024 13:49:40 07/01/19 25 07/03/2024 COMP. METAB [...] be used in pregn ashley. Not Available [address], [address], 07/03/2024 13:49:40 07/01/19 25 07/03/2024 COMP. METAB OLIC PANEL sodium 142 mmol/ L 136-14 5 Not Available [address], [address], 07/03/2024 13:49:40 07/01/19 25 07/03/2024 COMP. METAB OLIC PANEL potassium 4.2 mmol/ L 3.5-5. 1 Not Available [address], [address], 07/03/2024 13:49:40 07/01/19 25 07/03/2024 COMP. METAB OLIC PANEL chloride 105 mmol/ L 96-107 Not Available [address], [address], 07/03/2024 13:49:40 07/01/19 25 07/03/2024 COMP. METAB OLIC PANEL anion gap 12.4 5.0-15 .0 Not Available [address], [address], 07/03/2024 13:49:40 07/01/19 25 07/03/2024 COMP. METAB OLIC PANEL CO2 25 mmol/ L 21-32 Not Available [address], [address], 07/03/2024 13:49:40 07/01/19 25 07/03/2024 COMP. METAB OLIC PANEL calcium 8.2 mg/dL 8.5-10 .3 low ANA=V erifi ed by Adebayo mclaughlin Not Available [address], [address], 07/03/2024 13:49:40 07/01/19 25 07/03/2024 COMP. METAB OLIC PANEL total protein 7.4 g/dL 6.4-8. 2 Not Available [address], [address], 07/03/2024 13:49:40 07/01/19 25 07/03/2024 COMP. METAB OLIC PANEL albumin 3.8 g/dL 3.4-5. 0 Not Available [address], [address], 07/03/2024 13:49:40 07/01/19 25 07/03/2024 COMP. METAB OLIC PANEL globulin 3.6 g/dL Not Available [address], [address], 07/03/2024 13:49:40 07/01/19 25 07/03/2024 COMP. METAB OLIC PANEL A/G 1.1 ratio 0.8-2. 0 Not Available [address], [address], 07/03/2024 13:49:40 07/01/19 25 07/03/2024 COMP. METAB OLIC PANEL total bilirubin 0.70 mg/dL 0.00-1 .00 Not Available [address], [address], 07/03/2024 13:49:40 07/01/19 25 07/03/2024 COMP. METAB OLIC PANEL AST 10 U/L 0-37 Not Available [address], [address], 07/03/2024 13:49:40 07/01/19 25 07/03/2024 COMP. METAB OLIC PANEL ALT 18 U/L 6-63 Not Available [address], [address], 07/03/2024 13:49:40 07/01/19 25 07/03/2024 COMP. METAB OLIC PANEL alk. phos. 76 U/L 50-136 Not Available [address], [address], 07/03/2024 13:49:40 05/08/20 24 05/08/2024 XR, knee [...] ality. Cannot rule out joint effusi on. Readelaine hu Physic victorino: Zaid Brandt [email or web address] [facility] (Imaging) [address] , [place], [address], 07/08/2024 09:51:14 08/30/19 25 08/29/2024 XR, chest No observ ation record ed. [address], [address], 08/29/2024 15:22:28 Result Notes None recorded. Problems Name Problem SNOMED Code Status Onset Date Resolution Date Notes Provider Name and Address Organization Details Recorded Time Obesity 414102893 Completed 202004/11/2022 Removal Reason: BMI = 47.6, 02/04/21 (morbid obesity) LEONARD Griggs, [facility] 10:53:55 Morbid obesity 853927066 Active 2021 BMI = 47.6, 02/04/21 Vivien Butterfield LPN null, [facility] 2 10:54:07 Iron deficienc y anemia 93267968 Active 2023 Juana Mcdonough MD [address] [place] [address], [phone] , [facility] 4 10:04:04 Problem Notes None recorded. Procedures Surgical History Date Name Laterality Status Provider Name and Address Organization Details Recorded Time 5 Obesity counseling completed Juana Mcdonough MD [address] [place] [address], [phone], [facility] 07/08/2024 10:00:11 4 Smoking Cessation Counselling cancelled SHAMIKA VALENZUELA PT, DPT [address] [place] [address], [phone], [facility] 05/27/2024 11:26:53 4 Physical Activity Counselling cancelled SHAMIKA VALENZUELA PT, DPT [address] [place] [address], [phone], [facility] 05/27/2024 11:26:53 4 [address]: PT Eval Low Complexity cancelled SHAMIKA VALENZUELA PT, DPT [address] [place] [address], [phone], [facility] 05/27/2024 11:26:53 4 Treatment and Advice cancelled SHAMIKA VALENZUELA PT, DPT [address] [place] [address], [phone], [facility] 05/27/2024 11:26:53 4 G2211 completed Juana Mcdonough MD [address] [place] [address], [phone], [facility] 09/14/2023 10:39:47 4 Obesity counseling completed Juana Mcdonough MD [address] [place] [address], [phone], [facility] 08/23/2023 10:26:18 1 prevention-talha cerna alcohol misuse screening completed Carmen Pete [facility] 10/21/2020 08:30:58 9 Refraction completed Thuy Parker, OD [address] [facility], [place], [address], [facility] 12/26/2018 09:27:37 7 Refraction completed Corona Melendez [facility] 05/03/2017 09:16:12 Imaging Results Imaging Date Name Status LastModified by Organiz ation Details LastModified Time 05/08/2024 XR, knee completed [email or web address] [facility] (Imaging) [address], [place], [address], 07/08/2024 09:51:14 08/29/2024 XR, chest completed [address], [address], 08/29/2024 15:22:28 Procedure Notes None recorded. Medical [...] propionate 50 mcg/actuat ion nasal spray,susp ension [place] 1 spray every day by intranas al [...] ONCE A DAY 10/21 completed not taken 10/21/20 t [...] 10 mg/0.5 mL subcutaneo us pen injector INJECT 0.5 ML SUBCUTAN EOUSLY EVERY WEEK 2024 active Not Available Not Available Not [...] Updated DateTime 4 162.56 cm 44.6 kg/m2 772763. 7 g 76 /min 97 % 97 % 118 mm[Hg] 68 mm[Hg] Fiona Quinonez MA [facility] 4 14:30:23 Date Recorded Body height Body mass index (BMI) Body weight Heart rate Oxygen saturation Oxygen saturation in Arterial blood by Pulse oximetry Systolic blood pressure Diastolic blood pressure Provider Name and Address Organization Details Last Updated DateTime 4 162.56 cm 44.8 kg/m2 935159. 61 g 94 /min 97 % 97 % 122 mm[Hg] 80 mm[Hg] MANAN BravoGrace [facility] 4 09:47:27 Date Recorded Body height Body mass index (BMI) Body weight Oxygen saturation Oxygen saturation in Arterial blood by Pulse oximetry Heart rate Systolic blood pressure Diastolic blood pressure Provider Name and Address Organization Details Last Updated DateTime 4 162.56 cm 44.2 kg/m2 338262. 04 g 98 % 98 % 77 /min 127 mm[Hg] 64 mm[Hg] Keshia Lares [facility] 4 16:12:13 Date Recorded Body height Oxygen saturation Oxygen saturation in Arterial blood by Pulse oximetry Heart rate Body mass index (BMI) Body weight Systolic blood pressure Diastolic blood pressure Provider Name and Address Organization Details Last Updated DateTime 4 162.56 cm 96 % 96 % 76 /min 44.1 kg/m2 318409. 24 g 117 mm[Hg] 72 mm[Hg] Polly Mckoy [facility] 4 09:31:47 Date Recorded Body height Body mass index (BMI) Body weight Heart rate Oxygen saturation Oxygen saturation in Arterial blood by Pulse oximetry Systolic blood pressure Diastolic blood pressure Provider Name and Address Organization Details Last Updated DateTime 5 162.56 cm 45 kg/m2 467268. 2 g 73 /min 96 % 96 % 122 mm[Hg] 76 mm[Hg] Vivien Hurt Grace [facility] 5 09:45:36 Social History Question Answer Notes LastModified by Organizat ion Details LastModified Time Tobacco Smoking Status Never Smoker 05/02/24 07/08/24 MARK Bravo [facility] 07/08/2024 09:42:45 Do You Wear A Helmet When Biking? No Information not available 10/21/2020 What Is Your Level Of Caffeine Consumption? Moderate Information not available 10/21/2020 What Type Of Diet Are You Following? REGULAR Information not available 10/21/2020 Education 2 Year College At [employer]. Early Education [facility] Information not available 07/15/2013 How Many Days In The Past Year Have You Had A Heavy Drinking Consumption (4+ Female, 5+ Male)? 0 [email or web address] Information not available 07/15/2013 Are There Any Guns Present In Your Home? No Information not available 10/21/2020 Live Alone Or With Others? With Others /kids Information not available 10/21/2020 Marital Status [facility] Informatio n not available 07/15/2013 Mosquito Repellent Used Routinely Yes Information not available 10/21/2020 What Was The Date Of Your Most Recent Tobacco Screening? 07/08/2024 05/02/24 SM07/08/24MV Information not available 07/08/2024 How Many Children Do You Have? 3 2 Sons, [address] [facility] Information not available 07/15/2013 Seat Belts Used Routinely No Information not available 10/21/2020 Are You Sexually Active? Yes [facility] Information not available 07/15/2013 Smoke Alarm In Home Yes Information not available 10/21/2020 What Types Of Sporting Activities Do You Participate In? No Information not available 10/21/2020 General Stress Level Low Information not available 10/21/2020 Do You Use Sunscreen Routinely? Yes Information not available 10/21/2020 Sex: Unknown Functional Status Question Answer Note LastModified by Organizat ion Details LastModified Time What is your level of alcohol consumption? Occasional 2/year. 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 Family History Nothing [...] Organization Details Recorded Time Tdap 2 completed [facility] 07/15/2013 11:05:19 COVID-19, mRNA, LNP-S, PF, 100 mcg/0.5mL dose or 50 mcg/0.25mL dose 1 completed [facility] 10/21/2020 14:32:44 COVID-19, mRNA, LNP-S, PF, 100 mcg/0.5mL dose or 50 mcg/0.25mL dose 1 completed [facility] 10/21/2020 14:32:55 Td (adult), 2 Lf tetanus toxoid, preservative free, adsorbed 4 completed Vivien Hurt [facility] 08/23/2023 10:30:07 Past Encounters Encounter ID Performer Location Encounter Start Date Encounter Closed Date Diagnosis/Indication Diagnosis SNOMED-CT Code Diagnosis ICD10 Code Diagnosis Note [id number] Philippe Mckee MD , [facility], OFFICE [address] [place] [address] 07/15/2013 10:53:12 07/15/2013 11:24:58 Cough 29198848 with tachycardi a and some lung findings will treat below. d/w Rafi [id number] Leigh Hill D.O. [facility], OFFICE [address] [place] [address] 02/04/2014 14:42:24 02/04/2014 15:27:54 Lower abdominal pain 34492240 UA + nits, blood ? pyelo Will check labs below tx with cipro Keep close f/u in 48 hrs [id number] Leigh Hill D.O. , [facility], OFFICE [address] [place] [address] 02/06/2014 11:32:09 02/06/2014 11:47:39 Lower abdominal pain 84458265 resolving Urine Cx + and senstive to Cipro Backache 958451528 C/W naproxen bid with meals Given flexeril 10 mg qhs Advised heat, stretching F/U prn Urinary tr act infectious disease [id number] Opal Robles NP , [facility], [address] [place] [address] 11/07/2014 12:14:41 11/07/2014 12:53:54 Cough 42944923 bronchitis related to allergies is most likely meds as directed f/u with PCP prn sx persist or increase Irregular periods 33815693 History of [id number] Unclear EDC - pt has apt with home care nurse next week. Options counseling . Call with any bleeding, other concerns. 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 MD JON, [facility], [address] [place] [address] 10/21/2020 14:26:03 10/25/2020 13:08:33 Adult health examination 442431383 Z00.00 Will update fasting labs Due for a pap, will arrange in-office Counseling 330593538 Z71 .9 Depression screening 171 609310 Z13.31 depression screening tool administer ed, entered into emr, scored and discussed, time greater than 7.5 minutes Screening for alcohol abuse 642473991 Z13.39 AUDIT 1 out of 12. No concerns. Morbid obesity 805594081 E66.01 BMI 49.8. Discussed healthy diet today. [...] program and/or surgery - referral placed to [facility]. Normal grief reaction 27 7450156 F43.20 Mother recently passed, patient grieving. Provided emotional support today. Will have [facility] outreach patient for support. Family his tory of dementia 000675125 Z81.8 Mother had frontal lobe dementia . No one else in the family with dementia. Patient interested in a work-up with neurology, will refer. Insomnia 743941290 G47.0 0 Ongoing insomnia. 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 Avoid screen time before bed Try a daily melatonin over the counter Follow-up in the next several weeks in-house with this [employer]EL[employer]. [id number] Diogo Hale MD , [facility], OFFICE [address] [place] [address] 11/04/2020 10:07:09 11/04/2020 11:03:44 Insomnia 318851869 G47.00 Ongoing insomnia. 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 Avoid screen time before bed Try a daily melatonin over the counter Encouraged increasing physical activity throughout the day Allergic rhinitis 800483 04 J30.9 Nasal congestion , itchy/wate ry eyes. Start flonase and daily antihistam ine as below. Prediabetes 157803553 R7 3.03 A1c 6.0. As above, referral in place for weight loss center. Discussed that weight loss could significan tly lower her risks of developing into diabetes. Screening for malignant neoplasm of cervix 297684895 Z12.4 Pap obtained today. No history of abnormal paps per patient. Obesity 823058056 E66.9 BMI 33.3. Has a referral already in place for [facility] weight loss clinic. Encouraged to call to set up an appt Discussed healthy diet, encouraged regular physical activity. Normal grief reaction 27 0359518 F43.20 Mother recently passed, patient grieving. Provided emotional support today. Will have [facility] outreach patient for support. Hypocalcemia 0984677 E83 .51 Spoke with the patient, notified [...] D, magnesium, TSH, PTH. F/u with results. [id number] Diogo Hale MD , [facility], OFFICE [address] [place] [address] 11/11/2020 16:33:49 11/11/2020 17:02:05 Toothache 13987802 K08.89 Patient has several missing teeth and a cracked upper left molar but does not appear infected. Continue with as-needed ibuprofen for pain. Appt in place next week with dentistry. Hypocalcemia 7125453 E83 .51 Critically low calcium on routine [...] was instructed to not take together. This [employer]EL[employer] reviewed with Dr Aguilar - her tingling in her hands and her multiple cracked/mi ssing teeth could likely be from retirement low calcium. Her last calcium level was done in 2013 (7 years ago) and was normal. Morbid obesity 645978514 E66.01 BMI 51.2 today. She is now following with weight loss clinic at [facility] They have discussed nutrition/ meal plans with her. The goal might be eventually surgery, although she has to prove first she is able to lose on her own. Advised her to inform them of the above low calcium levels (they had plans to separately do labs through their clinic). As above, also has upcoming appts with endo/Dr Aguilar. [id number] Diogo Hale MD , [facility], OFFICE [address] [place] [address] 01/28/2021 14:03:45 01/29/2021 15:01:31 Dyspnea on exertion 44010099 R06.09 [address] in [address] subjective ly and objectivel y evidentL clear good sats,HRup at90 P/cxr if neg will send to ER for CTA [id number] Diogo Hale MD , [facility], [address] [place] [address] 02/04/2021 08:34:05 02/04/2021 09:01:43 Dyspnea on exertion 29872730 R06.09 02/04/2021 although she looks much better [...] neg will send to ER for CTA [id number] Leigh Hill D.O. , [facility], OFFICE [address] [place] [address] 04/17/2022 16:01:34 04/24/2022 08:16:01 Acute laryngitis 4309411 J04.0 discussed likely viral etiologyad vised voice rest, ibuprofen, warm/cool drinksf/u prn [id number] Juana Mcdonough MD , [facility], [address] [place] [address] 08/23/2023 09:16:09 08/23/2023 11:02:32 Adult health examination [id number] Z00.00 Depression screening 171 613116 Z13.31 depression screening tool administer edNegative screen Screening for alcohol abuse 355726594 Z13.39 Alcohol use screening tool administer edNegative screen Active or passive immunization 087930273 Z23 Morbid obesity 051701425 E66.01 Previously followed with [facility] weight management nutritionB HI 45Drinks 3 cups of juice everyday, and soda 3x per week - has found it difficult to cut this outI recommend increasing physical activity - go for a walk during lunch breaksOffe red nutrition Vitamin D deficiency 347 23347 E55.9 Recheck Iron defic iency anemia 79267650 D50.9 Recheck levels [id number] Juana Mcdonough MD , [facility], OFFICE [address] [place], [place] [address] 09/14/2023 10:21:52 09/14/2023 10:52:46 Iron deficiency anemia 43222996 D50.9 Hg 9.8 with low ferritinCo ntinue iron supplement (started last month and tolerating fine) and recheck in 3moVit C helps with iron absorption Vitamin D deficiency 347 60209 E55.9 High dose vit DRecheck in 3mo Morbid obesity 122345617 E66.01 Uncontroll ed with BMI of 45She [...] for a walk during lunch breaksOffe red [facility] Did weight-los s diet through [facility] weight management for 3-4 months starting in October 2020 in anticipati on for surgery. She got busy at work so stopped the diet and didn't f/u with [facility]. Also tried Weight Watchers at the end of 2019 for about 3 months. In the past, has tried to go for walks with her kids but has not been able to do this. Obesity 241322332 E66.9 You have been prescribed a new [...] containers from your insurance company or most [facility] have them available for free. Side effects/Co [...] in children under 18, or in . [id number] Juana Mcdonough MD , [facility], OFFICE [address] [place] [address] 12/28/2023 14:19:30 12/31/2023 11:59:06 Screening mammography 15047527 Z12.31 Iron defic iency anemia 94336978 D50.9 Hg slightly improved from 9.8 to 10.3ferrit in still lowContinu e iron supplement (started last month and tolerating fine) and recheck in 3moVit C helps with iron absorption Vitamin D deficiency 347 91212 E55.9 s/p High dose vit D x 8 dosesReche ck in 3mo Morbid obesity 330598633 E66.01 Uncontroll ed with BMI of 45s/p 7 weeks of Wegovy 0.25mgIncr ease to 0.5mg weeklyAfte r 4 weeks, increase to 1mg weekly---- -------Dri nks 3 cups of juice everyday, and soda 3x per week - has found it difficult to cut this outI recommend increasing physical activity - go for a walk during lunch breaksOffe [employer] Did weight-los s diet through [facility] weight management for 3-4 months starting in October 2020 in anticipati on for surgery. She got busy at work so stopped the diet and didn't f/u with [facility]. Also tried Weight Watchers at the end of 2018 for about 3 months. In the past, has tried to go for walks with her kids but has not been able to do this. [id number] Juana Mcdonough MD , [facility], OFFICE [address] [place] [address] 03/19/2024 09:36:23 03/19/2024 10:33:26 Influenza vaccination declined 913806050 Z28.21 Pain of ri ght knee joint 6696015011 34345 M25.561 2mo of R knee pain with going up/down stairs which I suspect is patellofem oral syndromeI recommend 2 weeks of anti-infla mmatory med (2 Aleve twice daily with food) and if no improvemen t, pt to call and would refer to PT Morbid obesity 502457678 E66.01 Has not lost weight on Wegovy [...] of hypoglycem ia. Iron defic iency anemia 33527407 D50.9 Recheck in 2mo------- -----Hg slightly improved from 9.8 to 10.3ferrit in still lowContinu e iron supplement (started last month and tolerating fine) and recheck in 3moVit C helps with iron absorption [id number] Mario Srinivasan MD , [facility], OFFICE [address] [place] [address] 05/02/2024 16:03:43 05/02/2024 16:48:01 Sprain of lateral collateral ligament of knee 21409436 S83.421A 44-year-ol d female complainin g of [...] will gradually get better on its own. 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 [id number] Juana Mcdonough MD , [facility], OFFICE [address] [place] [address] 07/08/2024 09:35:28 07/08/2024 10:02:42 Screening mammography 24789209 Z12.31 Morbid obesity 453829706 E66.01 Uncontroll edComplica tamir by acute knee sprain over the holidaysTh is Sun will be fourth injection of Mounjaro 5mgI recommend walking everyday and eating healthy Iron defic iency anemia 94031697 D50.9 Uncontroll ed with ferritin of 5, [...] with iron absorption Vitamin D deficiency 347 22818 E55.9 s/p High dose vit D x 8 doses last summerRefi ll and will probably need to take weekly Pain of ri ght knee joint 8447233402 57876 M25.561 Acute knee strain last fall, now recovered Health Concerns Section Related Observation LastModified by Organization Detai ls LastModified Time None Recorded Concern Status LastModified by Organization Details LastModified Time None Recorded Advance Directives Directive None Recorded Payers Encounter Date Sequence Insurance Name Policy Number Policy Forman Covered Member ID Forman Member ID Guarantor Name 12/28/2023 1 [facility] PLAN - NAVIGATOR (PPO) [id number] Chapis R [place] [id number] 01 Chapis Mireles [place] 03/19/2024 1 [facility] PLAN - NAVIGATOR (PPO) [id number] Chapis R [place] [id number] 01 Chapis Mireles [place] 05/02/2024 1 [facility] PLAN - NAVIGATOR (PPO) [id number] Chapis R [place] [id number] 01 Chapis Mireles [place] 05/08/2024 1 [facility] PLAN - NAVIGATOR (PPO) [id number] Chapis R [place] [id number] 01 Chapis Mireles [place] 07/08/2024 1 [facility] [employer]CTORCARE TYPE I (HMO) [id number] Chapis R [place] [id number] 01 Chapis Mireles [place] Notes Date Note Type Note Provider Name and Address Organization Details Recorded Time 03/19/2024 text/html Anterior R knee pain since end of with going up/down stairs, getting upNo pain if not movingNo history of R knee pain or trauma Juana Mcdonough MD [address] [place], [address], [facility] 03/19/2024 10:20:24 05/02/2024 text/html Anterior R knee pain since end of with going up/down stairs, getting upNo pain if not movingNo history of R knee pain or trauma Mario Srinivasan MD [address] [place], [address], [facility] 05/02/2024 16:36:56 05/08/2024 text/html here for R knee pain x week +seen last week- dx sprainsxs have gotten worse over the weektaking alleve and motrin not helpingpain anterior, walking most painful, waking from sleep.no known injury- sxs developed after long drive Talisha Sparrow NP [address] [place], [address], [facility] 05/08/2024 09:58:31 OBGyn Episode No OBEpisode recorded.
--- OUTSIDE RECORDS SUMMARY | 2024-10-27 08:07 | XMS_ITS | Data Portability ---
Author Organization [facility] Address [address] [place] [address] Care Team Providers Care Hand Cutter Name Role Phone FLORENTINO HAED Referring Provider Unavailable FLORENTINO HEAD Primary Care [...] testing for reevaluation Andi Hector M.D. PhD [facility] [email or web address] Not available 11/30/2020 11:08:44 Plan [...] Time 12/16/2020 Cognivue completed Andi Hector MD [address] [place] [address], [phone], [facility] 12/16/2020 17:27:18 Imaging Results None recorded. Procedure [...] Updated DateTime 11/30/2020 162.56 cm 49.3 kg/m2 846044.0 1 g 12 /min Yenni Sanchez [facility] 11/30/2020 10:17:52 Social History Question Answer Notes LastModified by Organizat ion Details LastModified Time Tobacco Smoking Status Never Smoker Yenni carranza [facility] 11/30/2020 10:21:01 What Is Your Level Of Caffeine Consumption? Occasional 1 Per Day [facility] Information not available 11/30/2020 What Is The Highest Grade Or Level Of School You Have Completed Or The Highest Degree You Have Received? [id number] [facility] Information not available 11/30/2020 What Is Your Relationship Status? [email or web address] Information not available 11/30/2020 Sex: Unknown Functional Status Question Answer Note LastModified by Organization D etails LastModified Time What is your level of alcohol consumption? None [facility] Information not available 11/30/2020 Mental Status None recorded. Family History Relationship [...] Code Diagnosis Note [id number] Andi Hector MD [facility] [address] [place] [address] [place] [address] 11/30/2020 10:12:29 11/30/2020 11:19:49 Mild neurocognitive disorder [id number] G31.84 1112 Andi Hector MD [facility] [address] [place] [address] [place] [address] 12/16/2020 15:05:36 12/22/2020 13:51:33 Mild neurocognitive disorder 322230681 G31.84 Health Concerns Section Related Observation LastModified by Organization Detai ls LastModified Time None Recorded Concern Status LastModified by Organization Details LastModified Time None Recorded Advance Directives Directive None Recorded Payers Encounter Date Sequence Insurance Name Policy Number Policy Forman Covered Member ID Forman Member ID Guarantor Name 11/30/2020 1 [place] Chapis [place] [id number] Chapis [place] 12/16/2020 1 [place] Chapis [place] [id number] Chapis [place] Notes Date Note Type Note [...] too difficult and her mother entered a mcc. Her mother also had seizures. The patient [...] gets it done. 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 Andi Hector MD [address] [place] [address], [phone], [facility] 12/02/2020 16:03:37 12/16/2020 text/html Follow-up for Cognivue [...] too difficult and her mother entered a mcc. Her mother also had seizures. The patient [...] gets it done. 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 Her supervisors are [...] problem going to sleep. Andi Hector MD [address] [place] [address] [place], [address], [facility] 12/16/2020 17:28:20 OBGyn Episode No OBEpisode recorded.
--- NOTE | 2024-10-27 08:58 | A.OFFVIS_ITS ---
VS Expanded 10/27/24 13:18 Height 5 ft 4 in Weight 255 lb BMI 43.8 Body Fat % 56.7 Body Fat Mass 144.9 Fat Free Mass 111.9 Visceral Fat Rating 23.9 Body Water % 29.7 Body Water Mass 75.9 Basal Metabolic Rate/Score 1,466 Intake Visit Reasons: TV Pre Op LSG 11/12/24 Allergies No Known Allergies Allergy (Verified 10/27/24 08:58) Medication List - Last Reconciled 10/27/24 by Gaurav Cheung MD cholecalciferol (vitamin D3) 250 mcg PO QWEEK cholecalciferol (vitamin D3) 125 mcg PO DAILY ferrous sulfate 325 mg PO DAILY iron,carbonyl-vitamin C 65 mg iron- 125 mg (Vitron-C) 1 tab PO DAILY mecobalamin (vitamin B12) 1,000 mcg sublingual DAILY ondansetron 4 mg PO Q12H pantoprazole 40 mg PO DAILY polyethylene glycol 3350 17 grams PO DAILY sucralfate 10 mL PO BID thiamine HCl (vitamin B1) 100 mg PO DAILY HPI HPI TV Pre Op LSG 11/12/24: Details: Start time: 8.30am, End time: 9am ?I spent 25 minutes speaking with the patient on the phone plus an additional 5 minutes reviewing and updating records for a total of 30 minutes HPI Comments Details: Overall weight loss: 38.4lbs, or 13.1% TBWL Is doing 2 Celebrate Rebuild protein shakes (1 scoop in water), 2 Celebrate protein bars and one meal (7 forks of meat and 7 forks of salad), eating fruits. Exercise: walking pad 4 PFSH Medical History (Updated 10/04/24 @ 12:12 by Gaurav Cheung MD) Vitamin D deficiency Prediabetes Morbid obesity Surgical History (Updated 12/17/20 @ 12:53 by Barbra Garland MD) No significant past surgical history Family History (Updated 12/17/20 @ 11:33 by Aliza Jaffe) Mother Frontal lobe dementia Father Heart valve replaced Brother No problems noted. Sister No problems noted. Son No problems noted. Son No problems noted. Daughter No problems noted. Social History Alcohol intake: current Alcohol intake frequency: holidays/special occasions only Alcohol type: wine Patient Tobacco Use Status: Never used Tobacco Physical Exam Vital Signs: BMI result Body Mass Index 43.8 Telehealth Telehealth Telehealth Platform: Telephone Location of provider rendering services: practice address Location of patient: address on file Patient Identification confirmed using: Name, : Yes Telehealth method: voice only Patient verbally consented to treatment: Yes Patient verbally consented to billing insurance company: Yes Patient informed of any privacy concerns related to visit: Yes Minutes spent on Phone/Video with Pt.: 30 Assessment & Plan Assessment & Plan (1) Morbid obesity: Code(s): E66.01 - Morbid (severe) obesity due to excess calories Category: Medical Plan: 1. Plan for lap sleeve gastrectomy including upper GI endoscopy. All tests has been completed and reviewed and the patient is cleared for the surgery. ?If diaphragmatic or ventral hernias are present at time of surgery, these will be repaired laparoscopically as well. 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 I emphasized the importance of close follow-up, adherence to instructions and good communication. So far she has proven to be an excellent communicator and very compliant with all our directions accomplishing a great weight loss. I believe that she is an excellent candidate and she is ready. 2. Preop prescriptions were provided and explained the purpose of each one. Need to be purchased preop. Start Pantoprazole now as you get it from the pharmacy, 1 pill per day. Sucralfate and Zofran are for after surgery as needed. 3. Bowel prep: please do 7 packets ?of Miralax mixing each one with a an 8oz glass of water, crystal light, gatorade zero, or propel ?on 11/10/24 and the same amount on 11/11/24. The Miralax you begin with one packet at a time in 8oz water or crystal light, gatorade zero, or propel ?as early in the day as you can and you do them back to back until you finish them. Continue the protein shakes during ?the bowel prep. 4. Needs to purchase 1oz medicine cups . 5. Needs to purchase Children's liquid Tylenol for postop pain control. 6. Avoid aspirin, motrin, Advil, Aleve, Meloxicam, Excedrin, Ibuprofen, Naproxyn. Tylenol is OK. 7. She needs to purchase the Celebrate multivitamins from the hospital's gift shop, chewable or pills whatever you prefer. 8. Will do basic preop blood work-up any day between Sunday11/03/24 and Sunday11/07/24 fasting for 12 hours and is scheduled to see the Anesthesiologist prior to the day of surgery. 9. Importance of adherence to postop folllow-up and recommendations was underscored and she understands that. 10. Stop food and bars as of tomorrow 10/28/24 and continue with 4 Celebrate Rebuild protein shakes (TWO scoops EACH in 8oz almond milk) at 9am-11am, 12pm- 2pm, 3pm-5pm, 6pm-8pm and one more Celebrate Rebuild protein shake with ONE scoop in 8oz of almond milk at 9pm-11pm 11. No soups, broths or V8 12. The patient's?medical?history has been reviewed and they are considered low risk for post op DVT and therefore DVT prophylaxis is not considered necessary. Travel after surgery was reviewed. The patient has not disclosed any travel p lans during the first 30 days after surgery and they have been advised that within the first 30 days after surgery any bus, plane, train or car travel over 2 hours in duration is contraindicated due to the possibility of developing blood clots from immobility. Any travel, needs to include periods of ambulation of 10 minutes in duration every 2 hours.? Patient was instructed to discuss any plans for travel during this period with their bariatric surgeon.? 13. Please take at the day of surgery the following medications: NONE 14. Stop any control pills and don't use them for one month after surgery 15. Absolutely no smoking or vaping, or marijuana until the surgery and for at least the first 4 weeks. Only nicotine patches are allowed. 16. Send me weight measurements tomorrow 10/28/24, on Sunday11/02/24, on Sunday11/08/24 and then on Sunday11/12/24, the day of surgery before you go to the hospital. 17. Avoid any steroids by mouth for any reason. Let me know if someone prescr ibes them to you 18. These instructions supersede anything else you read in the handbook, anything you watched in videos or classes or you were told by any other provider. If there is any conflict, you follow the above instructions and nothing else. Orders: Orders Prothrombin Time INR Today E66.01 - Morbid (severe) obesity due to excess calories, R73.03 - Prediabetes Partial Thromboplastin Time Today E66.01 - Morbid (severe) obesity due to excess calories, R73.03 - Prediabetes C Reactive Protein Today E66.01 - Morbid (severe) obesity due to excess calories, R73.03 - Prediabetes Lipid Panel Today E66.01 - Morbid (severe) obesity due to excess calories, R73.03 - Prediabetes Complete Blood Count Auto Diff Today E66.01 - Morbid (severe) obesity due to excess calories, R73.03 - Prediabetes Insulin Today E66.01 - Morbid (severe) obesity due to excess calories, R73.03 - Prediabetes Comprehensive Met. Panel Today E66.01 - Morbid (severe) obesity due to excess calories, R73.03 - Prediabetes TSH reflex Free T4 Today E66.01 - Morbid (severe) obesity due to excess calories, R73.03 - Prediabetes Type and Screen Today E66.01 - Morbid (severe) obesity due to excess calories, R73.03 - Prediabetes Hemoglobin A1c Today E66.01 - Morbid (severe) obesity due to excess calories, R73.03 - Prediabetes Medications: New pantoprazole 40 mg PO DAILY 90 tabs 0RF K21.9 - Gastro-esophageal reflux disease without esophagitis ondansetron Only take one every 12 hours as needed if you have nausea 4 mg PO Q12H 20 tab s 0RF nausea and vomiting R11.0 - Nausea polyethylene glycol 3350 Mix each measuring cup with 8oz of water, Crystal light, or Gatorade zero, or Propel and do 7 measuring cups on 11/10/24 and another 7 measuring cups on 11/11/24 17 grams PO DAILY 238 grams 0RF Z01.818 - Encounter for other preprocedural examination sucralfate 10 mL PO BID 600 mL 2RF K21.9 - Gastro-esophageal reflux disease without esophagitis
[2024-10-27 13:18] VITALS: BMI 43.8
== END 2024-10-27 13:32 | disposition home or self-care (01) ==
LOC: HO.HBS 08:03
PROVIDERS: PCP Nurse Practitioner Family; Visit Provider Surgery
DX: E66.01 Morbid (severe) obesity due to excess calories (principal); Z68.41 Body mass index [BMI] 40.0-44.9, adult
CPT/HCPCS: 98014

== ENCOUNTER 2024-12-02 10:56 | Inpatient (IN) | payer OTHER, SELFPAY ==
[2024-10-29 10:17] VITALS: BMI 44.6
[2024-11-05 09:32] LABS: MANUAL DIFF FLAG NO
[2024-11-05 09:47] LABS: INTERNATIONAL NORM RATIO 1.1 (0.9-1.1); Prothrombin Time 12.2 SEC (10.9-12.4)
[2024-11-05 09:49] LABS: Basophils Percent Auto 0.3 % (0-2); Eosinophils Absolute Auto 0.1 X10*3/uL (0.0-0.4); Eosinophils Percent Auto 0.6 % (0-4); Hematocrit 34.6 % (37.0-47.0); Hemoglobin 10.4 g/dl (12.0-16.0); Imm Gran Abs Auto 0.04 X10*3/uL (0.00-0.03); Imm Gran Pct Auto 0.4 % (0.0-0.4); Lymphocytes Absolute Auto 2.3 X10*3/uL (1.2-4.9); Lymphocytes Percent Auto 21.4 % (20-40); Mean Corpuscular HGB Conc 30.1 g/dl (31.0-35.0); Mean Corpuscular Hemoglobin 20.2 pg (27.0-33.0); Mean Corpuscular Volume 67.1 fL (80.0-98.0); Mean Platelet Volume 9.2 fL (9.4-12.3); Monocytes Absolute Auto 0.4 X10*3/uL (0.1-1.2); Monocytes Percent Auto 3.6 % (2-11); Neutrophils Absolute Auto 7.8 x10*3/uL (2.0-8.3); Neutrophils Percent Auto 73.7 % (45-73); Platelet Count 340 X10*3/uL (160-400); Red Blood Count 5.16 X10*6/uL (4.20-5.50); Red Cell Distribution Width 18.7 % (11.0-16.0); White Blood Count 10.6 X10*3/uL (4.8-10.8)
[2024-11-05 09:50] LABS: Partial Thromboplastin Time 29.5 SEC (26.0-36.8)
[2024-11-05 09:58] LABS: Estimated Average Glucose 108 mg/dL; Hemoglobin A1C 97.0577 umol/L; Hemoglobin A1c % 5.4 % (<6.0); Total Hemoglobin (HGBA1C) 2766.8007 umol/L
[2024-11-05 12:29] LABS: Alanine Aminotransferase 15 U/L (0-31); Albumin Level 4.1 g/dL (3.5-5.0); Alkaline Phosphatase 68 U/L (39-117); Anion Gap 9 (12-20); Aspartate Amino Transferase 15 U/L (5-31); Bilirubin Total 0.5 mg/dL (0.0-1.0); Blood Urea Nitrogen 12 mg/dL (9-16); C Reactive Protein 1.77 mg/dL (< or = 0.50); Calcium 8.3 mg/dL (8.4-10.2); Carbon Dioxide 25 mmol/L (22-29); Chloride 109 mmol/L (96-108); Cholesterol 110 mg/dL (<200); Creatinine Clr Calc Pharmacy 138.7; Estimated Glomerular Filt Rate > 60; Glucose Random 95 mg/dL (60-115); HDL Cholesterol 32 mg/dL (>40); LDL Cholesterol Calculated 68 mg/dL (<100); Sodium 139 mmol/L (135-145); TSH reflex Free T4 0.44 uIU/mL (0.32-4.0); Total Protein 7.5 g/dL (6.5-8.0); Triglycerides 54 mg/dL (<150)
[2024-11-05 13:06] LABS: Insulin 19 uU/mL (2-29)
--- NOTE | 2024-12-01 08:59 | P.CONAN_ITS ---
Documented by User: Radha Ramirez NP 12/01/24 09:00 HPI - Anesthesia Eval Consult details Narrative: 44yo F for Gastrectomy Sleeve,EGD,possibel Diaphragmatic Hernia,possible Ventral Hernia,possible Open PMFSH Active Problems Active Problems: All Active Problems Pre-op evaluation (Acute) Vitamin B1 deficiency (Acute) Iron deficiency (Acute) Vitamin B12 deficiency (Acute) Anemia (Acute) Adjustment disorder, unspecified (Acute) Vitamin D deficiency (Acute) Prediabetes (Acute) Morbid obesity (Acute) Past Medical History Medical History Anemia Hx of nonchemical tubal occlusion (~2014) Vitamin D deficiency Prediabetes Morbid obesity Family History Family History Mother Frontal lobe dementia Father Heart valve replaced Brother No problems noted. Sister No problems noted. Son No problems noted. Son No problems noted. Daughter No problems noted. 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 If so, by whom?: No Are you DNR?: No Advance Directives: No Advance Directives Information Provided: Yes Advance Directives on File: No Patient : No FDLMP: 11/14/2024 : No Poor oral hygiene: No Meds Allergies Allergy/AdvReac Type Severity Reaction Status Date / Time No Known Allergies Allergy Verified 10/27/24 08:58 Home Medications ?Medication ?Instructions ?Recorded ?Confirmed ?Last Taken ?Type cholecalciferol (vitamin D3) 250 250 mcg PO QWEEK 11/11/20 12/02/24 Unknown History mcg (10,000 unit) capsule ferrous sulfate 325 mg (65 mg 325 mg PO DAILY 08/19/24 12/02/24 Unknown History iron) tablet Exam Height,Weight and Vital Signs: Height 5 ft 4 in Weight 117.934 kg Pertinent Lab Results Pertinent Lab Results: Laboratory Tests 11/05/24 11/05/24 09:21 09:31 WBC 10.6 RBC 5.16 Hgb 10.4 L Hct 34.6 L MCV 67.1 L MCH 20.2 L MCHC 30.1 L RDW 18.7 H Plt Count 340 MPV 9.2 L Immature Gran % (Auto) 0.4 Neut % (Auto) 73.7 H Lymph % (Auto) 21.4 [place] % (Auto) 3.6 Eos % (Auto) 0.6 Baso % (Auto) 0.3 Lymph # (Auto) 2.3 [place] # (Auto) 0.4 Eos # (Auto) 0.1 Baso # (Auto) 0.0 Abs Immat Gran (auto) 0.04 H Absolute Neuts (auto) 7.8 Absolute Nucleated RBC 0.000 Nucleated RBC % (auto) 0.0 PT 12.2 INR 1.1 APTT 29.5 Sodium 139 Potassium 4.0 Chloride 109 H Carbon Dioxide 25 Anion Gap 9 L BUN 12 Creatinine 0.66 Estim Creat Clear Calc 138.7 Estimated GFR > 60 Random Glucose 95 Estimat Average Glucose 108 Hemoglobin A1c % 5.4 Insulin Level 19 Calcium 8.3 L Total Bilirubin 0.5 AST 15 ALT 15 Alkaline Phosphatase 68 C-Reactive Protein 1.77 H Total Protein 7.5 Albumin 4.1 Triglycerides 54 Cholesterol 110 LDL Cholesterol, Calc 68 HDL Cholesterol 32 L TSH 0.44 Blood Type O Positive Antibody Screen NEGATIVE Narrative Narrative: EKG 08/2024 Vent. Rate : 66 BPM Atrial Rate : 66 BPM P-R Int : 120 ms QRS Dur : 86 ms QT Int : 396 ms P-R-T Axes : 5 18 12 degrees QTcB Int : 415 ms Normal sinus rhythm Low voltage QRS Borderline ECG When compared with ECG of 16-Nov-2020 12:08, No significant change was found Assessment and Plan Assessment Anesthesia Assessment: Chart Reviewed Documented by User: Tyler Baron MD 12/02/24 12:17 [facility], [facility] Active Problems Active Problems: All Active Problems Pre-op evaluation (Acute) Vitamin B1 deficiency (Acute) Iron deficiency (Acute) Vitamin B12 deficiency (Acute) Anemia (Acute) Adjustment disorder, unspecified (Acute) Vitamin D deficiency (Acute) Prediabetes (Acute) Morbid obesity (Acute) Past Medical History Medical History Anemia Hx of nonchemical tubal occlusion (~2014) Vitamin D deficiency Prediabetes Morbid obesity Functional capacity: independent ambulation Patient : No Family History Family History Mother Frontal lobe dementia Father Heart valve replaced Brother No problems noted. Sister No problems noted. Son No problems noted. Son No problems noted. Daughter No problems noted. 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 If so, by whom?: No Are you DNR?: No Advance Directives: No Advance Directives Information Provided: Yes Advance Directives on File: No Patient : No FDLMP: 11/14/2024 : No Poor oral hygiene: No Meds Allergies Allergy/AdvReac Type Severity Reaction Status Date / Time No Known Allergies Allergy Verified 10/27/24 08:58 Home Medications ?Medication ?Instructions ?Recorded ?Confirmed ?Last Taken ?Type cholecalciferol (vitamin D3) 250 250 mcg PO QWEEK 11/11/20 12/02/24 Unknown History mcg (10,000 unit) capsule ferrous sulfate 325 mg (65 mg 325 mg PO DAILY 08/19/24 12/02/24 Unknown History iron) tablet Exam Exam Date and Time: 12/02/2024 Airway Mallampati Class: II TM Dist: >3cm Neck ROM: Full Heart: rrr Lungs: cta Other: oriented Assessment and Plan Assessment Anesthesia Assessment: Anesthesia Plan Discussed Final Anesthetic Review Family History of Problems with Anesthesia: No History of Problems with Anesthesia: No NPO: Yes ASA Class: II Final Preanesthetic Review: No Changes in Pt Med Stat, Meds/Allgs Chart Reviewed, Consent Obtained/Reviewed and Anes Risks/Benef Reviewed Patient Risk: Intermediate Procedure Risk: Intermediate Anesthetic Plan Anesthetic Plan: GA Disposition: Standard PACU
[2024-12-02] VITALS (10 sets, daily range): BP systolic 100–149; BP diastolic 56–81; PULSE 62–89; RESP 14–18; TEMP 36.4–36.8; O2SAT 93–99; BMI 40.4
[2024-12-02 11:10] LABS: UPreg QC Valid YES; Urine Pregnancy NEGATIVE (NEGATIVE)
[2024-12-02] MEDS: Lactated Ringers 1,000 ML 100 ML IVCONT ×2 (11:30→15:54)
--- NOTE | 2024-12-02 11:58 | PHA.MEDREC ---
Pharmacy Consult ? Medication Reconciliation Pharmacy has reviewed the medication reconciliation done by RN. RN omitted Sophie however this is non formulary
--- NOTE | 2024-12-02 12:11 | MHC.SHP ---
Pre-Procedural Eval Section A - 24 Hr Update-Section A only Date of Service: 12/02/24 The patient is an INPATIENT: Yes The patient has been examined within 24 hours of the surgical procedure. The History & Physical has been completed within 30 days and I have reviewed it.: Yes Section B - Complete if H&P > 30 days Chief Complaint: obesity Relevant Family History (Specify if Yes): No Relevant Social History: None Present Medications: None Medical History: No relevant PMH History of Previous Operations: No relevant previous surgery Allergies: Allergies Allergy/AdvReac Type Severity Reaction Status Date / Time No Known Allergies Allergy Verified 10/27/24 08:58 Review of Systems Sugical H&P ROS: Negative: Constitution, Cardiovascular, Respiratory, Neurological, Psychiatric, Hem-Onc, Allergic/Immunologic, Gastrointestinal, Genitourinary, Musculoskeletal, Integumentary, Endocrine and Eyes/Ears/Nose/Throat Exam Surgical H&P Exam: Normal: HEENT, Normal: Heart, Normal: Lungs, Normal: Extremities, Normal: Abdomen, Normal: Skin and Normal: Neurological Plan Diagnosis/Plan: Unchanged I have reviewed the history and physical and performed a pertinent physical examination on my patient. No changes have occurred unless specified. Time Spent With Patient Time: Total time managing care of this patient today ____ minutes.
--- NOTE | 2024-12-02 12:12 | P.BOP_ITS ---
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 The program is a phased program with a special focus on preoperative medical weight management to promote substantial weight loss and prepare the patients for the second phase of the program: bariatric surgery. The patient participated in an intensive weekly lifestyle ?intervention and exercise program during which the patient ?has lost between the initial office visit and the last preoperative visit 42.6lbs, or 14.5% of initial actual body weight. It was deemed appropriate for the patient to now have bariatric surgery. In light of the current Covid-19 pandemic and the well documented strong association of obesity and increased risk of worse outcomes if infected with Covid-19 (REFERENCES: https://pubmed.ncbi.nlm.nih.gov/58759467/ ,? https://p med.ncbi.nlm.nih.gov/00688181/ ), any delay in undergoing bariatric surgery may lead to the patient's worsening health condition and increased?risk of more severe Covid-19 disease if infected. In addition a recent?study from [facility] published in [facility] on 06/13/2021 ([email or web address]) found that, among patients with obesity, substantial weight loss achieved with surgery was associated with improved outcomes of COVID-19 infection. The findings suggest that obesity can be a modifiable risk factor for the severity of COVID-19 infection. In addition, the patient met the BMI-criteria for bariatric surgery based on the BMI on initial presentation. The patient should not be penalized for achieving such weight loss because ?it is not sustainable long-term without surgical intervention and it was achieved in preparation for bariatric surgery ?under my direction and based on my published research ([email or web address]).[email or web address] and? https://www.soard.org/article/G5101-9920(71)53403-X/pdf ) ?that a 10% preoperative weight loss improves long-term weight loss after surgery and reduces perioperative complications.? Insurance carriers such as [facility] have endorsed my recommendations ?and have included in their policies criteria to include a 10% preoperative weight loss requirement. PROCEDURE: Esophago-gastroscopy, laparoscopic lysis of adhesions, laparoscopic sleeve gastrectomy and laparoscopic gastropexy INDICATIONS: This is a 44 year-old female who was electively scheduled for laparoscopic, possibly open sleeve gastrectomy. The risks and complications of the procedure were discussed with the patient in advance, particularly the poss ibility of ; pulmonary embolism; staple line leak; bleeding; GERD; cardiac, pulmonary, or renal complications; as well as long-term problems such as insufficient weight loss, vitamin deficiency, strictures, or ulcers. The patient understood all the risks, and was in agreement to proceed with surgery. DESCRIPTION OF PROCEDURE: After informed consent was obtained from the patient, the patient was given preoperative antibiotics, and was transferred to the operating room. After successful induction of general anesthesia, pneumatic compression devices were placed on both lower extremities. An upper endoscopy was performed next. The oropharynx and esophagus appeared to be within normal limits. There was no diaphragmatic hernia present. The stomach was entered. Then after all fluid and air were suctioned and the stomach was fully decompressed, the scope was withdrawn and secured in the mid esophagus. The patient was then prepped and draped in the usual sterile manner, and abdominal access was established at the right upper quadrant with the Patricio technique. A 12 mm blunt port was inserted, and the abdomen was insufflated with CO2 to a pressure of 15 mmHg. Under direct visualization, additional ports were placed, specifically two 5 mm Versi-step ports to the left upper quadrant, and a 5 mm Versi-Step port to the right upper quadrant. 1% lidocaine plain was used to infiltrate all port sites as well as all fascia defects. Following that, the patient was placed in a steep reverse Trendelenburg position. An additional 5 mm port was placed to the right flank for the Mediflex retractor that was used to retract the left lobe of the liver. The gastro-esophageal fat pad was opened with the ultrasonic device (Thmitzierbeat, Olympus) and the anterior esophagus and hiatus were exposed. The angle of His was opened with the ultrasonic device the fundus of the stomach from any diaphragmatic and splenic attachments. I then opened the gastrocolic ligament between the transverse colon and the greater curvature of the stomach with the ultrasonic device to enter the lesser sac and facilitate the ligation of the short gastric vessels. I started at a mid-point along the greater curvature and using the Thunderbeat, all short gastric vessels were divided all the way to the angle of His until the left carlie was completely dissected at its entirety. I then divided the gastro-colic ligament distally to a distance of about 3-4 cm proximal to the pylorus. There were extensive congenital adhesions between the pancreas and posterior gastric wall. Those were lysed completely with the ultrasonic device. Adhesiolysis took approximately 45 min to complete.? The stomach was then divided transversely with three Endo LAURO-45 purple and three LAURO-60 articulating purple loads using the JazzdeskIA stapler and loads. Every effort was made that the gastric sleeve had a tubular shape and an even caliber throughout. Once the sleeve resection was completed, the staple line of the ga stric sleeve was reinforced with Hemoclips. The resected stomach was retrieved without difficulty from the Patricio port. A gastropexy was then performed in order to prevent postoperative GERD and par tial gastric volvulus. Several interrupted 2.0 Surgidac sutures were placed between the sleeve's staple line and the previously divided greater omentum and gastro-colic ligament using the Endo-Stitch device. ?An upper endoscopy was performed. There was no narrowing at the GE junction. The scope was easily advanced all the way to the pylorus which was clearly visualized. There was no narrowing anywhere and the sleeve's caliber was even throughout. The sleeve's staple line was inspected and there was no evidence of ischemia, bleeding or dehiscence. At that point the gastroscope was withdrawn fr om the patient?s mouth while we were decompressing the bowel and the stomach from any remaining air. I looked into the lesser sac to see how the sleeve was situating and it was situating well. There was no bleeding from the staple line, spleen, or short gastric vessels. The Mediflex retractor was removed, and the undersurface of the liver was inspected and there was no bleeding. The patient was placed in supine position. I closed the fascial defect of the 12 mm port site with a figure of eight #1 Polysorb suture. Then 30cc Ropivacaine plain with 10 mg of Dexamethasone were used to infiltrate the fascial closure as well as all skin incisions. At this point, the abdomen was deflated, all ports were removed under direct vision, and no bleeding was noted from any of the port sites. The skin incisions were irrigated with saline and were closed with 4-0 absorbable monofilament sutures. Steri-Strips and OpSites were used to cover all incisions. The patient was extubated and was transferred in stable condition to the recovery room for further care. I was present and performed all yarbrough parts of the procedure. Ms. Muñiz was the list of first job ideas. There were no residents to assist with this case. Joseph Cheung MD, PhD, FACS Surgeon: Gaurav Cheung MD Anesthesia: GETA, local and other (TAP block) Was an Change House Attendant used for this Procedure?: No Change House Attendant: Henna Muñiz Estimated blood loss (mL): 10 IV fluids (mL): 2,000 Urine output (mL): 0 (No Son to record output) Pathology: other (1) Stomach, 2) Gastro-esophageal fat pad) Condition: stable Disposition: PACU
--- NOTE | 2024-12-02 12:14 | P.PNGS_ITS ---
Subjective Subjective Date of Service: 12/03/24 Interval history: Feels well. Mild incisional pain. She is tolerating phase 1 bariatric diet Physical Exam 2 Vital Signs: Vital Signs: Last Vital Signs Temp 98.3 F 12/02/24 11:14 Pulse 73 12/02/24 11:14 Resp 18 12/02/24 11:14 BP 120/61 12/02/24 11:14 Pulse Ox 99 12/02/24 11:14 O2 Del Method Room Air 12/02/24 11:14 BMI result Body Mass Index 40.4 GI: Inspection: Yes normal to inspection, Yes incision (clean, dry and intact) and Yes obesity Palpation (GI): Soft to palpation Extrem: Right lower extremity: normal to inspection (no calf tenderness) L eft lower extremity: normal to inspection (no calf tenderness) Objective Data Active Medications Lactated Ringer's (Lr) 1,000 mls @ 80 mls/hr IVCONT .[id number] AISLINN Lactated Ringer's (Lr) 1,000 mls @ 100 mls/hr IVCONT .Q10H AISLINN Stop: 12/02/24 13:59 Lactated Ringer's (Lr) 1,000 mls @ 999 mls/hr IV .Q1H1M AISLINN Stop: 12/02/24 13:00 Labs 12/03/24 05:41 12/03/24 05:41 Labs: Laboratory Results - last 24 hr 12/02/24 10:58 Urine Test NEGATIVE Procedures Date of Service Date of Service: 12/03/24 Progress Note: A&P Assessment and plan (1) Obesity: Status: Acute Assessment and Plan: s/p laparoscopic sleeve gastrectomy, lysis of adhesions and gastropexy Doing well Will check am labs and if OK the patient will be discharged home (2) BMI 39.0-39.9,adult: Status: Acute (3) GERD (gastroesophageal reflux disease): Status: Acute (4) S/P laparoscopic sleeve gastrectomy: Status: Acute (5) Congenital intra-abdominal adhesions: Status: Acute Time Spent With Patient Time: Total time managing care of this patient today ____ minutes. Quality Stroke Does the patient have a stroke diagnosis?: No VTE Prior VTE?: No VTE Risk Level:: Surgical - moderate VTE Device Contraindication: N/A - Device Ordered VTE Drug Contraindication: Treatment Not Indicated
[2024-12-02] MEDS: Aprepitant 32 MG/4.4 ML VIAL IVPUSH (12:18)
[2024-12-02] MEDS: ceFAZolin Sodium/Dextrose,Iso 2 GM/50 ML PIGGYBACK IV ×2 (12:35→17:09)
--- OUTSIDE RECORDS SUMMARY | 2024-12-02 12:41 | XMS_ITS | Data Portability ---
Author Organization [facility], , [facility] Address [address] [place] [address] Care Team Providers Care Chha Name Role Phone [facility] OTHER SAE VÁSQUEZ Primary Care Provider [phone] Assessment Encounter Date Assessment Date Assessment LastModified [...] D, 25-hydrox y, total, serum 2023 025 [facility], [address] [place] [address], [address], 5 14:45:01 CBC 2023 025 [facility], [address] [place] [address], [address], 5 11:12:19 ferritin, serum or plasma 2023 025 [facility], [address] [place] [address], [address], 5 14:45:00 Referral physical therapist referral - R knee pain x week +, anterio pain, reduced extension , weight bearing [facility] [address] [place], [address], 4 15:13:08 Procedures None recorded. Surgeries None recorded. Imaging MAMMO, screening , tomosynth esis, bilateral - 2nd Look Consult/D iag Mammo/US Breast/Gu ided Asp/Breas t Bx/Clip Placement , as clinicall y indicated . 2024 025 [facility] (Imaging), [address], [place], [address], 5 13:24:12 XR, knee - R knee pain x week+ , difficult y bearing weight 2023 024 [facility] (Imaging), [address] [place], [address], 4 10:24:44 MAMMO, screening , tomosynth esis, bilateral - 2nd Look Consult/D iag Mammo/US Breast/Gu ided Asp/Breas t Bx/Clip Placement , as clinicall y indicated . 2023 024 [facility] (Imaging), [address], [place], [address], 5 13:41:48 Medication Orders ergocalci ferol (vitamin D2) 1,250 mcg (50,000 unit) capsule 2024 025 [facility]armacy #[id number], [address] [place], [address], 5 09:55:30 Mounjaro 10 mg/0.5 mL subcutane ous pen injector [email or web address]/Pharmacy #1092, [address] [place], [address], 5 09:10:16 etodolac 400 mg tablet 2023 025 [facility]/Pharmacy #1095, [address] [place], [address], 5 09:56:26 Wegovy 2.4 mg/0.75 mL subcutane ous pen injector 2023 024 [facility]/Pharmacy #1095, [address] [place], [address], 4 14:55:43 ergocalci ferol (vitamin D2) 1,250 mcg (50,000 unit) capsule 2023 024 [facility]/Pharmacy #1095, [address] [place], [address], 4 14:42:26 Wegovy 1 mg/0.5 mL subcutane ous pen injector 2023 024 [facility]/Pharmacy #1095, [address] [place], [address], 4 10:20:03 Wegovy 1.7 mg/0.75 mL subcutane ous pen injector [email or web address]/Pharmacy #1095, [address] [place], [address], 4 10:19:58 Patient TargetsNo targets recorded. Patient InstructionsNo instructions recorded. Reason for Referral Physical Therapist Referral for Pain of right knee joint R knee pain x week +, anterio pain, reduced extension, weight bearing Referring Physician: Sae Vásquez, Family Medicine, Encounter Date: 05/08/2024 Results Created Date Observation Date Name Description Value Unit Range Abnormal Flag Note LastModifiedBy Organization Detail LastModifiedTime 07/01/1907/01/2024 RBC MORPH OLOGY polychrom FEW Not Available [address], [address], 07/01/2024 11:11:37 07/01/19 25 07/01/2024 RBC MORPH OLOGY hypochrom FEW Not Available [address], [address], 07/01/2024 11:11:37 07/01/19 25 07/01/2024 RBC MORPH OLOGY aniso SLIGHT Not Available [address], [address], 07/01/2024 11:11:37 07/01/19 25 07/01/2024 RBC MORPH OLOGY micro MODERA TE Not Available [address], [address], 07/01/2024 11:11:37 07/01/19 25 07/01/2024 RBC MORPH OLOGY ovalocyte MODERA TE Not Available [address], [address], 07/01/2024 11:11:37 07/01/19 25 07/01/2024 CBC WBC 11.52 K/? ? ?L 3.98-1 0.04 high Not Available [address], [address], 07/01/2024 11:12:19 07/01/19 25 07/01/2024 CBC RBC 5.17 M/? ? ?L 3.93-5 .22 Not Available [address], [address], 07/01/2024 11:12:19 07/01/19 25 07/01/2024 CBC HGB 10.1 g/dL 11.2-1 5.7 low Not Available [address], [address], 07/01/2024 11:12:19 07/01/19 25 07/01/2024 CBC HCT 34.5 % 34.1-4 4.9 Not Available [address], [address], 07/01/2024 11:12:19 07/01/19 25 07/01/2024 CBC MCV 66.7 fL 79.4-9 4.8 low Not Available [address], [address], 07/01/2024 11:12:19 07/01/1907/01/2024 CBC MCH 19.5 pg 25.6-3 2.2 low Not Available [address], [address], 07/01/2024 11:12:19 07/01/1907/01/2024 CBC MCHC 29.3 g/dL 32.2-3 5.5 low Not Available [address], [address], 07/01/2024 11:12:19 07/01/1907/01/2024 CBC plt 360 K/? ? ?L 182-36 9 Not Available [address], [address], 07/01/2024 11:12:19 07/01/1907/01/2024 CBC MPV 9.6 fL 9.4-12 .3 Not Available [address], [address], 07/01/2024 11:12:07/01/1907/01/2024 CBC neut% 71.5 % 34.0-7 1.1 high Not Available [address], [address], 07/01/2024 11:12:19 07/01/1907/01/2024 CBC neut# 8.23 1.56-6 .13 high Not Available [address], [address], 07/01/2024 11:12:19 07/01/1907/01/2024 CBC lymph % 22.0 % 19.3-5 1.7 Not Available [address], [address], 07/01/2024 11:12:19 07/01/1907/01/2024 CBC lymph # 2.54 K/? ? ?L 1.18-3 .74 Not Available [address], [address], 07/01/2024 11:12:19 07/01/1907/01/2024 CBC mono% 4.6 % 4.7-12 .5 low Not Available [address], [address], 07/01/2024 11:12:19 07/01/1907/01/2024 CBC mono# 0.53 0.24-0 .56 Not Available [address], [address], 07/01/2024 11:12:19 07/01/1907/01/2024 CBC eo% 1.3 % 0.7-5. 8 Not Available [address], [address], 07/01/2024 11:12:19 07/01/1907/01/2024 CBC eo# 0.15 0.04-0 .36 Not Available [address], [address], 07/01/2024 11:12:19 07/01/1907/01/2024 CBC baso% 0.3 % 0.1-1. 2 Not Available [address], [address], 07/01/2024 11:12:19 07/01/1907/01/2024 CBC baso# 0.03 0.00-0 .08 Not Available [address], [address], 07/01/2024 11:12:19 07/01/1907/01/2024 CBC RDW-CV 19.9 % 11.7-1 4.4 high SREV= Slide revie wed by [facility]. Not Available [address], [address], 07/01/2024 11:12:19 07/01/1907/01/2024 CBC Ig% 0.300 % 0.000- 1.500 Ig % >0.5 Indic ates possi ble Left Shift Not Available [address], [address], 07/01/2024 11:12:19 07/01/1907/01/2024 CBC Ig# 0.040 0.000- 0.093 Not Available [address], [address], 07/01/2024 11:12:19 07/01/1907/01/2024 CBC NRBC% 0.0 % 0.0-0. 2 Not Available [address], [address], 07/01/2024 11:12:19 07/01/1907/01/2024 CBC NRBC# 0.000 0.000- 0.012 Not Available [address], [address], 07/01/2024 11:12:19 07/01/1907/01/2024 HGB A1C hemoglobin A1C [...] furth er confi rmati on Not Available [address], [address], 07/01/2024 12:55:07 07/01/1907/01/2024 HGB A1C estimated average glucose 108.3 mg/dL Not Available [address], [address], 07/01/2024 12:55:07 07/01/1907/01/2024 TOMI TIN ferritin 5 NG/mL 6-115 low Not Available [address], [address], 07/01/2024 14:45:00 07/01/1907/01/2024 VITAM IN D 25-HY [...] er than 30 ng/mL . Not Available [address], [address], 07/01/2024 14:45:01 07/01/1907/03/2024 LIPID PANEL cholesterol 110 mg/dL <200 mg/dl Rhys able 200-2 39 mg/dl Borde rline High >240 mg/dl High Not Available [address], [address], 07/03/2024 13:40:58 07/01/1907/03/2024 LIPID PANEL triglyceride s 65 mg/dL <150 mg/dL Vero l 150-1 99 mg/dL Borde rline High 200-4 99 mg/dL High >500 mg/dL Very High Not Available [address], [address], 07/03/2024 13:40:58 07/01/1907/03/2024 LIPID PANEL direct HDL 35 mg/dL <40 mg/dl - Major Risk for CHD >60 mg/dl - Negat madeleine Risk for CHD Not Available [address], [address], 07/03/2024 13:40:58 07/01/1907/03/2024 LDL - CALCU LATED [...] r is not stacia forte. Not Available [address], [address], 07/03/2024 13:40:59 07/01/19 25 07/03/2024 COMP. METAB OLIC PANEL glucose 92 mg/dL 70-100 Not Available [address], [address], 07/03/2024 13:49:40 07/01/19 25 07/03/2024 COMP. METAB OLIC PANEL BUN 10 mg/dL 7-18 Not Available [address], [address], 07/03/2024 13:49:40 07/01/19 25 07/03/2024 COMP. METAB OLIC PANEL creatinine 0.7 mg/dL 0.8-1. 3 low Not Available [address], [address], 07/03/2024 13:49:40 07/01/19 25 07/03/2024 COMP. METAB OLIC PANEL B/C 14.3 ratio Not Available [address], [address], 07/03/2024 13:49:40 07/01/19 25 07/03/2024 COMP. METAB [...] be used in pregn ashley. Not Available [address], [address], 07/03/2024 13:49:40 07/01/1907/03/2024 COMP. METAB OLIC PANEL sodium 142 mmol/ L 136-14 5 Not Available [address], [address], 07/03/2024 13:49:40 07/01/1907/03/2024 COMP. METAB OLIC PANEL potassium 4.2 mmol/ L 3.5-5. 1 Not Available [address], [address], 07/03/2024 13:49:40 07/01/19 25 07/03/2024 COMP. METAB OLIC PANEL chloride 105 mmol/ L 96-107 Not Available [address], [address], 07/03/2024 13:49:40 07/01/1907/03/2024 COMP. METAB OLIC PANEL anion gap 12.4 5.0-15 .0 Not Available [address], [address], 07/03/2024 13:49:40 07/01/19 25 07/03/2024 COMP. METAB OLIC PANEL CO2 25 mmol/ L 21-32 Not Available [address], [address], 07/03/2024 13:49:40 07/01/19 25 07/03/2024 COMP. METAB OLIC PANEL calcium 8.2 mg/dL 8.5-10 .3 low ANA=V erifi ed by Adebayo mclaughlin Not Available [address], [address], 07/03/2024 13:49:40 07/01/19 25 07/03/2024 COMP. METAB OLIC PANEL total protein 7.4 g/dL 6.4-8. 2 Not Available [address], [address], 07/03/2024 13:49:40 07/01/19 25 07/03/2024 COMP. METAB OLIC PANEL albumin 3.8 g/dL 3.4-5. 0 Not Available [address], [address], 07/03/2024 13:49:40 07/01/19 25 07/03/2024 COMP. METAB OLIC PANEL globulin 3.6 g/dL Not Available [address], [address], 07/03/2024 13:49:40 07/01/19 25 07/03/2024 COMP. METAB OLIC PANEL A/G 1.1 ratio 0.8-2. 0 Not Available [address], [address], 07/03/2024 13:49:40 07/01/19 25 07/03/2024 COMP. METAB OLIC PANEL total bilirubin 0.70 mg/dL 0.00-1 .00 Not Available [address], [address], 07/03/2024 13:49:40 07/01/19 25 07/03/2024 COMP. METAB OLIC PANEL AST 10 U/L 0-37 Not Available [address], [address], 07/03/2024 13:49:40 07/01/19 25 07/03/2024 COMP. METAB OLIC PANEL ALT 18 U/L 6-63 Not Available [address], [address], 07/03/2024 13:49:40 07/01/19 25 07/03/2024 COMP. METAB OLIC PANEL alk. phos. 76 U/L 50-136 Not Available [address], [address], 07/03/2024 13:49:40 05/08/20 24 05/08/2024 XR, knee [...] Cannot rule out joint effusi on. Yue Springer victorino: Zaid Brandt [email or web address] [facility] (Imaging) [address] , [place], [address], 07/08/2024 09:51:14 08/30/19 25 08/29/2024 XR, chest No observ ation record ed. [address], [address], 08/29/2024 15:22:28 Result Notes Documentation Provider Name and Address Organization Details Recorded Time Xr, Knee : CLINICAL HISTORY: Right knee pain. TECHNIQUE: AP, oblique and lateral views of the right knee obtained. COMPARISON: None. FINDINGS: There is no fracture, subluxation or dislocation. The joint spaces are maintained. Joint effusion cannot be ruled out. IMPRESSION: No acute bone abnormality. Cannot rule out joint effusion. Reading Physician: Sae Mcdonough MD [address] [place] [address], [address], [facility] 07/08/2024 09:51:14 Problems Name Problem SNOMED Code Status Onset Date Resolution Date Notes Provider Name and Address Organization Details Recorded Time Obesity 332221418 Completed 202004/11/2022 Removal Reason: BMI = 47.6, 02/04/21 (morbid obesity) Vivien Butterfield LPN null, [facility] 2 10:53:55 Morbid obesity 895615027 Active 2021 BMI = 47.6, 02/04/21 Vivien Butterfield LPN null, [facility] 2 10:54:07 Iron deficienc y anemia 11166505 Active 2023 Juana Mcdonough MD [address] [place] [address], [phone], [facility] 4 10:04:04 Problem Notes None recorded. Procedures Surgical History Date Name Laterality Status Provider Name and Address Organization Details Recorded Time 5 Obesity counseling completed Juana Mcdonough MD [address] [place] [address], [phone], [facility] 07/08/2024 10:00:11 4 Smoking Cessation Counselling cancelled SHAMIKA VALENZUELA PT, DPT [address] [place] [address], [phone], [facility] 05/27/2024 11:26:53 4 Physical Activity Counselling cancelled SHAMIKA VALENZUELA PT, DPT [address] [place] [address], [address], [facility] 05/27/2024 11:26:53 4 [address]: PT Eval Low Complexity cancelled SHAMIKA VALENZUELA PT, DPT [address] [place] [address], [address], [facility] 05/27/2024 11:26:53 4 Treatment and Advice cancelled SHAMIKA VALENZUELA PT, DPT [address] [place] [address], [phone], [facility] 05/27/2024 11:26:53 4 G2211 completed Juana Mcdonough MD [address] [place], [address], [facility] 09/14/2023 10:39:47 4 Obesity counseling completed Juana Mcdonough MD [address] [place], [address], [facility] 08/23/2023 10:26:18 1 prevention-talha cerna alcohol misuse screening completed Carmen Pete [facility] 10/21/2020 08:30:58 9 Refraction completed Thuy Rondon KeithKELY [address] [place], [address], [facility] 12/26/2018 09:27:37 7 Refraction completed Corona Melendez [facility] 05/03/2017 09:16:12 Imaging Results None recorded. Procedure Notes None [...] propionate 50 mcg/actuat ion nasal spray,susp ension [place] 1 spray every day by intranas al [...] 7.5 mg/0.5 mL subcutaneo us pen injector INJECT 7.5 MG SUBCUTAN EOUSLY WEEKLY 2024 active Not Available Not Available Not Avai lable Mounjaro 5 mg/0.5 mL subcutaneo us pen [...] Updated DateTime 5 162.56 cm 45 kg/m2 891559. 2 g 73 /min 96 % 96 % 122 mm[Hg] 76 mm[Hg] MARK Bravo [facility] 5 09:45:36 Date Recorded Body height Body mass index (BMI) Body weight Heart rate Oxygen saturation Oxygen saturation in Arterial blood by Pulse oximetry Systolic blood pressure Diastolic blood pressure Provider Name and Address Organization Details Last Updated DateTime 4 162.56 cm 44.6 kg/m2 453054. 7 g 76 /min 97 % 97 % 118 mm[Hg] 68 mm[Hg] Fiona Quinonez [facility] 4 14:30:23 Date Recorded Body height Body mass index (BMI) Body weight Heart rate Oxygen saturation Oxygen saturation in Arterial blood by Pulse oximetry Systolic blood pressure Diastolic blood pressure Provider Name and Address Organization Details Last Updated DateTime 4 162.56 cm 44.8 kg/m2 029616. 61 g 94 /min 97 % 97 % 122 mm[Hg] 80 mm[Hg] Vivien Hurt Grace [facility] 4 09:47:27 Date Recorded Body height Body mass index (BMI) Body weight Oxygen saturation Oxygen saturation in Arterial blood by Pulse oximetry Heart rate Systolic blood pressure Diastolic blood pressure Provider Name and Address Organization Details Last Updated DateTime 4 162.56 cm 44.2 kg/m2 764312. 04 g 98 % 98 % 77 /min 127 mm[Hg] 64 mm[Hg] Keshia Lares [facility] 4 16:12:13 Date Recorded Body height Oxygen saturation Oxygen saturation in Arterial blood by Pulse oximetry Heart rate Body mass index (BMI) Body weight Systolic blood pressure Diastolic blood pressure Provider Name and Address Organization Details Last Updated DateTime 4 162.56 cm 96 % 96 % 76 /min 44.1 kg/m2 392964. 24 g 117 mm[Hg] 72 mm[Hg] Polly Mckoy [facility] 4 09:31:47 Social History Question Answer Notes LastModified by Organizat ion Details LastModified Time Tobacco Smoking Status Never Smoker 05/02/24 07/08/24 MARK Bravo [facility] 07/08/2024 09:42:45 Do You Wear A Helmet When Biking? No Information not available 10/21/2020 What Is Your Level Of Caffeine Consumption? Moderate Information not available 10/21/2020 What Type Of Diet Are You Following? REGULAR Information not available 10/21/2020 Education 2 Year College At [employer]. Early Education [facility] Information not available 07/15/2013 How Many Days In The Past Year Have You Had A Heavy Drinking Consumption (4+ Female, 5+ Male)? 0 [email or web address] Information not available 07/15/2013 Are There Any Guns Present In Your Home? No Information not available 10/21/2020 Live Alone Or With Others? With Others /kids Information not available 10/21/2020 Marital Status [facility] Informatio n not available 07/15/2013 Mosquito Repellent Used Routinely Yes Information not available 10/21/2020 What Was The Date Of Your Most Recent Tobacco Screening? 07/08/2024 05/02/24 SM07/08/24MV [email or web address] Information not available 07/08/2024 How Many Children Do You Have? 3 2 Sons, 1 Girl [facility] Information not available 07/15/2013 Seat Belts Used Routinely No Information not available 10/21/2020 Are You Sexually Active? Yes [facility] Information not available 07/15/2013 Smoke Alarm In [...] alcohol consumption? Occasional 2/year. [facility] Information not available 07/15/2013 What is your occupation? [email or web address] Information not available 10/21/2020 Mental Status None [...] Details Recorded Time Tdap 2 completed Geeta GarciaBROCK tere, [facility] 07/15/2013 11:05:19 COVID-19, mRNA, LNP-S, PF, 100 mcg/0.5mL dose or 50 mcg/0.25mL dose 1 completed Carmen Pete MA tere, [facility] 10/21/2020 14:32:44 COVID-19, mRNA, LNP-S, PF, 100 mcg/0.5mL dose or 50 mcg/0.25mL dose 1 [facility] [place] [facility] 14:32:55 Td (adult), 2 Lf tetanus toxoid, preservative free, adsorbed 4 completed Vivien Hurt [place] tere, [facility] 08/23/2023 10:30:07 Past Encounters Encounter ID Performer Location Encounter Start Date Encounter Closed Date Diagnosis/Indication Diagnosis SNOMED-CT Code Diagnosis ICD10 Code Diagnosis Note [id number] Philippe Mckee MD , [facility], OFFICE [address] [place] [address] 07/15/2013 10:53:12 07/15/2013 11:24:58 Cough [id number] with tachycardi a and some lung findings will treat below. d/w Rafi [id number] Leigh Hill D.O. , [facility], OFFICE [address] [place] [address] 02/04/2014 14:42:24 02/04/2014 15:27:54 Lower abdominal pain 50784696 UA + nits, blood ? pyelo Will check labs below tx with cipro Keep close f/u in 48 hrs [id number] Leigh Hill D.O. , [facility], OFFICE [address] [place] [address] 02/06/2014 11:32:09 02/06/2014 11:47:39 Lower abdominal pain 24164362 resolving Urine Cx + and senstive to Cipro Backache 805539755 C/W naproxen bid with meals Given flexeril 10 mg qhs Advised heat, stretching F/U prn Urinary tr act infectious disease [id number] Opal Robles NP FP, [facility], [address] [place] [address] 11/07/2014 12:14:41 11/07/2014 12:53:54 Cough 86370414 bronchitis related to allergies is most likely meds as directed f/u with PCP prn sx persist or increase Irregular periods 38550576 History of 159710847 Unclear EDC - 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 Options counseling . Call with any bleeding, other concerns. 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 , [facility], OFF[address] [place] [address] 10/21/2020 14:26:03 10/25/2020 13:08:33 Adult health examination 614978454 Z00.00 Will update fasting labs Due for a pap, will arrange in-office Counseling 008949559 Z71 .9 Depression screening 171 898129 Z13.31 depression screening tool administer ed, entered into emr, scored and discussed, time greater than 7.5 minutes Screening for alcohol abuse 979826365 Z13.39 AUDIT 1 out of 12. No concerns. Morbid obesity 938451954 E66.01 BMI 49.8. Discussed healthy diet today. [...] program and/or surgery - referral placed to [facility]. Normal grief reaction 27 9017235 F43.20 Mother recently passed, patient grieving. Provided emotional support today. Will have Marilee/[facility] outreach patient for support. Family his tory of dementia 993826246 Z81.8 Mother had frontal lobe dementia . No one else in the family with dementia. Patient interested in a work-up with neurology, will refer. Insomnia 544860602 G47.0 0 Ongoing insomnia. 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 Avoid screen time before bed Try a daily melatonin over the counter Follow-up in the next several weeks in-house with this SOFTWARE VERIFICATION ENGINEER. [id number] Diogo Hale MD , [facility], OFFICE [address] [place], [place] [address] 11/04/2020 10:07:09 11/04/2020 11:03:44 Insomnia 412254368 G47.00 Ongoing insomnia. 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 Avoid screen time before bed Try a daily melatonin over the counter Encouraged increasing physical activity throughout the day Allergic rhinitis 692441 04 J30.9 Nasal congestion , itchy/wate ry eyes. Start flonase and daily antihistam ine as below. Prediabetes 007589582 R7 3.03 A1c 6.0. As above, referral in place for weight loss center. Discussed that weight loss could significan tly lower her risks of developing into diabetes. Screening for malignant neoplasm of cervix 226289625 Z12.4 Pap obtained today. No history of abnormal paps per patient. Obesity 775158181 E66.9 BMI 33.3. Has a referral already in place for [facility] weight loss clinic. Encouraged to call to set up an appt Discussed healthy diet, encouraged regular physical activity. Normal grief reaction 27 0295232 F43.20 Mother recently passed, patient grieving. Provided emotional support today. Will have Marilee/[facility] outreach patient for support. Hypocalcemia 1924393 E83 .51 Spoke with the patient, notified [...] D, magnesium, TSH, PTH. F/u with results. [id number] Diogo Hale MD , [facility], OFFICE [address] [place] [address] 11/11/2020 16:33:49 11/11/2020 17:02:05 Toothache 73336272 K08.89 Patient has several missing teeth and a cracked upper left molar but does not appear infected. Continue with as-needed ibuprofen for pain. Appt in place next week with dentistry. Hypocalcemia 6493265 E83 .51 Critically low calcium on routine [...] was instructed to not take together. This SOFTWARE VERIFICATION ENGINEER reviewed with Dr Aguilar - her tingling in her hands and her multiple cracked/mi ssing teeth could likely be from nursing home low calcium. Her last calcium level was done in 2013 (7 years ago) and was normal. Morbid obesity 189295726 E66.01 BMI 51.2 today. She is now following with weight loss clinic at [facility] They have discussed nutrition/ meal plans with her. The goal might be eventually surgery, although she has to prove first she is able to lose on her own. Advised her to inform them of the above low calcium levels (they had plans to separately do labs through their clinic). As above, also has upcoming appts with endo/Dr Aguilar. [id number] Diogo Hale MD , [facility], OFFICE [address] [place] [address] 01/28/2021 14:03:45 01/29/2021 15:01:31 Dyspnea on exertion 87441256 R06.09 [address] in [address] lot subjective ly and objectivel y evidentL clear good sats,HRup at90 P/cxr if neg will send to ER for CTA [id number] Diogo Hale MD , [facility], [address] [place] [address] 02/04/2021 08:34:05 02/04/2021 09:01:43 Dyspnea on exertion 64451100 R06.09 02/04/2021 although she looks much better [...] neg will send to ER for CTA [id number] Leigh Hill D.O. , [facility], OFFICE [address] [place] [address] 04/17/2022 16:01:34 04/24/2022 08:16:01 Acute laryngitis 8223027 J04.0 discussed likely viral etiologyad vised voice rest, ibuprofen, warm/cool drinksf/u prn [id number] Juana Mcdonough MD , [facility] [place] [place] [address] [place] [address] 08/23/2023 09:16:09 08/23/2023 11:02:32 Adult health examination [id number] Z00.00 Depression screening 171 199643 Z13.31 depression screening tool administer edNegative screen Screening for alcohol abuse 698804361 Z13.39 Alcohol use screening tool administer edNegative screen Active or passive immunization 595460413 Z23 Morbid obesity 076340414 E66.01 Previously followed with [facility] weight management nutritionB [place] 45Drinks 3 cups of juice everyday, and soda 3x per week - has found it difficult to cut this outI recommend increasing physical activity - go for a walk during lunch breaksOffe red nutrition Vitamin D deficiency 347 71680 E55.9 Recheck Iron defic iency anemia 90492670 D50.9 Recheck levels [id number] Juana Mcdonough MD , [facility] [place] [address] [place] [address] 09/14/2023 10:21:52 09/14/2023 10:52:46 Iron deficiency anemia 23053773 D50.9 Hg 9.8 with low ferritinCo ntinue iron supplement (started last month and tolerating fine) and recheck in 3moVit C helps with iron absorption Vitamin D deficiency 347 32373 E55.9 High dose vit DRecheck in 3mo Morbid obesity 976649973 E66.01 Uncontroll ed with BMI of 45She [...] for a walk during lunch breaksOffe red kwadwo Did weight-los s diet through [facility] weight management for 3-4 months starting in October 2020 in anticipati on for surgery. She got busy at work so stopped the diet and didn't f/u with [facility]. Also tried Weight Watchers at the end of 2019 for about 3 months. In the past, has tried to go for walks with her kids but has not been able to do this. Obesity 004322801 E66.9 You have been prescribed a new [...] containers from your insurance company or most [facility] have them available for free. Side [...] in children under 18, or in . [id number] Juana Mcdonough MD , [facility] [place] [place]ICE [address] [place] [address] 12/28/2023 14:19:30 12/31/2023 11:59:06 Screening mammography 61839142 Z12.31 Iron defic iency anemia 96510644 D50.9 Hg slightly improved from 9.8 to 10.3ferrit in still lowContinu e iron supplement (started last month and tolerating fine) and recheck in 3moVit C helps with iron absorption Vitamin D deficiency 347 02812 E55.9 s/p High dose vit D x 8 dosesReche ck in 3mo Morbid obesity 590831058 E66.01 Uncontroll ed with BMI of 45s/p 7 weeks of Wegovy 0.25mgIncr ease to 0.5mg weeklyAfte r 4 weeks, increase to 1mg weekly---- -------Dri nks 3 cups of juice everyday, and soda 3x per week - has found it difficult to cut this outI recommend increasing physical activity - go for a walk during lunch breaksOffe [employer] Did weight-los s diet through [facility] weight management for 3-4 months starting in October 2020 in anticipati on for surgery. She got busy at work so stopped the diet and didn't f/u with [facility]. Also tried Weight Watchers at the end of 2018 for about 3 months. In the past, has tried to go for walks with her kids but has not been able to do this. [id number] Juana Mcdonough MD , [facility] [place] [place]ICE [address] [place] [address] 03/19/2024 09:36:23 03/19/2024 10:33:26 Influenza vaccination declined 505806640 Z28.21 Pain of ri ght knee joint 7439557384 33862 M25.561 2mo of R knee pain with going up/down stairs which I suspect is patellofem oral syndromeI recommend 2 weeks of anti-infla mmatory med (2 Aleve twice daily with food) and if no improvemen t, pt to call and would refer to PT Morbid obesity 528645251 E66.01 Has not lost weight on Wegovy [...] of hypoglycem ia. Iron defic iency anemia 12365921 D50.9 Recheck in 2mo------- -----Hg slightly improved from 9.8 to 10.3ferrit in still lowContinu e iron supplement (started last month and tolerating fine) and recheck in 3moVit C helps with iron absorption [id number] Mario Srinivasan MD , [facility] [place] OFFICE [address] [place] [address] 05/02/2024 16:03:43 05/02/2024 16:48:01 Sprain of lateral collateral ligament of knee 21456634 S83.421A 44-year-ol d female complainin g of [...] will gradually get better on its own. [id number] Diogo Hale MD , [facility] [place] [place]ICE [address] [place] [address] 05/08/2024 09:23:31 05/08/2024 09:53:02 Pain of right knee joint [id number] 58832 M25.561 pain x week +likely sprain, tendinitis will get xrayreferr al to PTd/c ibuprofen, allevesent etodolac 400 mg bidwork note to computer network specialist x 2 weeks [id number] Juana Mcdonough MD , [facility] [place] [place]ICE [address] [place] [address] 07/08/2024 09:35:28 07/08/2024 10:02:42 Screening mammography 58037275 Z12.31 Morbid obesity 723510491 E66.01 Uncontroll edComplica tamir by acute knee sprain over the holidaysTh is Sun will be fourth injection of Mounjaro 5mgI recommend walking everyday and eating healthy Iron defic iency anemia 69483883 D50.9 Uncontroll ed with ferritin of 5, [...] with iron absorption Vitamin D deficiency 347 51768 E55.9 s/p High dose vit D x 8 doses last summerRefi ll and will probably need to take weekly Pain of ri ght knee joint [id number] 76405 M25.561 Acute knee strain last fall, now recovered Health Concerns Section Related Observation LastModified by Organization Detai ls LastModified Time None Recorded Concern Status LastModified by Organization Details LastModified Time None Recorded Advance Directives Directive None Recorded Payers Insurance Date Sequence Insurance Name Policy Number Policy Forman Covered Member ID Forman Member ID Guarantor Name 02/04/2021 1 [facility] HEALTH NET PLAN (MEDICAID HMO) [id number] Chapis R [place] [id number] Chapis R [place] 08/20/2023 1 [facility] HP - DOS ON OR AFTER 2022 - [facility] ACO (MEDICAID REPLACEMENT - HMO) Chapis R [place] [id number] Chapis R [place] 02/04/[address] [facility] CLARITY (HMO) [id number] Chapis R [place] [id number] Chapis R [place] 02/04/2021 1 [place] Chapis R [place] [id number] Chapis R [place] 02/04/2021 1 [place] Chapis R [place] [id number] Chapis R [place] 09/02/2024 1 [facility] - DIRECT CONNECTORCARE TYPE I (HMO) [id number] Chapis R [place] [id number] Chapis R [place] 04/05/2024 1 [facility] - DIRECT CONNECTORCARE TYPE I (HMO) [id number] Chapis R [place] [id number] Chapis R [place] 02/04/2021 1 [place] PRIOR TO 2022 - [facility] ACO (MEDICAID) Chapis R [place] [id number] Chapis R [place] 11/05/2018 1 *SELF PAY* Ka tty Aline [place] 02/04/2021 [facility] HEALTH NET PLAN (MEDICAID HMO) [id number] Chapis R [place] [id number] Chapis R [place] 02/04/2021 2 [place] Chapis R [place] [id number] Chapis R [place] 02/04/2021 1 [place] Chapis R [place] [id number] Chapis R [place] 02/04/2021 1 [facility] HEALTH NET PLAN (MEDICAID HMO) [id number] Chapis R [place] [id number] Chapis [place] 02/04/2021 2 [place] [facility] [place]is [place] [id number] Chapis [place] 09/02/2024 [facility] Chapis [place] [id number] Chapis Aguilaron 05/09/2024 1 [facility] HEALTH PLAN (O) [id number] Chapis Aguilaron [id number] Chapis Aguilaron 05/08/2023 1 [place] [facility] - [facility] (MEDICAID) Chapis Aguilaron [id number] Chapis Aguilaron 01/27/2020 1 *SELF PAY* Ka norris Aguilaron 02/04/2021 [facility] Chapis [place] [id number] Chapis [place] Notes Date Note Type Note Provider Name and Address Organization Details Recorded Time 03/19/2024 text/html Anterior R knee pain since end of with going up/down stairs, getting upNo pain if not movingNo history of R knee pain or trauma Juana Mcdonough MD [address] [place] [address], [id number], [facility] 03/19/2024 10:20:24 05/02/2024 text/html Anterior R knee pain since end of with going up/down stairs, getting upNo pain if not movingNo history of R knee pain or trauma Mario Srinivasan MD [address] [place], [address], [facility] 05/02/2024 16:36:56 05/08/2024 text/html here for R knee pain x week +seen last week- dx sprainsxs have gotten worse over the weektaking alleve and motrin not helpingpain anterior, walking most painful, waking from sleep.no known injury- sxs developed after long drive Sae Vásquez NP [address] [place], [address], [facility] 05/08/2024 09:58:31 OBGyn Episode No OBEpisode recorded.
[2024-12-02] MEDS: Acetaminophen 1,000 MG/100 ML PIGGYBACK 400 MG IV (13:00)
--- NOTE | 2024-12-02 15:05 | P.DS_ITS ---
DS: Providers Provider Date of Service: 12/03/24 Date of admission: 12/02/24 10:56 Date of discharge: 12/03/24 Primary care physician: Anayeli Ellis NP DS: Diagnosis Discharge Diagnosis (1) Obesity: Status: Acute (2) BMI 39.0-39.9,adult: Status: Acute (3) GERD (gastroesophageal reflux disease): Status: Acute DS: Summary Hospital Course Hospital Course: ADMITTING DIAGNOSIS: morbid obesity, GERD, anemia, prediabetes DISCHARGE DIAGNOSIS: same, s/p laparoscopic sleeve gastrectomy and gastropexy PAST SURGICAL HISTORY:?none PROCEDURE: upper endoscopy, laparoscopic sleeve gastrectomy and gastropexy DISCHARGE SUMMARY: History of Present Illness: The patient is a?44 year-old woman with a BMI of?40.4 kg/m2 and associated co- morbidities as described above. The patient had extensive work-up, lost?43.6 lbs preoperatively and was electively scheduled for laparoscopic, possible open sleeve gastrectomy and gastropexy. Risks and complications of the surgery were discussed with the patient in advance, particularly the possibility of , pulmonary embolism, anastomotic leak, bleeding, bowel injury, GERD, cardiac, renal or pulmonary complications. The patient understood all the risks and was in agreement with the surgical plan. Hospital Course: The patient underwent an uneventful laparoscopic sleeve gastrectomy with gastropexy on the day of admission. Postoperatively, the patient was transferred to the surgical floor. The patient received IV acetaminophen and IV Dilaudid for pain control. Patient was started on bariatric phase 1 diet POD #0. On postoperative day one, the patient was feeling well without nausea, vomiting, fevers, or tachycardia. The patient had some mild incisional pain and the abdomen was soft.? ? On the morning of postoperative day one, the patient was continued on 1 ounce of water or ice every half hour. During the day, the patient did fairly well, having some incisional pain, but able to ambulate adequately and to tolerate liquids well. Since the patient is doing well, we decided that the patient was ready to be discharged. The patient was given instructions to follow-up in office next week and to call the office for any fever over 101, persistent abdominal pain, nausea, vomiting, GERD, symptoms of DVT such as calf tenderness, or leg swelling, or pulmonary embolism such as chest pain or shortness of breath.? The patient was also instructed to drink 40-60 ounces of liquids per day using the 1-ounce cups. The patient had been given prescriptions for Tylenol for pain, Zofran prn for nausea, and pantoprazole and carafate previously. The patient was encouraged to ambulate and use the incentive spirometer. The patient was allowed to shower, but no baths, and encouraged to stay active at home. All of these instructions were given to the patient personally. All questions were answered and the patient understood all instructions, the instructions were also given to the patient in print. Time Attestation Discharge Coordination Time (in mins): 30 Quality: Safe Use of Opioids Does Pt have an Active Cancer Diagnosis on the Problem List?: No Quality: Stroke Does the patient have a stroke diagnosis?: No Physical Exam Vital Signs: Vital Signs: Last Vital Signs Temp 98.3 F 12/02/24 14:56 Pulse 82 12/02/24 15:01 Resp 16 12/02/24 15:01 BP 126/70 12/02/24 15:01 Pulse Ox 98 12/02/24 15:01 O2 Del Method Simple Mask 12/02/24 15:01 O2 Flow Rate 6 12/02/24 15:01 BMI result Body Mass Index 40.4 DS: Data Data Completed and Pending Pending studies at discharge: Pending at discharge 12/02/24 14:02 Surgical [PTH] Routine Labs on day of discharge: Laboratory Results - last 24 hr 12/02/24 12/02/24 10:58 11:42 Urine Test NEGATIVE Blood Type O Positive Antibody Screen NEGATIVE Discharge Plan Discharge Anticipated Discharge Date/Time: 12/03/24 10:00 Patient Disposition: Home, Self-Care Discharge Diagnosis: s/p laparoscopic sleeve gastrectomy with gastropexy Referrals: Anayeli Ellis NP [Primary Care Provider] - 1 Week Discharge Medications: Continued pantoprazole 40 mg tablet,delayed release (DR/EC) 40 mg PO DAILY Qty: 90 0RF sucralfate 100 mg/mL suspension 10 ml PO BID Qty: 600 2RF ondansetron 4 mg tablet,disintegrating 4 mg PO Q12H Qty: 20 0RF Rx Instructions: Only take one every 12 hours as needed if you have nausea Discontinued Vitron-C 65 mg iron- 125 mg tablet,delayed release (DR/EC) 1 tab PO DAILY Qty: 90 0RF Rx Instructions: swallow whole; do not chew/break/dissolve/open cholecalciferol (vitamin D3) 125 mcg (5,000 unit) capsule 125 mcg PO DAILY Qty: 90 0RF thiamine HCl (vitamin B1) 100 mg tablet 100 mg PO DAILY Qty: 90 0RF mecobalamin (vitamin B12) 1,000 mcg tablet,disintegrating 1,000 mcg sublingual DAILY Qty: 90 0RF Rx Instructions: place tablet under tongue and allow to dissolve for at least30 secs before swallowing cholecalciferol (vitamin D3) 250 mcg (10,000 unit) capsule 250 mcg PO QWEEK ferrous sulfate 325 mg (65 mg iron) tablet 325 mg PO DAILY polyethylene glycol 3350 17 gram/dose powder 17 g PO DAILY Qty: 238 0RF Rx Instructions: Mix each measuring cup with 8oz of water, Crystal light, or Gatorade zero, or Propel and do 7 measuring cups on 11/10/24 and another 7 measuring cups on 11/11/24 Discharge Orders: Discharge Order (Routine); Ordered 12/03/24 Ordered By: Gaurav Cheung Activity on Discharge: No heavy lifting Stand Alone Forms: Patient Portal Discharge page Print Language: Bengali Care Plan Goals: weight loss Health Concerns: morbid obesity Plan of Treatment: No tub baths, sex or returning to work until discussed at first post op appointment. No alcohol, tobacco or illegal drug use. Continue to use incentive spirometer hourly while awake. Walk in home for 5- 10 minutes every 2 hours during the first week. Wear abdominal binder with activity. Follow all meal plan instructions from your bariatric surgeon. Review bariatric handbook and call with any questions. Discharge Instructions 1. Please call your doctor or come back to the emergency room should any new symptoms arise. 2. Activity: abstain from alcohol,? limited stair climbing, no bending, no driving, no exercise, no illicit substances, no lifting, no sex, no tub bath, no work. 4. Diet: follow your bariatric surgeon's recommendations for advancing diet. 5. Dressing Change/Wound Care: Your incisions are covered with waterproof dressings. You can shower with these and pat dry. Do not rub over dressings or incisions. If the area is tender, you may apply an ice pack for short intervals (no more than 20 minutes on, followed by at least 20 minutes off). Do not apply heat. Do not use creams, lotions, or topical antibiotics unless instructed to do so by your surgeon. 6. Call your doctor if: - Your temperature exceeds 101.5 F - You experience excessive pain or swelling - You have an unexpected reaction to medication - You have excessive bleeding - You experience continued vomiting/nausea - Your incision begins to separate - Your incision shows signs of infection such as increased redness, swelling, excessive pain, heat, or drainage (light blood or clear fluid is normal) General instructions: No lifting greater than 10 lbs for the next 6 weeks[address] driving within 24 hours of taking narcotic pain medications. If you do not move your bowels in the next 2 days, please take milk of magnesia over the counter. Please follow the post op diet and do not advance your diet until instructed by your surgeon or until you are seen in the office in about 1 week. Please walk around your home every hour or two to prevent blood clots from forming in your legs. You do not need to wake from sleeping to walk. Please sleep in a bed or couch to prevent kinking at the hips and knees. Please take your incentive spirometer (your lung mechanical maintenance foreman) home with you and use it for the next few days to prevent pneumonias. You may shower; no hot tubs, baths or s wimming pools. Please make sure you are consuming 40-60 ounces of total fluids per day. Avoid all carbonation. Please call the office with any questions or concerns such as increasing abdominal pain, fever, chills, shortness of breath, chest pain, leg pain or swelling, or redness or drainage from your incisions. Do not hesitate to contact the office with any questions at . The patient's medical history has been reviewed and they are considered low risk for post op DVT and therefore DVT prophylaxis is not considered necessary. Travel after surgery was reviewed. The patient has not disclosed any travel plans during the first 30 days after surgery and they have been advised that within the first 30 days after surgery any bus, plane, train or car travel over 2 hours in duration is contraindicated due to the possibility of developing blood clots from immobility. Any travel, needs to include periods of ambulation of 10 minutes in duration every 2 hours.? The patient was instructed to discuss any plans for travel during this period with their bariatric surgeon. Assessment: s/p laparoscopic sleeve gastrectomy with gastropexy Discharge Date/Time: 12/03/24 09:56
[2024-12-02 15:20] LABS: Hematocrit 34.2 % (37.0-47.0); Hemoglobin 10.3 g/dl (12.0-16.0)
[2024-12-02 15:37] LABS: Anion Gap 11 (12-20); Blood Urea Nitrogen 7 mg/dL (9-16); Calcium 8.5 mg/dL (8.4-10.2); Carbon Dioxide 24 mmol/L (22-29); Chloride 109 mmol/L (96-108); Creatinine Clr Calc Pharmacy 132.5; Estimated Glomerular Filt Rate > 60; Glucose Random 113 mg/dL (60-115); Sodium 140 mmol/L (135-145)
[2024-12-02] MEDS: Acetaminophen 1,000 MG/100 ML PIGGYBACK 16.7 MG IV (18:05)
[2024-12-02] MEDS: 0.9 % Sodium Chloride Flush 3 ML SYRINGE IVFLUSH (20:38)
[2024-12-02] MEDS: Famotidine/PF 20 MG/2 ML VIAL IVPUSH (20:42)
[2024-12-03] MEDS: Acetaminophen 1,000 MG/100 ML PIGGYBACK 16.7 MG IV ×2 (00:11→06:15)
[2024-12-03] MEDS: Lactated Ringers 1,000 ML 100 ML IVCONT (00:12)
[2024-12-03 02:42] VITALS: BP 103/50; PULSE 66; RESP 18; TEMP 36.3; O2SAT 94
[2024-12-03 06:08] LABS: MANUAL DIFF FLAG NO
[2024-12-03 06:25] LABS: Hematocrit 32.8 % (37.0-47.0); Hemoglobin 9.8 g/dl (12.0-16.0); Imm Gran Abs Auto 0.02 X10*3/uL (0.00-0.03); Imm Gran Pct Auto 0.3 % (0.0-0.4); Lymphocytes Absolute Auto 1.2 X10*3/uL (1.2-4.9); Lymphocytes Percent Auto 18.1 % (20-40); Mean Corpuscular HGB Conc 29.9 g/dl (31.0-35.0); Mean Corpuscular Volume 66.9 fL (80.0-98.0); Mean Platelet Volume 9.7 fL (9.4-12.3); Monocytes Absolute Auto 0.2 X10*3/uL (0.1-1.2); Monocytes Percent Auto 3.1 % (2-11); Neutrophils Absolute Auto 5.1 x10*3/uL (2.0-8.3); Neutrophils Percent Auto 78.5 % (45-73); Platelet Count 325 X10*3/uL (160-400); Red Cell Distribution Width 18.9 % (11.0-16.0); White Blood Count 6.5 X10*3/uL (4.8-10.8)
[2024-12-03 06:28] LABS: Anion Gap 10 (12-20); Blood Urea Nitrogen 6 mg/dL (9-16); Carbon Dioxide 21 mmol/L (22-29); Chloride 110 mmol/L (96-108); Creatinine Clr Calc Pharmacy 162.7; Estimated Glomerular Filt Rate > 60; Glucose Random 116 mg/dL (60-115); Potassium 3.7 mmol/L (3.3-5.1); Sodium 137 mmol/L (135-145)
[2024-12-03] MEDS: 0.9 % Sodium Chloride Flush 3 ML SYRINGE IVFLUSH (07:08)
[2024-12-03] MEDS: Famotidine/PF 20 MG/2 ML VIAL IVPUSH (07:09)
[2024-12-03 07:23] VITALS: BP 105/53; PULSE 59; RESP 16; TEMP 36.3; O2SAT 98
--- NOTE | 2024-12-03 07:48 | HO.POSTANES ---
Post Anesthesia Evaluation Post Anesthesia Evaluation Date of Service: 12/03/24 Vital Signs: Vital Signs Temp Pulse Resp BP Pulse Ox O2 Del Method 12/03/24 07:23 97.4 F 59 16 105/53 L 98 Room Air 12/03/24 02:42 97.4 F 66 18 103/50 L 94 Room Air 12/02/24 23:38 97.6 F 62 18 100/56 L 93 Room Air Anesthesia: General Endotracheal-GETA Mental Status: Awake Pain Control: Satisfactory Nausea/Vomiting: None Hydration: Adequate Anesthesia-Related Issues: No Anes. Related Issues
--- NOTE | 2024-12-03 09:35 | MHC.CM.PN ---
pt is indepedent lives with and children dc plan home no services pt is dcd
== END 2024-12-03 09:56 | disposition home or self-care (01) | DRG 403 ==
LOC: HO.SSSA 15:02 → HO.S3 15:28
PROVIDERS: Nurse Practitioner; Physician Assistant Surgical; Admitting Provider Surgery; PCP Nurse Practitioner Family; Visit Provider Surgery
PROC: 0DB64Z3 Excision of Stomach, Percutaneous Endoscopic Approach, Vertical (ICD-10-PCS; CPT 43845; principal; 2024-12-02 13:10)
DX: E66.01 Morbid (severe) obesity due to excess calories (principal); Q43.3 Congenital malformations of intestinal fixation; K21.9 Gastro-esophageal reflux disease without esophagitis; Z68.39 Body mass index [BMI] 39.0-39.9, adult; Z79.899 Other long term (current) drug therapy
CPT/HCPCS: 36415; 80048; 80053; 80061; 81025; 83036; 83525; 84443; 85014; 85018; 85025; 85610; 85730; 86140; 86850; 86900; 86901; 88304; 88305; 88307; 88342; A4649; C9145; J0131; J0690; J1100; J1171; J1308; J2003; J2405; J2704; J2795; J3010; J7120

== ENCOUNTER → 2024-12-02 10:56 | Outpatient (BNV) | payer OTHER, SELFPAY | PROVIDERS: Admitting Provider Surgery; PCP Nurse Practitioner Family; Visit Provider Surgery | DX: E66.9 Obesity, unspecified (principal); Z68.39 Body mass index [BMI] 39.0-39.9, adult; K21.9 Gastro-esophageal reflux disease without esophagitis; Z98.84 Bariatric surgery status; Q43.3 Congenital malformations of intestinal fixation | CPT/HCPCS: 43659; 43775; 99024; 99499 ==

== ENCOUNTER 2024-12-08 12:54 | Outpatient (AMB) | payer OTHER, SELFPAY ==
--- NOTE | 2024-12-08 12:56 | MHC.OFFVISWM ---
VS Expanded 12/08/24 13:06 BP 133/77 Blood Pressure Location Rt brachial Blood Pressure Position Sitting Pulse 69 Pulse Source Pulse Oximeter Temp 97.3 F Temperature Source Temporal Artery Scan Pulse Oximetry 97 Oxygen Delivery Method Room Air Height 5 ft 4 in Weight 238 lb 9.6 oz BMI 41.0 Body Fat % 40.6 Body Fat Mass 96.8 Fat Free Mass 141.8 Visceral Fat Rating 11.0 Body Water % 42.4 Body Water Mass 101.2 Muscle Mass/Score 134.8 Basal Metabolic Rate/Score 1,966 Intake Visit Reasons: (OV) PO LSG 12/02/24 Retail Advertising Account Executive Required: No Allergies No Known Allergies Allergy (Verified 12/08/24 13:00) Medication List - Last Reconciled 12/08/24 by SUPA Soto ondansetron 4 mg PO Q12H pantoprazole 40 mg PO DAILY sucralfate 10 mL PO BID HPI Comments Details: 44-year-old female returns to the office today in follow-up. She is 6 days post sleeve gastrectomy performed on 12/02/2024. She is tolerating 3 Premier protein shakes with 1 scoop each in 8 oz of water and proximally 40-50 oz of water per day. She has moved her bowels. Offers no complaints. [facility] Medical History (Updated 12/02/24 @ 17:18 by Gaurav Cheung MD) Anemia Hx of nonchemical tubal occlusion (~2014) Vitamin D deficiency Prediabetes Morbid obesity Surgical History (Updated 12/08/24 @ 13:06 by Leilani Kathleen CMA) S/P laparoscopic sleeve gastrectomy History of hysteroscopy (~2014) Family History Mother Frontal lobe dementia Father Heart valve replaced Brother No problems noted. Sister No problems noted. Son No problems noted. Son No problems noted. Daughter No problems noted. 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 (3 children) Do you presently have visiting nurse or other home services: No 75 years or older and lives alone: No Alcohol intake: current Alcohol intake frequency: holidays/special occasions only Alcohol type: wine Patient Tobacco Use Status: Former Tobacco user Tobacco use type: Cigarette service: No Physical Exam Vital Signs: Last Vital Signs Temp 97.3 F 12/08/24 13:06 Pulse 69 12/08/24 13:06 BP 133/77 12/08/24 13:06 Pulse Ox 97 12/08/24 13:06 Oxygen Delivery Method Room Air 12/08/24 13:06 BMI result Body Mass Index 41.0 GI Inspection: Yes incision (Clean, dry, intact.) Assessment & Plan Assessment & Plan (1) S/P laparoscopic sleeve gastrectomy: Code(s): Z98.84 - Bariatric surgery status Category: Surgical Plan: POD 6 s/p LSG on 12/02/[address] Cheung Weight loss prior to surgery was 34.7 pounds or 11.8 % TBWL. Original weight on 11/11/2020 was 294 pounds and op weight was 259.3 pounds. Be sure to text Dr Cheung exactly 1 week after surgery your weight from your home scale so he can adjust your meal plan. Continue meal plan until f/u clark Escamilla in 2 weeks May shower, no submersion in bath for another week Continue abdominal binder with activity and exercise for the next 2 weeks. Exercise prior to surgery was walking outside and may resume, she plans to join [employer] No abdominal exercises for 6 weeks post operatively Will be emailed link to post op video for review Reminded of the pace of drinking, 2 mL per minute, 1 oz/15 min.
[2024-12-08 13:06] VITALS: BP 133/77; PULSE 69; TEMP 36.3; O2SAT 97; BMI 41.0
--- OUTSIDE RECORDS SUMMARY | 2024-12-08 14:14 | XMS_ITS | Data Portability ---
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 Name Role Phone [facility] WEIGH T MANAGEMENT PROGRAM OTHER SAE VÁSQUEZ Primary Care Provider Assessment Encounter Date Assessment [...] D, 25-hydrox y, total, serum 2023 025 [facility], [address] [place] [address], [address], 5 14:45:01 CBC 2023 025 [facility], [address] [place] [address], [address], 5 11:12:19 ferritin, serum or plasma 2023 025 [facility], [address] [place] [address], [address], 5 14:45:00 Referral physical therapist referral - R knee pain x week +, anterio pain, reduced extension , weight bearing 2023 024 [facility] (Imaging), [address] [place], [address], 4 15:13:08 Procedures None recorded. Surgeries None recorded. Imaging MAMMO, screening , tomosynth esis, bilateral - 2nd Look Consult/D iag Mammo/US Breast/Gu ided Asp/Breas t Bx/Clip Placement , as clinicall y indicated . 2024 025 [facility] (Imaging), [address] [place], [address], 5 13:07:00 XR, knee - R knee pain x week+ , difficult y bearing weight 2023 024 [facility] (Imaging), [address] [place], [address], 4 10:24:44 MAMMO, screening , tomosynth esis, bilateral - 2nd Look Consult/D iag Mammo/US Breast/Gu ided Asp/Breas t Bx/Clip Placement , as clinicall y indicated . 2023 024 [facility] (Imaging), [address] [place], [address], 5 13:41:48 Medication Orders ergocalci ferol (vitamin D2) 1,250 mcg (50,000 unit) capsule 2024 025 [facility]/Pharmacy #109, [address] [place], [address], 5 09:55:30 Mounjaro 10 mg/0.5 mL subcutane ous pen injector [address]/Pharmacy #1094, [address] [place], [address], 5 09:10:16 etodolac 400 mg tablet 2023 025 [facility]/Pharmacy #1092, [address] [place], [address], 5 09:56:26 Wegovy 2.4 mg/0.75 mL subcutane ous pen injector 2023 024 [facility]/Pharmacy #1095, [address] [place], [address], 4 14:55:43 ergocalci ferol (vitamin D2) 1,250 mcg (50,000 unit) capsule 2023 024 [facility]/Pharmacy #1095, [address] [place], [address], 4 14:42:26 Wegovy 1 mg/0.5 mL subcutane ous pen injector 2023 024 [facility]/Pharmacy #1095, [address] [place], [address], 4 10:20:03 Wegovy 1.7 mg/0.75 mL subcutane ous pen injector [address]/Pharmacy #1095, [address] [place], [address], 4 10:19:58 Patient TargetsNo targets recorded. Patient [...] MORPH OLOGY polychrom FEW Not Available [address], [address], 07/01/2024 11:11:37 07/01/1907/01/2024 RBC MORPH OLOGY hypochrom FEW Not Available [address], [address], 07/01/2024 11:11:37 07/01/19 25 07/01/2024 RBC MORPH OLOGY aniso SLIGHT Not Available [address], [address], 07/01/2024 11:11:37 07/01/19 25 07/01/2024 RBC MORPH OLOGY micro MODERA TE Not Available [address], [address], 07/01/2024 11:11:37 07/01/19 25 07/01/2024 RBC MORPH OLOGY ovalocyte MODERA TE Not Available [address], [address], 07/01/2024 11:11:37 07/01/19 25 07/01/2024 CBC WBC 11.52 K/ L 3.98-1 0.04 high Not Available [address], [address], 07/01/2024 11:12:19 07/01/19 25 07/01/2024 CBC RBC 5.17 M/ L 3.93-5 .22 Not Available [address], [address], 07/01/2024 11:12:19 07/01/19 25 07/01/2024 CBC HGB 10.1 g/dL 11.2-1 5.7 low Not Available [address], [address], 07/01/2024 11:12:19 07/01/19 25 07/01/2024 CBC HCT 34.5 % 34.1-4 4.9 Not Available [address], [address], 07/01/2024 11:12:19 07/01/19 25 07/01/2024 CBC MCV 66.7 fL 79.4-9 4.8 low Not Available [address], [address], 07/01/2024 11:12:19 07/01/1907/01/2024 CBC MCH 19.5 pg 25.6-3 2.2 low Not Available [address], [address], 07/01/2024 11:12:19 07/01/1907/01/2024 CBC MCHC 29.3 g/dL 32.2-3 5.5 low Not Available [address], [address], 07/01/2024 11:12:19 07/01/1907/01/2024 CBC plt 360 K/ L 182-36 9 Not Available [address], [address], 07/01/2024 11:12:19 07/01/1907/01/2024 CBC MPV 9.6 fL 9.4-12 .3 Not Available [address], [address], 07/01/2024 11:12:19 07/01/1907/01/2024 CBC neut% 71.5 % 34.0-7 1.1 high Not Available [address], [address], 07/01/2024 11:12:19 07/01/1907/01/2024 CBC neut# 8.23 1.56-6 .13 high Not Available [address], [address], 07/01/2024 11:12:19 07/01/1907/01/2024 CBC lymph % 22.0 % 19.3-5 1.7 Not Available [address], [address], 07/01/2024 11:12:19 07/01/1907/01/2024 CBC lymph # 2.54 K/ L 1.18-3 .74 Not Available [address], [address], 07/01/2024 11:12:19 07/01/1907/01/2024 CBC mono% 4.6 % 4.7-12 .5 low Not Available [address], [address], 07/01/2024 11:12:19 07/01/1907/01/2024 CBC mono# 0.53 0.24-0 .56 Not Available [address], [address], 07/01/2024 11:12:19 07/01/1907/01/2024 CBC eo% 1.3 % 0.7-5. 8 Not Available [address], [address], 07/01/2024 11:12:19 07/01/1907/01/2024 CBC eo# 0.15 0.04-0 .36 Not Available [address], [address], 07/01/2024 11:12:19 07/01/1907/01/2024 CBC baso% 0.3 % 0.1-1. 2 Not Available [address], [address], 07/01/2024 11:12:19 07/01/1907/01/2024 CBC baso# 0.03 0.00-0 .08 Not Available [address], [address], 07/01/2024 11:12:19 07/01/1907/01/2024 CBC RDW-CV 19.9 % 11.7-1 4.4 high SREV= Slide [facility]. Not Available [address], [address], 07/01/2024 11:12:19 07/01/1907/01/2024 CBC Ig% 0.300 % 0.000- 1.500 Ig % >0.5 Indic ates possi ble Left Shift Not Available [address], [address], 07/01/2024 11:12:19 07/01/1907/01/2024 CBC Ig# 0.040 0.000- 0.093 Not Available [address], [address], 07/01/2024 11:12:19 07/01/1907/01/2024 CBC NRBC% 0.0 % 0.0-0. 2 Not Available [address], [address], 07/01/2024 11:12:19 07/01/1907/01/2024 CBC NRBC# 0.000 0.000- 0.012 Not Available [address], [address], 07/01/2024 11:12:19 07/01/1907/01/2024 HGB A1C hemoglobin A1C [...] er confi rmati on Not Available [address], [address], 07/01/2024 12:55:07 07/01/1907/01/2024 HGB A1C estimated average glucose 108.3 mg/dL Not Available [address], [address], 07/01/2024 12:55:07 07/01/1907/01/2024 TOMI TIN ferritin 5 NG/mL 6-115 low Not Available [address], [address], 07/01/2024 14:45:00 07/01/1907/01/2024 VITAM IN D 25-HY [...] than 30 ng/mL . Not Available [address], [address], 07/01/2024 14:45:01 07/01/1907/03/2024 LIPID PANEL cholesterol 110 mg/dL <200 mg/dl Rhys able 200-2 39 mg/dl Borde rline High >240 mg/dl High Not Available [address], [address], 07/03/2024 13:40:58 07/01/1907/03/2024 LIPID PANEL triglyceride s 65 mg/dL <150 mg/dL Vero l 150-1 99 mg/dL Borde rline High 200-4 99 mg/dL High >500 mg/dL Very High Not Available [address], [address], 07/03/2024 13:40:58 07/01/1907/03/2024 LIPID PANEL direct HDL 35 mg/dL <40 mg/dl - Major Risk for CHD >60 mg/dl - Negat madeleine Risk for CHD Not Available [address], [address], 07/03/2024 13:40:58 07/01/1907/03/2024 LDL - CALCU LATED LDL - calculated 62 RISK CATEG ORY LDL GOAL _ CHD or CHD Risk Equiv alent s <100 mg/dl (10-y ear risk >20%) 2+ Risk Facto rs <130 mg/dl (10-y ear risk <= 20%) 0-1 Risk Facto r <160 mg[facility] with 0-1 risk facto r have a 10 year risk <10%, thus 10 year risk asses ment in peopl e with 0-1 risk facto r is not stacia forte. Not Available [address], [address], 07/03/2024 13:40:59 07/01/19 25 07/03/2024 COMP. METAB OLIC PANEL glucose 92 mg/dL 70-100 Not Available [address], [address], 07/03/2024 13:49:40 07/01/19 25 07/03/2024 COMP. METAB OLIC PANEL BUN 10 mg/dL 7-18 Not Available [address], [address], 07/03/2024 13:49:40 07/01/19 25 07/03/2024 COMP. METAB OLIC PANEL creatinine 0.7 mg/dL 0.8-1. 3 low Not Available [address], [address], 07/03/2024 13:49:40 07/01/19 25 07/03/2024 COMP. METAB OLIC PANEL B/C 14.3 ratio Not Available [address], [address], 07/03/2024 13:49:40 07/01/19 25 07/03/2024 COMP. METAB [...] used in pregn ashley. Not Available [address], [address], 07/03/2024 13:49:40 07/01/19 25 07/03/2024 COMP. METAB OLIC PANEL sodium 142 mmol/ L 136-14 5 Not Available [address], [address], 07/03/2024 13:49:40 07/01/19 25 07/03/2024 COMP. METAB OLIC PANEL potassium 4.2 mmol/ L 3.5-5. 1 Not Available [address], [address], 07/03/2024 13:49:40 07/01/19 25 07/03/2024 COMP. METAB OLIC PANEL chloride 105 mmol/ L 96-107 Not Available [address], [address], 07/03/2024 13:49:40 07/01/19 25 07/03/2024 COMP. METAB OLIC PANEL anion gap 12.4 5.0-15 .0 Not Available [address], [address], 07/03/2024 13:49:40 07/01/19 25 07/03/2024 COMP. METAB OLIC PANEL CO2 25 mmol/ L 21-32 Not Available [address], [address], 07/03/2024 13:49:40 07/01/19 25 07/03/2024 COMP. METAB OLIC PANEL calcium 8.2 mg/dL 8.5-10 .3 low ANA=V erifi ed by Adebayo mclaughlin Not Available [address], [address], 07/03/2024 13:49:40 07/01/19 25 07/03/2024 COMP. METAB OLIC PANEL total protein 7.4 g/dL 6.4-8. 2 Not Available [address], [address], 07/03/2024 13:49:40 07/01/19 25 07/03/2024 COMP. METAB OLIC PANEL albumin 3.8 g/dL 3.4-5. 0 Not Available [address], [address], 07/03/2024 13:49:40 07/01/19 25 07/03/2024 COMP. METAB OLIC PANEL globulin 3.6 g/dL Not Available [address], [address], 07/03/2024 13:49:40 07/01/19 25 07/03/2024 COMP. METAB OLIC PANEL A/G 1.1 ratio 0.8-2. 0 Not Available [address], [address], 07/03/2024 13:49:40 07/01/19 25 07/03/2024 COMP. METAB OLIC PANEL total bilirubin 0.70 mg/dL 0.00-1 .00 Not Available [address], [address], 07/03/2024 13:49:40 07/01/19 25 07/03/2024 COMP. METAB OLIC PANEL AST 10 U/L 0-37 Not Available [address], [address], 07/03/2024 13:49:40 07/01/19 25 07/03/2024 COMP. METAB OLIC PANEL ALT 18 U/L 6-63 Not Available [address], [address], 07/03/2024 13:49:40 07/01/19 25 07/03/2024 COMP. METAB OLIC PANEL alk. phos. 76 U/L 50-136 Not Available [address], [address], 07/03/2024 13:49:40 05/08/20 24 05/08/2024 XR, knee [...] on. Yue hu Physic victorino: [facility] Brand[facility] ([facility] [address] , [place], [address], 07/08/2024 09:51:14 08/30/19 25 08/29/2024 XR, chest No observ ation record ed. [address], [address], 08/29/2024 15:22:28 Result Notes Documentation Provider Name [...] joint effusion. Reading Physician: Sae Mcdonough MD [address] [place] [address], [phone], [facility] 07/08/2024 09:51:14 Problems Name Problem SNOMED Code Status Onset Date Resolution Date Notes Provider Name and Address Organization Details Recorded Time Obesity 000469761 Completed 202004/11/2022 Removal Reason: BMI = 47.6, 02/04/21 (morbid obesity) Vivien LEONARD Butterfield null, [facility] 2 10:53:55 Morbid obesity 145820927 Active 2021 BMI = 47.6, 02/04/21 Vivien LEONARD Butterfield null, [facility] 2 10:54:07 Iron deficienc y anemia 51865930 Active 2023 Juana Mcdonough MD [address] [place] [address], [phone], [facility] 4 10:04:04 Problem Notes None recorded. Procedures Surgical History Date Name Laterality Status Provider Name and Address Organization Details Recorded Time 12/03/19 25 laparoscopic sleeve gastrectomy completed Nataliya Joseph LPN [facility] 12/04/2024 10:07:48 07/08/19 25 Obesity counseling completed Juana Mcdonough MD [address] [place] [address], [phone], [facility] 07/08/2024 10:00:11 05/29/20 24 Smoking Cessation Counselling cancelled SHAMIKA VALENZUELA PT, DPT [address] [place] [address], [phone], [facility] 05/27/2024 11:26:53 05/29/20 24 Physical Activity Counselling cancelled SHAMIKA VALENZUELA PT, DPT [address] [place] [address], [phone], [facility] 05/27/2024 11:26:53 05/29/20 24 [address]: PT Eval Low Complexity cancelled SHAMIKA VALENZUELA PT, DPT [address] [place] [address], [phone], [facility] 05/27/2024 11:26:53 05/29/20 24 Treatment and Advice cancelled SHAMIKA VALENZUELA PT, DPT [address] [place] [address], [phone], [facility] 05/27/2024 11:26:53 09/14/19 24 [id number] completed Juana Mcdonough MD [address] [place], [address], [facility] 09/14/2023 10:39:47 08/23/19 24 Obesity counseling completed Juana Mcdonough MD [address] [place], [address], [facility] 08/23/2023 10:26:18 10/22/19 21 prevention-sarah kyle alcohol misuse screening completed Carmen Pete [facility] 10/21/2020 08:30:58 12/27/19 19 Refraction completed Thuy Parker OD [address] [place], [address], [facility] 12/26/2018 09:27:37 05/03/20 17 Refraction completed Corona Melendez [facility] 05/03/2017 09:16:12 Imaging Results None recorded. Procedure Notes None recorded. Medical Equipment None Reported. Allergies No known drug allergies Medications Name Sig Start Date Stop Date Status Note LastModified by Organization Details LastModified Time vitamin d3 5000 iu softgels 50 TAKE 1 CAPSULE BY MOUTH EVERY DAY 08/22 completed Not Available Not Available Not Available cyclobenz aprine 10 mg tablet TAKE 1 TABLET BY MOUTH AT BEDTIME NEEDED active Not Available Not Available No t Available amoxicill in 500 mg capsule Take 1 capsule every 12 hours by oral route for 7 days. 10/21 completed not taken 10/21/20tt Not Available Not Available Not Available metformin 500 mg tablet TAKE 1 TABLET BY MOUTH EVERY DAY 03/19 completed NOT TAKING 03/19/24M V Not Available Not Available Not Available acetamino phen 325 mg tablet 10/21 completed not taken 10/21/20tt Not Available Not Available Not Available cetirizin e 10 mg tablet TAKE 1 TABLET BY MOUTH EVERY DAY 08/22 completed Not Available Not Available Not Available azithromy mana 250 mg tablet TAKE 1 TABLET BY MOUTH EVERY DAY 02/04 completed Not Available Not Available Not Available ibuprofen 800 mg tablet Take 1 tablet by mouth up to three times daily as needed for pain 08/22 completed Not Available Not Available Not Available sucralfat e 100 mg/mL oral suspensio n Take 10 mL 4 times a day by oral route. active per [facility] Not Available Not Available Not Available prednison e 20 mg tablet TAKE 3 TABLETS (60 MG TOTAL) BY MOUTH DAILY WITH BREAKFAS T FOR 5 DAYS. 02/04 completed Not Available Not Available Not Available penicilli n V potassium 500 mg tablet active Not Available Not Available Not Available acetamino phen 300 mg-codein e 30 mg tablet 10/21 completed not taken 10/21/20tt Not Available Not Available Not Available calcium 600 mg (as calcium carbonate 1,500 mg) tablet TAKE 1 TABLET BY MOUTH THREE TIMES A DAY 08/22 completed Not Available Not Available Not Available pantopraz ole 40 mg tablet,de layed release Take 1 tablet every day by oral route. active per [facility] Not Available Not Available Not Available ferrous [...] active Not Available Not Available Not Available ergocalci ferol (vitamin D2) 1,250 mcg (50,000 unit) capsule Take 1 capsule every week by oral route. active Not Available Not Available No t Available ibuprofen 600 mg tablet 10/21 completed not taken 10/21/20tt Not Available Not Available Not Available intrauter ine device (IUD) Take by intraute rine route. active Not Available Not Available No t Available ondansetr on 4 mg disintegr ating tablet Place 2 tablets twice a day by translin gual route. active per [facility] Not Available Not Available Not Available fluticaso ne propionat e 50 mcg/actua tion nasal spray,alyse pension Hayes 1 spray every day by intranas al route. 08/22 completed Not Available Not Available Not Available cholecalc iferol (vitamin D3) 125 mcg (5,000 unit) capsule TAKE 1 CAPSULE BY MOUTH DAILY 08/22 completed Not Available Not Available Not Available loratadin e 10 mg tablet Take 1 tablet every day by oral route for 30 days. 10/21 completed not taken 10/21/20 Not Available Not Available Not Available naproxen [...] A DAY 10/21 completed not taken 10/21/20 Not Available Not Available Not Available nitrofura ntoin monohydra te/macroc rystals 100 mg capsule 10/21 completed not taken 10/21/20 Not Available Not Available Not Available ProAir HFA 90 mcg/actua tion aerosol inhaler INHALE 2 PUFFS INTO THE LUNGS EVERY 6 HOURS NEEDED FOR WHEEZE 08/22 completed Not Available Not Available Not Available ferrous gluconate 324 mg (38 mg iron) tablet TAKE 1 TABLET BY MOUTH EVERY DAY 10/21 completed not taken 10/21/20 Not Available Not Available Not Available cholecalc iferol (vitamin D3) 1,250 mcg (50,000 unit) capsule [...] t Available Vitron-C 65 mg iron-125 mg tablet,de layed release TAKE 1 TAB BY MOUTH DAILY SWALLOW WHOLE DO NOT CHEW/ANNIE AK/DISSO LVE/OPEN 08/22 completed Not Available Not Available Not Available mecobalam in (vitamin B12) 1,000 mcg disintegr ating tablet,lee blingual PLACE 1 TABLET UNDER TONGUE AND ALLOW TO DISSOLVE FOR AT LEAST30 SECS BEFORE SWALLOWI NG 08/22 completed Not Available Not Available Not Available Vol-Plus 27 mg iron-1 mg tablet 10/21 completed not taken 5/6/21tt Not Available Not Available Not Available Wegovy 2.4 mg/0.75 mL subcutane ous pen injector Inject 0.75 mL every week by subcutan eous route. 03/21 completed Not Available Not Available Not Available Wegovy 1.7 mg/0.75 mL subcutane ous pen injector INJECT 1.7 MG SUBCUTAN EOUSLY ONE TIME PER WEEK 03/19 completed Not Available Not Available Not Available Wegovy 1 mg/0.5 mL subcutane ous pen injector Inject 1 mg every week by subcutan eous route. 03/19 completed Not Available Not Available Not Available Wegovy 0.25 mg/0.5 mL subcutane ous pen injector INJECT 0.25 MG EVERY WEEK BY SUBCUTAN EOUS ROUTE FOR 28 DAYS. 12/27 completed Not Available Not Available Not Available Wegovy 0.5 mg/0.5 mL subcutane ous pen injector INJECT 0.5 MG EVERY WEEK BY SUBCUTAN EOUS ROUTE FOR 28 DAYS. 03/19 completed Not Available Not Available Not Available Mounjaro 7.5 mg/0.5 mL subcutane ous pen injector INJECT 7.5 MG SUBCUTAN EOUSLY WEEKLY 2024 active Not Available Not Available Not Avai lable Mounjaro 5 mg/0.5 mL subcutane ous pen injector AFTER COMPLETI NG FOUR DOSES OF 2.5MG, THEN INJECT 5MG ONCE WEEKLY active Not Available Not Available No t Available Mounjaro 10 mg/0.5 mL subcutane ous pen injector INJECT 0.5 ML SUBCUTAN EOUSLY EVERY WEEK 2024 active Not Available Not Available Not Avai lable Mounjaro 2.5 mg/0.5 mL subcutane ous pen injector INJECT 2.5 MG SUBCUTAN EOUSLY WEEKLY FOR 28 DAYS active Not Available Not Available No t Available Ozempic 0.25 mg or 0.5 mg (2 mg/3 mL) subcutane ous pen injector INJECT 0.25MG SUBCUTAN EOUSLY WEEKLY [...] Updated DateTime 5 162.56 cm 45 kg/m2 805141. 2 g 73 /min 96 % 96 % 122 mm[Hg] 76 mm[Hg] Vivien Hurt [facility] 5 09:45:36 Date Recorded Body height Body mass index (BMI) Body weight Heart rate Oxygen saturation Oxygen saturation in Arterial blood by Pulse oximetry Systolic blood pressure Diastolic blood pressure Provider Name and Address Organization Details Last Updated DateTime 4 162.56 cm 44.6 kg/m2 142797. 7 g 76 /min 97 % 97 % 118 mm[Hg] 68 mm[Hg] Fiona Quinonez [facility] 4 14:30:23 Date Recorded Body height Body mass index (BMI) Body weight Heart rate Oxygen saturation Oxygen saturation in Arterial blood by Pulse oximetry Systolic blood pressure Diastolic blood pressure Provider Name and Address Organization Details Last Updated DateTime 4 162.56 cm 44.8 kg/m2 858892. 61 g 94 /min 97 % 97 % 122 mm[Hg] 80 mm[Hg] Vivien Hurt [facility] 4 09:47:27 Date Recorded Body height Body mass index (BMI) Body weight Oxygen saturation Oxygen saturation in Arterial blood by Pulse oximetry Heart rate Systolic blood pressure Diastolic blood pressure Provider Name and Address Organization Details Last Updated DateTime 4 162.56 cm 44.2 kg/m2 230350. 04 g 98 % 98 % 77 [...] % 96 % 76 /min 44.1 kg/m2 297849. 24 g 117 mm[Hg] 72 mm[Hg] MARK Nair [facility] 09:31:47 Social History Question Answer Notes LastModified by Organizat ion Details LastModified Time Tobacco Smoking Status Never Smoker 05/02/24 07/08/24MV MARK Bravo, [facility] 07/08/2024 09:42:45 Do You Wear A Helmet When Biking? No Information not available 10/21/2020 What Is Your Level Of Caffeine Consumption? Moderate Information not available 10/21/2020 What Type Of Diet Are You Following? REGULAR Information not available 10/21/2020 Education 2 Year College At [employer]. Early Education Information not available 07/15/2013 How Many Days In The Past Year Have You Had A Heavy Drinking Consumption (4+ Female, 5+ Male)? 0 [email or web address] Information not available 07/15/2013 Are There Any Guns Present In Your Home? No Information not available 10/21/2020 Live Alone Or With Others? With Others /kids Information not available 10/21/2020 Marital Status Informatio n not available 07/15/2013 Mosquito Repellent Used Routinely Yes Information not available 10/21/2020 What Was The Date Of Your Most Recent Tobacco Screening? 07/08/2024 05/02/24 07/08/24MV [email or web address] Information not available 07/08/2024 How Many Children Do You Have? 3 2 Sons, 1 Girl Information not available 07/15/2013 Seat Belts Used Routinely No Information not available 10/21/2020 Are You Sexually Active? Yes Information not available 07/15/2013 Smoke Alarm In [...] alcohol consumption? Occasional 2/year. no hx abuse Information not available 07/15/2013 What is your occupation? [employer] [email or web address] Information not available 10/21/2020 Mental Status None [...] Details Recorded Time [facility]ap 2 [facility] 11:05:19 COVID-19, mRNA, LNP-S, PF, 100 mcg/0.5mL dose or 50 mcg/0.25mL dose 1 completed BROCK Arellano [facility] 10/21/2020 14:32:44 COVID-19, mRNA, LNP-S, PF, 100 mcg/0.5mL dose or 50 mcg/0.25mL dose 1 [facility] 10/21/2020 14:32:55 Td (adult), 2 Lf tetanus toxoid, preservative free, adsorbed 4 completed MARK Bravo [facility] 08/23/2023 10:30:07 Past Encounters Encounter ID Performer Location Encounter Start Date Encounter Closed Date Diagnosis/Indication Diagnosis SNOMED-CT Code Diagnosis ICD10 Code Diagnosis Note [id number] Philippe Mckee MD , [facility], OFFICE [address] [place] [address] 07/15/2013 10:53:12 07/15/2013 11:24:58 Cough [id number] with tachycardi a and some lung findings will treat below. d/w Rafi [id number] Leigh JON, [facility], OFFICE [address] [place] [address] 02/04/2014 14:42:24 02/04/2014 15:27:54 Lower abdominal pain [id number] UA + nits, blood ? pyelo Will check labs below tx with cipro Keep close f/u in 48 hrs [id number] Leigh Hill D.O. , [facility], OFFICE [address] [place] [address] 02/06/2014 11:32:09 02/06/2014 11:47:39 Lower abdominal pain 42807072 resolving Urine Cx + and senstive to Cipro Backache [id number] C/W naproxen bid with meals Given flexeril 10 mg qhs Advised heat, stretching F/U prn Urinary tr act infectious disease [id number] Opal Robles NP , [facility], [address] [place] [address] 11/07/2014 12:14:41 11/07/2014 12:53:54 Cough 06841150 bronchitis related to allergies is most likely meds as directed f/u with PCP prn sx persist or increase Irregular periods 20232522 History of [id number] Unclear EDC - pt has apt with practicing md anesthesiologist next week. Options counseling . Call with any bleeding, other concerns. 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 , [facility], [address] [place] [address] 10/21/2020 14:26:03 10/25/2020 13:08:33 Adult health examination [id number] Z00.00 Will update fasting labs Due for a pap, will arrange in-office Counseling [id number] Z71 .9 Depression screening 171 222011 Z13.31 depression screening tool administer ed, entered into emr, scored and discussed, time greater than 7.5 minutes Screening for alcohol abuse [id number] Z13.39 AUDIT 1 out of 12. No concerns. Morbid obesity 598513469 E66.01 BMI 49.8. Discussed healthy diet today. [...] program and/or surgery - referral placed to [facility]. Normal grief reaction 27 8281085 F43.20 Mother recently passed, patient grieving. Provided emotional support today. Will have [facility] outreach patient for support. Family his tory of dementia [id number] Z81.8 Mother had frontal lobe dementia . No one else in the family with dementia. Patient interested in a work-up with neurology, will refer. Insomnia 722621628 G47.0 0 Ongoing insomnia. 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 Avoid screen time before bed Try a daily melatonin over the counter Follow-up in the next several weeks in-house with this KNITTING TESTER. [id number] Diogo Hale MD , [facility], [address]ICE [address] [place] [address] 11/04/2020 10:07:09 11/04/2020 11:03:44 Insomnia 106020001 G47.00 Ongoing insomnia. 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 Avoid screen time before bed Try a daily melatonin over the counter Encouraged increasing physical activity throughout the day Allergic rhinitis 914089 04 J30.9 Nasal congestion , itchy/wate ry eyes. Start flonase and daily antihistam ine as below. Prediabetes 964163037 R7 3.03 A1c 6.0. As above, referral in place for weight loss center. Discussed that weight loss could significan tly lower her risks of developing into diabetes. Screening for malignant neoplasm of cervix 624339019 Z12.4 Pap obtained today. No history of abnormal paps per patient. Obesity 868375587 E66.9 BMI 33.3. Has a referral already in place for [facility] weight loss clinic. Encouraged to call to set up an appt Discussed healthy diet, encouraged regular physical activity. Normal grief reaction 27 5532147 F43.20 Mother recently passed, patient grieving. Provided emotional support today. Will have [facility] outreach patient for support. Hypocalcemia 4528888 E83 .51 Spoke with the patient, notified [...] D, magnesium, TSH, PTH. F/u with results. [id number] Diogo Hale MD , [facility], [address]ICE [address] [place] [address] 11/11/2020 16:33:49 11/11/2020 17:02:05 Toothache 95239501 K08.89 Patient has several missing teeth and a cracked upper left molar but does not appear infected. Continue with as-needed ibuprofen for pain. Appt in place next week with dentistry. Hypocalcemia 3021840 E83 .51 Critically low calcium on routine [...] was instructed to not take together. This KNITTING TESTER reviewed with Dr Aguilar - her tingling in her hands and her multiple cracked/mi ssing teeth could likely be from shelter low calcium. Her last calcium level was done in 2013 (7 years ago) and was normal. Morbid obesity 765684971 E66.01 BMI 51.2 today. She is now following with weight loss clinic at [facility] They have discussed nutrition/ meal plans with her. The goal might be eventually surgery, although she has to prove first she is able to lose on her own. Advised her to inform them of the above low calcium levels (they had plans to separately do labs through their clinic). As above, also has upcoming appts with swati/Dr Aguilar. [id number] Diogo Hale MD , [facility], [address]ICE [address] [place] [address] 01/28/2021 14:03:45 01/29/2021 15:01:31 Dyspnea on exertion 66839243 R06.[address] subjective ly and objectivel y evidentL clear good sats,HRup at90 P/cxr if neg will send to ER for CTA [id number] Diogo Hale MD , [facility], [address]ICE [address] [place] [address] 02/04/2021 08:34:05 02/04/2021 09:01:43 Dyspnea on exertion 62382917 R06.09 02/04/2021 although she looks much better [...] neg will send to ER for CTA [id number] Leigh Hill D.O. , [facility], [address]ICE [address] [place] [address] 04/17/2022 16:01:34 04/24/2022 08:16:01 Acute laryngitis 7470596 J04.0 discussed likely viral etiologyad vised voice rest, ibuprofen, warm/cool drinksf/u prn [id number] Juana Mcdonough MD , [facility], [address]ICE [address] [place] [address] 08/23/2023 09:16:09 08/23/2023 11:02:32 Adult health examination 906325060 Z00.00 Depression screening 171 814257 Z13.31 depression screening tool administer edNegative screen Screening for alcohol abuse 948207783 Z13.39 Alcohol use screening tool administer edNegative screen Active or passive immunization 056008678 Z23 Morbid obesity 861053972 E66.01 Previously followed with [facility] weight [facility] nutritionB [place] 45Drinks 3 cups of juice everyday, and soda 3x per week - has found it difficult to cut this outI recommend increasing physical activity - go for a walk during lunch breaksOffe red nutrition Vitamin D deficiency 347 68677 E55.9 Recheck Iron defic iency anemia 82817567 D50.9 Recheck levels [id number] Juana Mcdonough MD , [facility], [address] [place] [address] 09/14/2023 10:21:52 09/14/2023 10:52:46 Iron deficiency anemia 86785676 D50.9 Hg 9.8 with low ferritinCo ntinue iron supplement (started last month and tolerating fine) and recheck in 3moVit C helps with iron absorption Vitamin D deficiency 347 76219 E55.9 High dose vit DRecheck in 3mo Morbid obesity 774666501 E66.01 Uncontroll ed with BMI of 45She [...] fabiola burkett Did weight-los s diet through [facility] weight management for 3-4 months starting in October 2020 in anticipati on for surgery. She got busy at work so stopped the diet and didn't f/u with [facility]. Also tried Weight Watchers at the end of 2019 for about 3 months. In the past, has tried to go for walks with her kids but has not been able to do this. Obesity 170280028 E66.9 You have been prescribed a new [...] containers from your insurance company or most [facility] have them available for free. Side [...] in children under 18, or in . [id number] Juana Mcdonough MD , [facility], [address]ICE [address] [place] [address] 12/28/2023 14:19:30 12/31/2023 11:59:06 Screening mammography 68693184 Z12.31 Iron defic iency anemia 16153491 D50.9 Hg slightly improved from 9.8 to 10.3ferrit in still lowContinu e iron supplement (started last month and tolerating fine) and recheck in 3moVit C helps with iron absorption Vitamin D deficiency 347 25846 E55.9 s/p High dose vit D x 8 dosesReche ck in 3mo Morbid obesity 799987338 E66.01 Uncontroll ed with BMI of 45s/p 7 weeks of Wegovy 0.25mgIncr ease to 0.5mg weeklyAfte r 4 weeks, increase to 1mg weekly---- -------Steph nks 3 cups of juice everyday, and soda 3x per week - has found it difficult to cut this outI recommend increasing physical activity - go for a walk during lunch breaksOffe TransactionTree Did weight-los s diet through [facility] weight management for 3-4 months starting in October 2020 in anticipati on for surgery. She got busy at work so stopped the diet and didn't f/u with [facility]. Also tried Weight Watchers at the end of 2018 for about 3 months. In the past, has tried to go for walks with her kids but has not been able to do this. [id number] Juana Mcdonough MD , [facility], [address]ICE [address] [place] [address] 03/19/2024 09:36:23 03/19/2024 10:33:26 Influenza vaccination declined 222692725 Z28.21 Pain of ri ght knee joint 0867386840 60994 M25.561 2mo of R knee pain with going up/down stairs which I suspect is patellofem oral syndromeI recommend 2 weeks of anti-infla mmatory med (2 Aleve twice daily with food) and if no improvemen t, pt to call and would refer to PT Morbid obesity 631385759 E66.01 Has not lost weight on Wegovy [...] of hypoglycem ia. Iron defic iency anemia 87422323 D50.9 Recheck in 2mo------- -----Hg slightly improved from 9.8 to 10.3ferrit in still lowContinu e iron supplement (started last month and tolerating fine) and recheck in 3moVit C helps with iron absorption [id number] Mario Srinivasan MD , [facility], [address] [place] [address] 05/02/2024 16:03:43 05/02/2024 16:48:01 Sprain of lateral collateral ligament of knee 47835294 S83.421A 44-year-ol d female complainin g of [...] will gradually get better on its own. 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 [id number] Juana Mcdonough MD , [facility], [address] [place] [address] 07/08/2024 09:35:28 07/08/2024 10:02:42 Screening mammography 85926683 Z12.31 Morbid obesity 735154245 E66.01 Uncontroll edComplica tamir by acute knee sprain over the holidaysTh is Sun will be fourth injection of Mounjaro 5mgI recommend walking everyday and eating healthy Iron defic iency anemia 83672657 D50.9 Uncontroll ed with ferritin of 5, and Hg 10.2 (stable)Sh oscar forgets to take the iron everydayWi ll bring it to work to try to remember to take it daily (currently thinks she takes it 1-2 x per week)----- -------Hg slightly improved from 9.8 to 10.3ferrit in still lowContinu e iron supplement (started last month and tolerating fine) and recheck in 3moVit C helps with iron absorption Vitamin D deficiency 347 84552 E55.9 s/p High dose vit D x 8 doses last summerRefi ll and will probably need to take weekly Pain of ri ght knee joint 5402338014 23055 M25.561 Acute knee strain last fall, now recovered Health Concerns Section Related Observation LastModified by Organization Detai ls LastModified Time None Recorded Concern Status LastModified by Organization Details LastModified Time None Recorded Advance Directives Directive None Recorded Payers Insurance Date Sequence Insurance Name Policy Number Policy Forman Covered Member ID Forman Member ID Guarantor Name 02/04/2021 1 [facility] [employer] NET PLAN (MEDICAID HMO) [id number] Chapis [place] [id number] Chapis [place] 08/20/[address] [facility] [employer] - DOS ON OR AFTER 2022 - [facility] (MEDICAID REPLACEMENT - HMO) Chapis [place] [id number] Chapis [place] 02/04/2021 1 [facility] (HMO) [id number] Chapis [place] [id number] Chapis [place] 02/04/2021 1 [place] [facility] Chapis Aguilaron [id number] Chapis Aguilaron 02/04/2021 1 [place] [facility] Chapis Veraderon [id number] Chapis Aguilaron 09/02/2024 1 [facility] - DIRECT CONNECTORCARE TYPE I (HMO) [id number] Chapis Aguilaron [id number] Chapis Aguilaron 04/05/2024 1 [facility] - DIRECT CONNECTORCARE TYPE I (HMO) [id number] Chapis Aline VeraTroy [id number] Chapis Aguilaron 02/04/2021 1 [place]IOR [place] - [facility] (MEDICAID) Chapis Aguilaron [id number] Chapis Aguilaron 11/05/2018 1 *SELF PAY* Alton [place] 02/04/2021 [facility] HE[facility] NET PLAN (MEDICAID HMO) [id number] Chapis R [place] [id number] Chapis R [place] 02/04/2021 2 [place] [facility] Chapis R [place] [id number] Chapis R [place] 02/04/2021 1 [place] [facility] Chapis R [place] [id number] Chapis R [place] 02/04/[address] [facility] PLAN (MEDICAID HMO) [id number] Chapis R [place] [id number] Chapis R [place] 02/04/2021 2 [place] [facility] Chapis R [place] [id number] Chapis R [place] 09/02/2024 [facility] Chapis R [place] [id number] Chapis R [place] 05/09/2024 1 [facility] (O) [id number] Chapis R [place] [id number] Chapis R [place] 05/08/2023 1 [place]IOR [place] - [facility] (MEDICAID) Chapis R [place] [id number] Chapis R [place] 01/27/2020 1 *SELF PAY* Ka tty R [place] 02/04/2021 [facility] Chapis R [place] [id number] Chapis R [place] Notes Date Note Type Note Provider Name and Address Organization Details Recorded Time 03/19/2024 text/html Anterior R knee pain since end of with going up/down stairs, getting upNo pain if not movingNo history of R knee pain or trauma Juana Mcdonough MD [address] [place] [address], [phone], [facility] 03/19/2024 10:20:24 05/02/2024 text/html Anterior R knee pain since end of with going up/down stairs, getting upNo pain if not movingNo history of R knee pain or trauma Mario Srinivasan MD [address] [place] [address], [phone], [facility] 05/02/2024 16:36:56 05/08/2024 text/html here for R knee pain x week +seen last week- dx sprainsxs have gotten worse over the weektaking alleve and motrin not helpingpain anterior, walking most painful, waking from sleep.no known injury- sxs developed after long drive Sae Vásquez NP [address] [place] [address], [place], [phone], [facility] 05/08/2024 09:58:31 OBGyn Episode No OBEpisode recorded.
== END 2024-12-08 13:46 | disposition home or self-care (01) ==
LOC: HO.HBS 12:55
PROVIDERS: PCP Nurse Practitioner Family; Visit Provider Physician Assistant Surgical
DX: Z98.84 Bariatric surgery status (principal)
CPT/HCPCS: 99024

== ENCOUNTER → 2024-12-08 12:54 | Outpatient (BNVA) | payer OTHER, SELFPAY | PROVIDERS: PCP Nurse Practitioner Family; Visit Provider Physician Assistant Surgical | DX: E66.01 Morbid (severe) obesity due to excess calories (principal); Z68.41 Body mass index [BMI] 40.0-44.9, adult; Z90.3 Acquired absence of stomach [part of] | CPT/HCPCS: 99212 ==

== ENCOUNTER 2024-12-11 08:26 | Outpatient (AMB) | payer OTHER, SELFPAY ==
--- NOTE | 2024-12-11 08:05 | MHC.WMTHER ---
Intake Intake Visit Reasons: TV PO LSG 12/02/24 Allergies No Known Allergies Allergy (Verified 12/08/24 13:00) PFS Medical History (Updated 12/11/24 @ 00:02 by Yamile Gonzáles) BMI 39.0-39.9,adult Anemia Hx of nonchemical tubal occlusion (~2014) Vitamin D deficiency Prediabetes Morbid obesity Surgical History (Updated 12/08/24 @ 13:06 by Leilani Kathleen CMA) S/P laparoscopic sleeve gastrectomy History of hysteroscopy (~2014) Family History Mother Frontal lobe dementia Father Heart valve replaced Brother No problems noted. Sister No problems noted. Son No problems noted. Son No problems noted. Daughter No problems noted. 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 Weight on day of surgery was 250Lbs, and weight as of today 239Lbs. PT denies any pain or challenge with recovery. Tolerating well the liquid plan and the goal is 50oz at day including the 3 shakes. She denies any hunger or food though. She reports her mood is well and has good energy. Her and kids have been very supportive. 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 Objective: PT presents for a post-op f/up visit. . Conducted a guided emotional check-in to assess current functioning, recovery, mood, and emotional state. Delivered psychoeducation on the emotional and psychological adjustments commonly experienced post-bariatric surgery. Administered the PHQ-9 to screen for symptoms of depression. Emphasized the importance of adhering to WMP providers' instructions, including the pace of drinking and the meal/exercise plan. Provided program resources and invited the individual to join our Facebook group to stay informed about ongoing events and activities. Assessment/Response: Mental status: WNL Risk reported/identified: None. Food/Weight/Diet Expectations of change The initial goal is to lose 10% of her weight before surgery, which is about 26 lbs. Ultimate weight goal: 230lbs before surgery Initial weight: 256 lbs (at office), Initial weight with home scale: 259 Lbs. weight as of 09/21/2024: 257.7Lbs Weight on day of surgery was 250Lbs, and weight as of today 12/11/2024 239Lbs. Target Weight: 175Lbs. PT is implementing the following: Current meal plan: Liquid plan. 3 shakes, goal: 50 oz of liquids at day. Exercise plan: Walking - Hasn't started due to the weather. Will start gym as she got a membership with her son. Scale: yes. Questionnaires PHQ-9 Over the last 2 weeks, how often have you been bothered by any of the following problems? 1. Little interest or pleasure in doing things: not at all 2. Feeling down, depressed, or hopeless: not at all 3. Trouble falling or staying asleep, or sleeping too much: not at all 4. Feeling tired or having little energy: not at all 5. Poor appetite or overeating: not at all 6. Feeling bad about yourself - or that you are a failure or have let yourself or your family down: not at all 7. Trouble concentrating on things, such as reading the newspaper or watching television: not at all 8. Moving or speaking so slowly that other people could have noticed. Or the opposite - being so fidgety or restless that you have been moving around a lot more than usual: not at all 9. Thoughts that you would be better off or of hurting yourself in some way: not at all Total score: 0 Depression Screening Interpretation: Negative Depression Screening Done: Yes 29317 - PHQ-9 Billing: Yes Source: Developed by Drs. Diogo Mckeon, Chula Quiroga, Petros Carrillo and colleagues, with an educational michael from [employer]. Assessment & Plan Assessment & Plan (1) Adjustment disorder, unspecified: Code(s): F43.20 - Adjustment disorder, unspecified Qualifiers: Adjustment disorder type: unspecified type Qualified Code(s): F43.20 - Adjustment disorder, unspecified (2) S/P laparoscopic sleeve gastrectomy: Code(s): Z98.84 - Bariatric surgery status Plan No safety concerns or issues were identified that would necessitate behavioral health monitoring. The patient declined further visits but is aware of the available behavioral health support if needed in the future. Telehealth Telehealth Telehealth Platform: [email or web address] Classifieds Location of provider rendering services: other Location of patient: other (Work.) Patient Identification confirmed using: Name, : Yes Telehealth method: video Patient verbally consented to treatment: Yes Patient verbally consented to billing insurance company: Yes Patient informed of any privacy concerns related to visit: Yes Minutes spent on Phone/Video with Pt.: 25 Coding Level of Care Code Established Pt Tele Psytx 30 mins (90246) Patient Type Established Diagnoses Adjustment disorder, unspecified type F43.20 Adjustment disorder type: unspecified type S/P laparoscopic sleeve gastrectomy Z98.84 Additional Codes PHQ-9 - 07114 - PHQ-9 Billing: Yes ([id number]) Time Spent (min) 25
--- OUTSIDE RECORDS SUMMARY | 2024-12-11 08:43 | XMS_ITS | Data Portability ---
Author Organization [facility], , [facility] Address [address] [place] [address] Care Team Providers Care Electrocardiograph Repairer Name Role Phone [facility] WEIGH T MANAGEMENT PROGRAM OTHER SAE [...] D, 25-hydrox y, total, serum 2023 025 [facility], [address] [place] [address], [address], 5 14:45:01 CBC 2023 025 [facility], [address] [place] [address], [address], 5 11:12:19 ferritin, serum or plasma 2023 025 [facility], [address] [place] [address], [address], 5 14:45:00 Referral physical therapist referral - R knee pain x week +, anterio pain, reduced extension , weight bearing 2023 024 [facility] (Imaging), [address] [place], [address], 4 15:13:08 Procedures None recorded. Surgeries None recorded. Imaging MAMMO, screening , tomosynth esis, bilateral - 2nd Look Consult/D iag Mammo/US Breast/Gu ided Asp/Breas t Bx/Clip Placement , as clinicall y indicated . 2024 025 [facility] (Imaging), [address] [place], [address], 5 13:07:00 XR, knee - R knee pain x week+ , difficult y bearing weight 2023 024 [facility] (Imaging), [address] [place], [address], 4 10:24:44 MAMMO, screening , tomosynth esis, bilateral - 2nd Look Consult/D iag Mammo/US Breast/Gu ided Asp/Breas t Bx/Clip Placement , as clinicall y indicated . 2023 024 [facility] (Imaging), [address] [place], [address], 5 13:41:48 Medication Orders ergocalci ferol (vitamin D2) 1,250 mcg (50,000 unit) capsule 2024 025 [facility]/Pharmacy #[id number], [address] [place], [address], 5 09:55:30 Mounjaro 10 mg/0.5 mL subcutane ous pen injector [address]/Pharmacy #1094, [address] [place], [address], 5 09:10:16 etodolac 400 mg tablet 2023 025 [facility]/Pharmacy #109, [address] [place], [address], 5 09:56:26 Wegovy 2.4 mg/0.75 mL subcutane ous pen injector 2023 024 [facility]/Pharmacy #1095, [address] [place], [address], 4 14:55:43 ergocalci ferol (vitamin D2) 1,250 mcg (50,000 unit) capsule 2023 024 [facility]/Pharmacy #1095, [address] [place], [address], 4 14:42:26 Wegovy 1 mg/0.5 mL subcutane ous pen injector 2023 024 [facility]/Pharmacy #1095, [address] [place], [address], 4 10:20:03 Wegovy 1.7 mg/0.75 mL subcutane ous pen injector [email or web address]/Pharmacy #1095, [address] [place], [address], 4 10:19:58 Patient TargetsNo targets recorded. Patient [...] RBC MORPH OLOGY polychrom FEW Not Available [address], [address], 07/01/2024 11:11:37 07/01/1907/01/2024 RBC MORPH OLOGY hypochrom FEW Not Available [address], [address], 07/01/2024 11:11:37 07/01/19 25 07/01/2024 RBC MORPH OLOGY aniso SLIGHT Not Available [address], [address], 07/01/2024 11:11:37 07/01/19 25 07/01/2024 RBC MORPH OLOGY micro MODERA TE Not Available [address], [address], 07/01/2024 11:11:37 07/01/19 25 07/01/2024 RBC MORPH OLOGY ovalocyte MODERA TE Not Available [address], [address], 07/01/2024 11:11:37 07/01/19 25 07/01/2024 CBC WBC 11.52 K/ L 3.98-1 0.04 high Not Available [address], [address], 07/01/2024 11:12:19 07/01/19 25 07/01/2024 CBC RBC 5.17 M/ L 3.93-5 .22 Not Available [address], [address], 07/01/2024 11:12:19 07/01/19 25 07/01/2024 CBC HGB 10.1 g/dL 11.2-1 5.7 low Not Available [address], [address], 07/01/2024 11:12:19 07/01/19 25 07/01/2024 CBC HCT 34.5 % 34.1-4 4.9 Not Available [address], [address], 07/01/2024 11:12:19 07/01/19 25 07/01/2024 CBC MCV 66.7 fL 79.4-9 4.8 low Not Available [address], [address], 07/01/2024 11:12:19 07/01/1907/01/2024 CBC MCH 19.5 pg 25.6-3 2.2 low Not Available [address], [address], 07/01/2024 11:12:19 07/01/1907/01/2024 CBC MCHC 29.3 g/dL 32.2-3 5.5 low Not Available [address], [address], 07/01/2024 11:12:19 07/01/1907/01/2024 CBC plt 360 K/ L 182-36 9 Not Available [address], [address], 07/01/2024 11:12:19 07/01/1907/01/2024 CBC MPV 9.6 fL 9.4-12 .3 Not Available [address], [address], 07/01/2024 11:12:19 07/01/1907/01/2024 CBC neut% 71.5 % 34.0-7 1.1 high Not Available [address], [address], 07/01/2024 11:12:19 07/01/1907/01/2024 CBC neut# 8.23 1.56-6 .13 high Not Available [address], [address], 07/01/2024 11:12:19 07/01/1907/01/2024 CBC lymph % 22.0 % 19.3-5 1.7 Not Available [address], [address], 07/01/2024 11:12:19 07/01/1907/01/2024 CBC lymph # 2.54 K/ L 1.18-3 .74 Not Available [address], [address], 07/01/2024 11:12:19 07/01/1907/01/2024 CBC mono% 4.6 % 4.7-12 .5 low Not Available [address], [address], 07/01/2024 11:12:19 07/01/1907/01/2024 CBC mono# 0.53 0.24-0 .56 Not Available [address], [address], 07/01/2024 11:12:19 07/01/1907/01/2024 CBC eo% 1.3 % 0.7-5. 8 Not Available [address], [address], 07/01/2024 11:12:19 07/01/1907/01/2024 CBC eo# 0.15 0.04-0 .36 Not Available [address], [address], 07/01/2024 11:12:19 07/01/1907/01/2024 CBC baso% 0.3 % 0.1-1. 2 Not Available [address], [address], 07/01/2024 11:12:19 07/01/1907/01/2024 CBC baso# 0.03 0.00-0 .08 Not Available [address], [address], 07/01/2024 11:12:19 07/01/1907/01/2024 CBC RDW-CV 19.9 % 11.7-1 4.4 high SREV= Slide revie wed by cox monett. Not Available [address], [address], 07/01/2024 11:12:19 07/01/1907/01/2024 CBC Ig% 0.300 % 0.000- 1.500 Ig % >0.5 Indic ates possi ble Left Shift Not Available [address], [address], 07/01/2024 11:12:19 07/01/1907/01/2024 CBC Ig# 0.040 0.000- 0.093 Not Available [address], [address], 07/01/2024 11:12:19 07/01/1907/01/2024 CBC NRBC% 0.0 % 0.0-0. 2 Not Available [address], [address], 07/01/2024 11:12:19 07/01/1907/01/2024 CBC NRBC# 0.000 0.000- 0.012 Not Available [address], [address], 07/01/2024 11:12:19 07/01/1907/01/2024 HGB A1C hemoglobin A1C [...] furth er confi rmati on Not Available [address], [address], 07/01/2024 12:55:07 07/01/1907/01/2024 HGB A1C estimated average glucose 108.3 mg/dL Not Available [address], [address], 07/01/2024 12:55:07 07/01/1907/01/2024 TOMI TIN ferritin 5 NG/mL 6-115 low Not Available [address], [address], 07/01/2024 14:45:00 07/01/1907/01/2024 VITAM IN D 25-HY [...] er than 30 ng/mL . Not Available [address], [address], 07/01/2024 14:45:01 07/01/1907/03/2024 LIPID PANEL cholesterol 110 mg/dL <200 mg/dl Rhys able 200-2 39 mg/dl Borde rline High >240 mg/dl High Not Available [address], [address], 07/03/2024 13:40:58 07/01/1907/03/2024 LIPID PANEL triglyceride s 65 mg/dL <150 mg/dL Vero l 150-1 99 mg/dL Borde rline High 200-4 99 mg/dL High >500 mg/dL Very High Not Available [address], [address], 07/03/2024 13:40:58 07/01/1907/03/2024 LIPID PANEL direct HDL 35 mg/dL <40 mg/dl - Major Risk for CHD >60 mg/dl - Negat madeleine Risk for CHD Not Available [address], [address], 07/03/2024 13:40:58 07/01/1907/03/2024 LDL - CALCU LATED LDL - calculated 62 RISK CATEG ORY LDL GOAL _ CHD or CHD Risk Equiv alent s <100 mg/dl (10-y ear risk >20%) 2+ Risk Facto rs <130 mg/dl (10-y ear risk <= 20%) 0-1 Risk Facto r <160 mg/dl [facility] e with 0-1 risk facto r have a 10 year risk <10%, thus 10 year risk asses ment in peopl e with 0-1 risk facto r is not stacia forte. Not Available [address], [address], 07/03/2024 13:40:59 07/01/19 25 07/03/2024 COMP. METAB OLIC PANEL glucose 92 mg/dL 70-100 Not Available [address], [address], 07/03/2024 13:49:40 07/01/19 25 07/03/2024 COMP. METAB OLIC PANEL BUN 10 mg/dL 7-18 Not Available [address], [address], 07/03/2024 13:49:40 07/01/19 25 07/03/2024 COMP. METAB OLIC PANEL creatinine 0.7 mg/dL 0.8-1. 3 low Not Available [address], [address], 07/03/2024 13:49:40 07/01/19 25 07/03/2024 COMP. METAB OLIC PANEL B/C 14.3 ratio Not Available [address], [address], 07/03/2024 13:49:40 07/01/19 25 07/03/2024 COMP. METAB [...] be used in pregn ashley. Not Available [address], [address], 07/03/2024 13:49:40 07/01/19 25 07/03/2024 COMP. METAB OLIC PANEL sodium 142 mmol/ L 136-14 5 Not Available [address], [address], 07/03/2024 13:49:40 07/01/19 25 07/03/2024 COMP. METAB OLIC PANEL potassium 4.2 mmol/ L 3.5-5. 1 Not Available [address], [address], 07/03/2024 13:49:40 07/01/19 25 07/03/2024 COMP. METAB OLIC PANEL chloride 105 mmol/ L 96-107 Not Available [address], [address], 07/03/2024 13:49:40 07/01/19 25 07/03/2024 COMP. METAB OLIC PANEL anion gap 12.4 5.0-15 .0 Not Available [address], [address], 07/03/2024 13:49:40 07/01/19 25 07/03/2024 COMP. METAB OLIC PANEL CO2 25 mmol/ L 21-32 Not Available [address], [address], 07/03/2024 13:49:40 07/01/19 25 07/03/2024 COMP. METAB OLIC PANEL calcium 8.2 mg/dL 8.5-10 .3 low ANA=V erifi ed by Adebayo mclaughlin Not Available [address], [address], 07/03/2024 13:49:40 07/01/19 25 07/03/2024 COMP. METAB OLIC PANEL total protein 7.4 g/dL 6.4-8. 2 Not Available [address], [address], 07/03/2024 13:49:40 07/01/19 25 07/03/2024 COMP. METAB OLIC PANEL albumin 3.8 g/dL 3.4-5. 0 Not Available [address], [address], 07/03/2024 13:49:40 07/01/19 25 07/03/2024 COMP. METAB OLIC PANEL globulin 3.6 g/dL Not Available [address], [address], 07/03/2024 13:49:40 07/01/19 25 07/03/2024 COMP. METAB OLIC PANEL A/G 1.1 ratio 0.8-2. 0 Not Available [address], [address], 07/03/2024 13:49:40 07/01/19 25 07/03/2024 COMP. METAB OLIC PANEL total bilirubin 0.70 mg/dL 0.00-1 .00 Not Available [address], [address], 07/03/2024 13:49:40 07/01/19 25 07/03/2024 COMP. METAB OLIC PANEL AST 10 U/L 0-37 Not Available [address], [address], 07/03/2024 13:49:40 07/01/19 25 07/03/2024 COMP. METAB OLIC PANEL ALT 18 U/L 6-63 Not Available [address], [address], 07/03/2024 13:49:40 07/01/19 25 07/03/2024 COMP. METAB OLIC PANEL alk. phos. 76 U/L 50-136 Not Available [address], [address], 07/03/2024 13:49:40 05/08/20 24 05/08/2024 XR, knee [...] on. Yue hu Physic victorino: [facility] (Imaging) [address] , [place], [address], 07/08/2024 09:51:14 08/30/19 25 08/29/2024 XR, chest No observ ation record ed. [address], [address], 08/29/2024 15:22:28 Result Notes Documentation Provider Name [...] joint effusion. Reading Physician: Sae Mcdonough MD [address] [place] [address], [address], [facility] 07/08/2024 09:51:14 Problems Name Problem SNOMED Code Status Onset Date Resolution Date Notes Provider Name and Address Organization Details Recorded Time Obesity 823316154 Completed 202004/11/2022 Removal Reason: BMI = 47.6, 02/04/21 (morbid obesity) Vivien LEONARD Butterfield null, [facility] 2 10:53:55 Morbid obesity 321681473 Active 2021 BMI = 47.6, 02/04/21 Vivien LEONARD Butterfield null, [facility] 2 10:54:07 Iron deficienc y anemia 72726542 Active 2023 Juana Mcdonough MD [address] [place] [address], [address], [facility] 4 10:04:04 Problem Notes None recorded. Procedures Surgical History Date Name Laterality Status Provider Name and Address Organization Details Recorded Time 12/03/19 25 laparoscopic sleeve gastrectomy completed Nataliya Joseph LPN [facility] 12/04/2024 10:07:48 07/08/19 25 Obesity counseling completed Juana Mcdonough MD [address] [place] [address], [address], [facility] 07/08/2024 10:00:11 05/29/20 24 Smoking Cessation Counselling cancelled SHAMIKA VALENZUELA PT, DPT [address] [place] [address], [phone], [facility] 05/27/2024 11:26:53 05/29/20 24 Physical Activity Counselling cancelled SHAMIKA VALENZUELA PT, DPT [address] [place] [address], [address], [facility] 05/27/2024 11:26:53 05/29/20 24 [address]: PT Eval Low Complexity cancelled SHAMIKA VALENZUELA PT, DPT [address] [place] [address], [address], [facility] 05/27/2024 11:26:53 05/29/20 24 Treatment and Advice cancelled SHAMIKA VALENZUELA PT, DPT [address] [place] [address], [phone], [facility] 05/27/2024 11:26:53 09/14/19 24 [id number] completed Juana Mcdonough MD [address] [place], [address], [facility] 09/14/2023 10:39:47 08/23/19 24 Obesity counseling completed Juana Mcdonough MD [address] [place], [address], [facility] 08/23/2023 10:26:18 10/22/19 21 prevention-sarah kyle alcohol misuse screening completed Carmen Pete [facility] 10/21/2020 08:30:58 12/27/19 19 Refraction completed Thuy Parker OD [address] [place], [address], [facility] 12/26/2018 09:27:37 05/03/20 17 Refraction completed Corona Melendez [facility] 05/03/2017 09:16:12 Imaging Results None recorded. Procedure [...] a day by oral route. active per [facility] discharg e Not Available Not Available Not [...] every day by oral route. active per [facility] discharg e Not Available Not Available Not [...] day by translin gual route. active per [facility] discharg e Not Available Not Available Not Available fluticaso ne propionat e 50 mcg/actua tion nasal spray,alyse pension [place] 1 spray every day by intranas al [...] 5/6/21tt Not Available Not Available Not Available Ozempic 1 mg/dose (4 mg/3 mL) subcutane ous pen injector Inject 1mg weekly by SQ route 12/27 completed Not Available Not Available Not [...] 0.25 mg/0.5 mL subcutane ous pen injector Inject 0.25 mg every week by subcutan eous route for 28 days. 12/27 completed Not Available Not Available Not [...] Updated DateTime 5 162.56 cm 45 kg/m2 509723. 2 g 73 /min 96 % 96 % 122 mm[Hg] 76 mm[Hg] Vivien Hurt [facility] 5 09:45:36 Date Recorded Body height Body mass index (BMI) Body weight Heart rate Oxygen saturation Oxygen saturation in Arterial blood by Pulse oximetry Systolic blood pressure Diastolic blood pressure Provider Name and Address Organization Details Last Updated DateTime 4 162.56 cm 44.6 kg/m2 073559. 7 g 76 /min 97 % 97 % 118 mm[Hg] 68 mm[Hg] Fiona Quinonez [facility] 4 14:30:23 Date Recorded Body height Body mass index (BMI) Body weight Heart rate Oxygen saturation Oxygen saturation in Arterial blood by Pulse oximetry Systolic blood pressure Diastolic blood pressure Provider Name and Address Organization Details Last Updated DateTime 4 162.56 cm 44.8 kg/m2 725450. 61 g 94 /min 97 % 97 % 122 mm[Hg] 80 mm[Hg] Vivien Hurt [facility] 4 09:47:27 Date Recorded Body height Body mass index (BMI) Body weight Oxygen saturation Oxygen saturation in Arterial blood by Pulse oximetry Heart rate Systolic blood pressure Diastolic blood pressure Provider Name and Address Organization Details Last Updated DateTime 4 162.56 cm 44.2 kg/m2 095107. 04 g 98 % 98 % 77 /min 127 mm[Hg] 64 mm[Hg] Keshia Lares [facility] 4 16:12:13 Date Recorded Body height Oxygen saturation Oxygen saturation in Arterial blood by Pulse oximetry Heart rate Body mass index (BMI) Body weight Systolic blood pressure Diastolic blood pressure Provider Name and Address Organization Details Last Updated DateTime 4 162.56 cm 96 % 96 % 76 /min 44.1 kg/m2 433992. 24 g 117 mm[Hg] 72 mm[Hg] MARK Nair [facility] 4 09:31:47 Social History Question Answer Notes LastModified by Organizat ion Details LastModified Time Tobacco Smoking Status Never Smoker 05/02/24 07/08/24 [facility] 07/08/2024 09:42:45 Do You Wear A Helmet When Biking? No Information not available 10/21/2020 What Is Your Level Of Caffeine Consumption? Moderate Information not available 10/21/2020 What Type Of Diet Are You Following? REGULAR Information not available 10/21/2020 Education 2 Year College At [employer]. Early Education [email or web address] Information not available 07/15/2013 How Many Days In The Past Year Have You Had A Heavy Drinking Consumption (4+ Female, 5+ Male)? 0 [email or web address] Information not available 07/15/2013 Are There Any Guns Present In Your Home? No Information not available 10/21/2020 Live Alone Or With Others? With Others /kids Information not available 10/21/2020 Marital Status abigail Informatio n not available 07/15/2013 Mosquito Repellent Used Routinely Yes Information not available 10/21/2020 What Was The Date Of Your Most Recent Tobacco Screening? 07/08/2024 05/02/24 07/08/24 [email or web address] Information not available 07/08/2024 How Many Children Do You Have? 3 2 Sons, 1 Girl Information not available 07/15/2013 Seat Belts Used Routinely No Information not available 10/21/2020 Are You Sexually Active? Yes [email or web address] Information not available 07/15/2013 Smoke Alarm In [...] available 07/15/2013 What is your occupation? [email or web address] Information not available 10/21/2020 Mental Status None [...] Details Recorded Time Tdap 2 completed Geeta Garcia MA [facility] 07/15/2013 11:05:19 COVID-19, mRNA, LNP-S, PF, 100 mcg/0.5mL dose or 50 mcg/0.25mL dose 1 completed Carmen Pete MA [facility] 10/21/2020 14:32:44 COVID-19, mRNA, LNP-S, PF, 100 mcg/0.5mL dose or 50 mcg/0.25mL dose 1 completed Carmen Pete MA [facility] 10/21/2020 14:32:55 Td (adult), 2 Lf tetanus toxoid, preservative free, adsorbed 4 completed MARK Bravo [facility] 08/23/2023 10:30:07 Past Encounters Encounter ID Performer Location Encounter Start Date Encounter Closed Date Diagnosis/Indication Diagnosis SNOMED-CT Code Diagnosis ICD10 Code Diagnosis Note [id number] MD DONTRELL Stout, [facility], OFFICE [address] [place] [address] 07/15/2013 10:53:12 07/15/2013 11:24:58 Cough [id number] with tachycardi a and some lung findings will treat below. d/w Rafi [id number] Leigh JON, [facility], OFFICE [address] [place] [address] 02/04/2014 14:42:24 02/04/2014 15:27:54 Lower abdominal pain 57269050 UA + nits, blood ? pyelo Will check labs below tx with cipro Keep close f/u in 48 hrs [id number] Leigh Hill D.O. , [facility], OFFICE [address] [place] [address] 02/06/2014 11:32:09 02/06/2014 11:47:39 Lower abdominal pain 94421812 resolving Urine Cx + and senstive to Cipro Backache 815232415 C/W naproxen bid with meals Given flexeril 10 mg qhs Advised heat, stretching F/U prn Urinary tr act infectious disease [id number] Opal Robles NP , [facility], [address] [place] [address] 11/07/2014 12:14:41 11/07/2014 12:53:54 Cough 62015460 bronchitis related to allergies is most likely meds as directed f/u with PCP prn sx persist or increase Irregular periods 24939060 History of 784026118 Unclear EDC - pt has apt with apprentice embalmer next week. Options counseling . Call with any bleeding, other concerns. 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 [id number] Thuy Parkre, [facility], [address] [address] 12/26/2018 08:39:50 12/26/2018 10:05:53 Myopic astigmatism 350582274 H52.020 [id number] Janette Ayon MD , [facility], [address]ICE [address] [place] [address] 10/21/2020 14:26:03 10/25/2020 13:08:33 Adult health examination 013800656 Z00.00 Will update fasting labs Due for a pap, will arrange in-office Counseling 606016557 Z71 .9 Depression screening 171 618348 Z13.31 depression screening tool administer ed, entered into emr, scored and discussed, time greater than 7.5 minutes Screening for alcohol abuse 580191260 Z13.39 AUDIT 1 out of 12. No concerns. Morbid obesity 622862054 E66.01 BMI 49.8. Discussed healthy diet today. [...] program and/or surgery - referral placed to [facility]. Normal grief reaction 27 3646684 F43.20 Mother recently passed, patient grieving. Provided emotional support today. Will have [facility] outreach patient for support. Family his tory of dementia 448788782 Z81.8 Mother had frontal lobe dementia . No one else in the family with dementia. Patient interested in a work-up with neurology, will refer. Insomnia 080644552 G47.0 0 Ongoing insomnia. 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 Avoid screen time before bed Try a daily melatonin over the counter Follow-up in the next several weeks in-house with this BOTTOM STOP ATTACHER. [id number] Diogo Hlae MD , [facility], [address]ICE [address] [place] [address] 11/04/2020 10:07:09 11/04/2020 11:03:44 Insomnia 159247955 G47.00 Ongoing insomnia. 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 Avoid screen time before bed Try a daily melatonin over the counter Encouraged increasing physical activity throughout the day Allergic rhinitis 153413 04 J30.9 Nasal congestion , itchy/wate ry eyes. Start flonase and daily antihistam ine as below. Prediabetes 589331724 R7 3.03 A1c 6.0. As above, referral in place for weight loss center. Discussed that weight loss could significan tly lower her risks of developing into diabetes. Screening for malignant neoplasm of cervix 649709336 Z12.4 Pap obtained today. No history of abnormal paps per patient. Obesity 303293366 E66.9 BMI 33.3. Has a referral already in place for [facility] weight loss clinic. Encouraged to call to set up an appt Discussed healthy diet, encouraged regular physical activity. Normal grief reaction 27 5992171 F43.20 Mother recently passed, patient grieving. Provided emotional support today. Will have [facility] outreach patient for support. Hypocalcemia 7019539 E83 .51 Spoke with the patient, notified [...] D, magnesium, TSH, PTH. F/u with results. [id number] Diogo Hale MD , [facility], OFFICE [address] [place] [address] 11/11/2020 16:33:49 11/11/2020 17:02:05 Toothache 94742574 K08.89 Patient has several missing teeth and a cracked upper left molar but does not appear infected. Continue with as-needed ibuprofen for pain. Appt in place next week with dentistry. Hypocalcemia 7188962 E83 .51 Critically low calcium on routine [...] was instructed to not take together. This BOTTOM STOP ATTACHER reviewed with Dr Aguilar - her tingling in her hands and her multiple cracked/mi ssing teeth could likely be from fdc low calcium. Her last calcium level was done in 2013 (7 years ago) and was normal. Morbid obesity 273557891 E66.01 BMI 51.2 today. She is now following with weight loss clinic at [facility] They have discussed nutrition/ meal plans with her. The goal might be eventually surgery, although she has to prove first she is able to lose on her own. Advised her to inform them of the above low calcium levels (they had plans to separately do labs through their clinic). As above, also has upcoming appts with endo/Dr Aguilar. [id number] Diogo Hale MD , [facility], [address]ICE [address] [place] [address] 01/28/2021 14:03:45 01/29/2021 15:01:31 Dyspnea on exertion 84711000 R06.09 [address] in [address] lot subjective ly and objectivel y evidentL clear good sats,HRup at90 P/cxr if neg will send to ER for CTA [id number] Diogo Hale MD , [facility], [address] [place] [address] 02/04/2021 08:34:05 02/04/2021 09:01:43 Dyspnea on exertion 24208032 R06.09 02/04/2021 although she looks much better than when seen in Resp unit (panting) she reports berger in parking lot distances, reports as not improved [facility] is, feverand LLL infiltrate and [...] neg will send to ER for CTA [id number] Leigh Hill D.O. , [facility], [place]ICE [address] [place] [address] 04/17/2022 16:01:34 04/24/2022 08:16:01 Acute laryngitis 1179812 J04.0 discussed likely viral etiologyad vised voice rest, ibuprofen, warm/cool drinksf/u prn [id number] Juana Mcdonough MD , [facility], [address]ICE [address] [place] [address] 08/23/2023 09:16:09 08/23/2023 11:02:32 Adult health examination 860760694 Z00.00 Depression screening 171 909319 Z13.31 depression screening tool administer edNegative screen Screening for alcohol abuse 846371019 Z13.39 Alcohol use screening tool administer edNegative screen Active or passive immunization 065222476 Z23 Morbid obesity 586246901 E66.01 Previously followed with [facility] weight management nutritionB [place] 45Drinks 3 cups of juice everyday, and soda 3x per week - has found it difficult to cut this outI recommend increasing physical activity - go for a walk during lunch breaksOffe red nutrition Vitamin D deficiency 347 64591 E55.9 Recheck Iron defic iency anemia 04072807 D50.9 Recheck levels [id number] Juana Mcdonough MD , [facility], [address]ICE [address] [place] [address] 09/14/2023 10:21:52 09/14/2023 10:52:46 Iron deficiency anemia 23988841 D50.9 Hg 9.8 with low ferritinCo ntinue iron supplement (started last month and tolerating fine) and recheck in 3moVit C helps with iron absorption Vitamin D deficiency 347 13109 E55.9 High dose vit DRecheck in 3mo Morbid obesity 413649249 E66.01 Uncontroll ed with BMI of 45She [...] - go for a walk during lunch breaksOrion burkett Did weight-los s diet through [facility] weight management for 3-4 months starting in October 2020 in anticipati on for surgery. She got busy at work so stopped the diet and didn't f/u with [facility]. Also tried Weight Watchers at the end of 2018 for about 3 months. In the past, has tried to go for walks with her kids but has not been able to do this. Obesity 839046298 E66.9 You have been prescribed a new [...] containers from your insurance company or most local [facility] have them available for free. [...] in children under 18, or in . [id number] Juana Mcdonough MD , [facility], OFFICE [address] [place] [address] 12/28/2023 14:19:30 12/31/2023 11:59:06 Screening mammography 78466278 Z12.31 Iron defic iency anemia 74690570 D50.9 Hg slightly improved from 9.8 to 10.3ferrit in still lowContinu e iron supplement (started last month and tolerating fine) and recheck in 3moVit C helps with iron absorption Vitamin D deficiency 347 78342 E55.9 s/p High dose vit D x 8 dosesReche ck in 3mo Morbid obesity 252944122 E66.01 Uncontroll ed with BMI of 45s/p 7 weeks of Wegovy 0.25mgIncr ease to 0.5mg weeklyAfte r 4 weeks, increase to 1mg weekly---- -------Dri nks 3 cups of juice everyday, and soda 3x per week - has found it difficult to cut this outI recommend increasing physical activity - go for a walk during lunch breaksOffe red nutrition Did weight-los s diet through [facility] weight management for 3-4 months starting in October 2020 in anticipati on for surgery. She got busy at work so stopped the diet and didn't f/u with [facility]. Also tried Weight Watchers at the end of 2018 for about 3 months. In the past, has tried to go for walks with her kids but has not been able to do this. [id number] Juana Mcdonough MD , [facility], [address]ICE [address] [place] [address] 03/19/2024 09:36:23 03/19/2024 10:33:26 Influenza vaccination declined 786550330 Z28.21 Pain of ri ght knee joint 2719856122 32233 M25.561 2mo of R knee pain with going up/down stairs which I suspect is patellofem oral syndromeI recommend 2 weeks of anti-infla mmatory med (2 Aleve twice daily with food) and if no improvemen t, pt to call and would refer to PT Morbid obesity 435979431 E66.01 Has not lost weight on Wegovy [...] of hypoglycem ia. Iron defic iency anemia 00783455 D50.9 Recheck in 2mo------- -----Hg slightly improved from 9.8 to 10.3ferrit in still lowContinu e iron supplement (started last month and tolerating fine) and recheck in 3moVit C helps with iron absorption [id number] Mario Srinivasan MD , [facility], [address]ICE [address] [place] [address] 05/02/2024 16:03:43 05/02/2024 16:48:01 Sprain of lateral collateral ligament of knee 94893310 S83.421A 44-year-ol d female complainin g of [...] will gradually get better on its own. 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 [id number] Juana Mcdonough MD , [facility], OFFICE [address] [place] [address] 07/08/2024 09:35:28 07/08/2024 10:02:42 Screening mammography 99388287 Z12.31 Morbid obesity 366159122 E66.01 Uncontroll edComplica tamir by acute knee sprain over the holidaysTh is Sun will be fourth injection of Mounjaro 5mgI recommend walking everyday and eating healthy Iron defic iency anemia 97171361 D50.9 Uncontroll ed with ferritin of 5, [...] with iron absorption Vitamin D deficiency 347 95064 E55.9 s/p High dose vit D x 8 doses last summerRefi ll and will probably need to take weekly Pain of ri ght knee joint 3761094626 42368 M25.561 Acute knee strain last fall, now recovered Health Concerns Section Related Observation LastModified by Organization Detai ls LastModified Time None Recorded Concern Status LastModified by Organization Details LastModified Time None Recorded Advance Directives Directive None Recorded Payers Insurance Date Sequence Insurance Name Policy Number Policy Forman Covered Member ID Forman Member ID Guarantor Name 02/04/2021 1 [facility] - HEALTH NET PLAN (MEDICAID HMO) [id number] Chapis [place] [id number] Chapis [place] 08/20/2023 1 [facility] HP - DOS ON OR AFTER 2022 - [facility] (MEDICAID REPLACEMENT - HMO) Chapis [place] [id number] Chapis [place] 02/04/2021 1 [facility] (HMO) [id number] Chapis [place] [id number] Chapis [place] 02/04/2021 1 [place] [facility] Chapis Aguilaron [id number] Chapis [place] 02/04/2021 1 [place] [facility] Chapis Veraderon [id number] Chapis Aguilaron 09/02/2024 1 [facility] TYPE I (HMO) [id number] Chapis Aguilaron [id number] Chapis Aguilaron 04/05/2024 1 [facility] TYPE I (HMO) [id number] Chapis Veraderon [id number] Chapis Aguilaron 02/04/2021 1 [place] PRIOR TO 2022 - [facility] (MEDICAID) Chapis R [place] [id number] Chapis R [place] 11/05/2018 1 *SELF PAY* Ka tty R [place] 02/04/2021 [facility] HE[facility] NET PLAN (MEDICAID HMO) [id number] Chapis R [place] [id number] Chapis R [place] 02/04/2021 2 [place] [facility] Chapis R [place] [id number] Chapis R [place] 02/04/2021 1 [place] [facility] Chapis R [place] [id number] Chapis R [place] 02/04/2021 1 [facility] HE[facility] NET PLAN (MEDICAID HMO) [id number] Chapis R [place] [id number] Chapis R [place] 02/04/2021 2 [place]: [facility] Chapis R [place] [id number] Chapis R [place] 09/02/2024 [facility] Chapis R [place] [id number] Chapis R [place] 05/09/2024 1 [facility] PL[facility] (O) [id number] Chapis R [place] [id number] Chapis R [place] 05/08/2023 1 [place] PRIOR TO 2022 - [facility] (MEDICAID) Chapis R [place] [id number] Chapis R [place] 01/27/2020 1 *SELF PAY* Ka tty R [place] 02/04/2021 [facility] Chapis R [place] [id number] Chapis R [place] Notes Date Note Type Note Provider Name and Address Organization Details Recorded Time 03/19/2024 text/html Anterior R knee pain since end of with going up/down stairs, getting upNo pain if not movingNo history of R knee pain or trauma Juana Mcdonough MD [address] [place] [address], [phone], [facility] 03/19/2024 10:20:24 05/02/2024 text/html Anterior R knee pain since end of JulyHurts with going up/down stairs, getting upNo pain if not movingNo history of R knee pain or trauma Mario Srinivasan MD [address] [place], [address], [facility] 05/02/2024 16:36:56 05/08/2024 text/html here for R knee pain x week +seen last week- dx sprainsxs have gotten worse over the weektaking alleve and motrin not helpingpain anterior, walking most painful, waking from sleep.no known injury- sxs developed after long drive Sae Vásquez NP [address] [place], [address], [facility] 05/08/2024 09:58:31 OBGyn Episode No OBEpisode recorded.
== END 2024-12-11 08:34 | disposition home or self-care (01) ==
LOC: HO.HBST 08:26
PROVIDERS: PCP Nurse Practitioner Family; Visit Provider Counselor Mental Health
DX: F43.20 Adjustment disorder, unspecified (principal); Z98.84 Bariatric surgery status
CPT/HCPCS: 90832

== ENCOUNTER 2025-02-27 11:57 | Outpatient (AMB) | payer OTHER, SELFPAY ==
--- NOTE | 2025-02-27 11:53 | MHC.OFFVISWM ---
VS Expanded 02/27/25 11:55 Height 5 ft 4 in Weight 214 lb BMI 36.7 Intake Visit Reasons: post op LSG 12/02/2024 Allergies No Known Allergies Allergy (Verified 12/08/24 13:00) Medication List - Last Reconciled 02/27/25 by SUPA Stanton pantoprazole 40 mg PO DAILY sucralfate 10 mL PO BID HPI Comments Details: This?is a?44?yo F who is s/p LSG 12/02/2024. Presents for 3mo post op visit. Weight at last visit (1wk postop) was 238.6lbs; weight loss of 22.6lbs since last OV. No complaints of nausea, emesis, abdominal pain or reflux, or constipation. Present meal plan includes: she continues to stay in touch with Dr Aline gabriel plus coffee- [employer] bar 1 meal of 2f chicken and 2f broccoli staying hydrated Exercise routine includes: it's not great - tries to walk, but has been super busy at work ([employer] [employer] [employer]) [facility] Medical History (Updated 12/11/24 @ 00:02 by [facility] BMI 39.0-39.9,adult Anemia Hx of nonchemical tubal occlusion (~2014) Vitamin D deficiency Prediabetes Morbid obesity Surgical History (Updated 12/08/24 @ 13:06 by Leilani Kathleen CMA) S/P laparoscopic sleeve gastrectomy History of hysteroscopy (~2014) Family History Mother Frontal lobe dementia Father Heart valve replaced Brother No problems noted. Sister No problems noted. Son No problems noted. Son No problems noted. Daughter No problems noted. 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 (3 children) Do you presently have visiting nurse or other home services: No 75 years or older and lives alone: No Alcohol intake: current Alcohol intake frequency: holidays/special occasions only Alcohol type: wine Patient Tobacco Use Status: Former Tobacco user Tobacco use type: Cigarette service: No Telehealth Telehealth Telehealth Platform: Telephone Location of provider rendering services: practice address Location of patient: address on file Patient Identification confirmed using: Name, : Yes Telehealth method: voice only Patient verbally consented to treatment: Yes Patient verbally consented to billing insurance company: Yes Patient informed of any privacy concerns related to visit: Yes Minutes spent on Phone/Video with Pt.: 10 Assessment & Plan Assessment & Plan (1) Obesity: Code(s): E66.9 - Obesity, unspecified Category: Medical (2) S/P laparoscopic sleeve gastrectomy: Code(s): Z98.84 - Bariatric surgery status Category: Medical Plan Doing well without surgical complications. Pt to continue meal plan per Dr. Mireles. She knows she is lacking in exercise. Due to complete PPI/carafate. RTC 3mo 15min phone visit.
[2025-02-27 11:55] VITALS: BMI 36.7
--- OUTSIDE RECORDS SUMMARY | 2025-02-27 14:27 | XMS_ITS | Encounter Summary ---
Author Organization [facility] Address [address] [facility] [address] [place] [address] Phone Care Team Providers Care Vp Securities Name Role Phone Ragini Oshea MD Primary Care Provider [email or web address] Radha Lowe DIGITAL PROJECT COORDINATOR Unavailable Deanna ManzanaresM Unavailable Balwinder Stacy MD Unavailable Talya Hines DIGITAL PROJECT COORDINATOR Unavailable [phone] Isela Lawson MD Unavailable Ruth Alberto DIGITAL PROJECT COORDINATOR Unavailable [phone] Panda Regalado MD Unavailable Sushil Vallecillo MD Unavailable Deanna Romero RDCS Unavailable [email or web address] Lynda Willson MD Unavailable Carmen Perry MD Unavailable Ragini Oshea MD Unavailable [email or web address] Encounter Details Date Type Department Care Team (Latest Contact Info) Description 02/04/[address] [facility] Department [address] [place] [address] Diogo Hale MD [address] [place] [address] [email or web address] Dyspnea on exertion Social History Tobacco Use Types Packs/Day Years Used Date Smoking Tobacco: Never Smokeless Tobacco: Never Alcohol Use Standard Drinks/Week Comments Never 0 (1 standard drink = 0.6 oz pur e alcohol) Comments Unknown Sex and Gender Information Value Date Recorded Sex Assigned at Not on file Legal Sex Female 9:20 PM EDT Gender Identity Not on file Sexual Orientation Not on file documented as of this encounter Plan of Treatment Not on file documented as of this encounter Visit Diagnoses Diagnosis Dyspnea on exertion Other dyspnea and respiratory abnormality documented in this encounter Additional Health Concerns Infection Onset Date Last Indicated Resolved Time CoV-Risk 01/26/2021 01/28/2021 02/07/2021 1:25 AM EDT documented as of this encounter Care Teams Vp Securities Relationship Specialty Start Date End Date Ragini Oshea MD [email or web address] PCP - General 04/03/17 Radha Lowe NP [address] [place] [address] Historical LMR Provider 04/04/17 2 Deanna Manzanares CNM [address] [place] [address] Historical LMR Provider 04/04/17 2 Balwinder Stacy MD [address] [place] [address] Historical LMR Provider 04/04/17 06/25/21 Talya Hines NP [address] [place] [address] Historical LMR Provider 04/04/17 06/25/21 Isela Lawson MD [address] [place] [address] [email or web address] Historical LMR Provider 04/04/17 06/25/21 Ruth Alberto, DIGITAL PROJECT COORDINATOR [address] [place] [address] Historical LMR Provider 04/04/17 2 Panda Regalado MD [address] [place] [address] Historical LMR Provider 04/04/17 Sushil Vallecillo MD [address] [place] [address] [email or web address] Historical LMR Provider 04/04/17 06/25/21 Deanna Romero, CS [email or web address] Historical LMR Provider 04/04/17 06/25/21 Lynda Willson MD [address] [place] [address] [email or web address] Historical LMR Provider 04/04/17 06/25/21 Carmen Perry MD [address] [place] [address] [email or web address] Historical LMR Provider 04/04/17 06/25/21 Ragini Oshea MD [email or web address] Insurance Assigned Provider 11/21/20 02/24/23 documented as of this encounter Additional Source Comments The information contained in this document represents components of the legal health record. It is not the complete legal health record.[facility]
--- OUTSIDE RECORDS SUMMARY | 2025-02-27 14:27 | XMS_ITS | Clinical Summary ---
Author Organization [facility] Address [address] [address] Phone Care Team Providers Care Professional Driver Name Role Phone Ragini Oshea MD Primary Care Provider [email or web address] No known active allergies Medications oxyCODONE 5 MG immediate release tablet Take 1 tablet by mouth every 6 (six) hours as needed. 6 Active ibuprofen (ADVIL,MOTRIN) 800 MG tablet 1 tablet Orally one pill one hour prior to procedure and then q 8 hrs for pain as needed 6 Active norethindrone-e thinyl estradiol (MICROGESTIN 07/07) 1-0.02 mg per tablet Take 1 tablet by mouth daily. patient to take continuously Active albuterol 90 mcg/actuation inhaler Inhale 2 puffs into the lungs every 6 (six) hours as needed for wheezing. 1 Inhaler 1 1 Active azithromycin (ZITHROMAX) 250 MG tablet Take 1 tablet (250 mg total) by mouth daily. 4 tablet 1 Active Social History Tobacco Use Types Packs/Day Years Used Date Smoking Tobacco: Never Smokeless Tobacco: Never Alcohol Use Standard Drinks/Week Comments Never 0 (1 standard drink = 0.6 oz pur e alcohol) Education Answer Date Recorded Are you interested in more education? Not on denise e 10/13/2022 Are you concerned about learning? Not on file 10/13/2022 No 10/13/2022 No 10/13/2022 Digital Access Answer Date Recorded No 11/10/2022 No 11/10/2022 Reliable internet access at home? Not on file 11/10/2022 Device with a working camera? Not on file Comments Unknown Sex and Gender Information Value Date Recorded Sex Assigned at Not on file Legal Sex Female 9:20 PM EDT Gender Identity Not on file Sexual Orientation Not on file Last Filed Vital Signs Vital Sign Reading Time Taken Comments Blood Pressure 116/78 01/28/2021 11:48 PM EDT Pulse 72 01/28/2021 11:48 PM EDT Temperature 36.3 C (97.3 F) 01/28/2021 11:48 PM EDT Respiratory Rate 18 01/28/2021 11:48 PM EDT Oxygen Saturation 96% 01/28/2021 11:48 PM EDT Inhaled Oxygen Concentration - - Weight 121.6 kg (268 lb) 07/01/2015 3:01 AM EST Height 162.6 cm (5' 4 ) 01/26/2021 6:16 PM EDT Body Mass Index 45.29 07/01/2015 3:01 AM EST Plan of Treatment Health Maintenance Due Date Last Done Comments DEPRESSION SCREENING 1993 HIV ONE-TIME SCREENING (18-65 YEARS) 1999 MAMMOGRAM 2021 PAP SMEAR 11/05/2023 11/04/2020, 11/07/2013 Adult Td,Tdap Booster 12/09/2024 12/09/2014, 012 INFLUENZA VACCINE (#1) 2025 04/06/2010 COVID-19 VACCINE ( season) 2025 10/13/2020, 09/09/2020, 08/14/2020, Additional history exists HEPATITIS C SCREENING Completed 11/01/2020 SMOKING STATUS SCREENING (Once After 26 Yrs) Completed 01/26/2021 HEPATITIS A VACCINES Aged Out No long er eligible based on patient's age to complete this topic HIB VACCINES Aged Out No longer eligi ble based on patient's age to complete this topic MENINGOCOCCAL VACCINES (ACWY) Aged Out No longer eligible based on patient's age to complete this topic MENINGOCOCCAL VACCINES (B) Aged Out N o longer eligible based on patient's age to complete this topic PNEUMOCOCCAL VACCINES (0-49 years) Aged Out No longer eligible based on patient's age to complete this topic Medical Devices Not on file Procedures Procedure Name Priority Date/Time Associated Diagnosis Comments PAP TEST Routine 11/04/2020 12:00 AM EDT from Last 3 Months or Most Recently Relevant to Health Maintenance Results * Pap Smear (11/04/2020 12:00 AM EDT) 11/04/2020 11/05/2020 8:3 1 AM EDT Narrative SEE NARRATIVE - 11/11/2020 3:47 PM EDT [address] [address] Employment Programs Analyst: Carmen Vigil MD PRINTING SERVICES COORDINATOR Cytology Report FINAL DIAGNOSIS A. PAP SMEAR (SUREPATH) CE: SPECIMEN ADEQUACY: Satisfactory for evaluation; transformation zone present. INTERPRETATION: NEGATIVE FOR INTRAEPITHELIAL LESION OR MALIGNANCY. Electronically Signed Out By: ANTONIO Delacruz(ASCP) The Pap test is a screening test primarily for squamous cancers and precursors and has associated false-negative and false-positive results. New technologies such as liquid-based preparations may decrease but will not eliminate all false-negative results. Regular sampling and follow-up of unexplained clinical signs and symptoms are recommended to minimize false negative results. PROCEDURES/ADDENDA HPV Testing (Requested) Ordered Date: 11/05/2020 A. PAP SMEAR (SUREPATH) CE: Human Papilloma Virus Test Negative for high-risk human papillomavirus types 16, 18, 45 and the Other high risk probe set (Includes 31, 33, 35, 39, 51, 52, 56, 58, 59, 66, 68) by [employer] Onclarity HR-HPV analysis. Clinical correlation is advised. This HPV test was performed at [facility], [address] [place] [address]. This test has been FDA approved for SurePath cervical cytology specimens. The accuracy and precision of this test for all other specimen sources has been verified in the Cytopathology Laboratory of the [facility] and has not been cleared or approved by the U.S. Food and Drug Administration. Clinical correlation is advised. CLINICAL HISTORY Date of Last Menstrual Period: 10-05-2020 Other Clinical Conditions: Screening Pap SPECIMEN SOURCE A: PAP SMEAR (SUREPATH) CE Patient Name: CHAPIS [place] : 1980 (Age: 40) Sex: F Institution: [facility] Location: [facility] Date of Collection: 11/04/2020 Date of Reported: 11/11/2020 15:47 Results to: Anayeli Ellis BLOW DOWN HELPER us Anayeli Vance NP CYTOLOGY ORDERABLES Final R esult SEE NARRATIVE from Last 3 Months or Most Recently Relevant to Health Maintenance Insurance [facility] [place] [id number] Care Teams Professional Driver Relationship Specialty Start Date End Date Ragini Oshea MD [email or web address] PCP - General 04/03/17 Additional Source Comments The information contained in this document represents components of the legal health record. It is not the complete legal health record.[facility]
== END 2025-02-27 12:02 | disposition home or self-care (01) ==
LOC: HO.HBS 11:57
PROVIDERS: PCP Nurse Practitioner Family; Visit Provider Physician Assistant Surgical
DX: E66.9 Obesity, unspecified (principal); Z68.36 Body mass index [BMI] 36.0-36.9, adult; Z90.3 Acquired absence of stomach [part of]; Z98.84 Bariatric surgery status
CPT/HCPCS: 99024

== ENCOUNTER 2025-06-16 13:02 | Outpatient (REF) | payer OTHER, SELFPAY ==
[2025-06-16 13:22] LABS: MANUAL DIFF FLAG NO
[2025-06-16 13:26] LABS: Hematocrit 33.3 % (37.0-47.0); Hemoglobin 10.0 g/dl (12.0-16.0); Imm Gran Abs Auto 0.02 X10*3/uL (0.00-0.03); Imm Gran Pct Auto 0.3 % (0.0-0.4); Lymphocytes Absolute Auto 2.6 X10*3/uL (1.2-4.9); Mean Corpuscular HGB Conc 30.0 g/dl (31.0-35.0); Mean Corpuscular Hemoglobin 20.5 pg (27.0-33.0); Mean Corpuscular Volume 68.2 fL (80.0-98.0); NRBC Abs Auto 0.000 X10*3/uL (0.0-0.012); NRBC Pct Auto 0.0 /100WBC (0.0-0.2); Platelet Count 297 X10*3/uL (160-400); Red Blood Count 4.88 X10*6/uL (4.20-5.50); White Blood Count 7.0 X10*3/uL (4.8-10.8)
[2025-06-16 13:59] LABS: Alanine Aminotransferase 10 U/L (0-31); Albumin Level 4.5 g/dL (3.5-5.0); Alkaline Phosphatase 69 U/L (39-117); Anion Gap 11 (12-20); Aspartate Amino Transferase 15 U/L (5-31); Blood Urea Nitrogen 12 mg/dL (9-16); Calcium 8.9 mg/dL (8.4-10.2); Carbon Dioxide 24 mmol/L (22-29); Chloride 111 mmol/L (96-108); Cholesterol 115 mg/dL (<200); Estimated Glomerular Filt Rate > 60; HDL Cholesterol 39 mg/dL (>40); Iron 22 mcg/dL (30-160); Percent Iron Saturation 6 % (15-50); Potassium 3.8 mmol/L (3.3-5.1); Sodium 142 mmol/L (135-145); Total Iron Binding Capacity 365 mcg/dL (228-428); Total Protein 7.5 g/dL (6.5-8.0); Triglycerides 69 mg/dL (<150); Unsaturated Iron Binding 343 ug/dL
[2025-06-16 14:13] LABS: Ferritin 5 ng/mL (10-250)
[2025-06-16 14:27] LABS: Folate 2.7 ng/mL (> or = 4.0); Vitamin B12 234 pg/mL (200-900)
--- OUTSIDE RECORDS SUMMARY | 2025-06-16 16:57 | XMS_ITS | Data Portability ---
Author Organization [facility] [employer], [employer] Address [address] [facility] [place] [address] Care Team Providers Care Chemistry Technical Officer Name Role Phone FLORENTINO HEAD Referring Provider [...] testing for reevaluation Andi Hector M.D. PhD [facility] [email or web address] Not available 11/30/2020 11:08:44 Plan [...] Time 12/16/2020 Cognivue completed Andi Hector MD [address] [place] [address], [phone], [facility] 12/16/2020 17:27:18 Imaging Results None recorded. [...] Updated DateTime 11/30/2020 162.56 cm 49.3 kg/m2 920471.0 1 g 12 /min Yenni Sanchez [facility] 11/30/2020 10:17:52 Social History Question Answer Notes LastModified by Organizat ion Details LastModified Time Tobacco Smoking Status Never [facility] 11/30/2020 10:21:01 What Is Your Level Of Caffeine Consumption? Occasional 1 Per Day Information not available 11/30/2020 What Is The Highest Grade Or Level Of School You Have Completed Or The Highest Degree You Have Received? [id number] Information not available 11/30/2020 What Is Your Relationship Status? Information not available 11/30/2020 Sex: Unknown Functional Status Question Answer Note LastModified by Organization D etails LastModified Time What is your level of alcohol consumption? None Information not available 11/30/2020 Mental Status None [...] Diagnosis SNOMED-CT Code Diagnosis ICD10 Code Diagnosis IMO Codes Diagnosis Note 879 Andi Hector MD [facility] [address] [place] [address] [place] [address] 11/30/2020 10:12:29 11/30/2020 11:19:49 Mild neurocognitive disorder 743423115 G31.84 1112 Andi Hector MD [facility] [address] [place] [address] [place] [address] 12/16/2020 15:05:36 12/22/2020 13:51:33 Mild neurocognitive disorder 278658463 G31.84 Health Concerns Section Related Observation LastModified by Organization Detai ls LastModified Time None Recorded Concern Status LastModified by Organization Details LastModified Time None Recorded Advance Directives Directive None Recorded Payers Insurance Date Sequence Insurance Name Policy Number Policy Forman Covered Member ID Forman Member ID Guarantor Name 11/25/2020 1 [place]: [employer] Chapis Troy [id number] Chapis Troy 12/16/2020 1 [place] [facility] Chapis Troy [id number] Chapis Troy Notes Date Note Type Note Provider Name and Address Organization Details Recorded Time 11/30/2020 text/html She presents for initial neurology consultation for assessment and management of concern for dementia. She is accompanied by her youngest daughter. She starts by describing her mother s dementia. Her mother was diagnosed 14 years ago with frontotemporal dementia ~2006, at 51 years of age (born 1955). The family took care of her for many years until ~2016 this became too difficult and her mother entered a retirement. Her mother also had seizures. The patient is unsure whether these were connected to the dementia. Her mother passed in September 2020. The patient is grieving but is d oing okay. However, she is concerned that she might have the beginnings of dementia. She feels that although everyone forgets little things here and there she forgets more than usual. This has been true for her for many years, as far back in her adulthood as she can remember. She doesn t remember parts of her childhood so she cannot say if this was true that. The fact that she has forgetfulness about her childhood is part of her concern about her memory. She doesn t remember specifics of her 3 birthing [...] gets it done. She has worked at [employer] a part of the [employer] department since 2019. Her supervisors are [...] rested the next day but sometimes she doesn t get to sleep until later and then is not rested of the next day. Both she and her snore. She has gotten used to his snoring and she does not recognize this as part of her problem going to sleep. Andi Hector MD [address] [place] [address] [place], [phone], [facility] 12/02/2020 16:03:37 12/16/2020 text/html Follow-up for Cognivue testing context concern for dementia. She is accompanied by her youngest daughter. Presenting symptomatology is reviewed from initial neurology consultation November 30, 2020: She starts by describing her mother s dementia. Her mother was diagnosed 14 years ago with frontotemporal dementia ~2006, at 51 years of age (born 1956). The family took care of her for many years until ~2017 this became too difficult and her mother entered a retirement. Her mother also had seizures. The patient is unsure whether these were connected to the dementia. Her mother passed in September 2020. The patient is grieving but is d oing okay. However, she is concerned that she might have the beginnings of dementia. She feels that although everyone forgets little things here and there she forgets more than usual. This has been true for her for many years, as far back in her adulthood as she can remember. She doesn t remember parts of her childhood so she cannot say if this was true that. The fact that she has forgetfulness about her childhood is part of her concern about her memory. She doesn t remember specifics of her 3 birthing [...] gets it done. 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 Both she and her snore. She has gotten used to his snoring and she does not recognize this as part of her problem going to sleep. Andi Hector MD [address] [place] [address] [place], [phone], [facility] 12/16/2020 17:28:20 OBGyn Episode No OBEpisode recorded.
--- OUTSIDE RECORDS SUMMARY | 2025-06-16 16:57 | XMS_ITS | Encounter Summary ---
Author Organization [facility] Address [address] [facility] [address] [place] [address] Phone Care Team Providers Care Photography Colorist Name Role Phone Ragini Oshea MD Primary Care Provider martin Radha Lowe [employer]CR[employer]ON Unavailable Deanna ManzanaresM Unavailable Balwinder Stacy MD Unavailable Talya Hines [employer] Unavailable [phone] Isela Lawson MD Unavailable Ruth Alberto [employer]CR[employer]ON Unavailable [phone] Panda Regalado MD Unavailable Sushil Vallecillo MD Unavailable Deanna Romero RDCS Unavailable [email or web address] Lynda Willson MD Unavailable Carmen Perry MD Unavailable Ragini Oshea MD Unavailable la Encounter Details Date Type Department Care Team (Latest Contact Info) Description 02/04/2021 Transcribe Orders [facility] Department [address] [place] [address] Diogo Hale MD [address] [place] [address] [email or web address] Dyspnea on exertion Social History [...] documented as of this encounter Care Teams Photography Colorist Relationship Specialty Start Date End Date Ragini Oshea MD PCP - General 04/03/17 Radha Lowe NP [address] [place] [address] Historical LMR Provider 04/04/17 2 Deanna Manzanares CNM [address] [place] [address] Historical LMR Provider 04/04/17 2 Balwinder Stacy MD [address] [place] [address] Historical LMR Provider 04/04/17 06/25/21 Talya Hines NP [address] [place] [address] Historical LMR Provider 04/04/17 06/25/21 Isela Lawson MD [address] [place] [address] Historical LMR Provider 04/04/17 06/25/21 Ruth Alberto, CONCRETE MASON [address] [place] [address] Historical LMR Provider 04/04/17 2 Panda Regalado MD [address] [place] [address] Historical LMR Provider 04/04/17 Sushil Vallecillo MD [address] [place] [address] Historical LMR Provider 04/04/17 06/25/21 Deanna Romero, CS Historical LMR Provider 04/04/17 06/25/21 Lynda [place] MD [address] [place] [address] Historical LMR Provider 04/04/17 06/25/21 Carmen Perry MD [address] [place] [address] [email or web address] Historical LMR Provider 04/04/17 06/25/21 Ragini Oshea MD Insurance Assigned Provider 11/21/20 02/24/23 documented as of this encounter Additional Source Comments The information contained in this document represents components of the legal health record. It is not the complete legal health record.[facility]
--- OUTSIDE RECORDS SUMMARY | 2025-06-16 16:57 | XMS_ITS | Clinical Summary ---
Author Organization [facility] Address [address] [address] Phone Care Team Providers Care Housecleaner Name Role Phone Ragini Oshea MD Primary Care Provider [email or web address] [email or web address] No known active allergies Medications oxyCODONE [...] SEE NARRATIVE - 11/11/2020 3:47 PM EDT [address] [address] Sciences Dean: Carmen Vigil MD [employer] Cytology Report FINAL DIAGNOSIS A. PAP SMEAR [...] 52, 56, 58, 59, 66, 68) by [employer] On[employer] HR-HPV analysis. Clinical correlation is advised. This HPV test was performed at [facility], [address] [place] [address]. This test has been FDA approved for SurePath cervical cytology specimens. The accuracy and precision of this test for all other specimen sources has been verified in the Cytopathology Laboratory of the [facility] and has not been cleared or approved by the U.S. Food and Drug Administration. Clinical correlation is advised. CLINICAL HISTORY Date of Last Menstrual Period: 10-05-2020 Other Clinical Conditions: Screening Pap SPECIMEN SOURCE A: PAP SMEAR (SUREPATH) CE Patient Name: CHAPIS TROY : 1980 (Age: 40) Sex: F Institution: [facility] Location: [facility] Date of Collection: 11/04/2020 Date of Reported: 11/11/2020 15:47 Results to: Anayeli Ellis [employer]ICER us Anayeli Vance NP CYTOLOGY ORDERABLES Final R esult SEE NARRATIVE from Last 3 Months or Most Recently Relevant to Health Maintenance Insurance [facility] [place] [phone] Care Teams Housecleaner Relationship Specialty Start Date End Date Ragini Oshea MD [email or web address] PCP - General 04/03/17 Additional Source Comments The information contained in this document represents components of the legal health record. It is not the complete legal health record.[facility]
== END 2025-06-16 13:03 | disposition home or self-care (01) ==
LOC: HO.LAB 13:02
PROVIDERS: PCP Family Medicine; Visit Provider Nurse Practitioner
DX: Z98.84 Bariatric surgery status (principal)
CPT/HCPCS: 36415; 80053; 80061; 82306; 82607; 82728; 82746; 83036; 83525; 83540; 84425; 84443; 84590; 84630; 85025; 86140